=== PATIENT | male | born 1935 | race Caucasian/White ===

== ENCOUNTER 2022-10-28 09:59 | Outpatient (OUT) | payer MEDICARE, SELFPAY ==
--- NOTE | 2022-10-28 11:02 | CA_ITS ---
Patient: LOLA CRUZ Exam Date: 10/28/2022 : 1935 Gender:M Ordering : DR ILIA HODGSON M.D. Admission #: [id number] Family : Order #: [id number] CLICK HERE TO VIEW EXAM ECHOCARDIOGRAM REPORT PROCEDURE: CA ECHO DOPPLER COMPLETE INDICATIONS: ASHD, hypertension, PTCA's COMPARISON: None. DESCRIPTION: COMPLETE ECHOCARDIOGRAM Real-time transthoracic echocardiography with 2D, M-mode, spectral and color flow Doppler performed. QUALITY: Technically difficult due to patients condition. LEFT VENTRICLE: Normal chamber size. Normal left ventricular wall thickness. Systolic function is at the lower limits of normal. LV EF: Lower limits of normal left ventricular ejection fraction, (50-55%). DIASTOLIC: Grade I diastolic dysfunction. ATRIAL SEPTUM: Visually appears intact. LEFT ATRIUM: Normal chamber size. RIGHT ATRIUM: Normal chamber size. RIGHT VENTRICLE: Normal chamber size. Normal right ventricular systolic function. TRICUSPID VALVE: Normal mobility and thickness. Normal with trivial regurgitation. No evidence of pulmonary hypertension. RVSP 25 mmHg MITRAL VALVE: Normal mobility and thickness. No evidence of mitral valve stenosis. There is no mitral annular calcification. Mild mitral regurgitation. AORTIC VALVE: Normal trileaflet appearance. Thickened aortic valve. Normal leaflet mobility. No evidence of aortic valve stenosis. No aortic regurgitation. AORTIC ROOT: Mildly to moderately dilated, measuring 4.0 cm. PULMONIC VALVE: Not well visualized. No stenosis. No regurgitation. PERICARDIUM: No evidence of pericardial effusion. IVC: Collapses with inspirations. IVC is normal in size. PLEURA: CONCLUSION: 1. Left-ventricular systolic function is at the lower limits of normal. LVEF is 50 to 55%. 2. Mild diastolic dysfunction. 3. Normal right ventricular size and systolic function. 4. Mild mitral regurgitation. 5. Normal right-sided pressures. 6. Mildly to moderately dilated aortic root measuring 4.0 cm. Adult Echocardiography Procedure Report Left Ventricle LVEDD (3.7 - 5.6 cm): 4.71 cm LVESD (2.2 - 4.0 cm): 2.90 cm LVIVS thickness (0.6 - 1.2 cm): 0.87 cm LVPW thickness (0.5 - 1.0 cm): 0.95 cm e': 0.07 m/s E - e': 11.02 LVOT Max Gradient: 2.20 mm[Hg] LVOT Area (cm2): 0.74 m/s Peak Velocity (LVOT): 0.74 m/s Mean Velocity (LVOT): 0.55 m/s LVOT Diameter 2.04 cm Left Atrium LA Volume Index (2D A2C): 23.03 ml/m2 Left Atrium Systolic Dimension: 3.67 cm Mitral Valve MV E to A Ratio: 0.69 Mitral Valve A-Wave Peak Velocity: 1.06 m/s Mitral Valve E-Wave Peak Velocity: 0.74 m/s Right Ventricle Aorta AO Root Diam: 3.96 cm Aortic Valve AoV Area (Peak Juan F): 1.98 cm2, 1.98 cm2 AoV Area (VTI): 2.20 cm2, 2.20 cm2 Peak Velocity(Antegrade Flow): 1.22 m/s Peak Gradient(Antegrade Flow): 5.91 mm[Hg] Mean Velocity(Antegrade Flow): 0.84 m/s Mean Gradient(Antegrade Flow): 3.23 mm[Hg] Velocity Time Integral: 33.60 cm Tricuspid Valve Peak Velocity (Regurgitant Flow): 2.37 m/s Pulmonic Valve Peak Velocity: 0.98 m/s Peak Gradient: 3.73 mm[Hg], 4.01 mm[Hg] Right Atrium Right Atrium Systolic Pressure: 53.05 ml, 53.05 ml Dictated by: Ilia Hodgson M.D. on 10/28/2022 at 17:40 Approved by: Ilia Hodgson M.D. on 10/28/2022 at 17:44
== END 2022-10-28 10:00 | disposition home or self-care (01) ==
LOC: CARD 09:59
PROVIDERS: PCP Internal Medicine; Visit Provider Internal Medicine Interventional Cardiology
DX: I25.118 Atherosclerotic heart disease of native coronary artery with other forms of angina pectoris (principal); I51.9 Heart disease, unspecified; I34.0 Nonrheumatic mitral (valve) insufficiency; I77.810 Thoracic aortic ectasia
CPT/HCPCS: 93306

== ENCOUNTER 2022-11-04 08:11 | Outpatient (OUT) | payer MEDICARE, SELFPAY ==
--- NOTE | 2022-11-04 | PCN_ITS ---
CARDIAC STRESS TEST Requesting Physician:? Procedure Date:? 11/04/2022 This was a Lexiscan stress test with myocardial perfusion imaging, performed at the [facility] on 11/04/2022. Informed consent was obtained.? An intravenous line was secured and the patient was attached to electrocardiographic monitoring.??? Baseline vital signs and ECG were obtained.? Lexiscan 0.4 mg was administered intravenously, followed by administration of Cardiolite.? The patient then went on to obtain myocardial perfusion images.? Resting heart rate was 59 BPM and maximum heart rate was 74 BPM.? The resting blood pressure was 168/94 and maximum blood pressure was 176/104.? Resting ECG showed sinus rhythm with first degree AV block with no acute changes.? ECG post infusion of Lexiscan showed sinus rhythm with occasional PVCs and no ischemic ST changes. The patient reported mid sternal chest pain following infusion of Lexiscan, which resolved at the end of the test. SUMMARY OF THE FINDINGS:? 1.? No evidence of ischemic ECG changes following infusion of Lexiscan.? 2.? Uncontrolled systemic hypertension. 3.? Myocardial perfusion images will be reported separately. ISAID
--- NOTE | 2022-11-04 07:45 | NM_ITS ---
Patient: LOLA CRUZ Exam Date: 11/04/2022 : 1935 Gender:M Ordering : DR ILIA HERNANDEZ M.D. Admission #: [id number] Family : DR TAQUERIA GRAYSON M.D. Order #: [id number] CLICK HERE TO VIEW EXAM RADIOLOGY REPORT PROCEDURE: NM LEISA PERF SPECT REST STR COMPARISON: None. INDICATIONS: CHEST PAIN, CORONARY ARTERY DISEASE TECHNIQUE: Exam Description: Stress/Rest one day protocol gated SPECT Rest Imagin.0 mCi Tc-99m Cardiolite IV on 11/04/2022 Stress Imaging 25.4 mCi Tc-99m Cardiolite IV on 11/04/2022 Exercise Protocol: 0.4 mg Lexiscan given IV Heart Rate (bpm): Rest: 59 Max: 74 PMHR: 56 Blood Pressure: Rest: 168/94 Max: 176/104 Symptoms: Rest and peak stress ECG findings were pending and the exercise portion of the study was pending per attending physician Dr. ZACARIAS . For more details please see separate cardiac stress test report. FINDINGS: QUALITY OF STUDY: Good. PERFUSION DEFECT: LOCATION: Basal inferolateral. Mid-inferolateral. SIZE: Small (1-2 segments). SEVERITY: Moderate. TYPE: Persistent. WALL MOTION: Normal. LV SIZE: Normal. 67 mL. TID / TCD: None; 0.8 LVEF: Normal. Calculated EF 64%. SUMMARY: Myocardial perfusion imaging study has ABNORMAL findings. CONCLUSION: 1. Small area of moderate severity fixed defect inferior lateral wall 2. No reversible ischemia 3. Pending exercise test results Dictated by: Lew Osuna MD on 11/05/2022 at 12:51 Approved by: Lew Osuna MD on 11/05/2022 at 12:53
[2022-11-04] MEDS: REGADENOSON 0.4 MG/5 ML SYRINGE IV (09:59)
== END 2022-11-04 08:12 | disposition home or self-care (01) ==
LOC: NM 08:11
PROVIDERS: PCP Internal Medicine; Visit Provider Internal Medicine Interventional Cardiology
DX: I25.118 Atherosclerotic heart disease of native coronary artery with other forms of angina pectoris (principal)
CPT/HCPCS: 78452; 93017; A9500; J2785

== ENCOUNTER 2022-12-08 11:16 | Outpatient (OUT) | payer MEDICARE, SELFPAY ==
--- NOTE | 2022-12-08 | US_ITS ---
[address] [address] Patient Name: LOLA CRUZ MRN: [id number] date: 1935 Sex: M Assigned Patient Location: RAD Current Patient Location: RAD Accession/Order Number: [id number] Exam Date: 12/08/2022 11:40 Report Date: 12/08/2022 12:27 At the request of: JOSE ANGEL DUNCAN Procedure: US renal BI EXAM: US renal BI; [id number] HISTORY: Hematuria. TECHNIQUE: Real-time sonography through the kidneys and bladder was performed. Color and spectral Doppler images of the kidneys were obtained. COMPARISON: Same day abdominal x-ray. CT abdomen/pelvis 05/22/2016 FINDINGS: RIGHT KIDNEY: Size: 10.2 x 4.9 x 4.6 cm. Volume 121 cc. Normal in size and echogenicity. No collecting system dilatation. No echogenic calculi. No solid mass on provided views. Small simple cyst measuring 8 mm. LEFT KIDNEY: Size: 10.7 x 5.7 x 5.3 cm. Volume 169 cc. Normal in size and echogenicity. No collecting system dilatation. No echogenic calculi. No solid mass on provided views. Simple cyst measuring up to 2.4 cm. BLADDER: Mild diffuse bladder wall thickening with 2 small bladder diverticula along the posterior aspect of the bladder. Prevoid bladder volume of 544 mL. US/US renal BI IMPRESSION: 1. No kidney stones or hydronephrosis. 2. Diffuse bladder wall thickening with 2 small bladder diverticula. Appearance favors chronic outlet obstruction, however, urothelial neoplasm cannot be ruled out. Electronically authenticated by: GODFREY PADILLA Date: 12/08/2022 12:27
--- NOTE | 2022-12-08 11:29 | XR_ITS ---
The [address] [address] Patient Name: LOLA CRUZ MRN: [id number] date: 1935 Sex: M Assigned Patient Location: RAD Current Patient Location: RAD Accession/Order Number: [id number] Exam Date: 12/08/2022 11:30 Report Date: 12/08/2022 12:36 At the request of: JOSE ANGEL DUNCAN Procedure: XR abdomen 1V EXAMINATION: XR abdomen 1V, [id number] HISTORY: Hematuria COMPARISON: CT abdomen/pelvis 05/22/2016. FINDINGS: Nonobstructive bowel gas pattern. No discrete pneumoperitoneum, pneumatosis, or portal venous gas within the limitations of this single view radiograph. There are several vascular phleboliths projection of the pelvis. No calcification projecting over either kidney or along the expected course of the ureters. Stool burden is mildly above-average. XR/XR abdomen 1V IMPRESSION: No calcification projecting over either kidney or along the expected course of the ureters. Electronically authenticated by: GODFREY PADILLA Date: 12/08/2022 12:36
== END 2022-12-08 11:17 | disposition home or self-care (01) ==
PROVIDERS: PCP Internal Medicine; Visit Provider Urology
DX: R31.9 Hematuria, unspecified (principal)
CPT/HCPCS: 74018; 76775

== ENCOUNTER 2023-02-23 13:57 | Outpatient (OUT) | payer MEDICARE, SELFPAY ==
--- NOTE | 2023-02-23 14:11 | XR_ITS ---
The [address] [address] Patient Name: LOLA CRUZ MRN: [id number] date: 1935 Sex: M Assigned Patient Location: [facility] Current Patient Location: Accession/Order Number: [id number] Exam Date: 02/23/2023 14:30 Report Date: 02/24/2023 10:46 At the request of: CHERYL MENDEZ Procedure: XR cervical spine w flex/ext EXAM: XR cervical spine w flex/ext HISTORY: Cervical Pain M54.2 COMPARISON: None. TECHNIQUE: Routine views of the XR cervical spine w flex/ext FINDINGS: Anatomy: There are 7 [id number] cervical segments. Bones: No acute fracture or dislocation. No suspicious lytic or sclerotic lesion. Mild multilevel facet hypertrophy. Severe C5-C6 disc and endplate degeneration grade 1 anterolisthesis of C4 on C5 on flexion. Normal atlantoaxial alignment. Other: Unremarkable. XR/XR cervical spine w flex/ext IMPRESSION: Multilevel cervical spondylosis with evidence of instability at the C4-C5 level. Electronically authenticated by: OSCAR CARCAMO Date: 02/24/2023 10:46
== END 2023-02-23 13:58 | disposition home or self-care (01) ==
LOC: RAD 14:00
PROVIDERS: PCP Internal Medicine; Visit Provider Psychiatry & Neurology Neurology
DX: M54.2 Cervicalgia (principal); M47.812 Spondylosis without myelopathy or radiculopathy, cervical region
CPT/HCPCS: 72052

== ENCOUNTER 2023-11-16 18:50 | Inpatient (IN) | payer MEDICARE, SELFPAY ==
[2023-11-16] VITALS (13 sets, daily range): BP systolic 107–140; BP diastolic 54–72; PULSE 82–91; TEMP 37.1–39.6; O2SAT 91–94; BMI 27.9
--- NOTE | 2023-11-16 19:02 | XR_ITS ---
[address] [address] Patient Name: LOLA CRUZ MRN: [id number] date: 1935 Sex: M Assigned Patient Location: ER Current Patient Location: ER Accession/Order Number: [id number] Exam Date: 11/16/2023 19:25 Report Date: 11/16/2023 21:41 At the request of: MIRI APPLE Procedure: XR chest 1V EXAM: XR chest 1V , 11/16/2023 HISTORY: CP, AMS COMPARISON: Previous x-ray from 2018. TECHNIQUE: Portable AP upright x-ray of the chest. FINDINGS: Low lung volumes and mild basal atelectasis. Cardiac silhouette within normal limits. Mild prominence of the perihilar markings. Mild atherosclerotic calcification of the aortic arch. No acute osseous findings. XR/XR chest 1V IMPRESSION: Low lung volumes with mild bibasal atelectasis. Electronically authenticated by: MILA BEST Date: 11/16/2023 21:41
--- NOTE | 2023-11-16 19:02 | ECG_ITS ---
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
--- OUTSIDE RECORDS SUMMARY | 2023-11-16 19:03 | XMS_ITS | CCD ---
Author Organization [facility] [place] [facility] Team Providers Care Service Employee Name Role Phone UNKNOWN, PROVIDER Unavailable Unavailable EMRE DAVIS Unavailable Unavailable EMRE DAVIS Unavailable Unavailable CHERYL TANG Unavailable Unavailable UNKNOWN, PROVIDER Unavailable Unavailable UNKNOWN, PROVIDER Unavailable Unavailable EMRE DAVIS Unavailable Unavailable EMRE DAVIS Unavailable Unavailable PAVEL CRUZ Consulting Unavailable KENAN, DR MENG Primary Care Unavailable REQUEST, DR CHILDS LISTED Admitting Unavaila ble REQUEST, DR CHILDS LISTED Attending Unavaila ble REQUEST, DR CHILDS LISTED Consulting Unavaila ble KENAN, DR MENG Admitting Unavailable DAVIS, DR MENG Attending Unavailable KENAN, DR MENG Consulting Unavailable KENAN, DR MENG Primary Care Unavailable ZIEBOFELIA, DR WEST Zhu Consulting Unavailable HERMANNFLORY Attending Unavailable HERMANN, FLORY Admitting Unavailable HERMANN, FLORY Consulting Unavailable DAVIS, DR MENG Primary Care Unavailable HERMANN, FLORY Admitting Unavailable HERMANN, FLORY Attending Unavailable ZIEBER, DR WEST Zhu Consulting Unavailable DAVIS, DR MENG Primary Care Unavailable HERMANN, FLORY Consulting Unavailable REQUEST, DR CHILDS LISTED Consulting Unavaila ble KENAN, DR MENG Primary Care Unavailable REQUEST, DR CHILDS LISTED Admitting Unavaila ble REQUEST, DR CHILDS LISTED Attending Unavaila EMRE Esparza Primary Care Physician CRISTIANE Davis Primary Care Provider [phone] MD Cheryl Arias Attending Provider [phone] Cheryl Arias Attending Unavailable Cheryl Arias Admitting Unavailable Emre Davis Primary Care Unavailable Zee Grant Unavailable Flory Davenport Unavailable Unavailable ILIA HODGSON Attending Unavailable MOUKARBILIA HEARN Attending Unavailable HERMANNFLORY Pulido Attending Unavailable DEBBI ROBLERO Attending Unavailable JIMBO PIKE Referring Unavailable JERRICA REGAN Attending Unavailable JERRICA REGAN Referring Unavailable BROWN, JIMBO A Referring Unavailable BROWN, JIMBO A Attending Unavailable BROWN, JIMBO A Referring Unavailable BROWN, JIMBO A Attending Unavailable VIRGINIA PRINGLE Attending Unavailable BROWN, JIMBO A Referring Unavailable BROWN, JIMBO A Referring Unavailable BROWN, JIMBO A Attending Unavailable BLACKSVIRGINIA LLOYD Attending Unavailable BROWN, JIMBO A Referring Unavailable KELFLORY KNOWLES Attending Unavailable BROWN, JIMBO A Referring Unavailable BRINK, FLORENCIO Attending Unavailable BROWN, JIMBO A Referring Unavailable KELBLEY, FLORY Attending Unavailable BROWN, JIMBO A Referring Unavailable BRINK, FLORENCIO Attending Unavailable BROWN, JIMBO A Referring Unavailable BRINK, FLORENCIO Attending Unavailable BROWN, JIMBO A Referring Unavailable BRINK, FLORENCIO Attending Unavailable BROWN, JIMBO A Referring Unavailable BRINK, FLORENCIO Attending Unavailable BROWN, JIMBO A Referring Unavailable BRINK, FLORENCIO Attending Unavailable BROWN, JIMBO A Referring Unavailable BRINK, FLORENCIO Attending Unavailable BROWN, JIMBO A Referring Unavailable BROWN, JIMBO A Referring Unavailable BROWN, JIMBO A Attending Unavailable VIRGINIA PRINGLE Attending Unavailable BROWN, JIMBO A Referring Unavailable ANDREA, CHERYL Feliz Attending Unavailable KELBLEFLORY Santos Attending Unavailable BROWN, JIMBO A Referring Unavailable ALLISON ARELLANO Attending Unavailable BROWN, JIMBO A Referring Unavailable BRINK, FLORENCIO Attending Unavailable BROWN, JIMBO A Referring Unavailable BRINK, FLORENCIO Attending Unavailable BROWN, JIMBO A Referring Unavailable BLACKSVIRGINIA LLOYD Attending Unavailable APLINGJERRICA Attending Unavailable BEVioleta, CHREYL Feliz Attending Unavailable BRINK, FLORENCIO Attending Unavailable BROWN, JIMBO A Referring Unavailable BROWN, JIMBO A Referring Unavailable ALLISON ARELLANO Attending Unavailable BROWN, JIMBO A Referring Unavailable BROWN, JIMBO A Attending Unavailable Brown, DO Jimbo A Admitting Unavailable Brown, DO Jimbo A Attending Unavailable Brown, DO Jimbo A Referring Unavailable [facility] [place] XXXX Consulting Unavailable LUDMILA, DO Ronobir R Consulting Unavailabl e LUDMILA, Ronobir R Consulting Unavailable LUDMILA, Ronobir R Consulting Unavailable Brown, DO Jimbo A Admitting Unavailable Brown, DO Jimbo A Attending Unavailable Brown, DO Jimbo A Referring Unavailable SAHARA SUAREZ Attending Unavailable Idris DUNCAN Attending Unavailable SAHARA SUAREZ Attending Unavailable EMRE DAVIS Attending Unavailable SAHARA SUAREZ Attending Unavailable SAHARA SUAREZ Admitting Unavailable Idris DUNCAN Admitting Unavailable Idris DUNCAN Attending Unavailable Allergies Allergy Classification Reported Allergen(s) Allergy Type Date of Onset Reaction(s) Facility (1 source) Bee/Wasp/Ant venom; Translations: [Bee/Wasp Stings] Propensity to adverse reactions (disorder) 2 [facility] (2 sources) ciprofloxacin; Translations: [Cipro] Drug Allergy 2 [facility] (3 sources) Penicillins; Translations: [PENICILLINS] Drug allergy (disorder) 2 [facility] (1 source) bee venom Drug allergy (disorder) 3 [facility] (2 sources) Ciprofloxacin; Translations: [CIPROFLOXACIN] Drug Allergy 2 [facility] (9 sources) Bee/Wasp/Ant venom; Translations: [Bee Stings] Allergy to substance Unknown (qualifier value) [facility] (8 sources) Ciprofloxacin; Translations: [ciprofloxacin] Drug Allergy Unknown (qualifier value) [facility] (8 sources) Penicillin; Translations: [penicillin] Drug Allergy Unknown (qualifier value) [facility] (1 source) Penicillian V Potassium Drug allergy Unknown [facility] Other (1 source) Bee pollen; Translations: [BEE POLLEN] Propensity to adverse reactions to drug (disorder) 4 [facility] Rep[facility] Medications Current Medications Medication Drug Class(es) Dates Sig (Normalized) Sig (Original) acetaminophen 325 mg / oxyCODONE hydrochloride 5 mg oral tablet (1 source) Opioid Agonist Start: 07-22-2023 Percocet 5 mg-325 mg oral tablet See Instructions, 40 tab(s), Refill(s) 0, 1-2 tab(s) Oral q4hr, [facility] #[id number], 175, cm, 07/09/23 12:46:00 EDT, Height/Length Dosing, 93, kg, 07/09/23 12:46:00 EDT, Weight Dosing Start Date: 07/22/23 Status: Ordered [id number] 200 actuat albuterol 0.09 mg/actuat metered dose inhaler (1 source) beta2-Adrenergic Agonist Start: 09-06-2022 take 2 puff(s) by inhalation every four hours as needed for wheezing Albuterol Sulfate HFA 108 (90 Base) MCG/ACT 2 puffs Inhalation every 4 hrs prn SOB, wheezing for 15 days Aug, Active amLODIPine 5 mg oral tablet (1 source) Dihydropyridine Calcium Channel Tres take 1 tablet by mouth every twenty-four hours amLODIPine Besylate 5 MG 1 tablet Orally Once a day Active aspirin 81 mg delayed release oral tablet (8 sources) Platelet Aggregation Inhibitor, Nonsteroidal Anti-inflammatory Drug Start: 07-22-2023 End: 08-21-2023 take 2 tablets by mouth once daily aspirin 81 mg Oral EC Tab 162 mg = 2 tab(s), Oral, Daily, X 30 day(s), # 60 tab(s), Refills(s) 0, Pharmacy: [facility] #[id number], 175, cm, 07/09/23 12:46:00 EDT, Height/Length Dosing, 93, kg, 07/09/23 12:46:00 EDT, Weight Dosing Start Date: 07/22/23 Stop Date: 08/21/23 Status: Ordered Start: 02-13-2020 take 1 tablet by artie th once daily aspirin 81 mg Oral EC Tab 81 mg = 1 tab(s), Oral, Daily, Refills(s) 0, Blood Thinner Start Date: 02/13/20 Status: Ordered take 1 tablet by artie th once daily Aspir-Low 81 MG 1 tablet Orally Once a day Active atorvastatin 10 mg oral tablet (9 sources) HMG-CoA Reductase Inhibitor Start: 07-08-2019 take 1 tablet by mouth once daily atorvastatin 10 mg Tab 10 mg = 1 tab(s), Oral, Daily, High cholesterol Start Date: 07/08/19 Status: Ordered take 1 tablet by artie th every twenty-four hours Lipitor 40 MG 1 tablet Orally Once a day Not-Taking azithromycin 250 mg oral tablet (1 source) Macrolide Antimicrobial Start: 09-06-2022 Azithromycin 250 MG 2 tablet on first day, 1 tablet daily for 4 days Orally daily for 5 days Aug, Active carvedilol 6.25 mg oral tablet (8 sources) alpha-Adrenergic Tres, beta-Adrenergic Tres Start: 07-08-2019 take 6.25 mg by mouth twice daily carvedilol 6.25 mg, Oral, BID Start Date: 07/08/19 Status: Ordered Start: 07-08-2019 carvedilol 3.1 25 mg, Oral Start Date: 07/08/19 Status: Ordered cefdinir 300 mg oral capsule (1 source) Cephalosporin Antibacterial Start: 12-31-2022 End: 01-10-2023 take 1 capsule by mouth every twelve hours cefdinir 300 mg Cap 300 mg = 1 cap(s), Oral, q12hr, Take with daily probitoics., X 10 day(s), # 20 cap(s), Refills(s) 0, [facility]acy: [facility] #[id number], 175, cm, 12/31/22 14:20:00 EDT, Height/Length Dosing, 93, kg, 12/31/22 14:20:00 EDT, Weight Dosing Start Date: 12/31/22 Stop Date: 01/10/23 Status: Ordered celecoxib 100 mg oral capsule (1 source) Nonsteroidal Anti-inflammatory Drug Start: 07-22-2023 take 1 capsule by mouth twice daily as needed for pain CeleBREX 100 mg Cap 100 mg = 1 cap(s), Oral, BID, PRN for pain, # 60 cap(s), Refills(s) 0, [facility][id number], 175, cm, 07/09/23 12:46:00 EDT, Height/Length Dosing, 93, kg, 07/09/23 12:46:00 EDT, Weight Dosing Start Date: 07/22/23 Status: Ordered cephalexin 500 mg oral capsule (1 source) Cephalosporin Antibacterial Start: 07-22-2023 End: 07-29-2023 take 1 capsule by mouth every eight hours Keflex 500 mg Cap 500 mg = 1 cap(s), Oral, q8hr, X 7 day(s), # 21 cap(s), Refills(s) 0, [facility][id number], 175, cm, 07/09/23 12:46:00 EDT, Height/Length Dosing, 93, kg, 07/09/23 12:46:00 EDT, Weight Dosing Start Date: 07/22/23 Stop Date: 07/29/23 Status: Ordered docusate sodium 100 mg oral capsule (1 source) Start: 07-22-2023 take 1 capsule by mouth twice daily as needed for constipation Colace 100 mg Cap 100 mg = 1 cap(s), Oral, BID, PRN for constipation, # 20 cap(s), Refills(s) 0, Pharmacy: [facility] #[id number], 175, cm, 07/09/23 12:46:00 EDT, Height/Length Dosing, 93, kg, 07/09/23 12:46:00 EDT, Weight Dosing Start Date: 07/22/23 Status: Ordered gabapentin 300 mg oral capsule (8 sources) Anti-epileptic Agent Start: 07-08-2019 take 300 mg by mouth twice daily gabapentin 300 mg, Oral, BID, Nerves Start Date: 07/08/19 Status: Ordered Start: 07-08-2019 gabapentin 300 mg, Oral Start Date: 07/08/19 Status: Ordered 24 hr isosorbide mononitrate 30 mg extended release oral tablet (2 sources) Nitrate Vasodilator Start: 07-24-2023 take 1 tablet by mouth once daily isosorbide mononitrate 30 mg ER Tab 30 mg = 1 tab(s), Oral, Daily, # 30 tab(s), Refills(s) 0, Pharmacy: [facility] #[id number], 175, cm, 07/09/23 12:46:00 EDT, Height/Length Dosing, 98.3, kg, 07/23/23 4:38:00 EDT, Weight Dosing Start Date: 07/24/23 Status: Ordered take 1 tablet by artie th every twenty-four hours Isosorbide Mononitrate ER 30 MG 1 tablet in the morning Orally Once a day Not-Taking losartan potassium 50 mg oral tablet (8 sources) Angiotensin 2 Receptor Tres Start: 07-08-2019 take 1 tablet by mouth once daily losartan 50 mg Tab 50 mg = 1 tab(s), Oral, Daily, High blood pressure Start Date: 07/08/19 Status: Ordered Nitro 0.4 mg Tab (6 sources) Start: 02-13-2020 Nitro 0.4 mg Tab = 1 tab(s), SubLingual, q5min, PRN Chest pain, # 25 tab(s), Refills(s) 3 Start Date: 02/13/20 Status: Ordered nitroglycerin 0.4 mg/actuat mucosal spray (2 sources) Nitrate Vasodilator Start: 02-13-2020 Nitro 0.4 mg Tab = 1 tab(s), SubLingual, q5min, PRN Chest pain, # 25 tab(s), Refills(s) 3 Start Date: 02/13/20 Status: Ordered Nitroglycerin 0. 4 MG as directed Sublingual Active pantoprazole 40 mg extended release oral tablet (8 sources) Proton Pump Inhibitor Start: 07-08-2019 take 40 mg by mouth once daily pantoprazole 40 mg, Oral, Daily, Control of stomach acid Start Date: 07/08/19 Status: Ordered Start: 07-08-2019 pantoprazole 4 0 mg, Daily Start Date: 07/08/19 Status: Ordered take 1 tablet by artie th every twenty-four hours Pantoprazole Sodium 40 MG 1 tablet Orally Once a day Active 12 hr ranolazine 500 mg extended release oral tablet (8 sources) Anti-anginal Start: 07-08-2019 take 1 tablet by mouth twice daily ranolazine 500 mg oral ER Tab 500 mg = 1 tab(s), Oral, BID, Chest pain Start Date: 07/08/19 Status: Ordered Vitamin B12 1000 mcg Tab (3 sources) Start: 07-07-2023 take 1 tablet by mouth once daily Vitamin B12 1000 mcg Tab 1,000 mcg = 1 tab(s), Oral, Daily, Prophylaxis Start Date: 07/07/23 Status: Ordered Completed/Discontinued Medications Medication Drug Class(es) Dates Sig (Normalized) Sig (Original) latanoprost 0.05 mg/ml ophthalmic solution (6 sources) Prostaglandin Analog Start: 06-25-2022 latanoprost Opth 0.005% Virginie 1 drop(s), OPTH, Once a day (at bedtime) Start Date: 06/25/22 Status: Ordered Start: 06-25-2022 latanoprost Op th 0.005% Virginie 1 drop(s), OPTH, Once a day (at bedtime), 2.5 mL Start Date: 06/25/22 Status: Ordered omeprazole 20 mg delayed release oral capsule (1 source) Proton Pump Inhibitor take 1 capsule by mouth once daily PriLOSEC 20 MG 1 capsule Orally Once a day Not-Taking tamsulosin hydrochloride 0.4 mg oral capsule (9 sources) alpha-Adrenergic Tres Start: 3 End: 4 tamsulosin 0.4 mg Cap 0.4 mg = 1 cap(s), Cap, Oral, Start date 07/24/23 9:00:00 AM EDT, 07/22/23 7:30:00 EDT Start Date: 07/24/23 Stop Date: 07/24/23 Status: Completed Start: 04-29-2021 End: 04-24-2022 take 1 capsule by mouth twice daily tamsulosin 0.4 mg Cap 0.4 mg = 1 cap(s), Oral, BID, X 90 day(s), # 180 cap(s), Refills(s) 3, Pharmacy: [facility], 175, cm, 04/29/21 11:59:00 EST, Height/Length Dosing, 93, kg, 04/29/21 11:59:00 EST, Weight Dosing Start Date: 04/29/21 Stop Date: 04/24/22 Status: Ordered Tylenol 8 Hour 650 MG (1 source) take 1 tablet by mouth every eight hours as needed Tylenol 8 Hour 650 MG 1 tablet as needed Orally every 8 hrs Not-Taking valACYclovir 1000 mg oral tablet (1 source) Herpesvirus Nucleoside Analog DNA Polymerase Inhibitor, Herpes Simplex Virus Nucleoside Analog DNA Polymerase Inhibitor, Herpes Zoster Virus Nucleoside Analog DNA Polymerase Inhibitor take 1 tablet by mouth every twenty-four hours Valtrex 1 GM 1 tablet Orally every 24 hrs Not-Taking vitamin e 100 unt oral tablet (3 sources) Start: 4 take 1 tablet by mouth every other day vitamin E 100 intl units oral tablet 100 International_Unit = 1 tab(s), Oral, Every other day, Prophylaxis Start Date: 07/07/23 Status: Ordered Problems Active Problems Problem Classification Problem Date Documented Da te Episodic/Chronic Biliary tract disease (1 source) Common bile duct calculus; Translations: [CHOLEDOCHOLITHIASI S NOS] Episodic Coronary atherosclerosis and other heart disease (20 sources) Other forms of angina pectoris; Translations: [Atherosclerotic heart disease of [place] coronary artery with unspecified angina pectoris] Onset: 07-15-2017 Chronic Disorders of lipid metabolism (11 sources) Hyperlipidemia, unspecified; Translations: [Hypercholesterolem ia] Onset: 07-15-2017 07-01-2019 Chronic Esophageal disorders (11 sources) Gastro-esophageal reflux disease without esophagitis; Translations: [Gastroesophageal reflux disease] Onset: 07-15-2017 07-01-2019 Chronic Essential hypertension (11 sources) Essential (primary) hypertension; Translations: [Hypertensive disorder] Onset: 07-15-2017 07-01-2019 Chronic Genitourinary symptoms and ill-defined conditions (7 sources) Urge incontinence of urine 02-13-2020 Chronic Genitourinary symptoms and ill-defined conditions (20 sources) Retention of urine; Translations: [Retention of urine, unspecified] Onset: 10-25-2021 Episodic Hyperplasia of prostate (20 sources) Benign prostatic hyperplasia without lower urinary tract symptoms; Translations: [Benign prostatic hypertrophy with outflow obstruction] Onset: 08-20-2017 Chronic Inflammatory conditions of male genital organs (8 sources) Chronic prostatitis; Translations: [Chronic prostatitis] Onset: 10-25-2021 Chronic Nonspecific chest pain (5 sources) Chest pain, unspecified; Translations: [Chest pain] Onset: 07-15-2017 Episodic Osteoarthritis (3 sources) Unspecified osteoarthritis, unspecified site; Translations: [Arthritis] Onset: 08-20-2017 Chronic Other diseases of bladder and urethra (7 sources) Neurogenic bladder 07-01-2019 Chronic Other diseases of bladder and urethra (7 sources) Male urethral stricture 09-20-2019 Episodic Other diseases of kidney and ureters (2 sources) Urinary tract obstruction; Translations: [Other obstructive and reflux uropathy] Onset: 10-25-2021 Episodic Other diseases of kidney and ureters (2 sources) Acquired renal cyst without neoplastic change; Translations: [Cyst of kidney, acquired] Onset: 12-31-2022 Episodic Other diseases of kidney and ureters (4 sources) Simple renal cyst 12-31-2022 Episodic Other gastrointestinal disorders (7 sources) H/O: abdominal hernia 07-01-2019 Episodic Other lower respiratory disease (1 source) Unspecified acute lower respiratory infection Episodic Other male genital disorders (7 sources) 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 Other male genital disorders (9 sources) Male erectile dysfunction, unspecified; Translations: [Erectile dysfunction] Onset: 06-25-2022 Chronic Other non-epithelial cancer of skin (7 sources) History of malignant basal cell neoplasm of skin 07-01-2019 Episodic Other nutritional; endocrine; and metabolic disorders (7 sources) Body mass index 30+ - obesity 02-13-2020 Chronic Spondylosis; intervertebral disc disorders; other back problems (1 source) Lumbar spondylosis; Translations: [Lumbar spondylosis] Chronic Spondylosis; intervertebral disc disorders; other back problems (5 sources) Radiculopathy, lumbar region; Translations: [Lumbar radiculopathy] Onset: 11-17-2019 Episodic Unclassified (2 sources) Unknown / UNK(Unknown) Onset: 07-15-2017 Unclassified (7 sources) Drug therapy finding 09-20-2019 Urinary tract infections (15 sources) Acute urinary tract infection; Translations: [Urinary tract infectious disease] Onset: 12-31-2022 12-05-2022 Episodic Past or Other Problems Problem Classification Problem Date Documented Da te Episodic/Chronic Cancer of prostate (1 source) Personal history of malignant neoplasm of prostate; Translations: [PERSONAL HISTORY OF MALIGNANT NEOPLASM OF PROSTATE] Onset: 07-15-2017 Episodic Coronary atherosclerosis and other heart disease (3 sources) Presence of coronary angioplasty implant and graft; Translations: [PRESENCE OF CORONARY ANGIOPLASTY IMPLANT AND GRAFT] Onset: 07-15-2017 Episodic Other aftercare (1 source) 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; Translations: [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] Onset: 07-15-2017 Episodic Other lower respiratory disease (2 sources) Shortness of breath; Translations: [Shortness of breath] Onset: 10-22-2022 Episodic Residual codes; unclassified (2 sources) Localized edema; Translations: [Localized edema] Onset: 10-22-2022 Episodic Screening or history of mental health and substance abuse (1 source) Personal history of nicotine dependence; Translations: [PERSONAL HISTORY OF NICOTINE DEPENDENCE] Onset: 07-15-2017 Episodic Results Test Name Value Interpretation Reference Range Facility Office Visiton 09-21-2023 Follow-up visit [id number] Gualberto Cruz 1935 M Date Provider Department Center 09/21/2023 ILIA SINGH KAITLIN [facility] Family History Problem Relation Age of Onset Prostate cancer Other Family Status - Relation Status Age at Other Level of Service:99107 [place] OFFICE/OUTPATIENT ESTABLISHED MOD MDM 30 MIN Normal [facility] HIST - EKG'son 08-14-2023 HIST - EKG's [id number] Normal [facility] Operative Reporton Operative Report Patient: ILEANA CRUZ Age: 88 years Sex: Male : 1935 Associated Diagnoses: None Author: MD Love Ahmad F Postoperative Information Date/ Time: 07/22/2023 08:15:00 Preoperative Diagnosis: Acute postoperative pain., Per surgeon request for post-op pain management. Postoperative Diagnosis: Acute postoperative pain, Per surgeon request for post-op pain management. Procedure: adductor canal nerve block. Anesthesia Method: Local, Monitored anesthesia care. Performed by: MD Love Ahmad F. Medications: Midazolam 2mg, Fentanyl . Complications: None. Notes: The patient was interviewed and examined prior to the planned operation. Anesthesia options were discussed including the adductor canal nerve block for postoperative analgesia. This discussion included a description of the procedure, risks and benefits, as well as alternatives to the block. The patient's questions were addressed and the patient elected to proceed with the adductor canal nerve block. After a timeout, the patient was placed in the supine position and monitored with continuous pulse oximetry, non-invasive blood pressure, and electrocardiography. The thigh was prepped with CHG and sterilely draped. Anatomical landmarks were identified with ultrasonographic guidance. A 2 x 22 gauge Stimuplex needle was inserted without pain or paresthesias. With the needle held in place, and with intermittent attempts for aspiration of blood, 20 cc of 0.5% Ropivacaine was injected at 5cc intervals. Negative aspiration for blood was confirmed at every 5cc interval. No signs or symptoms of intravascular or intraneural injection were evidenced. The patient tolerated the procedure well without complications. . Normal [facility] Comment on above: Result Comment: Elec tronically Signed By: MD Love Ahmad F\.br\Date and Time Signed: 07/27/23 09:54 EDT Progress Note-Physicianon Progress Note-Physician Patient: GUALBERTO CRUZ Age: 88 years Sex: Male : 1935 Associated Diagnoses: None Author: MD Love Ahmad F Postoperative Information Postoperative disposition: Postoperative disposition: To PACU. Optimetrix number: Optimetrix number [id number]. Anesthetic utilized: General. Health Status Allergies: Allergic Reactions (Selected) Severity Not Documented Bee Stings- Anaphylaxis. Cipro- Hives. Penicillin- Hives. Physical Examination VS/Measurements Pain Assessment: Controlled. General: Awake, Alert, Appropriate. Respiratory: Adequate air exchange. Cardiovascular: Stable, Normal peripheral perfusion. Neurological: Normal sensory function, Normal motor function. Assessment Anesthetic outcome No anesthetic complications noted. Adequate pain relief. able to void without difficulty, able to ambulate with assist, tolerating PO intake, no N/V. Review / Management Condition: Stable. Plan Transfer/Discharge: Transfer/Discharge Discharge when meets criteria ( To home ). Normal [facility] Comment on above: Result Comment: Elec tronically Signed By: MD Love Ahmad F\.br\Date and Time Signed: 07/27/23 09:55 EDT Progress Note-Physician Patient: GUALBERTO CRUZ Age: 88 years Sex: Male : 1935 Associated Diagnoses: None Author: MD Love Ahmad F Preoperative Information Time patient last ate or drank:=== (npo 8 hours) Anesthesia history: Patient history: No prior anesthesia problems. Re-evaluation prior to induction: Completed, Initial evaluation reviewed. Review of Systems Respiratory: No shortness of breath. Cardiovascular: No chest pain. Hematology/Lymphatics: No bruising tendency, No bleeding tendency. Health Status Allergies: Allergic Reactions (All) Severity Not Documented Bee Stings- Anaphylaxis. Cipro- Hives. Penicillin- Hives. Current medications: (Selected) Prescriptions Prescribed CeleBREX 100 mg Cap: 100 mg = 1 cap(s), Oral, BID, PRN for pain, # 60 cap(s), Refills(s) 0, Pharmacy: [facility] #[id number], 175, cm, 07/09/23 12:46:00 EDT, Height/Length Dosing, 93, kg, 07/09/23 12:46:00 EDT, Weight Dosing Colace 100 mg Cap: 100 mg = 1 cap(s), Oral, BID, PRN for constipation, # 20 cap(s), Refills(s) 0, Pharmacy: [facility] #[id number], 175, cm, 07/09/23 12:46:00 EDT, Height/Length Dosing, 93, kg, 07/09/23 12:46:00 EDT, Weight Dosing Keflex 500 mg Cap: 500 mg = 1 cap(s), Oral, q8hr, X 7 day(s), # 21 cap(s), Refills(s) 0, Pharmacy: [facility] #[id number], 175, cm, 07/09/23 12:46:00 EDT, Height/Length Dosing, 93, kg, 07/09/23 12:46:00 EDT, Weight Dosing Percocet 5 mg-325 mg oral tablet: See Instructions, 40 tab(s), Refill(s) 0, 1-2 tab(s) Oral q4hr, [facility] #[id number], 175, cm, 07/09/23 12:46:00 EDT, Height/Length Dosing, 93, kg, 07/09/23 12:46:00 EDT, Weight Dosing aspirin 81 mg Oral EC Tab: 162 mg = 2 tab(s), Oral, Daily, X 30 day(s), # 60 tab(s), Refills(s) 0, Pharmacy: [facility] #[id number], 175, cm, 07/09/23 12:46:00 EDT, Height/Length Dosing, 93, kg, 07/09/23 12:46:00 EDT, Weight Dosing isosorbide mononitrate 30 mg ER Tab: 30 mg = 1 tab(s), Oral, Daily, # 30 tab(s), Refills(s) 0, Pharmacy: [facility] #[id number], 175, cm, 07/09/23 12:46:00 EDT, Height/Length Dosing, 98.3, kg, 07/23/23 4:38:00 EDT, Weight Dosing Documented Medications Documented Nitro 0.4 mg Tab: = 1 tab(s), SubLingual, q5min, PRN Chest pain, # 25 tab(s), Refills(s) 3 Vitamin B12 1000 mcg Tab: 1,000 mcg = 1 tab(s), Oral, Daily, Prophylaxis atorvastatin 10 mg Tab: 10 mg = 1 tab(s), Oral, Daily, High cholesterol carvedilol: 6.25 mg, Oral, BID gabapentin: 300 mg, Oral, BID, Nerves latanoprost Opth 0.005% Virginie: 1 drop(s), OPTH, Once a day (at bedtime) losartan 50 mg Tab: 50 mg = 1 tab(s), Oral, Daily, High blood pressure pantoprazole: 40 mg, Oral, Daily, Control of stomach acid ranolazine 500 mg oral ER Tab: 500 mg = 1 tab(s), Oral, BID, Chest pain tamsulosin 0.4 mg Cap: 0.4 mg = 1 cap(s), Oral, Daily, Bladder problems vitamin E 100 intl units oral tablet: 100 International_Unit = 1 tab(s), Oral, Every other day, Prophylaxis Problem list: All Problems 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 / SNOMED CT 6979063618 / Confirmed Coronary artery disease / SNOMED CT 74938703 / Confirmed Chronic GERD / SNOMED CT 153560173 / Confirmed Hypertension / SNOMED CT 3936294924 / Confirmed Hx of hiatal hernia / SNOMED CT 672371833 / Confirmed Neurogenic bladder / SNOMED CT 4725962981 / Confirmed Incomplete emptying of bladder / SNOMED CT 918217018 / Confirmed Hypercholesterolemia / SNOMED CT 82699689 / Confirmed 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 / Confirmed Hx of skin cancer, basal cell / SNOMED CT 7691322478 / Confirmed Urinary urgency / SNOMED CT 049280044 / Confirmed Microscopic hematuria / SNOMED CT 339448699 / Confirmed Retention of urine / SNOMED CT 153068841 / Confirmed Weak urine stream / SNOMED CT 200605433 / Confirmed Anticoagulated / SNOMED CT 464273732 / Confirmed BMI 30.0-30.9,adult / SNOMED CT 345340762 / Confirmed 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 / SNOMED CT 5629760719 / Confirmed BPH with urinary obstruction / SNOMED CT 5325693784 / Confirmed Urge incontinence / SNOMED CT 104560612 / Confirmed Urinary retention with incomplete bladder emptying / SNOMED CT 176516540 / Confirmed Bladder pain / SNOMED CT 04440414 / Confirmed Chronic prostatitis / SNOMED CT 49557676 / Confirmed Erectile dysfunction / SNOMED CT 3022907614 / Confirmed Acute UTI / SNOMED CT 9509818887 / Confirmed Gross hematuria / SNOMED CT 453246051 / Confirmed Cystitis / SNOMED CT 44684631 / Confirmed UTI due to Klebsiella species / SNOMED CT 0600003417 / Confirmed Simple renal cyst / SNOMED CT 890483127 / Confirmed Histories Past Medical History: No active or resolved past medical history items have been selected or recorded. Family History: Primary malignant neoplasm of prostate Father Procedure history: Total knee arthroplasty ([id number]) on 07/22/2023 at 88 Years. Cystourethroscopy with dilation of urethral stricture (888500453) on 11/15/2019 at 84 Years. Cystourethroscopy with di (more content not included)... Normal [facility] Comment on above: Result Comment: Elec tronically Signed By: MD Ivan, Cullen Maddox\.br\Date and Time Signed: 07/27/23 09:53 EDT Discharge Instructionson Discharge Instructions [id number] Normal [facility] BMPon 07-24-2023 Anion gap [Moles/Vol] 9 mmol/L Normal 6-16 [facility] Comment on above: Performed By: #### 1 3804933, 8135985, 8775097, 8156400, 41761078, 4243487, 3454439, 8147610, 7752949 #### [facility] [address] [place] [address] Calcium [Mass/Vol] 8.6 mg/dL Low 8.9-11.1 [facility] Comment on above: Performed By: #### 1 9911241, 9387971, 7485871, 3829732, 99642700, 5353173, 4867925, 1272229, 6215117 #### [facility] [address] [place] [address] Chloride [Moles/Vol] 101 mmol/L Normal 101-111 [facility] Comment on above: Performed By: #### 1 2992265, 6699619, 7445491, 1723246, 39043537, 2218425, 6658363, 5157017, 8323302 #### [facility] [address] [place] [address] CO2 [Moles/Vol] 28 mmol/L Normal 21-31 [facility] Comment on above: Performed By: #### 1 3329292, 6673226, 1223572, 8504426, 53610161, 0049652, 2946510, 0622112, 2650177 #### [facility] [address] [place] [address] Creatinine [Mass/Vol] 1.3 mg/dL Normal 0.5-1.3 [facility] Comment on above: Performed By: #### 1 1976033, 5373574, 9319512, 8185661, 92629875, 3490962, 8108986, 9480177, 7078897 #### [facility] [address] [place] [address] Glucose [Mass/Vol] 104 mg/dL Normal 55-199 [facility] Comment on above: Performed By: #### 1 9010623, 4284541, 3841965, 2892855, 02001873, 4475347, 3845292, 1178126, 7693184 #### [facility] [address] [place] [address] Potassium [Moles/Vol] 5.2 mmol/L Normal 3.5-5.3 [facility] Comment on above: Performed By: #### 1 9215770, 8280642, 5232781, 1965159, 03664156, 7137645, 9514045, 5180544, 7101723 #### [facility] [address] [place] [address] Sodium [Moles/Vol] 133 mmol/L Low 135-145 [facility] Comment on above: Performed By: #### 1 7123541, 2602122, 1923600, 4113267, 63451062, 3118880, 0516993, 1767533, 7606669 #### [facility] [address] [place], [place] [address] Urea nitrogen [Mass/Vol] 26 mg/dL High 5-21 [facility] Comment on above: Performed By: #### 1 4602953, 2139495, 3216082, 4539982, 12567763, 1211683, 1812794, 3092704, 8112764 #### [facility] [address] [place], [place] [address] Urea nitrogen/Creatinin e [Mass ratio] 20 No Units Normal 10-20 [facility] Comment on above: Performed By: #### 1 6702332, 9933545, 1214913, 1207583, 98382412, 2055110, 1398609, 0249160, 0333470 #### [facility] [address] [place], [place] [address] CBC w/ Auto Diffon 4 Basophils/100 WBC (Bld) 0.2 % Normal 0.0-2.0 [facility] Comment on above: Performed By: #### 1 1413062, 4025318, 6933996, 7947521, 98687888, 1657000, 2079115, 0311372, 2610719 #### [facility] [address] [place], [place] [address] Basophils/Leukocyt es Auto (Bld) [Pure # fraction] 0.0 E9/L Normal 0.0-0.2 [facility] Comment on above: Performed By: #### 1 1593295, 6946193, 1325150, 4058582, 86412227, 8607608, 0940953, 9157897, 5864602 #### [facility] [address] [place] [address] Eosinophils (Bld) [#/Vol] 0.0 E9/L Normal 0.0-0.5 [facility] Comment on above: Performed By: #### 1 9760388, 5344168, 4895873, 7162864, 75610324, 9636220, 6646846, 5817938, 7589373 #### [facility] [address] [place] [address] Eosinophils/100 WBC (Bld) 0.1 % Normal 0.0-8.0 [facility] Comment on above: Performed By: #### 1 4991774, 2110525, 6291971, 3124881, 16528399, 9711879, 9405518, 5136284, 5416399 #### [facility] [address] [place] [address] Erythrocyte distribution width (RBC) [Ratio] 13.2 % Normal 10.9-14.2 [facility] Comment on above: Performed By: #### 1 2194952, 3237904, 3832609, 7429953, 16526519, 7743009, 8519822, 9459607, 0663167 #### [facility] [address] [place] [address] Hematocrit (Bld) [Volume fraction] 30.9 % Low 37.7-49.0 [facility] Comment on above: Performed By: #### 1 0297408, 8603364, 5323620, 8751535, 47086855, 0520676, 1180325, 4697004, 0794628 #### [facility] [address] [place] [address] Hemoglobin (Bld) [Mass/Vol] 10.3 g/dL Low 13.5-17.5 [facility] Comment on above: Performed By: #### 1 3500951, 9823239, 3972880, 2182744, 16992441, 6241290, 8540548, 0616206, 8237807 #### [facility] [address] [place] [address] Lymphocytes (Bld) [#/Vol] 1.0 E9/L Normal 1.0-4.0 [facility] Comment on above: Performed By: #### 1 9984617, 1785760, 7721312, 9735885, 36768566, 4756619, 9659038, 7859190, 0055545 #### [facility] [address] [place] [address] Lymphocytes/100 WBC (Bld) 12.6 % Low 14.0-50.0 [facility] Comment on above: Performed By: #### 1 8325274, 9919892, 6542290, 8951692, 10107392, 1849091, 9401167, 5277447, 1333399 #### [facility] [address] [place] [address] MCH (RBC) [Entitic mass] 32.6 pg Normal 27.0-34.0 [facility] Comment on above: Performed By: #### 1 8506109, 6857189, 4614049, 1515818, 57685190, 2877459, 0967739, 8053267, 6299067 #### [facility] [address] [place], [place] [address] MCHC (RBC) [Mass/Vol] 33.5 g/dL Normal 31.4-36.0 [facility] Comment on above: Performed By: #### 1 2522155, 5305626, 1351507, 6843184, 87069341, 8289628, 8861823, 7633963, 8438616 #### [facility] [address] [place] [address] MCV (RBC) [Entitic vol] 97.2 fL Normal 80.0-100.0 [facility] Comment on above: Performed By: #### 1 3804229, 1011752, 4922119, 9418335, 86923923, 5361492, 4864380, 0733256, 6238010 #### [facility] [address] [place] [address] Monocytes (Bld) [#/Vol] 0.9 E9/L Normal 0.2-1.0 [facility] Comment on above: Performed By: #### 1 2488044, 8017956, 1973071, 3681110, 52056366, 6161500, 2570275, 8043482, 9474139 #### [facility] [address] [place] [address] Neutrophils (Bld) [#/Vol] 6.1 E9/L Normal 2.0-7.5 [facility] Comment on above: Performed By: #### 1 4659513, 2705564, 3897494, 2508405, 34216552, 6562694, 9380976, 5913672, 0925846 #### [facility] [address] [place] [address] Neutrophils/100 WBC (Bld) 76.3 % High 36.0-75.0 [facility] Comment on above: Performed By: #### 1 3480264, 6973690, 0997951, 3038722, 15316642, 4279123, 7693687, 2506500, 9151850 #### [facility] [address] [place] [address] Platelet 88.0 E9/L Low 150.0-500. 0 [facility] Comment on above: Result Comment: Slid e review performed Performed By: #### 1 4042815, 4317974, 8219130, 3529872, 49157579, 0100126, 7396291, 2116898, 0770167 #### [facility] [address] [place] [address] Platelet mean volume (Bld) [Entitic vol] 9.5 fL Normal 6.4-10.8 [facility] Comment on above: Performed By: #### 1 4474288, 6562817, 6025814, 2631149, 05716617, 0406574, 0541622, 9716206, 4166526 #### [facility] [address] [place] [address] RBC (Bld) [#/Vol] 3.2 E12/L Low 4.3-5.9 [facility] Comment on above: Performed By: #### 1 8875179, 4962780, 3279919, 0642530, 73678897, 1240550, 5512997, 3468324, 0723112 #### [facility] [address] [place] [address] WBC corrected for nucl RBC Auto (Bld) [#/Vol] 8.0 E9/L Normal 4.0-11.0 [facility] Comment on above: Performed By: #### 1 6165269, 9106407, 5270033, 4018081, 90494214, 5190464, 7266431, 6268371, 3918625 #### [facility] [address] [place] [address] CHEMISTRYOrdered By: SYSTEM SYSTEM on 07-24-2023 Anion gap [Moles/Vol] 9 mmol/L Normal 6 - 16 mEq/L [facility] Calcium [Mass/Vol] 8.6 mg/dL Low 8.9 - 11. 1 mg/dL [facility] Chloride [Moles/Vol] 101 mmol/L Normal 101 - 111 mmol/L [facility] CO2 [Moles/Vol] 28 mmol/L Normal 21 - 31 mmol/L [facility] Creatinine [Mass/Vol] 1.3 mg/dL Normal 0.5 - 1.3 mg/dL [facility] eGFR 52 mL/min/1.73 m2 Low >=59mL/min /1.73 m2 [facility] Glucose [Mass/Vol] 104 mg/dL Normal 55 - 199 mg/dL [facility] Potassium [Moles/Vol] 5.2 mmol/L Normal 3.5 - 5.3 mmol/L [facility] Sodium [Moles/Vol] 133 mmol/L Low 135 - 145 mmol/L [facility] Troponin 399.00 pg/mL Invalid Interpretation Code 15.90 - 38.40 pg/mL [facility] Comment on above: Result Comment: Crit ical Result Verified by Previous Result Critical Result I_TnIHS:399.0 Called to and read back by: CHARLOTTE HERNANDEZ at: 07/24/2023 08:42:33 by:[email or web address] Interpretive Data: T he 95% CI (Confidence Interval) PPV (Positive Predictive Value) for myocardial infarction in females is 38 pg/mL, in males 51 pg/mL. The results should be used in conjunction with clinical conditions of myocardial infarction. (Access High Sensitivity Troponin I Instructions For Use, Dayne Susan, October 2017) Urea nitrogen [Mass/Vol] 26 mg/dL High 5 - 21 mg/dL [facility] Urea nitrogen/Creatinin e [Mass ratio] 20 mg/mg Normal 10 - 20 [facility] Discharge Note-Nursingon Discharge Note-Nursing GUALBERTO CRUZ :1935 Visit Date:07/22/2023 Inpatient Discharge Instructions Your Care Team Admitting Physician - Jimbo Pike DO Consulting Physician [place] [facility] [place] Remy KEYS DO Referring Physician - Jimbo Pike DO Reason for Your Visit Elective right TKA with orthopedics, subsequent chest pain post-operatively Your Diagnosis Chest pain CAD (coronary artery disease) BPH with urinary obstruction Chronic GERD Hypercholesterolemia Hypertension Degenerative arthritis of right knee Other obstructive and reflux uropathy Tests Performed CTA Chest XR Knee 1 or 2 Views Right -- Results Pending -- Please visit your patient portal for your results or contact your primary care physician. This Is Your Medications List acetaminophen-oxycodone (Percocet 5 mg-325 mg oral tablet) aspirin (aspirin 81 mg Oral EC Tab) atorvastatin (atorvastatin 10 mg Tab) carvedilol celecoxib (CeleBREX 100 mg Cap) cephalexin (Keflex 500 mg Cap) cyanocobalamin (Vitamin B12 1000 mcg Tab) docusate (Colace 100 mg Cap) gabapentin isosorbide mononitrate (isosorbide mononitrate 30 mg ER Tab) latanoprost ophthalmic (latanoprost Opth 0.005% Virginie) losartan (losartan 50 mg Tab) nitroglycerin (Nitro 0.4 mg Tab) pantoprazole ranolazine (ranolazine 500 mg oral ER Tab) tamsulosin (tamsulosin 0.4 mg Cap) vitamin E (vitamin E 100 intl units oral tablet) Procedure History Total knee arthroplasty (07/22/2023), Cystourethroscopy with dilation of urethral stricture (11/15/2019), Cystourethroscopy with dilation of urethral stricture (07/12/2019), Cystoscopy (02/28/2015), Urodynamics (02/01/2015), Urodynamics (09/30/2014), Urodynamics (01/15/2006), Cystoscopy (03/31/2005), Urodynamics (09/03/2004), Cystoscopy (08/15/2004), Transrectal biopsy of prostate using ultrasound (US) guidance (08/15/2004), Cardiac catheterisation, Cholecystectomy, Hernia repair, History of lumbar spine surgery, Stent placement, Tonsillectomy, TURP - Transurethral resection of prostate. Discharge Vitals Temperature (Axillary) 36.3 ?C Heart Rate (Monitored) 62 Respiratory Rate 17 Blood Pressure 109/59 Weight 98.3 kg What to do next Instructions From Your Doctor Event Name Event Result Pending Diagnostic Test Results None Pharmacy Information Other: [facility] Previously Scheduled Follow-Up Appointments 2023 1:00 PM EDT With: SAHARA SUAREZ PA-C Where: [facility] Discharge Note-Nursing Critical Lab called @ 0845 trops 399. Mona PRESLEY and Debby RN both notfied @ the same time. Normal [facility] HEMATOLOGYOrdered By: SYSTEM SYSTEM on 07-24-2023 Basophils/100 WBC (Bld) 0.2 % Normal 0.0 - 2.0 % [facility] Basophils/Leukocyt es Auto (Bld) [Pure # fraction] 0.0 E9/L Normal 0.0 - 0.2 E9/L [facility] Eosinophils (Bld) [#/Vol] 0.0 E9/L Normal 0.0 - 0.5 E9/L [facility] Eosinophils/100 WBC (Bld) 0.1 % Normal 0.0 - 8.0 % [facility] Erythrocyte distribution width (RBC) [Ratio] 13.2 % Normal 10.9 - 14.2 % [facility] Hematocrit (Bld) [Volume fraction] 30.9 % Low 37.7 - 49.0 % [facility] Hemoglobin (Bld) [Mass/Vol] 10.3 g/dL Low 13.5 - 17.5 gm/dL [facility] Lymphocytes (Bld) [#/Vol] 1.0 E9/L Normal 1.0 - 4.0 E9/L [facility] Lymphocytes/100 WBC (Bld) 12.6 % Low 14.0 - 50.0 % [facility] MCH (RBC) [Entitic mass] 32.6 pg Normal 27.0 - 34.0 pg [facility] MCHC (RBC) [Mass/Vol] 33.5 g/dL Normal 31.4 - 36.0 gm/dL [facility] MCV (RBC) [Entitic vol] 97.2 fL Normal 80.0 - 100.0 fL [facility] Monocytes (Bld) [#/Vol] 0.9 E9/L Normal 0.2 - 1.0 E9/L [facility] Monocytes/100 WBC (Bld) 10.8 % Normal 4.0 - 14.0 % [facility] Neutrophils (Bld) [#/Vol] 6.1 E9/L Normal 2.0 - 7.5 E9/L [facility] Neutrophils/100 WBC (Bld) 76.3 % High 36.0 - 75.0 % [facility] Platelet 88.0 E9/L Low 150.0 - 500.0 E9/L [facility] Comment on above: Result Comment: Slid e review performed Platelet mean volume (Bld) [Entitic vol] 9.5 fL Normal 6.4 - 10.8 fL [facility] RBC (Bld) [#/Vol] 3.2 E12/L Low 4.3 - 5.9 E12/L [facility] WBC corrected for nucl RBC Auto (Bld) [#/Vol] 8.0 E9/L Normal 4.0 - 11.0 E9/L [facility] Inpatient Clinical Summaryon 07-24-2023 Inpatient Clinical Summary [place] [address] Clinical Summary Person Information: Name: GUALBERTO CRUZ Age: 88 Years : 1935 Sex: Male PCP: EMRE DAVIS MD Marital Status: Race: White Ethnicity: Non- or Language: Peruvian Visit Id: Visit Reason: OA RIGHT KNEE Speciality: Acuity: Enc Type: Ambulatory/Same Day Surgery Med Service: Medical Arrival: 07/22/2023 06:33:41 Discharge: Dispo Type: Address: [address] [id number] Provider Notes: Patient: GUALBERTO CRUZ Age: 88 years Sex: Male : 1935 Associated Diagnoses: None Author: Jimbo Pike DO Discharge Information Discharge Summary Information: Admit Date/Time: 07/22/23 06:33 Discharge Date/Time: 07/24/23 13:13 Admitting Physician: Jimbo Pike DO Referring Physician for Admission: Jimbo Pike DO Consulting Physicians: Remy KEYS DO cardiology Admitting Diagnoses: DJD R knee Discharge Diagnoses: Unilateral primary osteoarthritis, right knee Chest pain, unspecified Other obstructive and reflux uropathy Benign prostatic hyperplasia with lower urinary tract symptoms Gastro-esophageal reflux disease without esophagitis Pure hypercholesterolemia, unspecified Essential (primary) hypertension Atherosclerotic heart disease of [place] coronary artery without angina pectoris procedure: R TKA discharge disposition: home Prescription and Home Meds: acetaminophen-oxycodone (Percocet 5 mg-325 mg oral tablet) See Instructions, 1-2 tab(s) Oral q4hr, 40 tab(s), 0 Refill(s) aspirin (aspirin 81 mg Oral EC Tab) 162 mg, 2 tab(s), Oral, Daily, for 30 day(s), 60 tab(s), 0 Refill(s) atorvastatin (atorvastatin 10 mg Tab) 10 mg, 1 tab(s), Oral, Daily carvedilol 6.25 mg, Oral, BID celecoxib (CeleBREX 100 mg Cap) 100 mg, 1 cap(s), Oral, BID, PRN: for pain, 60 cap(s), 0 Refill(s) cephalexin (Keflex 500 mg Cap) 500 mg, 1 cap(s), Oral, q8hr, for 7 day(s), 21 cap(s), 0 Refill(s) cyanocobalamin (Vitamin B12 1000 mcg Tab) 1,000 mcg, 1 tab(s), Oral, Daily docusate (Colace 100 mg Cap) 100 mg, 1 cap(s), Oral, BID, PRN: for constipation, 20 cap(s), 0 Refill(s) gabapentin 300 mg, Oral, BID isosorbide mononitrate (isosorbide mononitrate 30 mg ER Tab) 30 mg 1 tab(s) Oral Daily, 30 tab(s), Start: 07/24/2023, 0 Refill(s) latanoprost ophthalmic (latanoprost Opth 0.005% Virginie) 1 drop(s), OPTH, Once a day (at bedtime) losartan (losartan 50 mg Tab) 50 mg, 1 tab(s), Oral, Daily nitroglycerin (Nitro 0.4 mg Tab) 1 tab(s), SubLingual, q5min, PRN: Chest pain, 25 tab(s), 3 Refill(s) pantoprazole 40 mg, Oral, Daily ranolazine (ranolazine 500 mg oral ER Tab) 500 mg, 1 tab(s), Oral, BID tamsulosin (tamsulosin 0.4 mg Cap) 0.4 mg, 1 cap(s), Oral, Daily vitamin E (vitamin E 100 intl units oral tablet) 100 International_Unit, 1 tab(s), Oral, Every other day Diagnosis: 1:Chest pain; 2:CAD (coronary artery disease); 3:BPH with urinary obstruction; 4:Chronic GERD; 5:Hypercholesterolemia; 6:Hypertension; Degenerative arthritis of right knee; Other obstructive and reflux uropathy Problems Active Simple renal cyst UTI due to Klebsiella species Cystitis Gross hematuria Acute UTI Erectile dysfunction Chronic prostatitis Bladder pain Urinary retention with incomplete bladder emptying BMI 30.0-30.9,adult Urge incontinence Incomplete emptying of bladder BPH with urinary obstruction 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 Urinary urgency Weak urine stream Anticoagulated Retention of urine Microscopic hematuria Hx of skin cancer, basal cell Organic impotence Hypercholesterolemia Neurogenic bladder Hx of hiatal hernia Hypertension Chronic GERD Coronary artery disease Smoking Status: Functional Status: Sensory Deficits: History of Falls: Mobility Assistance Prior to Admission: ADLs: Moderate assistance Current Level of Assistance for Self-Care/Mobility: Cognitive Status: Allergies penicillin (Hives) Cipro (Hives) Bee Stings (Anaphylaxis) Measurements: Height: Weight: 98.3 kg Blood Pressure: 109 mmHg / 59 mmHg BMI: Procedures Total knee arthroplasty (07/22/2023) Immunizations No Immunizations Documented This Visit Final Med List: acetaminophen-oxycodone (Percocet 5 mg-325 mg oral tablet) 1-2 tab(s) Oral q4hr. Refills: 0. aspirin (aspirin 81 mg Oral EC Tab) 2 Tablets By Mouth every day for 30 Days. Refills: 0. atorvastatin (atorvastatin 10 mg Tab) 1 Tablets By Mouth every day. carvedilol 6.25 Milligram By Mouth 2 times a day. celecoxib (CeleBREX 100 mg Cap) 1 Capsules By Mouth 2 times a day as needed for pain. Refills: 0. cephalexin (Keflex 500 mg Cap) 1 Capsule (more content not included)... Normal [facility] Inpatient Patient Summaryon 07-24-2023 Inpatient Patient Summary [address] [address] Patient Discharge Instructions PERSON INFORMATION Name: GUALBERTO CRUZ Date of : 1935 Current Date: 07/24/2023 13:14:10 PHYSICIANS Admitting Physician: Jimbo Pike DO Primary Care Physician: EMRE DAVIS MD PCP Comment: Discharge Diagnosis: 1:Chest pain; 2:CAD (coronary artery disease); 3:BPH with urinary obstruction; 4:Chronic GERD; 5:Hypercholesterolemia; 6:Hypertension; Degenerative arthritis of right knee; Other obstructive and reflux uropathy Condition at Discharge: Improved GUALBERTO CRUZ has been given the following list of follow-up instructions, prescriptions, and patient education materials: PATIENT FOLLOW-UP INFORMATION Diet: Discharge Activity: Discharge Restrictions: Wound Care Instructions: Remove Your Dressing In Days Call Your Doctor For: IF UNABLE TO CONTACT YOUR PHYSICIAN AND YOU FEEL IT IS AN EMERGENCY, GO TO THE NEAREST EMERGENCY ROOM OR CALL 911 Home Treatment: Devices/Equipment: Special Services: Additional Instructions: Primary Care Physician to provide the following pending test results: None Follow up: With: Address: When: EMRE DAVIS [address] [place] [address] Business (1) Comments: Call for followup appointment With: Address: When: Jimbo Pike [address] [place] [address] Business (1) 08/06/2023 10:30 AM In the event that this physician does not participate in your insurance network, please consult with your insurance company to find a nearby participating provider. Type Location Start Finish State [place] [facility]ONAH Schaefer 01/14/2024 1:00 PM 01/14/2024 1:15 PM Confirmed Comment: NANCY Yan EUGENE R, have received the attached patient education materials/instructions and have verbalized understanding: Patient Signature Date Clinican/Nurse Signature Date HERE ARE THE MEDICATION CHANGES THAT OCCURRED DURING YOUR HOSPITAL STAY New Medications [id number], [address], [place] [id number], [phone] acetaminophen-oxycodone (Percocet 5 mg-325 mg oral tablet) 1-2 tab(s) Oral q4hr. Refills: 0. Last Dose: Next Dose: celecoxib (CeleBREX 100 mg Cap) 1 Capsules By Mouth 2 times a day as needed for pain. Refills: 0. Last Dose: Next Dose: cephalexin (Keflex 500 mg Cap) 1 Capsules By Mouth every 8 hours for 7 Days. Refills: 0. Last Dose: Next Dose: docusate (Colace 100 mg Cap) 1 Capsules By Mouth 2 times a day as needed for constipation. Refills: 0. Last Dose: Next Dose: isosorbide mononitrate (isosorbide mononitrate 30 mg ER Tab) 1 Tablets By Mouth every day. Refills: 0. Last Dose: Next Dose: Medications to Continue Taking That Have Changed [id number], [address] [facility] [place] [id number], [phone] START: aspirin (aspirin 81 mg Oral EC Tab) 2 Tablets By Mouth every day for 30 Days. Refills: 0. Last Dose: Next Dose: STOP: aspirin (aspirin 81 mg Oral EC Tab) 1 Tablets By Mouth every day. Medications to Continue with No Changes Other Medications atorvastatin (atorvastatin 10 mg Tab) 1 Tablets By Mouth every day. Last Dose: Next Dose: carvedilol 6.25 Milligram By Mouth 2 times a day. Last Dose: Next Dose: cyanocobalamin (Vitamin B12 1000 mcg Tab) 1 Tablets By Mouth every day. Last Dose: Next Dose: gabapentin 300 Milligram By Mouth 2 times a day. Last Dose: Next Dose: latanoprost ophthalmic (latanoprost Opth 0.005% Vigrinie) 1 Drops Ophthalmic once a day (at bedtime). Last Dose: Next Dose: losartan (losartan 50 mg Tab) 1 Tablets By Mouth every day. Last Dose: Next Dose: nitroglycerin (Nitro 0.4 mg Tab) 1 Tablets Sublingual every 5 minutes as needed Chest pain. Last Dose: Next Dose: pantoprazole 40 Milligram By Mouth every day. Last Dose: Next Dose: ranolazine (ranolazine 500 mg oral ER Tab) 1 Tablets By Mouth 2 times a day. Last Dose: Next Dose: tamsulosin (tamsulosin 0.4 mg Cap) 1 Capsules By Mouth every day. Last Dose: Next Dose: vitamin E (vitamin E 100 intl units oral tablet) 1 Tablets By Mouth every other day. Last Dose: Next Dose: (more content not included)... Normal [facility] Interdisciplinary Note - Ismael e Manageron 07-24-2023 Interdisciplinary Note - Manager Leadership Development CRM to room to discuss DC planning. Patient is awake, alert and oriented. Patient is from home with his Spouse. His daughter will be his ride home at DC. Patient verified PCP, home DME and insurance. Patient is here as observation for Right knee. He developed some CP post adry of SX . HE had a CTA. He was seen by ends down checker here. medications were added. Patient should DC today. Patient is set up with progressive program. Patient has FWW. Patient has no other anticipated DC needs. Patient was provided CRM contact, white board updated. CRM following Should DC 07/23 [facility] Comment on above: Result Comment: Elec tronically Signed By: Constance Yuan\.br\Date and Time Signed: 07/24/23 09:34 EDT IntraOperative Documentson 0 07-24-2023 IntraOperative Documents [id number]#1.00TIFF [facility] Monitor Recordon 07-24-2023 Monitor Record [id number]#1.00TIFF [facility] Monitor Record [id number]#1.00TIFF [facility] Monitor Record [id number]#1.00TIFF [facility] Monitor Record [id number]#1.00TIFF [facility] Outside Progress Noteon 05 Outside Progress Note [id number]#1.00TIFF [facility] Outside Recordson 07-24-2023 Outside Records [id number]#1.00TIFF [facility] Patient Education - Texton 0 07-24-2023 Patient Education - Text [place], [place] [facility] DISCHARGE INSTRUCTIONS: TOTAL KNEE ARTHROPLASTY INCISION CARE: The bandage may be changed by your home Physical Therapist at 7 days postoperatively and worn an additional 7 days. A new Mepilex bandage should then be placed. The bandage is waterproof, so you may shower at home. Steri-strips (paper tape strips) may be applied to the incision if any slight wound separation is noted. These should remain in place for five days and then they may come off in the shower. Please notify the office if any increase in redness, tenderness, drainage, fever, or wound separation is noted beyond this point. MEDICATIONS: You may resume your home medications at the time of discharge. Arixtra and Lovenox are mild blood thinners that prevent the development of blood clots in the legs. One of these has been used during your hospitalization. After discharge home you should continue the use of two stomach coated baby Aspirin tablets daily with your largest meal for 30 days after home discharge. Please notify your doctor if you have a stomach sensitivity to Aspirin or history of previous stomach ulcers. Pain medication has been prescribed as well. You may continue to use the pain medication every four hours as needed. Any narcotic pain medication can cause side effects including stomach upset, constipation, or light-headedness. You should not drive or operate machinery, or drink alcohol while using the narcotic pain medication. You should not use other pain medications with this prescription pain medication unless further directed by your physician. PHYSICAL THERAPY Continue the range of motion and strengthening exercises initiated by Physical Therapy in the hospital. Continue weight bearing, as ordered, to the operated knee as directed in Physical Therapy. This will be with the use of a walker or crutches initially. Physical therapy as begun in the hospital will continue at home, possibly with the certified surgical first assistant of Home Health Physical Therapy or in the hospital as an outpatient. When you have become independent with the physical therapy program, this will then be discontinued as a supervised program and you will be instructed to continue the physical therapy exercises at home. Your exercises are barron to successful rehabilitation. You should gain full extension first, hopefully before hospital discharge, and gain 90 degrees flexion by one month post-op. Do the exercises daily, twice if preferred. DRIVING: Please do not drive for 4-6 weeks pending therapy progress. 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 It is therefore advised not to drive until after your first office visit following surgery. FOLLOW-UP OFFICE VISIT: Jimbo Pike, DO [facility] [address] [place] [address] Reviewed: 08-12 Normal [facility] Progress Note-Physicianon Progress Note-Physician Patient: GUALBERTO CRUZ Age: 88 years Sex: Male : 1935 Associated Diagnoses: None Author: Jimbo Pike DO POD 2 s/p R TKA denies CP today. no SOB. states he feels ready to go home sitting in chair watching television R LE: mild swelling, comp supple, dressing dry, NV status unchanged WBC 8 Hgb 10.3 Hct 30.9 Plt 88 Plan: - D/C home, this was confirmed with hospitalist and cardiology service Objective Vital Signs 07/24/2023 11:55 EDT Heart Rate Monitored 62 bpm SpO2 97 % 07/24/2023 11:54 EDT Temperature Axillary 36.3 DegC 07/24/2023 11:54 EDT Systolic Blood Pressure 109 mmHg Diastolic Blood Pressure 59 mmHg Normal [facility] Comment on above: Result Comment: Elec tronically Signed By: Jimbo Pike DO\.br\Date and Time Signed: 07/24/23 13:11 EDT Progress Note-Physician Seen and examined earlier this a.m. after staff nurse mentions that he had developed a 10 out of 10 chest pain. He was treated accordingly with analgesics and prescribed home medications. I elected to send him for a CTA of the chest to rule out occult causes of chest pain aside from cardiac in nature. I did reach out to Dr. Yancey at 1500 to determine plan, he will evaluate patient and provide recommendations. General: alert, no acute distress Skin: warm, dry Head: no trauma, normocephalic Neck: Trachea midline, no adenopathy, no tenderness Eye: normal conjunctiva, sclera clear ENMT: oral mucosa moist, no pharyngeal erythema or exudate Cardiovascular: regular rate and rhythm, normal peripheral perfusion Respiratory: Lungs CTA, respirations non labored Gastrointestinal: soft, non distended, no tenderness, no guarding. Back: No tenderness, Normal ROM, Normal alignment. Extremities: no deformity, no trauma. Right knee dressing CDI Neurological: oriented x 4, LOC appropriate for age Psychiatric: cooperative, affect appropriate for age Normal [facility] Comment on above: Result Comment: Elec tronically Signed By: Mona Parsons\.br\Date and Time Signed: 07/24/23 00:16 EDT\.br\Electronically Co-Signed By: Rodrigo PARKER, Cullen\.br\Date and Time Co-Signed: 07/24/23 11:09 EDT Troponinon 07-24-2023 Troponin 399.00 pg/mL Abnormal 15.90-38.4 0 [facility] Comment on above: Result Comment: Crit ical Result Verified by Previous Result Critical Result I_TnIHS:399.0 Called to and read back by: CHARLOTTE HERNANDEZ at: 07/24/2023 08:42:33 by:[id number] The 95% CI (Confidence Interval) PPV (Positive Predictive Value) for myocardial infarction in females is 38 pg/mL, in males 51 pg/mL. The results should be used in conjunction with clinical conditions of myocardial infarction. (Access High Sensitivity Troponin I Instructions For Use, [employer], October 2017) Performed By: #### 1 [id number], 7110926, 0297816, 4401507, 34421574, 6279166, 0862365, 5466134, 5662877 #### [facility] [address] [place] [address] XR Knee 1 or 2 Views Righton 07-24-2023 XR Knee 1 or 2 Views Right Exam Date/Time: 07/22/2023 11:15 EDT Reason for Exam: Post-op evaluation;Other (please specify) Report IMPRESSION: UNREMARKABLE RECENT RIGHT TOTAL KNEE ARTHROPLASTY PLACEMENT. CLINICAL HISTORY: Post-op evaluation. COMPARISON: Outside radiographs 06/04/2023, and prosthesis radiation CT 07/07/2023. TECHNIQUE: Portable AP and cross table lateral radiographs of the right knee were obtained. FINDINGS: A right total knee arthroplasty has been placed in expected position. There is no evidence of hardware loosening, periprosthetic fracture, or other findings of concern identified. Soft tissue emphysema and overlying skin juliette are noted from recent placement. Ordering Provider: Jimbo Pike FINAL REPORT Dictated: 07/24/2023 3:47 pm Kevin Monroe MD Signed (Electronic Signature): 07/24/2023 3:47 pm Signed by: Fer PARKER, Kevin Mcdaniel Transcribed by: MONICA Technologist: MAYNOR Technical Comments Radiation Dose: Ka,r in mGy = na DAP = na Normal [facility] eGFRon 07-24-2023 eGFR 52 mL/min/1.73 m2 Low >=59 [facility] Comment on above: Order Comment: Order added by Discern Expert. Performed By: #### 1 7071442, 8608189, 8524264, 8685302, 33938551, 4465219, 8423402, 4327365, 3097690 #### [facility] [address] [place] [address] BUNon 07-23-2023 Urea nitrogen [Mass/Vol] 23 mg/dL High 5-21 [facility] Comment on above: Performed By: #### 1 4163434, 9789178, 0195700, 8581322, 80747635, 2854645, 4793050, 9937124, 2906365 #### [facility] [address] [place] [address] CBC w/ Auto Diffon 4 Basophils/100 WBC (Bld) 0.1 % Normal 0.0-2.0 [facility] Comment on above: Performed By: #### 1 7807125, 2253334, 4166180, 4608814, 60033532, 6237835, 1800243, 9386815, 9971646 #### [facility] [address] [place] [address] Basophils/Leukocyt es Auto (Bld) [Pure # fraction] 0.0 E9/L Normal 0.0-0.2 [facility] Comment on above: Performed By: #### 1 1518426, 4026943, 0995226, 6596317, 83202367, 5677411, 2004518, 7581344, 1762381 #### [facility] [address] [place] [address] Eosinophils (Bld) [#/Vol] 0.0 E9/L Normal 0.0-0.5 [facility] Comment on above: Performed By: #### 1 3102010, 6462209, 7800039, 0355736, 06466409, 8500925, 1465004, 0591046, 3889894 #### [facility] [address] [place] [address] Eosinophils/100 WBC (Bld) 0.0 % Normal 0.0-8.0 [facility] Comment on above: Performed By: #### 1 6105582, 2771448, 7433096, 2597269, 25054239, 7353861, 7671949, 2237263, 7128813 #### [facility] [address] [place] [address] Erythrocyte distribution width (RBC) [Ratio] 13.2 % Normal 10.9-14.2 [facility] Comment on above: Performed By: #### 1 0259651, 3714168, 6650465, 7123529, 00905217, 1237931, 7721423, 6615585, 7918634 #### [facility] [address] [place] [address] Hematocrit (Bld) [Volume fraction] 36.1 % Low 37.7-49.0 [facility] Comment on above: Performed By: #### 1 3710689, 8703363, 3830902, 8202388, 14594552, 6746759, 2894495, 7614398, 7480979 #### [facility] [address] [place] [address] Hemoglobin (Bld) [Mass/Vol] 11.9 g/dL Low 13.5-17.5 [facility] Comment on above: Performed By: #### 1 1064956, 4640155, 1617299, 7580435, 63431644, 9826023, 2200639, 5479366, 6072896 #### [facility] [address] [place] [address] Lymphocytes (Bld) [#/Vol] 0.6 E9/L Low 1.0-4.0 [facility] Comment on above: Performed By: #### 1 4393884, 2762010, 1864129, 0285720, 61241365, 2706423, 9527817, 9798655, 9118788 #### [facility] [address] [place] [address] Lymphocytes/100 WBC (Bld) 4.8 % Low 14.0-50.0 [facility] Comment on above: Performed By: #### 1 9607439, 1092139, 4109288, 0027892, 23340044, 3953037, 9264254, 4136512, 5751478 #### [facility] [address] [place] [address] MCH (RBC) [Entitic mass] 32.1 pg Normal 27.0-34.0 [facility] Comment on above: Performed By: #### 1 1693193, 3257345, 8448288, 0161057, 79260931, 6674657, 1686361, 1099979, 1526632 #### [facility] [address] [place], [place] [address] MCHC (RBC) [Mass/Vol] 33.1 g/dL Normal 31.4-36.0 [facility] Comment on above: Performed By: #### 1 0214303, 4752223, 6519680, 7155892, 08557504, 7416517, 9004631, 1847385, 9623105 #### [facility] [address] [place] [address] MCV (RBC) [Entitic vol] 97.2 fL Normal 80.0-100.0 [facility] Comment on above: Performed By: #### 1 5844791, 3520421, 8155425, 6788272, 16137407, 4021497, 8285052, 3307602, 0374219 #### [facility] [address] [place] [address] Monocytes (Bld) [#/Vol] 0.4 E9/L Normal 0.2-1.0 [facility] Comment on above: Performed By: #### 1 3773825, 6466421, 8398103, 3303048, 95116144, 3518905, 7280994, 7522819, 7814439 #### [facility] [address] [place] [address]378 Neutrophils (Bld) [#/Vol] 10.6 E9/L High 2.0-7.5 [facility] Comment on above: Performed By: #### 1 5811300, 0765962, 5142363, 0274887, 93493652, 8814483, 5228306, 8002893, 5454699 #### [facility] [address] [place] [address] Neutrophils/100 WBC (Bld) 91.2 % High 36.0-75.0 [facility] Comment on above: Performed By: #### 1 5226753, 7874137, 4275017, 3708573, 70374960, 6156588, 9360343, 2676324, 3223451 #### [facility] [address] [place] [address] Platelet 104.0 E9/L Low 150.0-500. 0 [facility] Comment on above: Performed By: #### 1 6852805, 9922547, 7399422, 2670027, 95321082, 9857997, 4387817, 6668899, 0443774 #### [facility] [address] [place] [address] Platelet mean volume (Bld) [Entitic vol] 9.0 fL Normal 6.4-10.8 [facility] Comment on above: Performed By: #### 1 8034796, 4316193, 9676453, 4501213, 32896083, 9744196, 4344878, 5795387, 4617939 #### [facility] [address] [place] [address]14 RBC (Bld) [#/Vol] 3.7 E12/L Low 4.3-5.9 [facility] Comment on above: Performed By: #### 1 6343825, 8522924, 5115818, 9323295, 76226254, 0140445, 7115163, 5771866, 0579753 #### [facility] [address] [place] [address] WBC corrected for nucl RBC Auto (Bld) [#/Vol] 11.6 E9/L High 4.0-11.0 [facility] Comment on above: Performed By: #### 1 1022629, 9188902, 0428865, 8262155, 60532991, 7685479, 0533542, 5898756, 5918804 #### [facility] [address] [place] [address] CHEMISTRYOrdered By: SYSTEM SYSTEM on 07-23-2023 Albumin [Mass/Vol] 3.5 g/dL Normal 3.3 - 5.0 gm/dL [facility] Albumin/Globulin [Mass ratio] 1.5 {ratio} Normal 1.1 - 2.2 [facility] ALP [Catalytic activity/Vol] 73 [iU]/d Normal 21 - 98 Int._Unit/ L [facility] ALT No additional P-5'-P [Catalytic activity/Vol] 12 [iU]/d Normal 6 - 46 Int._Unit/ L [facility] Anion gap [Moles/Vol] 14 mmol/L Normal 6 - 16 mEq/L [facility] AST [Catalytic activity/Vol] 17 [iU]/d Normal 5 - 43 Int._Unit/ L [facility] Bilirubin [Mass/Vol] 0.8 mg/dL Normal 0.0 - 1.1 mg/dL [facility] Calcium [Mass/Vol] 8.8 mg/dL Low 8.9 - 11. 1 mg/dL [facility] Chloride [Moles/Vol] 100 mmol/L Low 101 - 111 mmol/L [facility] Cholesterol [Mass/Vol] 114 mg/dL Low 120 - 200 mg/dL [facility] Cholesterol in HDL [Mass/Vol] 43 mg/dL Invalid Interpretation Code [facility] Comment on above: Result Comment: '>= 60 LOW RISK' '<= 40 HIGH RISK' Cholesterol in LDL [Mass/Vol] 67 mg/dL Normal <=129mg/dL [facility] Cholesterol in VLDL [Mass/Vol] 13 mg/dL Normal 7 - 40 mg/dL [facility] CK.MB [Mass/Vol] 7.7 ng/mL High 0.3 - 4.9 ng/mL [facility] Globulin (S) [Mass/Vol] 2.3 g/dL Normal 1.4 - 4.0 gm/dL [facility] Glucose [Mass/Vol] 146 mg/dL Normal 55 - 199 mg/dL [facility] Potassium [Moles/Vol] 5.1 mmol/L Normal 3.5 - 5.3 mmol/L [facility] Protein [Mass/Vol] 5.8 g/dL Low 6.0 - 7.8 gm/dL [facility] Sodium [Moles/Vol] 131 mmol/L Low 135 - 145 mmol/L [facility] Total CK 84 [iU]/d Normal 14 - 261 Int._Unit/ L [facility] Triglyceride [Mass/Vol] 67 mg/dL Normal <=149mg/dL [facility] Troponin 198.10 pg/mL Invalid Interpretation Code 15.90 - 38.40 pg/mL [facility] Comment on above: Result Comment: Crit ical Result Verified by Previous Result Critical Result I_TnIHS:198.1 Called to and read back by: LINDA RUEDA at: 07/23/2023 06:32:42 by:[email or web address] Interpretive Data: T cuauhtemoc 95% CI (Confidence Interval) PPV (Positive Predictive Value) for myocardial infarction in females is 38 pg/mL, in males 51 pg/mL. The results should be used in conjunction with clinical conditions of myocardial infarction. (Access High Sensitivity Troponin I Instructions For Use, [employer], October 2017) Urea nitrogen/Creatinin e [Mass ratio] 18 mg/mg Normal 10 - 20 [facility] Troponin 131.70 pg/mL Invalid Interpretation Code 15.90 - 38.40 pg/mL [facility] Comment on above: Result Comment: Crit ical Result I_TnIHS:131.7 Called to and read back by: KRIS OSPINA RN at: 07/23/2023 04:38:23 by:[id number] Interpretive Data: T he 95% CI (Confidence Interval) PPV (Positive Predictive Value) for myocardial infarction in females is 38 pg/mL, in males 51 pg/mL. The results should be used in conjunction with clinical conditions of myocardial infarction. (Access High Sensitivity Troponin I Instructions For Use, [employer], October 2017) CHEMISTRYOrdered By: Rosalva Barnes on 07-23-2023 Anion gap [Moles/Vol] 13 mmol/L Normal 6 - 16 mEq/L [facility] Chloride [Moles/Vol] 99 mmol/L Low 101 - 111 mmol/L [facility] eGFR 52 mL/min/1.73 m2 Low >=59mL/min /1.73 m2 [facility] Potassium [Moles/Vol] 4.9 mmol/L Normal 3.5 - 5.3 mmol/L [facility] Sodium [Moles/Vol] 129 mmol/L Low 135 - 145 mmol/L [facility] CKon 07-23-2023 Total CK 84 Int._Unit/L Normal 14-261 [facility] Comment on above: Performed By: #### 1 3177292, 3023961, 3482033, 7131966, 55993213, 9010492, 8500046, 8441252, 2755134 #### [facility] [address] [place] [address] CKMBon 07-23-2023 CK.MB [Mass/Vol] 7.7 ng/mL High 0.3-4.9 [facility] Comment on above: Performed By: #### 1 8463338, 9986864, 8744077, 6737926, 30021748, 8779832, 2346535, 2893308, 3735873 ####[facility] [address] [place] [address] CMPon 07-23-2023 Albumin [Mass/Vol] 3.5 g/dL Normal 3.3-5.0 [facility] Comment on above: Performed By: #### 1 4794733, 4438851, 2905735, 5891447, 44720354, 9520503, 3058754, 8983910, 4022921 #### [facility] [address] [place] [address] Albumin/Globulin (S) [Mass conc ratio] 1.5 Normal 1.1-2.2 [facility] Comment on above: Performed By: #### 1 7958888, 3190671, 8498483, 6167715, 91698341, 2796799, 5585410, 4232936, 5233662 #### [facility] [address] [place] [address] ALP [Catalytic activity/Vol] 73 Int._Unit/L Normal 21-98 [facility] Comment on above: Performed By: #### 1 2915766, 4434042, 2215571, 4162305, 15587651, 2271484, 6422345, 6855308, 3615735 #### [facility] [address] [place] [address] ALT No additional P-5'-P [Catalytic activity/Vol] 12 Int._Unit/L Normal 6-46 [facility] Comment on above: Performed By: #### 1 8704910, 3311124, 8211465, 4907366, 10613044, 4788126, 0150363, 5125042, 9878977 #### [facility] [address] [place] [address] 19259 Anion gap [Moles/Vol] 14 mmol/L Normal 6-16 [facility] Comment on above: Performed By: #### 1 5133930, 5480059, 2443504, 6852265, 31411217, 9154632, 7411496, 6095445, 7359178 #### [facility] [address] [place] [address] 75045 AST [Catalytic activity/Vol] 17 Int._Unit/L Normal 5-43 [facility] Comment on above: Performed By: #### 1 6128786, 5480417, 3958074, 9432057, 53287566, 6581401, 4399622, 2422270, 6021674 #### [facility] [address] [place] [address] Bilirubin [Mass/Vol] 0.8 mg/dL Normal 0.0-1.1 [facility] Comment on above: Performed By: #### 1 8722199, 1336028, 9458627, 3941740, 49147070, 2266293, 7248819, 5532683, 3841383 #### [facility] [address] [place] [address] Calcium [Mass/Vol] 8.8 mg/dL Low 8.9-11.1 [facility] Comment on above: Performed By: #### 1 5224983, 7267293, 4533465, 8612211, 75842831, 9452506, 9018808, 4223830, 7196474 #### [facility] [address] [place] [address] Chloride [Moles/Vol] 100 mmol/L Low 101-111 [facility] Comment on above: Performed By: #### 1 6181924, 4658776, 7462365, 0259573, 40907622, 7534217, 2997335, 4942388, 8045998 #### [facility] [address] [place] [address] CO2 [Moles/Vol] 22 mmol/L Normal 21-31 [facility] Comment on above: Performed By: #### 1 2922167, 6804752, 2691496, 6179119, 41727612, 1047923, 9814798, 3735287, 7087100 #### [facility] [address] [place] [address] Creatinine [Mass/Vol] 1.3 mg/dL Normal 0.5-1.3 [facility] Comment on above: Performed By: #### 1 3469495, 1990245, 4788375, 0224207, 71991153, 1243249, 9937429, 8666319, 0996491 #### [facility] [address] [place] [address] Globulin (S) [Mass/Vol] 2.3 g/dL Normal 1.4-4.0 [facility] Comment on above: Performed By: #### 1 7643832, 0703765, 8952337, 5144058, 55488306, 0117411, 4429652, 1583462, 4152275 #### [facility] [address] [place] [address] Glucose [Mass/Vol] 146 mg/dL Normal 55-199 [facility] Comment on above: Performed By: #### 1 3732139, 9626332, 3395671, 3587928, 55133436, 3812151, 3308678, 4067203, 8388428 #### [facility] [address] [place] [address] Potassium [Moles/Vol] 5.1 mmol/L Normal 3.5-5.3 [facility] Comment on above: Performed By: #### 1 [id number], 7965217, 3412276, 0403192, 48177694, 6979174, 2041392, 2386879, 9497102 #### [facility] [address] [place] [address] Protein [Mass/Vol] 5.8 g/dL Low 6.0-7.8 [facility] Comment on above: Performed By: #### 1 [id number], 1641383, 4302799, 1816448, 16784783, 1861227, 5682701, 1280185, 0839262 #### [facility] [address] [place] [address] Sodium [Moles/Vol] 131 mmol/L Low 135-145 [facility] Comment on above: Performed By: #### 1 [id number], 5494765, 2929832, 2809831, 64991221, 1711607, 5166340, 7471337, 3294609 #### [facility] [address] [place] [address] Urea nitrogen [Mass/Vol] 23 mg/dL High 5-21 [facility] Comment on above: Performed By: #### 1 [id number], 1644871, 8480885, 0045685, 40497076, 5015421, 7982276, 0233615, 7584409 #### [facility] [address] [place] [address] Urea nitrogen/Creatinin e [Mass ratio] 18 No Units Normal 10-20 [facility] Comment on above: Performed By: #### 1 [id number], 9725157, 5423114, 6897038, 45717791, 4973656, 3993120, 2506339, 7619800 #### [facility] [address] [place] [address] CTA Cheston 07-23-2023 CTA Chest Exam Date/Time: 07/23/2023 09:11 EDT Reason for Exam: Pulmonary embolism (PE) suspected, high prob;Other (please specify) Report IMPRESSION: NO EVIDENCE OF PULMONARY EMBOLI OR ACTIVE CARDIOPULMONARY DISEASE. EXAM: CTA Chest DATE: 07/23/2023 8:54 AM CLINICAL HISTORY: Intermittent chest pain and chest pressure. Former smoker. COMPARISON: Two-view chest radiographs 07/07/2023. TECHNIQUE: Spiral enhanced images were obtained of the chest after the infusion of approximately 82 mL of Isovue 370 contrast with pulmonary artery CTA protocol. Routine and volume rendered images were performed on a three-dimensional workstation. All CT scans at this facility use dose modulation, iterative reconstruction, and/or weight based dosing when appropriate to reduce radiation dose to as low as reasonably achievable. Unless otherwise stated, incidental findings identified in this report do not require routine follow-up imaging. FINDINGS: Pulmonary arteries: Normal in caliber without filling defects identified to suggest pulmonary emboli. Thoracic aorta: Normal in caliber with minimal to mild atherosclerotic plaquing. There is no dissection. Heart: Not enlarged. Coronary artery calcifications and/or stents are present. No significant pericardial effusion. Mediastinum and lymph nodes: No pathologically enlarged mediastinal, hilar, or axillary lymph nodes. Lungs and pleura: Very small layering pleural effusions and mild predominantly dependent probable atelectasis and/or scarring. No focal consolidation, suspicious nodules, or pneumothorax. Thyroid: Unremarkable. Esophagus: Unremarkable. Musculoskeletal: No acute osseous findings. Mild degenerative changes. Upper abdomen: Noncontributory. Report Ordering Provider: oMna Pitts FINAL REPORT Dictated: 07/23/2023 9:27 am Kevin Monroe MD Signed (Electronic Signature): 07/23/2023 9:27 am Signed by: Kevin Monroe MD Transcribed by: MONICA Technologist: SILVINA Technical Comments GFR (mL/min/1/73m2) 52 Contrast: Isovue 370 Contrast amount in ml's: 82 Normal [facility] Consent for Anesthesiaon Consent for Anesthesia [id number]#[id number] Normal [facility] Consultation Noteon 07-23-19 24 Consultation Note History of Present I llness Patient is a 88-year-old male with past medical history as noted below comes in for elective right total knee arthroplasty. At approximately 12 midnight patient began to have some chest pain and requested Tums. Patient had 1 or 2 doses of Tums and chest pain did not go away. He states that he normally takes 3 or 4 Tums at home. Patient was given a GI cocktail at that time and chest pain resolved completely. Overnight lab work was ordered and patient did have positive troponin. I did see patient this morning and reviewed the events from last night. Patient states that he has been having chest pain on and off for a long time prior to the surgery. Patient did see his outpatient ends down checker from [facility] for preoperative evaluation. Patient states that at home he has these bouts frequently and takes 3-4 times at a time and the pain goes away normally. Patient states that he does occasionally take a nitroglycerin sublingual to alleviate the pain. Patient denies any associated shortness of breath but has been having some nausea. Patient did have an episode of emesis while eating dinner last night. When I see patient this morning he has no chest pain. Denies any shortness of breath currently. Patient states that he does feel mildly nauseated this morning. Patient denies any fevers, chills, headache, vision changes. Review of Systems 14 Systems reviewed and negative except as noted in HPI. Physical Exam Vitals & Measurements T: 36.8 ?C(Axillary) TMIN: 36.2 ?C(Axillary) TMAX: 36.8 ?C(Axillary) HR: 83(Monitored) RR: 16 BP: 167/89 SpO2: 96% WT: 98.3 kg General: alert, no acute distress Skin: warm, dry Head: no trauma, normocephalic Neck: Trachea midline, no adenopathy, no tenderness Eye: normal conjunctiva, sclera clear ENMT: oral mucosa moist, no pharyngeal erythema or exudate. hearing grossly intact Cardiovascular: regular rate and rhythm, no murmur/gallop/rub Respiratory: Lungs CTA, respirations non labored , no w/r/r Gastrointestinal: Positive bowel sound, soft, non distended, no tenderness, no guarding. Extremities: Right knee with wound dressing?clean, dry, intact Osteopathic: Deferred due to being noncontributory to current case. Neurological: oriented x 4, LOC appropriate for age, CN II-XII intact, motor strength equal & normal bilaterally, sensation equal & normal bilaterally, speech normal Psychiatric: cooperative, affect appropriate for age, normal judgement, normal psychiatric thoughts. Assessment/Plan 1. Chest pain (R07.9: Chest pain, unspecified) No active anginal symptoms. Will ask cardiology to see patient because of elevated troponin. Will continue patient on Coreg, ARB, Ranexa, statin. Will add aspirin 81 mg p.o. daily to patient's regimen. 2. CAD (coronary artery disease) (I25.10: Atherosclerotic heart disease of [place] coronary artery without angina pectoris) See #1 3. BPH with urinary obstruction (N40.1: Benign prostatic hyperplasia with lower urinary tract symptoms) Continue alpha-tres. Continue catheter. Of note patient self caths 2-3 times per day. 4. Chronic GERD (K21.9: Gastro-esophageal reflux disease without esophagitis) Continue PPI 5. Hypercholesterolemia (E78.00: Pure hypercholesterolemia, unspecified) Continue statin 6. Hypertension (I10: Essential (primary) hypertension) Resume home medications once reconciled. Hydralazine iv prn. see orders. Orders: Al hydroxide/Mg hydroxide/simethicone, 30 mL, Susp-Oral, Oral, Once, Stop date 07/23/23 1:00:00 EDT, Routine, Start date 07/23/23 1:00:00 EDT aspirin, 81 mg = 1 tab(s), Tab-Chew, Oral, Daily, Routine, Start date 07/23/23 9:00:00 EDT, 07/23/23 6:53:00 EDT atropine/hyoscyamine/PB/scopo mildred, 10 mL, Elixir, Oral, Once, Stop date 07/23/23 1:00:00 EDT, Routine, Start date 07/23/23 1:00:00 EDT lidocaine topical, 200 mg, 10 mL, Soln-Oral, Oral, Once, Stop date 07/23/23 1:00:00 EDT, Routine, Start date 07/23/23 1:00:00 EDT Consult to Cardiology Troponin 0 Hr. Troponin 1 Hr. 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 Normal [facility] Comment on above: Result Comment: Elec tronically Signed By: Remy KEYS DO\.br\Date and Time Signed: 07/23/23 06:54 EDT Creatinineon 07-23-2023 Creatinine [Mass/Vol] 1.3 mg/dL Normal 0.5-1.3 [facility] Comment on above: Performed By: #### 1 [id number], 7068004, 2013010, 0079208, 94705255, 3683378, 1034554, 5146364, 3572839 #### [facility] [address] [place] [address] HEMATOLOGYOrdered By: Osbaldo Davis on 07-23-2023 Basophils/100 WBC (Bld) 0.1 % Normal 0.0 - 2.0 % Remisol Heme Basophils/Leukocyt es Auto (Bld) [Pure # fraction] 0.0 E9/L Normal 0.0 - 0.2 E9/L Remisol Heme Eosinophils (Bld) [#/Vol] 0.0 E9/L Normal 0.0 - 0.5 E9/L Remisol Heme Eosinophils/100 WBC (Bld) 0.0 % Normal 0.0 - 8.0 % Remisol Heme Erythrocyte distribution width (RBC) [Ratio] 13.2 % Normal 10.9 - 14.2 % Remisol Heme Hematocrit (Bld) [Volume fraction] 36.1 % Low 37.7 - 49.0 % Remisol Heme Hemoglobin (Bld) [Mass/Vol] 11.9 g/dL Low 13.5 - 17.5 gm/dL Remisol Heme Lymphocytes (Bld) [#/Vol] 0.6 E9/L Low 1.0 - 4.0 E9/L Remisol Heme Lymphocytes/100 WBC (Bld) 4.8 % Low 14.0 - 50.0 % Remisol Heme MCH (RBC) [Entitic mass] 32.1 pg Normal 27.0 - 34.0 pg Remisol Heme MCHC (RBC) [Mass/Vol] 33.1 g/dL Normal 31.4 - 36.0 gm/dL Remisol Heme MCV (RBC) [Entitic vol] 97.2 fL Normal 80.0 - 100.0 fL Remisol Heme Monocytes (Bld) [#/Vol] 0.4 E9/L Normal 0.2 - 1.0 E9/L Remisol Heme Monocytes/100 WBC (Bld) 3.9 % Low 4.0 - 14.0 % Remisol Heme Neutrophils (Bld) [#/Vol] 10.6 E9/L High 2.0 - 7.5 E9/L Remisol Heme Neutrophils/100 WBC (Bld) 91.2 % High 36.0 - 75.0 % Remisol Heme Platelet 104.0 E9/L Low 150.0 - 500.0 E9/L Remisol Heme Platelet mean volume (Bld) [Entitic vol] 9.0 fL Normal 6.4 - 10.8 fL Remisol Heme RBC (Bld) [#/Vol] 3.7 E12/L Low 4.3 - 5.9 E12/L Rem[facility] Heme WBC corrected for nucl RBC Auto (Bld) [#/Vol] 11.6 E9/L High 4.0 - 11.0 E9/L Remisol Heme Interdisciplinary Note - Ismael e Manageron 07-23-2023 Interdisciplinary Note - Manager Leadership Development CRM to room to discuss DC planning. Patient is awake, alert and oriented. Patient is from home with his Spouse. His daughter will be his ride home at DC. Patient verified PCP, home DME and insurance. Patient is here as observation for Right knee. He developed some CP last adry and will get a CTA today. Patient is set up with progressive program. Patient has FWW. Patient has no other anticipated DC needs. Patient was provided CRM contact, white board updated. CRM following Normal [facility] Comment on above: Result Comment: Elec tronically Signed By: Constance Yuan\.br\Date and Time Signed: 07/23/23 11:46 EDT IntraOperative Documentson 0 07-23-2023 IntraOperative Documents [id number]#1.00TIFF Normal [facility] IntraOperative Documents [id number]#1.00TIFF Normal [facility] - Chemistry and C hemistry - challengeOrdered By: Rosalva Barnes on 07-23-2023 CO2 [Moles/Vol] 22 mmol/L Normal 21 - 31 mmol/L Remisol Chem Creatinine [Mass/Vol] 1.3 mg/dL Normal 0.5 - 1.3 mg/dL Remisol Chem Urea nitrogen [Mass/Vol] 23 mg/dL High 5 - 21 mg/dL Remisol Chem Lipid Panelon 07-23-2023 Cholesterol [Mass/Vol] 114 mg/dL Low 120-200 [facility] Comment on above: Performed By: #### 1 3943027, 2386830, 7999306, 5784916, 06201016, 1128493, 7774397, 1626820, 2839283 #### [facility] [address] [place] [address] Cholesterol in HDL [Mass/Vol] 43 mg/dL Invalid Interpretation Code [facility] Comment on above: Result Comment: '>= 60 LOW RISK' '<= 40 HIGH RISK' Performed By: #### 1 [id number], 4328703, 6346711, 6338611, 87078031, 8293324, 8258670, 6758294, 0712642 #### [facility] [address] [place] [address] Cholesterol in LDL [Mass/Vol] 67 mg/dL Normal <=129 [facility] Comment on above: Performed By: #### 1 4358129, 4800829, 8727261, 7616861, 89783059, 2294015, 2535891, 1708972, 6291631 #### [facility] [address] [place] [address] Cholesterol in VLDL [Mass/Vol] 13 mg/dL Normal 7-40 [facility] Comment on above: Performed By: #### 1 4606224, 3966873, 3391848, 5497634, 13925678, 2481640, 9468527, 9624973, 7881436 #### [facility] [address] [place] [address] Triglyceride [Mass/Vol] 67 mg/dL Normal <=149 [facility] Comment on above: Performed By: #### 1 8654785, 5806429, 8380151, 4398024, 15724100, 7941964, 3181750, 1263475, 5257771 #### [facility] [address] [place] [address] Lyteson 07-23-2023 Anion gap [Moles/Vol] 13 mmol/L Normal 6-16 [facility] Comment on above: Performed By: #### 1 3665517, 1214982, 7262494, 8682111, 43268853, 6195408, 2568666, 3668489, 1944907 #### [facility] [address] [place] [address] Chloride [Moles/Vol] 99 mmol/L Low 101-111 [facility] Comment on above: Performed By: #### 1 1803362, 3021127, 3889585, 8607726, 63824228, 9111067, 7435937, 0262557, 2754494 #### [facility] [address] [place] [address] CO2 [Moles/Vol] 22 mmol/L Normal 21-31 [facility] Comment on above: Performed By: #### 1 4431667, 3127175, 7975652, 3120019, 52369894, 1472576, 3314537, 3796251, 2969465 #### [facility] [address] [place] [address] Potassium [Moles/Vol] 4.9 mmol/L Normal 3.5-5.3 [facility] Comment on above: Performed By: #### 1 8604699, 3867705, 7016566, 5070338, 27427556, 9639314, 3333724, 9256824, 1310726 #### [facility] [address] [place] [address] Sodium [Moles/Vol] 129 mmol/L Low 135-145 [facility] Comment on above: Performed By: #### 1 9527369, 4456469, 7929697, 1277662, 06877861, 5553226, 9619308, 0349807, 0372180 #### [facility] [address] [place] [address] Main OR Intraoperative Recor don 07-23-2023 Main OR Intraoperative Record IntraOp Document Type FT Summary Primary Physician: Jimbo Pike DO Finalized Date/Time: 07/23/23 16:23:26 Pt. Name: GUALBERTO CRUZ/Sex: 1935 Male Med Rec #: [id number] Physician: Jimbo Pike DO Financial #: [id number] Pt. Type: A Room/Bed: [place] [address] Admit/Disch: 07/22/23 06:33:41 - Institution: Case Times FT Entry 1 Patient Times In Room 07/22/23 09:06:00 Out Room 07/22/23 10:55:00 Procedure Times Start 07/22/23 09:43:00 Stop 07/22/23 10:44:00 Anesthesia Times Start 07/22/23 09:06:00 Stop 07/22/23 10:55:00 Block Timeout w/ 07/22/23 08:28:00 Anesthesia Last Modified By: Ade ALEXANDRE, Jerrica Silver 07/22/23 10:55:21 General Comments: BLOCK DONE BY DR. LOVE AT [phone]; ASSISTED BY Saritha HICKEY, BETTIE; HR= 65BPM, O2= 97% ON ROOM AIR, TRANSPORTED BACK TO [facility] AFTER THE BLOCK WITH SIDE RAILS UP AND PLACED ON TELECOMMUNICATIONS EQUIPMENT INSTALLER -Constantine HERNANDEZ RN 07/23/2023 Chart opened for charge review per Medhat Daly RN. [place] Case Attendance FT Entry 1 Entry 2 Entry 3 Case Attendee Hugh SANTOS, Lucio Browne RN, Jerrica Silver Role Performed MECHANISM ASSEMBLER Scrub - Primary Frozen Food Department Manager - Primary Time In 07/22/23 09:06:00 07/22/23 09:06:00 07/22/23 09:06:00 Time Out 07/22/23 10:55:00 07/22/23 10:42:00 07/22/23 10:55:00 Procedure KNEE TOTAL ROBOT KNEE TOTAL ROBOT KNEE TOTAL ROBOT ARTHROPLASTY(Right) ARTHROPLASTY(Right) ARTHROPLASTY(Right) Comments Last Modified By: Ade ALEXANDRE, Jerrica Hernandez RN, Jerrica Hernandez RN, Jerrica Raines P 07/22/23 Yanna P 07/22/23 Yanna P 07/22/23 10:55:22 10:55:22 10:55:22 Entry 4 Entry 5 Entry 6 Case Attendee Kandace Pisano BANANA GRADER, Jimbo Oscar DO Role Performed Staff - Other BANANA GRADER/SA Surgeon - Primary Time In 07/22/23 09:06:00 07/22/23 09:06:00 07/22/23 09:25:00 Time Out 07/22/23 10:55:00 07/22/23 10:55:00 07/22/23 10:44:00 Procedure KNEE TOTAL ROBOT KNEE TOTAL ROBOT KNEE TOTAL ROBOT ARTHROPLASTY(Right) ARTHROPLASTY(Right) ARTHROPLASTY(Right) Comments 2ND SCRUB Last Modified By: Ade ALEXANDRE, Jerrica Hernandez RN, Jerrica Hernandez RN, Jerrica Raines P 07/22/23 Yanna P 07/22/23 Yanna P 07/22/23 10:55:22 10:55:22 10:55:22 Perioperative Protocols FT Pre-Care Text: Implements protective measures prior to operative or invasive procedure, confirms identity before the operative or invasive procedure, verifies operative procedure, surgical site, and laterality Entry 1 Procedure(s) KNEE TOTAL ROBOT Patient Identity Birthday, Blood Band, ARTHROPLASTY(Right) Verified (select at ID Band Check, Patient least 2): Participation Consents / H and P Anesthesia Consent, Operative Site Present Verified HandP, Surgery/Procedure Marking Verified Consent, Transfusion Consent Surgical Site Yes Laterality Verified Yes Verified Procedure Verified Yes Correct Patient Yes Position Verified Availability Equipment, Implant, Prep Dry n/a Verified (If Medication Applicable) PreOp Antibiotic Yes Time Out Jimbo Pike DO, Given Jean-Claude Mccullough CRNA, Smitha GALLEGO, Rory W, Ade ALEXANDRE, Cee Holley Kendall R, Dellinger, Sydney A Time Out Complete 07/22/23 09:42:00 Outcomes Met? Yes Last Modified By: Jerrica Hernandez RN 07/22/23 09:43:29 Post-Care Text: The patient is free from signs and symptoms of injury caused by extraneous objects Allergy Information FT Pre-Care Text: Verifies allergies Entry 1 Allergies Reviewed? Yes Allergies Reviewed Self/Patient With Outcomes Met? Yes Last Modified By: Jerrica Hernandez RN 07/22/23 09:39:35 Post-Care Text: The patient received appropriate medication(s) safely administered during the perioperative period Surgical Procedures FT Entry 1 Procedure Description Procedure KNEE TOTAL ROBOT Modifiers Right ARTHROPLASTY Surgeon Description RIGHT TOTAL KNEE ARTHROPLASTY WITH ROBOTIC ASSIST Primary Procedure Yes Primary Surgeon Jimbo Pike DO Start 07/22/23 09:43:00 Stop 07/22/23 10:44:00 Anesthesia Type General Surgical Service Orthopedics Wound Class 1 - Clean Last Modified By: Malika ALEXANDRE, BSN, Barb 07/23/23 12:40:12 General Case Data FT Pre-Care Text: Classifies surgical wound, implements aseptic technique, initiates traffic control Entry 1 Case Information OR OR 7 FT Case Level Level 6 Wound Class 1 - Clean Specialty Orthopedics ASA Class 3 Preop Diagnosis RIGHT KNEE Postop Same As Preop Yes OSTEOARTHRITIS Postop Diagnosis RIGHT KNEE Outcomes Met? Yes OSTEOARTHRITIS Last Modified By: Jerrica Hernandez RN 07/22/23 09:43:18 Post-Care Text: The patient is free from signs and symptoms of infection Skin Assessment (Pre Procedure) FT Pre-Care Text: Implements protective measures to prevent skin/ tissue injury due to thermal or mechanical sources Evaluates for signs and symptoms of physical injury to skin and tissue Entry 1 Skin Integrity Intact, P (more content not included)... Normal [facility] Message from Medicareon Message from Medicare [id number]#1.00TIFF Normal [facility] Monitor Recordon 07-23-2023 Monitor Record [id number]#1.00TIFF Normal [facility] Preoperative Documentson Preoperative Documents [id number]#1.00TIFF [facility] Progress Note-Nurseon 2023 Progress Note-Nurse At 22:20, this RN was notified that the pt. had been having chest pains. Upon assessment, the pt. stated that he was having 8/10 chest pain that felt a lot like it was caused by current heartburn . He also stated that he normally gets chest pain frequently and would take tums or Sub-lingual nitro and it would go away. This RN obtained a 12-lead ECG, VS, and called the on-call orthopedic doctor, Dr. Doty at 2240. Dr. Doty gave phone verbal RBV order for PRN q6 hr Calcium Carbonate and to consult the [facility] [place]ist if the chest pain did not go away within an hour after giving the PRN med. After an hour at 0000, this RN put in an order for consultation to [facility] hospitalist due to the fact that the pt. still had chest pain/heart burn that was coming and going . Night-shift hospitalist, Dr. Keys contacted and made aware of the situation and pt. status. Dr Keys ordered the GI Cocktail One hour after medications where given to the pt., the pt. stated that his chest pain had went away. Normal [facility] Progress Note-Physicianon Progress Note-Physician Patient: GUALBERTO CRUZ Age: 88 years Sex: Male : 1935 Associated Diagnoses: None Author: Jimbo Pike DO POD 1 s/p R TKA knee pain controlled. c/o CP, no SOB. CP started yesterday evening, associated episode of vomiting. hospitalist consulted and eval appreciated R LE: dressings dry, comp supple, ankle PF/DF intact, brisk cap refill WBC 11.6 Hgb 11.9 Hct 36.1 Plt 104 post op xrays reviewed yesterday. prosthesis in satisfactory position Plan: - cardiology consult pending - D/C on hold for now - cont PT - DVT prophylaxis: early ambulation, SCDs, Lovenox Objective Vital Signs 07/23/2023 0:08 EDT Heart Rate Monitored 83 bpm SpO2 96 % 07/23/2023 0:07 EDT Respiratory Rate 16 br/min 07/23/2023 0:07 EDT Systolic Blood Pressure 167 mmHg HI Diastolic Blood Pressure 89 mmHg 07/23/2023 0:07 EDT Temperature Axillary 36.8 DegC HI Normal [facility] Comment on above: Result Comment: Elec tronically Signed By: Jimbo Pike DO\.br\Date and Time Signed: 07/23/23 12:24 EDT Troponin 0 Hr.on 07-23-2023 Troponin 131.70 pg/mL Abnormal 15.90-38.4 0 [facility] Comment on above: Result Comment: Crit ical Result I_TnIHS:131.7 Called to and read back by: KRIS OSPINA RN at: 07/23/2023 04:38:23 by:[email or web address] The 95% CI (Confidence Interval) PPV (Positive Predictive Value) for myocardial infarction in females is 38 pg/mL, in males 51 pg/mL. The results should be used in conjunction with clinical conditions of myocardial infarction. (Access High Sensitivity Troponin I Instructions For Use, Dayne Susan, October 2017) Performed By: #### 1 [id number] ####[facility] [address] [place] [address] Troponin 1 Hr.on 07-23-2023 Troponin 198.10 pg/mL Abnormal 15.90-38.4 0 [facility] Comment on above: Order Comment: to be drawn at 0419. [email or web address] 07/23/2023 03:45:00 EDT Result Comment: Crit ical Result Verified by Previous Result Critical Result I_TnIHS:198.1 Called to and read back by: LINDA RUEDA at: 07/23/2023 06:32:42 by:[email or web address] The 95% CI (Confidence Interval) PPV (Positive Predictive Value) for myocardial infarction in females is 38 pg/mL, in males 51 pg/mL. The results should be used in conjunction with clinical conditions of myocardial infarction. (Access High Sensitivity Troponin I Instructions For Use, Dayne Virgil, October 2017) Performed By: #### 1 [id number], 3525688, 2703554, 8605794, 98452909, 4926298, 9979407, 0181347, 3388979 #### [facility] [address] [place] [address] eGFRon 07-23-2023 eGFR 52 mL/min/1.73 m2 Low >=59 [facility] Comment on above: Order Comment: Order added by Discern Expert. Performed By: #### 1 [id number], 1211252, 2276615, 7500770, 77627861, 7424262, 2544483, 3317695, 6526217 #### [facility] [address] [place] [address] ABO/Rhon 07-22-2023 ABO/Rh Positive Invalid Interpretation Code [facility] Comment on above: Performed By: #### 1 [id number], 4195223, 58598337, [id number] ####[facility] [address] [place] [address] ABO/Rh History Checkon 07-21 ABO/Rh History Check Verified Hx Blood Type Normal [facility] Comment on above: Performed By: #### 1 [id number], [id number], [id number], [id number] ####[facility] [id number] [place] [address] ABSCon 07-22-2023 ABSC Gel Interp Negative Normal [facility] Comment on above: Performed By: #### 1 [id number], [id number], [id number], [id number] ####[facility] [id number] [place] [address] BLOOD BANKOrdered By: Osbaldo See on 07-22-2023 ABO/Rh Interp Positive Invalid Interpretation Code [facility] Subsection ABSC Gel Interp Negative (07/22/23 7:24 AM) Normal [facility] [place] Subsection Blood Bank ID#on 07-22-2023 BBID# [id number] Invalid Interpretation Code [facility] Comment on above: Performed By: #### 1 [id number], [id number] ####[facility] [id number] [place] [address] Consent for Treatmenton Consent for Treatment [id number] Normal [facility] H&P Updateon 07-22-2023 H&P Update [id number] Normal [facility] HEMATOLOGYOrdered By: SYSTEM SYSTEM on 07-22-2023 Platelets (Bld) [#/Vol] 100.0 E9/L Low 150.0 - 500.0 E9/L [facility] Comment on above: Result Comment: Slid e review performed Main OR PACU I Recordon Main OR PACU I Record PACU Phase I Document Type FT Summary Primary Physician: Jimbo Pike DO Finalized Date/Time: 07/22/23 13:16:04 Pt. Name: GUALBERTO CRUZ/Sex: 1935 Male Med Rec #: [id number] Physician: Jimbo Pike DO Financial #: [id number] Pt. Type: A Room/Bed: [place] [address] Admit/Disch: 07/22/23 06:33:41 - Institution: Case Times PACU I FT Pre-Care Text: Identifies barriers to communication and implements measures to provide psychological support Develops individualized plan of care, and ensures continuity of care Maintains patient's dignity and privacy, and maintains patient confidentiality Identifies and reports philosophical, cultural, and spiritual beliefs and values Identifies individual values and wishes concerning care Implements aseptic technique, and administers prescribed antibiotic therapy and immunizing agents as ordered Evaluates postoperative tissue perfusion Implements thermoregulation measures, and monitors body temperature Evaluates postoperative respiratory status Evaluates postoperative cardiac status Evaluates postoperative neurological status Assesses pain control, collaborated in initiating patient-controlled analgesia and implements alternative methods of pain control Verifies allergies, administers prescribed medications and solutions, evaluates response to medications Entry 1 In PACU I 07/22/23 10:56:00 Discharge from PACU 07/22/23 11:40:00 I Outcomes Met? Yes Last Modified By: Soha Adkins I 07/22/23 13:15:29 Post-Care Text: The patient demonstrates knowledge of the expected response to the operative or invasive procedure The patient's care is consistent with the individualized perioperative plan of care The patient's right to privacy is maintained The patient's value system, lifestyle, ethnicity, and culture are considered, respected, and incorporated into the perioperative plan of care The patient participates in decisions affecting his or her perioperative plan of care The patient is free from signs and symptoms of infection The patient has wound/tissue perfusion consistent with or improved from baseline levels established preoperatively The patient is at or returning to normothermia at the conclusion of the immediate postoperative period The patient's respiratory function is consistent with or improved from baseline levels established preoperatively The patient's cardiovascular status is consistent with or improved from baseline levels established preoperatively The patient's cardiovascular status is consistent with or improved from baseline levels established preoperatively The patient demonstrates and/or reports adequate pain control throughout the perioperative period The patient received appropriate medication(s), safely administered during the perioperative period Acuity Level PACU I FT Entry 1 Start Time 07/22/23 10:56:00 Stop Time 07/22/23 11:40:00 Acuity Level Acuity Level I Last Modified By: Soha Adkins I 07/22/23 13:15:55 Finalized By: Soha Adkins I Document Signatures Signed By: Soha Adkins I 07/22/23 13:16 Normal [facility] Monitor Recordon 07-22-2023 Monitor Record [id number] Normal [facility] Monitor Record [id number]#[id number] [facility] Operative Reporton Operative Report Patient: ILEANA CRUZ Age: 88 years Sex: Male : 1935 Associated Diagnoses: None Author: Jimbo Pike DO DATE OF SURGERY: 07/22/2023 SURGEON: Jimbo Pike D.O. CLINICAL SYSTEMS EDUCATOR: You Bone CFA PREOPERATIVE DIAGNOSIS: Advanced degenerative osteoarthrosis, right knee POSTOPERATIVE DIAGNOSIS: Advanced degenerative osteoarthrosis, right knee OPERATION: Right total knee arthroplasty utilizing Steek SAO robotic arm assistance ANESTHESIA: General + regional block HUMAN RESOURCES ADVISOR: Jean-Claude Reese CRNA IMPLANTS USED: Markus Triathlon Total Knee System 1. size 5 cruciate retaining cementless femur 2. Size 9 mm X3 CS polyethylene 3. Size 6 Tritanium cementless tibial baseplate 4. Size 35 mm asymmetric Tritanium cementless patella OPERATIVE INDICATIONS: Gualberto is an 88-year-old male who has had persistent right knee pain despite numerous conservative measures. His pain interferes with his activities of daily living, ability to sleep at night, and quality of life. His pain has gotten progressively worse over time. He agreed to proceed with the above procedure after a discussion of the risks, benefits, complications, alternatives, and expectations. Please see office notes for further details. The patient's surgery was preplanned utilizing CT scan and Helium software. This included the planned implant sizes and positions, bone resection, and ligament balancing. Modifications to the plan were made intraoperatively as appropriate. PROCEDURE: The correct operative site was identified and marked in the preoperative holding area. The patient was administered intravenous antibiotics in accordance with SCIP Protocol. He was also given a gram of tranexamic acid intravenously about 15 minutes prior to incision. He was transported to the Regional Anesthetic Block Room and administered a regional anesthetic nerve block by the anesthesiologist. I requested the nerve block to assist with intraoperative and postoperative pain control. He was transported to the Operating Room and placed supine on the operating room table. He was administered general anesthetic. A well padded tourniquet was applied to the operative upper thigh. The right upper extremity was secured across the patient's torso. The operative lower extremity was then prepped and draped in the usual sterile fashion. The foot was placed into a padded vega and secured in the Markus knee positioner. Surgical time-out was performed with all required personnel present. The limb was exsanguinated with an Esmarch. Tourniquet was inflated to 300 mm Hg. A longitudinal incision curving medially around the patella was made. Medial and lateral skin flaps were developed. Dissection was carried down through the subcutaneous layers. Medial parapatellar arthrotomy was performed and normal appearing joint fluid was encountered and suctioned. Irrisept solution was poured into the joint. The intermeniscal ligament was then cut and soft tissue at the medial tibial plateau was peeled off of the bone with Bovie electrocautery. The fat pad was sharply excised. Tourniquet was deflated at 6 minutes and adequate perfusion was noted to return to the extremity. Areas of active bleeding were cauterized with the Bovie and Aquamantys. The tibial pins for the tibial array were placed at the most distal aspect of the incision. The tibial array was placed onto the pins and secured. The distal femoral pins for the femoral array were placed in the medial femoral condyle. The femoral array was affixed to the pins. The registration device was then placed into the distal femur just distal to the array pins along the medial femoral condyle. The tibial registration device was placed along the medial tibia proximal to the tibial array and distal to the planned tibial resection. The hip center, medial and lateral malleoli were registered. Registration points along the distal femur and proximal tibia were captured. Osteophytes were removed with a rongeur. Range of motion of the knee was then assessed with the computer. The patient had 5 degree flexion contracture and 5 degrees of valgus. Preliminary ligament balancing was performed with the tensioning spoons in both flexion and extension and these values were captured by the computer. Adjustments to the planned resection were made to balance the ligaments. The self-retaining medial and lateral retractors were then placed and secured to the leg vega. Bone resection was then performed with computer guidance using the saw attached to the Helium robotic arm. Femoral cuts were made including anterior, posterior, and chamfer cuts. The tibial cut was then made in the same fashion. The resected bone fragments were removed with osteotomes and freed from tissue with the bovie. Lamina channeler was placed into the joint. Remaining meniscus and soft tissue were removed from the medial and lateral compartments. Posteri (more content not included)... Normal [facility] Comment on above: Result Comment: Elec tronically Signed By: Jimbo Pike DO\.br\Date and Time Signed: 07/22/23 12:24 EDT Platelet Counton 07-22-2023 Platelets (Bld) [#/Vol] 100.0 E9/L Low 150.0-500. 0 [facility] Comment on above: Result Comment: Arnulfo romero review performed Performed By: #### 2 [id number] ####[facility] [id number] [place] [address] URINALYSISOrdered By: Maribel Mora on 07-22-2023 Bilirubin Ql (U) Negative Normal Negativemg /dL [facility] UA Auto SS Clarity (U) Clear (07/22/23 7:05 PM) Normal Clear [facility] UA Auto SS Color (U) Yellow 1 (07/22/23 7:05 PM) Normal Yellow [facility] UA Auto SS Comment on above: Interpretive Data: M icroscopic readings are only performed on those samples that meet specific criteria set forth by [facility]. Glucose Ql (U) Negative Normal Negativemg /dL [facility] UA Auto SS Hemoglobin Auto test strip (U) [Mass/Vol] Negative (07/22/23 7:05 PM) Normal Negative [facility] UA Auto SS Ketones Auto test strip Ql (U) Negative Normal Negativemg /dL [facility] UA Auto SS Leukocyte esterase Auto test strip Ql (U) Negative (07/22/23 7:05 PM) Normal Negative [facility] UA Auto SS Nitrite Auto test strip Ql (U) Negative Normal Negativemg /dL [facility] UA Auto SS pH (U) 6.0 *NA* (07/22/23 7:05 PM) Invalid Interpretation Code 5.0 - 9.0 [facility] UA Auto SS Protein Ql (U) Negative Normal Negativemg /dL [facility] UA Auto SS Specific gravity (U) [Rel density] 1.021 *NA* (07/22/23 7:05 PM) Invalid Interpretation Code 1.005 - 1.030 [facility] UA Auto SS UA Spec Desc Catheter (07/22/23 7:05 PM) Normal [facility] UA Auto SS Urobilinogen (U) [Mass/Vol] Negative Normal Negativemg /dL [facility] UA Auto SS Consent for Procedure/Surger yon 07-21-2023 Consent for Procedure/Surgery [id number]#[id number] Normal [facility] C Urineon 07-10-2023 Bacteria identified Cx Nom (U) Microbiology PROCEDURE: Urine Culture [R1] SOURCE: U Cath BODY SITE: COLLECTED DATE/TIME: 07/08/2023 13:50 EDT RECEIVED DATE/TIME: 07/08/2023 15:23 EDT START DATE/TIME: 07/08/2023 15:24 EDT FREE TEXT SOURCE: Jimbo Cohen DO, DO, Jimbo Wall FINAL REPORTS Final Report [] Verified Date/Time: 07/10/2023 10:06 EDT >100,000 cfu/ml Klebsiella pneumoniae SUSCEPTIBILITY RESULTS LEGEND: S=Susceptible, N/R=Not Reported, Blank=Data not available, or drug not advisable or tested, I=Intermediate, ESBL=Extended spectrum beta-lactamase, R=Resistant, TFG=Thymidine-dependent strain, HAYDEN=Beta-lactamase positive, DEVAN=mcg/m;(mg/L), S*=Predicted susceptible interp, R*=Predicted resistant interp Klepne Antibiotic DEVAN Dilutn DEVAN Interp Amikacin <=16 S Ampicillin 16 R* Ampicillin/ <=8/4 S Sulbactam Aztreonam <=4 S Cefazolin <=2 S Cefepime <=2 S Cefoxitin <=8 S Ceftazidime <=1 S Ceftazidime/ <=8 S Avibactam Ceftriaxone <=1 S Ciprofloxacin <=1 S Ertapenem <=0.5 S Gentamicin <=4 S Levofloxacin <=2 S Meropenem <=1 S Nitrofurantoin 64 I Piperacillin/ <=16 S Tazobactam Tetracycline <=4 S Tigecycline <=2 S Tobramycin <=4 S Trimethoprim/ <=2/38 S Sulfa Performing Locations R1: This test was performed at: [facility], [address] [place] [address], [address] , , [facility] Comment on above: Performed By: #### 1 [id number], [id number], [id number] #### [facility] [address] [place] [address] Screenson 07-10-2023 Screens [id number] [facility] Screens [id number]#1.00TIFF [facility] Ambulatory Visit Summaryon 0 07-09-2023 Ambulatory Visit Summary GUALBERTO CRUZ :1935 Visit Date:07/09/2023 Ambulatory Visit Instructions Your Diagnosis Incomplete emptying of bladder UTI BPH with urinary obstruction Gross hematuria Erectile dysfunction Simple renal cyst Your Care Team Attending Physician - SAHARA SUAREZ PA-C Primary Care Physician - EMRE DAVIS MD This Is Your Medications List Contact prescribing physician if questions or concerns aspirin (aspirin 81 mg Oral EC Tab) atorvastatin (atorvastatin 10 mg Tab) carvedilol cyanocobalamin (Vitamin B12 1000 mcg Tab) gabapentin latanoprost ophthalmic (latanoprost Opth 0.005% Virginie) losartan (losartan 50 mg Tab) nitroglycerin (Nitro 0.4 mg Tab) pantoprazole ranolazine (ranolazine 500 mg oral ER Tab) tamsulosin (tamsulosin 0.4 mg Cap) vitamin E (vitamin E 100 intl units oral tablet) Procedures Performed Cystourethroscopy with dilation of urethral stricture (11/15/2019), Cystourethroscopy with dilation of urethral stricture (07/12/2019), Cystoscopy (02/28/2015), Urodynamics (02/01/2015), Urodynamics (09/30/2014), Urodynamics (01/15/2006), Cystoscopy (03/31/2005), Urodynamics (09/03/2004), Cystoscopy (08/15/2004), Transrectal biopsy of prostate using ultrasound (US) guidance (08/15/2004), Cardiac catheterisation, Cholecystectomy, Hernia repair, History of lumbar spine surgery, Stent placement, Tonsillectomy, TURP - Transurethral resection of prostate. Discharge Vitals Temperature (Temporal Artery) 37 ?C Heart Rate (Peripheral) 71 Respiratory Rate 16 Blood Pressure 131/82 Height 175 cm Height 69 in Weight 93 kg Weight 204.6 lb BMI 30.37 What to do next Scheduled Follow-Up Appointments Thursday 1:10 PM EDT With: Where: [facility] 2023 1:00 PM EDT With: SAHARA SUAREZ PA-C Where: [facility] CT Lower Extremity w/o Contr ast [place] 07-09-2023 CT Lower Extremity w/o Contrast Right Exam Date/Time: 07/07/2023 10:54 EDT Reason for Exam: OA RIGHT KNEE Report IMPRESSION: RIGHT KNEE OSTEOARTHRITIS. EXAMINATION: CT Lower Extremity w/o Contrast Right HISTORY: Right hip osteoarthritis TECHNIQUE: Multiple contiguous axial images were obtained of the right lower extremity utilizing Rakesh protocol. Multiplanar reformats were obtained. COMPARISON: None available FINDINGS: Degenerative changes including joint space narrowing and marginal osteophyte formation of the right knee. No acute fracture. Visualized myotendinous structures appear intact. Moderate Coronel cyst. Subcutaneous soft tissue edema of the ankle. All CT scans at this facility use dose modulation, iterative reconstruction, and/or weight based dosing when appropriate to reduce radiation dose to as low as reasonably achievable. Ordering Provider: Jimbo Pike FINAL REPORT Dictated: 07/09/2023 3:13 pm Arvin Medina DO Signed (Electronic Signature): 07/09/2023 3:13 pm Signed by: Arvin Medina DO Transcribed by: MONICA Technologist: FRANCISCO Johnson [facility] Outside Recordson 07-09-2023 Outside Records [id number] Normal [facility] Patient Educationon 07-09-19 Patient Education Obstetrics and Gynec ology Urinary Tract Infection, Adult A urinary tract infection (UTI) is an infection of any part of the urinary tract. The urinary tract includes: ? The kidneys. ? The ureters. ? The bladder. ? The urethra. These organs make, store, and get rid of pee (urine) in the body. What are the causes? This infection is caused by germs (bacteria) in your genital area. These germs grow and cause swelling (inflammation) of your urinary tract. What increases the risk? The following factors may make you more likely to develop this condition: ? Using a small, thin tube (catheter) to drain pee. ? Not being able to control when you pee or poop (incontinence). ? Being female. If you are female, these things can increase the risk: ? Using these methods to prevent : ? A medicine that kills sperm (spermicide). ? A device that blocks sperm (diaphragm). ? Having low levels of a female hormone (estrogen). ? Being . You are more likely to develop this condition if: ? You have genes that add to your risk. ? You are sexually active. ? You take antibiotic medicines. ? You have trouble peeing because of: ? A prostate that is bigger than normal, if you are male. ? A blockage in the part of your body that drains pee from the bladder. ? A kidney stone. ? A nerve condition that affects your bladder. ? Not getting enough to drink. ? Not peeing often enough. ? You have other conditions, such as: ? Diabetes. ? A weak disease-fighting system (immune system). ? Sickle cell disease. ? Gout. ? Injury of the spine. What are the signs or symptoms? Symptoms of this condition include: ? Needing to pee right away. ? Peeing small amounts often. ? Pain or burning when peeing. ? Blood in the pee. ? Pee that smells bad or not like normal. ? Trouble peeing. ? Pee that is cloudy. ? Fluid coming from the vagina, if you are female. ? Pain in the belly or lower back. Other symptoms include: ? Vomiting. ? Not feeling hungry. ? Feeling mixed up (confused). This may be the first symptom in older adults. ? Being tired and grouchy (irritable). ? A fever. ? Watery poop (diarrhea). How is this treated? ? Taking antibiotic medicine. ? Taking other medicines. ? Drinking enough water. In some cases, you may need to see a specialist. Follow these instructions at home: Medicines ? Take boyj-byf-mllxmxi and prescription medicines only as told by your doctor. ? If you were prescribed an antibiotic medicine, take it as told by your doctor. Do not stop taking it even if you start to feel better. General instructions ? Make sure you: ? Pee until your bladder is empty. ? Do not hold pee for a long time. ? Empty your bladder after sex. ? Wipe from front to back after peeing or pooping if you are a female. Use each tissue one time when you wipe. ? Drink enough fluid to keep your pee pale yellow. ? Keep all follow-up visits. Contact a doctor if: ? You do not get better after 1?2 days. ? Your symptoms go away and then come back. Get help right away if: ? You have very bad back pain. ? You have very bad pain in your lower belly. ? You have a fever. ? You have chills. ? You feeling like you will vomit or you vomit. Summary ? A urinary tract infection (UTI) is an infection of any part of the urinary tract. ? This condition is caused by germs in your genital area. ? There are many risk factors for a UTI. ? Treatment includes antibiotic medicines. ? Drink enough fluid to keep your pee pale yellow. This information is not intended to replace advice given to you by your health care provider. Make sure you discuss any questions you have with your health care provider. Document Revised: 10/19/2020 Document Reviewed: 10/19/2020 [employer] Patient Education ? 2022 [employer] Elizabeth Cabrera [facility] Urology Office/Clinic Noteon 07-09-2023 Urology Office/Clinic Note Chief Complaint Pt is here for 6 month w/ PVR HPI Staff 6 mo f/u w/ PVR Dx: UTI d/t Klebsiella species. gross hematuria, incomplete emptying of bladder, BPH w/ urinary obstruction, ED, simple renal cyst Tamsulosin 0.4mg QD Dysuria: mild pain Incomplete bladder emptying: sometimes Hematuria: last seen a month ago Frequency: CIC 2-3x a day Urgency: mild Nocturia: CIC before bed Stream: sometimes dribbling stream Leaking: mild Post void dripping: mild Wearing pads/ Depends: denies Urge incontinence: denies Stress incontinence: denies Incontinence without Sensory Awareness: denies Abdominal pain: denies Flank pain: denies Sexual complaints: _ History of Present Illness staff HPI reviewed and agree. Review of Systems PHQ Score Initial Depression Screen Score: 0 SCORE no fever, chills, malaise, myalgia. no rash/lesions. no chest pain, palpitations, or SOB. no abdominal pain, nausea, vomiting. no unilateral calf swelling, redness, pain Physical Exam Vitals & Measurements T: 37 ?C(Temporal Artery) HR: 71(Peripheral) RR: 16 BP: 131/82 HT: 69 in HT: 175 cm WT: 93 kg WT: 204.6 lb BMI: 30.37 General: nontoxic, NAD Mouth: moist mucosa Lungs: normal respiratory effort Cardio: regular rate, good distal perfusion Abdomen: nondistended, no suprapubic distention or tenderness, no CVA tenderness Neurologic: Grossly normal Skin: No rashes or suspicious lesions Assessment/Plan Dr. Duncan pt 1. Incomplete emptying of bladder (R33.9: Retention of urine, unspecified) PVR (cc): 06/25/22 - 69 12/31/22 - 342 07/09/23 - 167 (last CIC'd 3hrs ago) Recommended to increase CIC to 3x/day at prior OV. States he has been doing this. Unsure of output volumes. encouraged him to measure and keep volumes around 500cc (increase cath frequency if >500cc). Admits he has minimal water intake. Drinks small amount tea daily. Counseled pt on bladder irritants and importance of water intake. Also reports he does have difficulty passing catheter past prostate. Discussed appropriate maneuvers to help with this. -CIC 3x/day -Cont daily Flomax to help relax prostate while passing cath -F/u in 6 mos w/ PVR 2. UTI (N39.0: Urinary tract infection, site not specified) KUB 12/08/22 - Neg for urinary tract calculi. TAHIRA 12/08/22 - Diffuse bladder wall thickening with two small diverticula along the posterior aspect of the bladder. Appearance favors chronic outlet obstruction, however, urothelial neoplasm cannot be ruled out. UCx 12/05/22 - >100k K. pneumoniae, resistant to amp and intermediate to nitro. Had gross hematuria. Treated with Doxycycline 100 mg bid, only took 5 days as he had SE of GI upset. 12/31/22 - >100k K. pneumoniae. Treated with Cefdinir. 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 Recent culture ordered by Dr. Jimbo Pike as pt has upcoming knee surgery 07/22/23. Advised pt to f/u with Dr. Pike to get treatment for UTI. 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 3. BPH with urinary obstruction (N40.1: Benign prostatic hyperplasia with lower urinary tract symptoms) IPSS 23 (22). Taking Flomax 0.4 mg qd. Has dizziness but does not feel this is due to Flomax. Seldom voids on his own but has severe hesitation and weak stream when he does. Discussed increasing Flomax to help relax prostate for CIC. However pt agrees risk outweighs benefits. -Cont Flomax 0.4mg qd 4. Gross hematuria (R31.0: Gross hematuria) Last saw blood 1 month ago. Discussed this may be due to urethral trauma from CIC or an UTI which is likely secondary to CIC +/- infection/colonization. Discussed that in rare cases it could represent cancer which we would r/o w upper tract imaging + cystoscopy. Pt does not feel this is necessary at this time, declines eval. Says he has had slight gross hematuria on and off since starting CIC and there is no change in it's frequency or severity to cause any concern to him. 5. Erectile dysfunction (N52.9: Male erectile dysfunction, unspecified) No longer sexually active. 6. Simple renal cyst (N28.1: Cyst of kidney, acquired) TAHIRA 12/08/22 - Simple R cyst 8 mm. Simple L renal cyst 2.4 cm. Simple cysts do not require surveillance. [1] Follow-up With When Contact Information SAHARA SUAREZ PA-C, URL [address] [place] [address] [phone] Additional Instructions: 6 mos w/ PVR Patient Education Urinary Tract Infection, Adult, Cyjm-td-Ocoq Documentation recorded by the scribe Kassie Davis accurately reflects the services(s) I performed and decisions made by me. Authenticated by Sahara Suarez PA-C on 07/09/2023 13:54:15. I, Kassie Davis, personally scribed for Sahara Suarez PA-C on 07/09/2023 13:22:23. . Problem List/Past Medical History Ongoing Acute UTI Anticoagulated Benign localized hyperplasia of prostate with urinary obstruction and lower urinary tract symptom (more content not included)... Normal [facility] Comment on above: Result Comment: Elec tronically Signed By: SAHARA SUAREZ PA-C\.br\Date and Time Signed: 07/09/23 13:54 EDT\.br\Electronically Co-Signed By: Kassie Davis\.br\Date and Time Co-Signed: 07/09/23 13:22 EDT ERTAPENEM:SUSC:PT:ISOLATE:OR DQN:MICOrdered By: Kiki Evangelista on 07-08-2023 Ertapenem DEVAN [Susc] >100,000 cfu/ml Klebsiella pneumoniae [facility] Ertapenem DEVAN [Susc]Ordered By: Kiki Evangelista on 07-08-2023 Klebsiella pneumoniae Klebsiella pneumoniae [facility] UA with Cult Rflxon 07-08-19 24 Bacteria Auto Ql (U) 2+ [id number] Abnormal Trace [facility] Comment on above: Order Comment: self cath Performed By: #### 1 6226668, 4669223, 0121145, 3208665, 76661193, 7408407, 9659320, 4936392, 3013835 #### [facility] [address] [place] [address] Bilirubin Ql (U) Negative Normal Negative [facility] Comment on above: Order Comment: self cath Performed By: #### 1 6472731, 5410072, 3157524, 3692308, 60251481, 9830531, 6454617, 6217409, 0165352 #### [facility] [address] [place] [address] Clarity (U) Turbid Abnormal Clear [facility] Comment on above: Order Comment: self cath Performed By: #### 1 9450170, 6517680, 5822231, 1221596, 87466743, 1036684, 0005458, 6865597, 4496473 #### [facility] [address] [place] [address] Color (U) Yellow Normal Yellow [facility] Comment on above: Order Comment: self cath Result Comment: Micr oscopic readings are only performed on those samples that meet specific criteria set forth by [facility]. Performed By: #### 1 0657692, 5390898, 5599159, 6196463, 40514848, 6110003, 0401272, 4998048, 6344400 #### [facility] [address] [place] [address] Epithelial cells.squamous Auto (Urine sed) [#/Area] 0-2 Normal 0-2 [facility] Comment on above: Order Comment: self cath Performed By: #### 1 1661075, 4500958, 8412169, 2754308, 94652750, 9907292, 7824407, 8599374, 2837852 #### [facility] [address] [place] [address] Glucose Ql (U) Negative Normal Negative [facility] Comment on above: Order Comment: self cath Performed By: #### 1 4104921, 0529693, 3906373, 0876928, 37262610, 2711849, 6020588, 1797515, 2678844 #### [facility] [address] [place] [address] Hemoglobin Auto test strip (U) [Mass/Vol] 1+ mg/dL Abnormal Negative [facility] Comment on above: Order Comment: self cath Performed By: #### 1 0288654, 7466760, 0811546, 7358310, 07596868, 5746646, 5801541, 0209120, 9132792 #### [facility] [address] [place] [address] Ketones Auto test strip Ql (U) Negative Normal Negative [facility] Comment on above: Order Comment: self cath Performed By: #### 1 3914680, 9106248, 4938247, 1270544, 60292314, 7599855, 0995020, 5218409, 0401534 #### [facility] [address] [place] [address] Leukocyte clumps Auto (Urine sed) [#/Area] 0-3 Abnormal [facility] Comment on above: Order Comment: self cath Performed By: #### 1 5302459, 7747484, 8870870, 4837827, 01916914, 0842145, 9195876, 2877103, 2478205 #### [facility] [address] [place] [address] Leukocyte esterase Auto test strip Ql (U) 250 Seamus/uL Abnormal Negative [facility] Comment on above: Order Comment: self cath Performed By: #### 1 1697396, 5062865, 2340802, 6762236, 53063450, 4823456, 0914561, 8050215, 5924272 #### [facility] [address] [place] [address] Mucus Auto Ql (U) Negative Normal Negative [facility] Comment on above: Order Comment: self cath Performed By: #### 1 4492262, 9376845, 8711327, 5328810, 13883451, 4399329, 8007596, 3971566, 3893559 #### [facility] [address] [place] [address] Nitrite Auto test strip Ql (U) Negative Normal Negative [facility] Comment on above: Order Comment: self cath Performed By: #### 1 4165356, 1517397, 2014025, 7074936, 61629072, 1157925, 3832960, 0083763, 4907849 #### [facility] [address] [place] [address] pH (U) 5.5 [pH] Invalid Interpretation Code 5.0-9.0 [facility] Comment on above: Order Comment: self cath Performed By: #### 1 5251978, 7284231, 4219897, 0626660, 33305133, 7617381, 4810155, 2100122, 6294446 #### [facility] [address] [place] [address] Protein Ql (U) Negative Normal Negative [facility] Comment on above: Order Comment: self cath Performed By: #### 1 4373958, 6085049, 0115464, 5878591, 45484386, 6729344, 5984101, 0300222, 1436547 #### [facility] [address] [place] [address] RBC Ql (U) 4-20 Abnormal 0-3 [facility] Comment on above: Order Comment: self cath Performed By: #### 1 0891940, 9955183, 1294607, 3058125, 92737489, 8798632, 7523525, 2969587, 0681973 #### [facility] [address] [place] [address] Specific gravity (U) [Rel density] 1.012 Invalid Interpretation Code 1.005-1.03 0 [facility] Comment on above: Order Comment: self cath Performed By: #### 1 9488536, 0091020, 5463266, 9404019, 13740645, 2740406, 1883647, 9746200, 7985320 #### [facility] [address] [place] [address] Urobilinogen (U) [Mass/Vol] Negative Normal Negative [facility] Comment on above: Order Comment: self cath Performed By: #### 1 1106168, 5371978, 5312168, 7248910, 06116795, 3030583, 6749976, 8926982, 1879679 #### [facility] [address] [place] [address] WBC Auto (Urine sed) [#/Area] 31-75 Abnormal 0-5 [facility] Comment on above: Order Comment: self cath Performed By: #### 1 5649104, 9716168, 4343079, 9694545, 62936213, 6881860, 3138091, 0758070, 5297360 #### [facility] [address] [place] [address] Type of Urine collection method Catheter Normal [facility] Comment on above: Order Comment: self cath Performed By: #### 1 2782785, 9562778, 0109375, 5241387, 69646315, 9581334, 8983956, 6179720, 1344240 #### [facility] [address] [place] [address] URINALYSISOrdered By: SYSTEM SYSTEM on 07-08-2023 Bacteria Auto Ql (U) 2+ graded/HPF Invalid Interpretation Code Tracegrade d/HPF [facility] UA Auto SS Bilirubin Ql (U) Negative Normal Negativemg /dL [facility] [place] Auto SS Clarity (U) Turbid *ABN* (07/08/23 1:50 PM) Invalid Interpretation Code Clear [facility] UA Auto SS Color (U) Yellow 2 (07/08/23 1:50 PM) Normal Yellow [facility] UA Auto SS Comment on above: Interpretive Data: M icroscopic readings are only performed on those samples that meet specific criteria set forth by [facility]. Epithelial cells.squamous Auto (Urine sed) [#/Area] 0-2 graded/HPF Normal 0-2graded/ HPF [facility] UA Auto SS Glucose Ql (U) Negative Normal Negativemg /dL [facility] UA Auto SS Hemoglobin Auto test strip (U) [Mass/Vol] 1+ mg/dL Invalid Interpretation Code Negativemg /dL [facility] UA Auto SS Ketones Auto test strip Ql (U) Negative Normal Negativemg /dL [facility] UA Auto SS Leukocyte clumps Auto (Urine sed) [#/Area] 0-3 graded/HPF Invalid Interpretation Code [facility] UA Auto SS Leukocyte esterase Auto test strip Ql (U) 250 Seamus/uL Seamus/uL Invalid Interpretation Code NegativeLe u/uL [facility] UA Auto SS Mucus Auto Ql (U) Negative Normal Negativegr aded/LPF [facility] UA Auto SS Nitrite Auto test strip Ql (U) Negative Normal Negativemg /dL [facility] UA Auto SS pH (U) 5.5 *NA* (07/08/23 1:50 PM) Invalid Interpretation Code 5.0 - 9.0 [facility] UA Auto SS Protein Ql (U) Negative Normal Negativemg /dL [facility] UA Auto SS RBC Ql (U) 4-20 graded/HPF Invalid Interpretation Code 0-3graded/ HPF [facility] UA Auto SS Specific gravity (U) [Rel density] 1.012 *NA* (07/08/23 1:50 PM) Invalid Interpretation Code 1.005 - 1.030 [facility] UA Auto SS Urobilinogen (U) [Mass/Vol] Negative Normal Negativemg /dL [facility] UA Auto SS WBC Auto (Urine sed) [#/Area] 31-75 graded/HPF Invalid Interpretation Code 0-5graded/ HPF [facility] UA Auto SS URINALYSISOrdered By: Constance Tabor on 07-08-2023 UA Spec Desc Catheter (07/08/23 1:50 PM) Normal [facility] UA Auto SS ABO/Rh Retypeon 07-07-2023 ABO/Rh Retype Interp Positive Invalid Interpretation Code [facility] Comment on above: Performed By: #### 1 8375771, 8403315, 8472306, 2394518, 35091770, 9954854, 4607737, 8133770, 8339690 #### [facility] [address] [place] [id number] BLOOD BANKOrdered By: Osbaldo See on 07-07-2023 ABO/Rh Retype Interp Positive Invalid Interpretation Code [facility] BB Subsection BMPon 07-07-2023 Anion gap [Moles/Vol] 10 mmol/L Normal 09-05 [facility] Comment on above: Performed By: #### 1 3096135, 7661421, 3324980 ####[facility] [address] [place] [address] Calcium [Mass/Vol] 9.4 mg/dL Normal 8.9-11.1 [facility] Comment on above: Performed By: #### 1 7342277, 4963490, 6133572 ####[facility] [address] [address] Chloride [Moles/Vol] 105 mmol/L Normal 101-111 [facility] Comment on above: Performed By: #### 1 0631877, 3456106, 7944948 ####[facility] [address] [facility] [place] [address] CO2 [Moles/Vol] 27 mmol/L Normal 21-31 [facility] Comment on above: Performed By: #### 1 7002113, 9848528, 2021266 ####[facility] [address] [address] Creatinine [Mass/Vol] 1.0 mg/dL Normal 0.5-1.3 [facility] Comment on above: Performed By: #### 1 7659323, 2028520, 7026752 ####[facility] [address] [facility] [place] [address] Glucose [Mass/Vol] 95 mg/dL Normal 55-199 [facility] Comment on above: Performed By: #### 1 7504020, 7850335, 5484920 ####[facility] [address] [facility] [place] [address] Potassium [Moles/Vol] 4.4 mmol/L Normal 3.5-5.3 [facility] Comment on above: Performed By: #### 1 2021259, 5482368, 0647791 ####[facility] [address] [place] [address] Sodium [Moles/Vol] 138 mmol/L Normal 135-145 [facility] Comment on above: Performed By: #### 1 8024715, 7345292, 6864305 ####[facility] [address] [place] [address] Urea nitrogen [Mass/Vol] 18 mg/dL Normal 5-21 [facility] Comment on above: Performed By: #### 1 1922289, 2812383, 2696510 ####[address] [address] Urea nitrogen/Creatinin e [Mass ratio] 18 No Units Normal 10-20 [facility] Comment on above: Performed By: #### 1 3658701, 8224865, 0437429 ####[address] [address] CBC w/ Auto Diffon 4 Basophils/100 WBC (Bld) 0.4 % Normal 0.0-2.0 [facility] Comment on above: Performed By: #### 1 0953227, 4229835, 5753456 ####[place] [address] Basophils/Leukocyt es Auto (Bld) [Pure # fraction] 0.0 E9/L Normal 0.0-0.2 [facility] Comment on above: Performed By: #### 1 5708226, 3662354, 3682435 ####[address] [address] Eosinophils (Bld) [#/Vol] 0.1 E9/L Normal 0.0-0.5 [facility] Comment on above: Performed By: #### 1 6237956, 2543937, 8240200 ####[address] [address] Eosinophils/100 WBC (Bld) 1.8 % Normal 0.0-8.0 [facility] Comment on above: Performed By: #### 1 3737896, 6016512, 4028410 ####[address] [address] Erythrocyte distribution width (RBC) [Ratio] 13.5 % Normal 10.9-14.2 [facility] Comment on above: Performed By: #### 1 2092854, 5581523, 2108794 ####[address] [address] Hematocrit (Bld) [Volume fraction] 39.9 % Normal 37.7-49.0 [facility] Comment on above: Performed By: #### 1 7326924, 5204853, 9138599 ####[address] [address] Hemoglobin (Bld) [Mass/Vol] 13.3 g/dL Low 13.5-17.5 [facility] Comment on above: Performed By: #### 1 7666233, 9688781, 0371807 ####[address] [address] Lymphocytes (Bld) [#/Vol] 0.9 E9/L Low 1.0-4.0 [facility] Comment on above: Performed By: #### 1 5329062, 8933651, 9227139 ####[address] [address] Lymphocytes/100 WBC (Bld) 16.4 % Normal 14.0-50.0 [facility] Comment on above: Performed By: #### 1 4145374, 4230447, 6651599 ####[address] [address] MCH (RBC) [Entitic mass] 32.3 pg Normal 27.0-34.0 [facility] Comment on above: Performed By: #### 1 2711243, 8153996, 8680084 ####[address] [address] MCHC (RBC) [Mass/Vol] 33.3 g/dL Normal 31.4-36.0 [facility] Comment on above: Performed By: #### 1 8963391, 7169608, 4254492 ####[address] [address] MCV (RBC) [Entitic vol] 97.1 fL Normal 80.0-100.0 [facility] Comment on above: Performed By: #### 1 0736550, 1699205, 3154524 ####[address] [place] [address] Monocytes (Bld) [#/Vol] 0.5 E9/L Normal 0.2-1.0 [facility] Comment on above: Performed By: #### 1 2534481, 3331877, 1105216 ####[address] [address] Neutrophils (Bld) [#/Vol] 4.0 E9/L Normal 2.0-7.5 [facility] Comment on above: Performed By: #### 1 3652133, 7590405, 1146538 ####[place] [address] Neutrophils/100 WBC (Bld) 71.7 % Normal 36.0-75.0 [facility] Comment on above: Performed By: #### 1 6563930, 1720757, 3005096 ####[place] [address] Platelet 101.0 E9/L Low 150.0-500. 0 [facility] Comment on above: Performed By: #### 1 5422549, 0276337, 7970868 ####[place] [address] Platelet mean volume (Bld) [Entitic vol] 9.8 fL Normal 6.4-10.8 [facility] Comment on above: Performed By: #### 1 1556669, 7897391, 7454247 ####[place] [address] RBC (Bld) [#/Vol] 4.1 E12/L Low 4.3-5.9 [facility] Comment on above: Performed By: #### 1 3231137, 0543686, 4084250 ####[address] [address] WBC corrected for nucl RBC Auto (Bld) [#/Vol] 5.6 E9/L Normal 4.0-11.0 [facility] Comment on above: Performed By: #### 1 3330455, 4163086, 3849499 ####[facility] [address] [place] [address] CHEMISTRYOrdered By: SYSTEM SYSTEM on 07-07-2023 Anion gap [Moles/Vol] 10 mmol/L Normal 6 - 16 mEq/L [facility] Calcium [Mass/Vol] 9.4 mg/dL Normal 8.9 - 11. 1 mg/dL [facility] Chloride [Moles/Vol] 105 mmol/L Normal 101 - 111 mmol/L [facility] CO2 [Moles/Vol] 27 mmol/L Normal 21 - 31 mmol/L [facility] Creatinine [Mass/Vol] 1.0 mg/dL Normal 0.5 - 1.3 mg/dL [facility] eGFR 72 mL/min/1.73 m2 Normal >=59mL/min /1.73 m2 [facility] Glucose [Mass/Vol] 95 mg/dL Normal 55 - 199 mg/dL [facility] Potassium [Moles/Vol] 4.4 mmol/L Normal 3.5 - 5.3 mmol/L [facility] Sodium [Moles/Vol] 138 mmol/L Normal 135 - 145 mmol/L [facility] Urea nitrogen [Mass/Vol] 18 mg/dL Normal 5 - 21 mg/dL [facility] Urea nitrogen/Creatinin e [Mass ratio] 18 mg/mg Normal 10 - 20 [facility] Consent for Treatmenton 06-21 Consent for Treatment [id number] Normal [facility] HEMATOLOGYOrdered By: SYSTEM SYSTEM on 07-07-2023 Basophils/100 WBC (Bld) 0.4 % Normal 0.0 - 2.0 % [facility] Basophils/Leukocyt es Auto (Bld) [Pure # fraction] 0.0 E9/L Normal 0.0 - 0.2 E9/L [facility] Eosinophils (Bld) [#/Vol] 0.1 E9/L Normal 0.0 - 0.5 E9/L [facility] Eosinophils/100 WBC (Bld) 1.8 % Normal 0.0 - 8.0 % [facility] Erythrocyte distribution width (RBC) [Ratio] 13.5 % Normal 10.9 - 14.2 % [facility] Hematocrit (Bld) [Volume fraction] 39.9 % Normal 37.7 - 49.0 % [facility] Hemoglobin (Bld) [Mass/Vol] 13.3 g/dL Low 13.5 - 17.5 gm/dL [facility] Lymphocytes (Bld) [#/Vol] 0.9 E9/L Low 1.0 - 4.0 E9/L [facility] Lymphocytes/100 WBC (Bld) 16.4 % Normal 14.0 - 50.0 % [facility] MCH (RBC) [Entitic mass] 32.3 pg Normal 27.0 - 34.0 pg [facility] MCHC (RBC) [Mass/Vol] 33.3 g/dL Normal 31.4 - 36.0 gm/dL [facility] MCV (RBC) [Entitic vol] 97.1 fL Normal 80.0 - 100.0 fL [facility] Monocytes (Bld) [#/Vol] 0.5 E9/L Normal 0.2 - 1.0 E9/L [facility] Monocytes/100 WBC (Bld) 9.7 % Normal 4.0 - 14.0 % [facility] Neutrophils (Bld) [#/Vol] 4.0 E9/L Normal 2.0 - 7.5 E9/L [facility] Neutrophils/100 WBC (Bld) 71.7 % Normal 36.0 - 75.0 % [facility] Platelet 101.0 E9/L Low 150.0 - 500.0 E9/L [facility] Platelet mean volume (Bld) [Entitic vol] 9.8 fL Normal 6.4 - 10.8 fL [facility] RBC (Bld) [#/Vol] 4.1 E12/L Low 4.3 - 5.9 E12/L [facility] WBC corrected for nucl RBC Auto (Bld) [#/Vol] 5.6 E9/L Normal 4.0 - 11.0 E9/L [facility] UA with Cult Rflxon 07-07-19 24 Bilirubin Ql (U) cancel Invalid Interpretation Code [facility] Comment on above: Performed By: #### 1 5871028, 4486369, 9392096, 9897499, 31459059, 4092145, 6550671, 5765981, 4967062 #### [facility] [address] [place] [address] Clarity (U) cancel Invalid Interpretation Code [facility] Comment on above: Performed By: #### 1 1396668, 7898958, 5557909, 4613104, 83308920, 8196248, 0855531, 5141729, 9569495 #### [facility] [address] [place] [address] Color (U) cancel Invalid Interpretation Code [facility] Comment on above: Result Comment: NSR cancelled and credited per PRESURG 07/07/2023 10:33 CSS Microscopic readings are only performed on those samples that meet specific criteria set forth by [facility]. Performed By: #### 1 8931753, 8115584, 4988877, 2422983, 62910094, 6779904, 4239885, 7694993, 2301997 #### [facility] [address] [place] [address] Glucose Ql (U) cancel Invalid Interpretation Code [facility] Comment on above: Performed By: #### 1 2807276, 9812152, 5567219, 3489382, 64868404, 0386632, 7508794, 0430540, 3632461 #### [facility] [address] [place] [address] Hemoglobin Auto test strip (U) [Mass/Vol] cancel Invalid Interpretation Code [facility] Comment on above: Performed By: #### 1 3405793, 2237079, 3924411, 2267654, 35626889, 0910008, 6819510, 6812875, 8940512 #### [facility] [address] [place] [address] Ketones Auto test strip Ql (U) cancel Invalid Interpretation Code [facility] Comment on above: Performed By: #### 1 4546265, 6205224, 4162265, 4393769, 79537208, 5268159, 1197011, 8689559, 2596477 #### [facility] [address] [place] [address] Leukocyte esterase Auto test strip Ql (U) cancel Invalid Interpretation Code [facility] Comment on above: Performed By: #### 1 2720757, 3319403, 5735979, 9161893, 10567992, 6038527, 0320627, 4477038, 1189834 #### [facility] [address] [place] [address] Nitrite Auto test strip Ql (U) cancel Invalid Interpretation Code [facility] Comment on above: Performed By: #### 1 8573269, 9309243, 2095473, 8681665, 22945220, 7867569, 6482285, 4423956, 1805713 #### [facility] [address] [place] [address] pH (U) cancel Invalid Interpretation Code 5.0-9.0 [facility] Comment on above: Performed By: #### 1 7329292, 3916029, 5901408, 0283344, 18238994, 5422388, 2318441, 4014153, 8912271 #### [facility] [address] [place] [address] Protein Ql (U) cancel Invalid Interpretation Code [facility] Comment on above: Performed By: #### 1 7521213, 5988829, 9848100, 6740643, 32974905, 6617258, 7618877, 4100703, 6132888 #### [facility] [address] [place] [address] Specific gravity (U) [Rel density] cancel Invalid Interpretation Code 1.005-1.03 0 [facility] Comment on above: Performed By: #### 1 5289079, 2694603, 4062385, 0220740, 36462454, 9612888, 6622904, 8588729, 7199078 #### [facility] [address] [place] [address] Urobilinogen (U) [Mass/Vol] cancel Invalid Interpretation Code [facility] Comment on above: Performed By: #### 1 7063321, 4002049, 9184174, 2902321, 68471253, 8415156, 9191433, 5221488, 7638772 #### [facility] [address] [place] [address] Type of Urine collection method Clean Catch Normal [facility] Comment on above: Performed By: #### 1 5525497, 4970652, 2707425, 7744280, 41960461, 2008834, 7963057, 2138765, 9942459 #### [facility] [address] [place] [address] URINALYSISOrdered By: Kiki Evangelista on 07-07-2023 Bilirubin Ql (U) cancel Invalid Interpretation Code [facility] [place]A Auto SS Clarity (U) cancel Invalid Interpretation Code [facility] UA Auto SS Color (U) cancel Invalid Interpretation Code [facility] UA Auto SS Comment on above: Result Comment: NSR cancelled and credited per PRESURG 07/07/2023 10:33 CSS Interpretive Data: M icroscopic readings are only performed on those samples that meet specific criteria set forth by [facility]. Glucose Ql (U) cancel Invalid Interpretation Code [facility] UA Auto SS Hemoglobin Auto test strip (U) [Mass/Vol] cancel Invalid Interpretation Code [facility] UA Auto SS Ketones Auto test strip Ql (U) cancel Invalid Interpretation Code [facility] UA Auto SS Leukocyte esterase Auto test strip Ql (U) cancel Invalid Interpretation Code [facility] UA Auto SS Nitrite Auto test strip Ql (U) cancel Invalid Interpretation Code [facility] UA Auto SS pH (U) cancel Invalid Interpretation Code 5.0 - 9.0 [facility] UA Auto SS Protein Ql (U) cancel Invalid Interpretation Code [facility] UA Auto SS Specific gravity (U) [Rel density] cancel Invalid Interpretation Code 1.005 - 1.030 [facility] UA Auto SS Urobilinogen (U) [Mass/Vol] cancel Invalid Interpretation Code [facility] UA Auto SS URINALYSISOrdered By: Vanessa Shelley on 07-07-2023 UA Spec Desc Clean Catch (07/07/23 10:06 AM) Normal [facility] UA Auto SS XR Chest 2 Viewson XR Chest 2 Views Exam Date/Time: 07/07/2023 10:36 EDT Reason for Exam: P.A.T. Report IMPRESSION: NO RADIOGRAPHIC EVIDENCE OF ACTIVE DISEASE IN THE CHEST. CLINICAL INFORMATION: P.A.T. COMPARISON: None available. FINDINGS: 2 views. Kyphotic.. Cardiopericardial silhouette normal. Pulmonary vasculature normal. Lungs clear. Ordering Provider: Rory Mendoza FINAL REPORT Dictated: 07/07/2023 5:34 pm Lencho Arreola MD Signed (Electronic Signature): 07/07/2023 5:34 pm Signed by: Lencho Arreola MD Transcribed by: MONICA Technologist: SILVINA Technical Comments Radiation Dose: Ka,r in mGy = na DAP = na Normal [facility] eGFRon 07-07-2023 eGFR 72 mL/min/1.73 m2 Normal >=59 [facility] Comment on above: Order Comment: Order added by Discern Expert. Performed By: #### 1 [id number], [id number], [id number] ####[facility] [address] [place] [address] Physician Orderon 06-10-2023 Physician Order [id number] Normal [facility] Physician Orderon 06-05-2023 Physician Order [id number] Normal [facility] Office Visiton 03-30-2023 Follow-up visit [id number] Gualberto Cruz 1935 M Date Provider Department Center 03/30/2023 FLORY CAMPBELL [facility] Family History Problem Relation Age of Onset Prostate cancer Other Family Status - Relation Status Age at Other Level of Service:36818 [place] OFFICE/OUTPATIENT ESTABLISHED LOW MDM 20 MIN Normal [facility] Retail - Clinical Noteon Retail - Clinical Note [id number] Normal [facility] Urology Office/Clinic Noteon 03-04-2023 Urology Office/Clinic Note Chief Complaint 6 month follow up w/ KUB and Renal US HPI Staff 6 month follow up w/KUB & TAHIRA both done 12/08/22-[facility]. 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 S/P Cysto/UD done 11/15/19, Cysto/UD done 07/12/19, Cysto done 02/28/15, Urodynamics done 02/01/15. PVR today 342ml. Dysuria: some pain every once in a while Incomplete bladder emptying: yes Hematuria: last seen blood 3 weeks ago, UA today shows small blood Frequency: 10x a day Urgency: sometimes Nocturia: denies, Pt states he CIC once at night before going to bed Stream: hesitant stream, sometimes dribble stream Leaking: mild Post void dripping: mild Wearing pads/ Depends: denies Urge incontinence: denies Stress incontinence: yes Incontinence without Sensory Awareness: denies Abdominal pain: yes Flank pain: Rt sided pain History of Present Illness Tests reviewed: reviewed UA, TAHIRA, KUB, ucx, PVR I have reviewed the previous health record information and history for this patient from Dr. Duncan. I have reviewed and verified the staff HPI to be accurate for this encounter. There have been no associated fever, chills, flank pain, or blood in the urine. Denies any urinary infections since last encounter. Review of Systems PHQ Score Initial Depression Screen Score: 0 ROS - Provider Constitutional: denies weight loss, denies hot flashes. Eyes: denies eye problems. Gastrointestinal: denies nausea, denies vomiting. Cardiovascular: denies chest pain or angina. Integumentary: no dryness Musculoskeletal: denies musculoskeletal symptoms. ENMT: denies otolaryngeal symptoms. Respiratory: no shortness of breath. Heme/Lymph: denies easy bleeding tendency, denies easy bruising tendency. Psychiatric: no confusion, no anxiety. Genitourinary: See HPI. Physical Exam Vitals & Measurements HR: 63(Peripheral) BP: 153/73 HT: 69 in HT: 175 cm WT: 93.0 kg WT: 204.6 lb BMI: 30.37 General Appearance: alert, no distress, well nourished, well developed male. Genitourinary: normal scrotum, normal testes, normal urethra, normal epididymis, normal vas deferens/spermatic cord. Flank Pain: none. Bladder: nonpalpable. Assessment/Plan Pt here with family member today. 1. UTI due to Klebsiella species (N39.0: Urinary tract infection, site not specified) Pt called on 12/04/22 and reported gross hematuria ongoing for 3 days with small clots. TAHIRA and KUB were ordered and urine sample was sent for cx. UCx 12/05/22 - >100k K. pneumoniae, resistant to amp and intermediate to nitro. Treated with Doxycycline 100 mg bid x 7 days. KUB 12/08/22 - Neg for urinary tract calculi. TAHIRA 12/08/22 - Diffuse bladder wall thickening with two small diverticula along the posterior aspect of the bladder. Appearance favors chronic outlet obstruction, however, urothelial neoplasm cannot be ruled out. UA shows small blood, + nitrites, and moderate leuks. Only took 5 days of doxy, gave him SE of GI upset. Follow up 6 mos or sooner if needed. Pt understands and agrees with plan. -Will send urine for cx. -Start empiric Cefdinir 300 mg q12hr. SEs discussed. Rx sent to [facility]. -Stressed the importance of increasing fluid intake. 2. Gross hematuria (R31.0: Gross hematuria) Last saw blood 3 wks ago. See #5. 3. Incomplete emptying of bladder (R33.9: Retention of urine, unspecified) PVR (cc): 06/25/22 - 69 12/31/22 - 342 Pt was to increase CIC to 3x/day at prior OV. He has not been, has caths every night but does not cath every morning. Re-educated pt that his bladder sensation is off and he should not cath based on sensation. Also reminded pt that he is already at higher risk for UTIs by CIC but incomplete emptying will increase his risk for UTI even more. -Increase CIC frequency to 3x/day. Pt shares he will only CIC 2x/day instead of recommended 3x. 4. BPH with urinary obstruction (N40.1: Benign prostatic hyperplasia with lower urinary tract symptoms) IPSS 22 (24). Taking Flomax 0.4 mg qd. 5. Erectile dysfunction (N52.9: Male erectile dysfunction, unspecified) Unable to achieve an erection. [1] 6. Simple renal cyst (N28.1: Cyst of kidney, acquired) TAHIRA 12/08/22 - Simple R cyst 8 mm. Simple L renal cyst 2.4 cm. Simple cysts do not require surveillance. Follow-up With When Contact Information PERLA PARKER, Idris Zhu, URL [facility] [address], [place] [address]- Additional Instructions: 6 mos PVR Patient Education Urinary Tract Infection, Adult I, Bernarda Gaston, personally scribed for Dr. Duncan on 12/31/2022 15:09:52. . Problem List/Past Medical History Ongoing Acute UTI Anticoagulat (more content not included)... Normal [facility] Comment on above: Result Comment: Elec tronically Signed By: Idris DUNCAN MD\.br\Date and Time Signed: 03/04/23 13:49 EST\.br\Electronically Co-Signed By: Bernarda Gaston\.br\Date and Time Co-Signed: 12/31/22 15:10 EDT C Urineon 01-02-2023 Bacteria identified Cx Nom (U) Microbiology PROCEDURE: Urine Culture [R1] SOURCE: U Random BODY SITE: COLLECTED DATE/TIME: 12/31/2022 15:10 EDT RECEIVED DATE/TIME: 12/31/2022 19:39 EDT START DATE/TIME: 12/31/2022 19:39 EDT FREE TEXT SOURCE: Idris DUNCAN MD, MD, Patrick R FINAL REPORTS Final Report [] Verified Date/Time: 01/02/2023 11:06 EDT >100,000 cfu/ml Klebsiella pneumoniae SUSCEPTIBILITY RESULTS LEGEND: S=Susceptible, N/R=Not Reported, Blank=Data not available, or drug not advisable or tested, I=Intermediate, ESBL=Extended spectrum beta-lactamase, R=Resistant, TFG=Thymidine-dependent strain, HAYDEN=Beta-lactamase positive, DEVAN=mcg/m;(mg/L), S*=Predicted susceptible interp, R*=Predicted resistant interp Klepne Antibiotic DEVAN Dilutn DEVAN Interp Amikacin <=16 S Ampicillin >16 R Ampicillin/ <=8/4 S Sulbactam Aztreonam <=4 S Cefazolin <=2 S Cefepime <=2 S Cefoxitin >16 R Ceftazidime <=1 S Ceftazidime/ <=8 S Avibactam Ceftriaxone <=1 S Ciprofloxacin <=1 S Ertapenem <=0.5 S Gentamicin <=4 S Levofloxacin <=2 S Meropenem <=1 S Nitrofurantoin 64 I Piperacillin/ <=16 S Tazobactam Tetracycline >8 R Tigecycline 4 I Tobramycin <=4 S Trimethoprim/ <=2/38 S Sulfa Performing Locations R1: This test was performed at: [facility], [address] [place] [address], [facility]- , , [facility] Comment on above: Performed By: #### 1 [id number], [id number], 6608430, 7863520, 17999303, 6201656, 2642310, 7766687, 3508922 #### [facility] [address] [place] [address] [place]enson 01-01-2023 Screens [id number] Ambulatory Visit Summary GUALBERTO CRUZ :1935 Visit Date:12/31/2022 Ambulatory Visit Instructions Your Diagnosis UTI due to Klebsiella species Gross hematuria Incomplete emptying of bladder BPH with urinary obstruction Erectile dysfunction Simple renal cyst Tests Performed Urnls Dip Stick Auto w/o Microscopy POC [id number] Your Care Team Attending Physician - Idris DUNCAN MD Primary Care Physician - EMRE DAVIS MD This Is Your Medications List Contact prescribing physician if questions or concerns aspirin (aspirin 81 mg Oral EC Tab) atorvastatin (atorvastatin 10 mg Tab) carvedilol gabapentin latanoprost ophthalmic (latanoprost Opth 0.005% Virginie) losartan (losartan 50 mg Tab) nitroglycerin (Nitro 0.4 mg Tab) pantoprazole ranolazine (ranolazine 500 mg oral ER Tab) tamsulosin (tamsulosin 0.4 mg Cap) Procedures Performed Cystourethroscopy with dilation of urethral stricture (11/15/2019), Cystourethroscopy with dilation of urethral stricture (07/12/2019), Cystoscopy (02/28/2015), Urodynamics (02/01/2015), Urodynamics (09/30/2014), Urodynamics (01/15/2006), Cystoscopy (03/31/2005), Urodynamics (09/03/2004), Cystoscopy (08/15/2004), Transrectal biopsy of prostate using ultrasound (US) guidance (08/15/2004), Cardiac catheterisation, Cholecystectomy, Hernia repair, History of lumbar spine surgery, Stent placement, Tonsillectomy, TURP - Transurethral resection of prostate. Discharge Vitals Heart Rate (Peripheral) 63 Blood Pressure 153/73 Height 175 cm Height 69 in Weight 93.0 kg Weight 204.6 lb BMI 30.37 What to do next Scheduled Follow-Up Appointments Thursday 2:30 PM EDT With: Idris DUNCAN MD Where: [facility] Patient Educationon 01-01-20 23 Patient Education Obstetrics and Gynec ology Urinary Tract Infection, Adult A urinary tract infection (UTI) is an infection of any part of the urinary tract. The urinary tract includes the kidneys, ureters, bladder, and urethra. These organs make, store, and get rid of urine in the body. An upper UTI affects the ureters and kidneys. A lower UTI affects the bladder and urethra. What are the causes? Most urinary tract infections are caused by bacteria in your genital area around your urethra, where urine leaves your body. These bacteria grow and cause inflammation of your urinary tract. What increases the risk? You are more likely to develop this condition if: ? You have a urinary catheter that stays in place. ? You are not able to control when you urinate or have a bowel movement (incontinence). ? You are female and you: ? Use a spermicide or diaphragm for control. ? Have low estrogen levels. ? Are . ? You have certain genes that increase your risk. ? You are sexually active. ? You take antibiotic medicines. ? You have a condition that causes your flow of urine to slow down, such as: ? An enlarged prostate, if you are male. ? Blockage in your urethra. ? A kidney stone. ? A nerve condition that affects your bladder control (neurogenic bladder). ? Not getting enough to drink, or not urinating often. ? You have certain medical conditions, such as: ? Diabetes. ? A weak disease-fighting system (immunesystem). ? Sickle cell disease. ? Gout. ? Spinal cord injury. What are the signs or symptoms? Symptoms of this condition include: ? Needing to urinate right away (urgency). ? Frequent urination. This may include small amounts of urine each time you urinate. ? Pain or burning with urination. ? Blood in the urine. ? Urine that smells bad or unusual. ? Trouble urinating. ? Cloudy urine. ? Vaginal discharge, if you are female. ? Pain in the abdomen or the lower back. You may also have: ? Vomiting or a decreased appetite. ? Confusion. ? Irritability or tiredness. ? A fever or chills. ? Diarrhea. The first symptom in older adults may be confusion. In some cases, they may not have any symptoms until the infection has worsened. How is this diagnosed? This condition is diagnosed based on your medical history and a physical exam. You may also have other tests, including: ? Urine tests. ? Blood tests. ? Tests for STIs (sexually transmitted infections). If you have had more than one UTI, a cystoscopy or imaging studies may be done to determine the cause of the infections. How is this treated? Treatment for this condition includes: ? Antibiotic medicine. ? Dpdj-wvi-fslxkur medicines to treat discomfort. ? Drinking enough water to stay hydrated. If you have frequent infections or have other conditions such as a kidney stone, you may need to see a health care provider who specializes in the urinary tract (urologist). In rare cases, urinary tract infections can cause sepsis. Sepsis is a life-threatening condition that occurs when the body responds to an infection. Sepsis is treated in the hospital with IV antibiotics, fluids, and other medicines. Follow these instructions at home: Medicines ? Take xxfj-qea-pvcmszu and prescription medicines only as told by your health care provider. ? If you were prescribed an antibiotic medicine, take it as told by your health care provider. Do not stop using the antibiotic even if you start to feel better. General instructions ? Make sure you: ? Empty your bladder often and completely. Do not hold urine for long periods of time. ? Empty your bladder after sex. ? Wipe from front to back after urinating or having a bowel movement if you are female. Use each tissue only one time when you wipe. ? Drink enough fluid to keep your urine pale yellow. ? Keep all follow-up visits. This is important. Contact a health care provider if: ? Your symptoms do not get better after 1?2 days. ? Your symptoms go away and then return. Get help right away if: ? You have severe pain in your back or your lower abdomen. ? You have a fever or chills. ? You have nausea or vomiting. Summary ? A urinary tract infection (UTI) is an infection of any part of the urinary tract, which includes the kidneys, ureters, bladder, and urethra. ? Most urinary tract infections are caused by bacteria in your genital area. ? Treatment for this condition often includes antibiotic medicines. ? If you were prescribed an antibiotic medicine, take it as told by your health care provider. Do not stop using the antibiotic even if you start to feel better. ? Keep all follow-up visits. This is important. This information is not intended to replace advice given to you by your health care provider. Make sure you discuss any questions you have with your health care provider. Document Revised: 10/19/2020 Document Revie (more content not included)... [facility] RAD - MISCon 12-09-2022 RAD - MISC [id number]:127 [facility] RAD - Ultrasound Reporton RAD - Ultrasound Report [id number]:127 [facility] C Urineon 12-07-2022 Bacteria identified Cx Nom (U) Microbiology PROCEDURE: Urine Culture [R1] SOURCE: U CleanCatch BODY SITE: COLLECTED DATE/TIME: 12/05/2022 10:29 EDT RECEIVED DATE/TIME: 12/05/2022 18:48 EDT START DATE/TIME: 12/05/2022 18:48 EDT FREE TEXT SOURCE: SAHARA SUAREZ PA-C, PA-C, SAHARA Romero FINAL REPORTS Final Report [] Verified Date/Time: 12/07/2022 10:16 EDT >100,000 cfu/ml Klebsiella pneumoniae SUSCEPTIBILITY RESULTS LEGEND: S=Susceptible, N/R=Not Reported, Blank=Data not available, or drug not advisable or tested, I=Intermediate, ESBL=Extended spectrum beta-lactamase, R=Resistant, TFG=Thymidine-dependent strain, HAYDEN=Beta-lactamase positive, DEVAN=mcg/m;(mg/L), S*=Predicted susceptible interp, R*=Predicted resistant interp Klepne Antibiotic DEVAN Dilutn DEVAN Interp Amikacin <=16 S Ampicillin 16 R* Ampicillin/ <=8/4 S Sulbactam Aztreonam <=4 S Cefazolin <=2 S Cefepime <=2 S Cefoxitin <=8 S Ceftazidime <=1 S Ceftazidime/ <=8 S Avibactam Ceftriaxone <=1 S Ciprofloxacin <=1 S Ertapenem <=0.5 S Gentamicin <=4 S Levofloxacin <=2 S Meropenem <=1 S Nitrofurantoin 64 I Piperacillin/ <=16 S Tazobactam Tetracycline <=4 S Tigecycline <=2 S Tobramycin <=4 S Trimethoprim/ <=2/38 S Sulfa Performing Locations R1: This test was performed at: [facility], [address] [place] [address], [address] [place] [address], [facility] Comment on above: Performed By: #### 1 [id number], 6993037, 4582301, 0311912, 48238057, 0759115, 2564079, 5493279, 3820730 #### [facility] [address] [place] [address] Ambulatory Visit Summaryon 0 12-05-2022 Ambulatory Visit Summary GUALBERTO CRUZ Audra :1935 Visit Date:12/05/2022 Ambulatory Visit Instructions Your Diagnosis Gross hematuria Your Care Team Attending Physician - EMRE DAVIS MD Primary Care Physician - EMRE DAVIS MD This Is Your Medications List aspirin (aspirin 81 mg Oral EC Tab) atorvastatin (atorvastatin 10 mg Tab) carvedilol gabapentin latanoprost ophthalmic (latanoprost Opth 0.005% Virginie) losartan (losartan 50 mg Tab) nitroglycerin (Nitro 0.4 mg Tab) pantoprazole ranolazine (ranolazine 500 mg oral ER Tab) tamsulosin (tamsulosin 0.4 mg Cap) Procedures Performed Cystourethroscopy with dilation of urethral stricture (11/15/2019), Cystourethroscopy with dilation of urethral stricture (07/12/2019), Cystoscopy (02/28/2015), Urodynamics (02/01/2015), Urodynamics (09/30/2014), Urodynamics (01/15/2006), Cystoscopy (03/31/2005), Urodynamics (09/03/2004), Cystoscopy (08/15/2004), Transrectal biopsy of prostate using ultrasound (US) guidance (08/15/2004), Cardiac catheterisation, Cholecystectomy, Hernia repair, History of lumbar spine surgery, Stent placement, Tonsillectomy, TURP - Transurethral resection of prostate. What to do next Scheduled Follow-Up Appointments Thursday 2:15 PM EDT With: PERLA PARKER, Idris Zhu Where: [facility] [place] Normal [facility] Urinalysison 12-05-2022 Bacteria LM Ql (Urine sed) 3+ /HPF Abnormal Trace [facility] Comment on above: Performed By: #### 1 [id number], 3591349, 9276647, 9456012, 04002570, 3417794, 0568994, 2141097, 2628679 #### [facility] [address] [place] [address] Bilirubin Ql (U) Negative Normal Negative [facility] Comment on above: Performed By: #### 1 2911154, 7812447, 3782870, 1057625, 99240014, 8440245, 8513966, 4836009, 7114311 #### [facility] [address] [place] [address] Clarity (U) SL CLOUDY Invalid Interpretation Code [facility] Comment on above: Performed By: #### 1 [id number], 5777741, 1002528, 3425935, 14010202, 7121109, 3008540, 5522334, 4739695 #### [facility] [address] [place] [address] Color (U) YELLOW Normal Yellow [facility] Comment on above: Performed By: #### 1 4900207, 6714847, 3549365, 8003719, 32201430, 2099911, 1558676, 2899629, 1785175 #### [facility] [address] [place] [address] Epithelial cells.squamous LM.HPF (Urine sed) [#/Area] 0-2 Normal 0-2 [facility] Comment on above: Performed By: #### 1 9724806, 4303827, 7415849, 3964263, 99170634, 5508878, 8263736, 9093262, 2663089 #### [facility] [address] [place] [address] Glucose Test strip (U) [Mass/Vol] Negative Normal Negative [facility] Comment on above: Performed By: #### 1 9807792, 4459847, 3762820, 9308526, 12537555, 9932319, 9705340, 4231891, 2000129 #### [facility] [address] [place] [address] Hemoglobin Ql (U) 2+ Abnormal Negative [facility] Comment on above: Performed By: #### 1 2648858, 0200980, 0182422, 1009747, 33635900, 6049416, 0526024, 5818233, 1193749 #### [facility] [address] [place] [address] Ketones (U) [Mass/Vol] Negative Normal Negative [facility] Comment on above: Performed By: #### 1 2997245, 4690587, 6303512, 6613688, 04522337, 2280909, 8287362, 5294293, 8144807 #### [facility] [address] [place] [address] [place].plasma/Lit hium.RBC (Bld) [Mass ratio] 4-20 Normal 0-3 [facility] Comment on above: Performed By: #### 1 9145172, 9913166, 2515411, 1942582, 42299596, 8923652, 2074689, 6069941, 8458695 #### [facility] [address] [place] [address] Nitrite Ql (U) Negative Normal Negative [facility] Comment on above: Performed By: #### 1 4349749, 5124450, 4746766, 7623923, 91705308, 4439749, 8502101, 8125806, 8765632 #### [facility] [address] [place] [address] pH (U) 6.0 [pH] Invalid Interpretation Code 5.0-9.0 [facility] Comment on above: Performed By: #### 1 3559977, 0526677, 2382180, 0896749, 61293873, 4968426, 3030194, 1033215, 0720702 #### [facility] [address] [place] [address] Protein (U) [Mass/Vol] Negative Normal Negative [facility] Comment on above: Performed By: #### 1 9276169, 6851726, 0818991, 5098292, 75143347, 3221159, 5723899, 2621584, 4123819 #### [facility] [address] [place] [address] Specific gravity (U) [Rel density] 1.015 Invalid Interpretation Code 1.005-1.03 0 [facility] Comment on above: Performed By: #### 1 3335760, 4764394, 9175710, 9692010, 75345881, 3939749, 4891611, 7761848, 2742222 #### [facility] [address] [place] [address] Type of Urine collection method Clean Catch Normal [facility] Comment on above: Performed By: #### 1 7301468, 8749527, 3574052, 8701418, 55220212, 0780054, 2572925, 2031274, 0403017 #### [facility] [address] [place] [address] Urobilinogen Qn (U) 0.2 {Denice'U}/dL Normal 0.0-1.0 [facility] Comment on above: Performed By: #### 1 2965417, 8350762, 6234822, 9503374, 28069673, 1883108, 4004941, 1451843, 4973072 #### [facility] [address] [place] [address] WBC Auto Ql (U) 3+ Abnormal Negative [facility] Comment on above: Performed By: #### 1 6428680, 9748092, 9207761, 6971650, 70431612, 6421482, 4362602, 6116228, 4758145 #### [facility] [address] [place] [address] WBC LM.HPF (Urine sed) [#/Area] /[HPF] Abnormal 0-5 [facility] Comment on above: Performed By: #### 1 5253368, 4563014, 3768244, 5819900, 03953556, 8248385, 0455591, 1298872, 2792810 #### [facility] [address] [place] [address] Office Visiton 10-22-2022 Follow-up visit [id number] Gualberto Cruz 1935 M Date Provider Department Center 10/22/2022 ILIA SINGH [facility] Family History Problem Relation Age of Onset Prostate cancer Other Family Status - Relation Status Age at Other Level of Service:77108 [place] OFFICE/OUTPATIENT ESTABLISHED MOD MDM 30-39 MIN Normal [facility] COVID Quick Testingon 2022 Result Negative [facility] Card Other XR lumbar spine 6V w bending on 2022 XR lumbar spine 6V w bending [facility] [address] [address] XRay Report Signed Patient: Gualberto Cruz MR#: [id number] 2 : 1935 Acct:[id number] Age/Sex: 87 / M ADM Date: 03/12/22 Loc: ICXD Room: Type: [facility] [place] Attending Dr: Cheryl Arias MD Copies to: Cheryl Arias MD Ordering Provider: Cheryl Arias MD Date of Service: 03/12/22 XR/XR lumbar spine 6V w bending: M54.5 XR lumbar spine 6V w bending 2022 12:01 PM SIGNS AND SYMPTOMS: Low back pain, bilateral lower extremity radiculopathy PROTOCOLS: Frontal, lateral, and oblique radiographs of the lumbar spine including flexion and extension views COMPARISON: None FINDINGS: There is 5 mm of retrolisthesis of L1 upon L2 with 3 mm of retrolisthesis of L2 upon L3. A 7 mm of anterolisthesis of L4 upon L5. There is no pathologic movement on flexion or extension. There is moderate to severe disc height loss throughout. There is facet hypertrophy throughout. The vertebral body heights are preserved. There is a levoconvex curvature of the lumbar spine. No evidence of fracture. Mild symmetric sacroiliac joint degenerative changes are noted. Atherosclerotic changes are noted in the abdominal aorta and its branches. There is evidence of prior cholecystectomy. XR/XR lumbar spine 6V w bending IMPRESSION: There is a levoconvex curvature of the lumbar spine. There is 5 mm of retrolisthesis of L1 upon L2 with 3 mm of retrolisthesis of L2 upon L3. A 7 mm of anterolisthesis of L4 upon L5. There is no pathologic movement on flexion or extension. Moderate to severe multilevel degenerative changes are noted, as above. No fracture. Impression dictated by: Cheryl Cosby M.D.03/12/2022 3:08 PM Dictation Location: [place] [address] Transcribed By: [facility] 03/12/22 1508 Dictated By: Cheryl Cosby II, MD 03/12/22 1506 Signed By: 03/12/22 1508 [facility] US Venous, Unilat, Lower Ext Righton 07-23-2021 US Venous, Unilat, Lower Ext Right FINDINGS: The deep venous system of the right lower extremity exhibits full compressibility and normal flow augmentation. These specifically include the common femoral, superficial femoral, popliteal and visualization anterior tibialis, posterior tibialis and peroneal veins. No evidence of deep venous thrombosis is present. Greater saphenous vein is patent. A minimally complex 4.5 x 1.5 x 4.5 cm popliteal cyst. IMPRESSION: 1. No deep venous thrombosis. 2. Small to moderate size popliteal cyst. Report reported and signed by Javi Briscoe on 07/23/2021 1237 Normal [facility] NM STRESS/REST MULTIon 10-01 NM STRESS/REST MULTI Patient: GUALBERTO CRUZ Exam Date: 10/01/2020 : 1935 Gender:M Ordering : FLORY MCCRARY Admission #: [id number] Family : Order #: [id number] CLICK HERE TO VIEW EXAM RADIOLOGY REPORT PROCEDURE: RADIONUCLIDE IMAGING STRESS/REST MULTI COMPARISON: None. INDICATIONS: Angina co-occurrent and due to coronary arteriosclerosis TECHNIQUE: Exam Description: Stress/Rest one day protocol gated SPECT Rest Imagin.8 mCi Tc-99m Cardiolite IV on 10-01-2020 Stress Imaging 30.6 mCi Tc-99m Cardiolite IV on 10-01-2020 Exercise Protocol: 0.4 mg Lexiscan given IV Heart Rate (bpm): Rest: 62 Max: 72 PMHR: 54 Blood Pressure: Rest: 162/84 Max: 162/84 Symptoms: Rest and peak stress ECG findings were normal and the exercise portion of the study was normal per attending physician Dr. Matson . For more details please see separate cardiac stress test report. FINDINGS: QUALITY OF STUDY: Excellent. PERFUSION DEFECT: LOCATION: Basal inferior. Mid-inferior. SIZE: Small (1-2 segments). SEVERITY: Severe. TYPE: Persistent. WALL MOTION: Normal. LV SIZE: Normal. 70 mL. TID / TCD: None; 0.8 LVEF: Normal. Calculated EF 67%. SUMMARY: Myocardial perfusion imaging study has ABNORMAL findings. CONCLUSION: 1. No acute or reversible ischemia. 2. Diaphragm attenuation artifact versus remote infarction of the inferior wall; attenuation artifact is favored. 3. Normal wall motion and ejection fraction. Dictated by: West Bajwa M.D. on 10/01/2020 at 14:52 Approved by: West Bajwa M.D. on 10/01/2020 at 15:11 Normal [facility] ECHOCARDIO M/2D COMPLETEon 0 09-19-2020 ECHOCARDIO M/2D COMPLETE Patient: GUALBERTO CRUZ Exam Date: 09/19/2020 : 1935 Gender:M Ordering : FLORY MCCRARY Admission #: [id number] Family : DR EMRE DAVIS M.D. Order #: [id number] CLICK HERE TO VIEW EXAM ECHOCARDIOGRAM REPORT PROCEDURE: CARDIO PULMONARY ECHOCARDIO M/2D COMP INDICATIONS: Coronary atherosclerosis, Chest pain, HTN COMPARISON: None. DESCRIPTION: COMPLETE ECHOCARDIOGRAM Real-time transthoracic echocardiography with 2D, M-mode, spectral and color flow Doppler performed. QUALITY: Technical quality was adequate. 70 198# 148/92 HR 63 LEFT VENTRICLE: Normal chamber size. Mild concentric left ventricular hypertrophy. No regional wall motion abnormalities. Calculated EF 66%. LV EF: Normal left ventricular ejection fraction, (>55%). DIASTOLIC: Grade I diastolic dysfunction. ATRIAL SEPTUM: LEFT ATRIUM: Mild dilatation. RIGHT ATRIUM: Mild dilatation. RIGHT VENTRICLE: Normal chamber size. Normal right ventricular systolic function. TRICUSPID VALVE: Normal mobility and thickness. No stenosis with trace regurgitation. No evidence of pulmonary hypertension. RVSP 32 mmHg MITRAL VALVE: Normal mobility and thickness. No evidence of mitral valve stenosis. Mild mitral regurgitation. AORTIC VALVE: Normal trileaflet appearance. Normal leaflet mobility. No evidence of aortic valve stenosis. Aortic sinuses are moderately enlarged. The ascending aorta is mildly enlarged. Aortic arch is poorly visualized.No aortic regurgitation. AORTIC ROOT: PULMONIC VALVE: Not well visualized. No stenosis. Trace regurgitation. PERICARDIUM: No evidence of pericardial effusion. IVC: Collapes with inspirations. IVC normal in size. PLEURA: CONCLUSION: 1. Normal ventricular systolic function. 2. Mild diastolic dysfunction. 3. Mild mitral regurgitation. 4. Normal right sided pressures. Adult Echocardiography Procedure Report Left Ventricle Left Atrium Mitral Valve Right Ventricle Aorta Aortic Valve Peak Velocity (Antegrade Flow): 1.25 m/s AoV Area (Peak Juan F): 2.73 cm2, 2.73 cm2 Peak Velocity(Antegrade Flow): 1.25 m/s Peak Gradient(Antegrade Flow): 6.22 mm[Hg] Tricuspid Valve Peak Velocity (Regurgitant Flow): 2.68 m/s Peak Velocity: 0.56 m/s Pulmonic Valve PV Max Juan F (0.6 - 0.9 m per sec): 1.08 m/s PV Max Gradient: 4.70 mm[Hg] Right Atrium Dictated by: Ilia Hodgson M.D. on 09/21/2020 at 18:21 Approved by: Ilia Hodgson M.D. on 09/21/2020 at 18:23 Normal [facility] XR LSPINE W_OBLS AND FLEX_EX Ton 11-17-2019 XR LSPINE W_OBLS AND FLEX_EXT EXAMINATION: XR LSPINE W_OBLS AND FLEX_EXT HISTORY: Lumbar radiculopathy COMPARISON: No relevant comparison available. FINDINGS: BONES: Moderate left convex curvature of the lumbar spine. 4 mm retrolisthesis of L1 on 2. 7 mm anterior listhesis of L4 on 5. No fracture. Marked degenerative facet arthropathy L3-L4 through L5-S1. DISC SPACES: Moderate-marked narrowing at all lumbar levels. PARASPINOUS: Marked atherosclerotic disease visible aneurysm. OTHER: Negative. IMPRESSION: 1. Moderate levoscoliosis of the lumbar spine. 2. Multilevel grade 1 listhesis without appreciable change with flexion and extension. 3. 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 Electronically authenticated by: WEST BAJWA Date: 2019-11-17 12:38 Normal [facility] Cardiovascular Lab Reporton 08-21-2017 Cardiovascular Lab Report [facility] Patient Name: Gualberto Cruz [facility] MR #: [id number] Physician: Ilia Kern M.D.Medicine Service Date: 08/20/2017Division of Birthdate: 4Cardiology Room #: 3CD [id number] CardiovascularServicesUnivers [facility] CenterZsytnshRzvajt[address] [place], [place] [address]Elqlr Fax Cardiovascular Laboratory ReportINDICATION: Gualberto Cruz is an 82-year-old man known to have coronaryartery disease, [facility] He continues to have angina despite being on four antianginalmedications. He underwent a cardiac catheterization in June of 2017 thatshowed chronic total occlusion of the right coronary artery with occlusionof the proximal mid and distal right coronary artery stents. Because ofcontinued angina despite maximal medical therapy, he was referred forpercutaneous intervention to the right coronary artery ASSOCIATE EDITOR.SALES ORDER ADMINISTRATOR: Ilia Hodgson M.D.CASHIER OFFICE: Jose Angel Alaniz M.D.PROCEDURES:1. Bilateral selective coronary angiography.2. Limited right femoral angiography.3. Failure to recanalize chronic total occlusion of the right coronary artery using the Antegrade wire escalation technique, balloon angioplasty, and CrossBoss catheter.4. Deployment of a vascular access closure device.METHODS: Procedure was explained to the patient with risks and benefits,he signed informed consent. 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 Usingmicropuncture technique, the right common femoral artery was accessed. Theinner cannula was advanced, limited femoral angiography was performedfollowed by upsizing to an 8-Monegasque x 65 cm sheath. Through this sheath,an 8-Monegasque AL 0.75 guiding catheter was advanced and used to engage theright coronary ostium. Access was obtained in the right radial arteryusing micropuncture technique. Nasim's test was favorable. A 6-Monegasque x11 cm Hydrophilic sheath was advanced. Verapamil was given through thesheath and heparin was administered intravenously. A 6-Monegasque JL3.5diagnostic catheter was advanced and used to engage the left main coronaryostium.Heparin was administered intravenously and therapeutic ACT confirmed duringthe procedure. Bilateral selective simultaneous coronary angiography wasperformed in multiple views.We proceeded with attempt at recanalization of the right coronary arteryCTO using the antegrade approach as there was no clear good option forretrograde recanalization. We started with a [employer] 200 wire mounted on aTurnpike catheter. The wire was not able to cross the mid right coronaryartery stents where there was collapse of the stent. We used sequentiallymultiple combinations of wires and catheter including a Confianza Pro wire,a Hornet wire, and a Wiggle wire, and we exchanged the support catheterfrom the Turnpike spiral catheter to the Finecross catheter. We also useda CrossBoss catheter to try to advance in the occluded segment. At onepoint in time, we also advanced a 6-Monegasque guide liner to provide bettersupport. In addition, we advanced a noncompliant over the wire 2.5 x 20 mmballoon and inflated in the proximal right coronary artery up to 22atmospheres to provide support for the wires in order to cross the area ofthe occlusion. Despite multiple attempts, we were not able to crossbecause of the tough fibrotic occlusion. In addition, one point in time,the wires were going to the side of the stents in the adventitial plane.After multiple attempts, we decided to conclude the procedure. Finalangiography of the right coronary artery was performed. There was noperforation. The guiding catheter was removed. Final left coronary arteryangiography was performed. The diagnostic catheter was removed over thewire. The right femoral arteriotomy was managed with an 8-KyqvxtXyltr-Ounk device with good hemostasis. The right radial sheath wasremoved and a compression dressing applied for hemostasis. He toleratedthe procedure well. He was transferred to the Cardiovascular RecoveryArea. He will be admitted for overnight observation.TOTAL FLUORO TIME: 62.12 minutes.TOTAL AIR KERMA: 2902 mGy.TOTAL CONTRAST VOLUME: 50 mL.HEMODYNAMICS: AO 105/51, mean 72.Note that initially the patient at the beginning of the procedure washaving a low blood pressure between 80 and 90 systolic. We started him onlow-dose 2.5 mcg/kg per minute of dopamine, which we stopped shortly afterhis blood pressure came up.CORONARY ANGIOGRAPHY: This is a right dominant circulation.Left main: This arises from left coronary cusp. It bifurcates into leftanterior descending and circumflex vessels. Left main is free ofsignificant disease.Left anterior descending: This has a 50% stenosis around the takeoff of adiagonal branch. The first diagonal branch has mild disease. The seconddiagonal branch has a 60% proximal stenosis. Diagonal branch is of smallcaliber.Circumflex vessel: This is nondominant. It has a 50% proximal stenosis.It gives epicardial collateral that feeds the distal right coronary arteryretrogradely.Right coronary artery: This arises from the right coronary cusp. It is alarge and dominant vessel. It has a 50% proximal stenosis followed bypreviously placed stents in the mid to distal segment. Those stents arecompletely occluded and there is reconstitution of the distal rightcoronary artery via the circumflex epicardial collaterals. There wasfailure to recanalized the occlusion by multiple antegrade techniques.Final angiogram was comparable to baseline.Limited right femoral angiography. This showed access to be in the rightcommon femoral artery with no obstructive lesions noted in the femoralartery or proximal branches.RECOMMENDATIONS: Continue current medical therapy and follow up inCardiology Clinic.Electronically Signed by:Ilia Hodgson M.D. 08/21/2017 09:13 P Ilia Hodgson M.D.Date Dict: 08/20/2017/04:06 P/Ilia Hodgson M.D.Date Trans: 08/21/2017 06:14 A/jean-pierreoDN_[id number]: Emre Davis M.D. [address] [place], [place] [id number] [facility] Cardiovascular Lab Reporton 07-16-2017 Cardiovascular Lab Report [facility] Patient Name: Gualberto Crzu [facility] MR #: [id number] Physician: Ilia Kern M.D.Medicine Service Date: 07/15/2017Division of Birthdate: 4Cardiology Room #: 4CD [id number] CardiovascularServicesUnivers [facility] InstituteGbjlpozPdelkh[address] [place], [place] [address]Wmmuj Fax Cardiovascular Laboratory ReportINDICATION: Gualberto Cruz is an 82-year-old man, known to have priorcoronary artery disease status post stenting procedures in the rightcoronary artery in the past. He was recently evaluated in CardiologyClinic because of recurrent symptoms of angina despite multiple antianginalmedicines. He is presenting for cardiac catheterization.PROCEDURE:1. Bilateral selective coronary angiography.2. Limited left femoral angiography.3. Access into the left radial artery under ultrasound guidance.METHOD: Procedure was explained to the patient with risks and benefits.He signed informed consent. 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 Access in the left radial arterywas obtained using ultrasound guidance. There was inability to advance awire due to the small caliber of the left radial artery. This accesstherefore was abandoned.The left groin area was prepped and draped in usual fashion. Usingmicropuncture technique, access was obtained in the left common femoralartery. The inner cannula was advanced. Limited left femoral angiographywas performed followed by upsizing to a 6-Monegasque x 30 cm flexor sheath toovercome iliac tortuosities. Note that there was inability to advance thesheath initially over the regular wire, we had to use a 5-Monegasque straighttapered catheter over an angled glidewire and then exchanged to a stifferwire (Amplatz superstiff), advanced a 6-Monegasque Toone sheath, and thenexchanged to the 6-Monegasque x 30 cm flexor sheath. Bilateral selectivecoronary angiography was then performed using 6-Monegasque JL4 and ED6ueusfxkxde catheters. Catheters were removed. Procedure was concluded.The flexor sheath was exchanged over the wire to a 6-Monegasque x 11 cm sheath.He tolerated the procedure well. He was transferred to the cardiovascularrecovery area, the access sheaths were removed and manual compressionapplied for hemostasis. He will be admitted for overnight observation.TOTAL FLUORO TIME: 5.52 minutes.TOTAL AIR KERMA: 525 mGy.TOTAL CONTRAST VOLUME: 80 mL.HEMODYNAMICS: AO 138/52, mean 91.CORONARY ANGIOGRAPHY: This is a right dominant circulation.Left main. This arises from left coronary cusp. It bifurcates into leftanterior descending and circumflex vessels. The left main is free ofsignificant disease.Left anterior descending. This has a 50% stenosis around the takeoff of adiagonal branch in its proximal and mid segments, that LAD stenosis appearsto be similar to prior angiography from 2013. The first diagonal branchhas mild disease. A second diagonal branch has a 60% proximal stenosis,however, it is of small caliber.Circumflex vessel: This is a nondominant vessel. It has a 50% proximalstenosis. It gives rise to an epicardial collateral that feeds the distalright coronary artery retrogradely.Right coronary artery. This arises from the right coronary cusp. This maurilio large and dominant vessel. It has a 50% proximal stenosis followed by apreviously placed stent in the mid to distal segments. Those stents arecompletely occluded. There is reconstitution of the distal right coronaryartery via the circumflex epicardial collateral.Limited left femoral angiography. This showed access to be in the leftcommon femoral artery with no obstructive lesions noted in the femoralartery or its proximal branches. There was evidence of severe tortuositiesin the left iliac system.SUMMARY OF THE FINDINGS:1. Severe single-vessel coronary artery disease with chronic total occlusion of the mid to distal right coronary artery and filling of the distal vessel via a circumflex epicardial collateral.2. A 50% proximal to mid LAD stenosis, 60% 2nd diagonal branch stenosis.3. A 50% proximal circumflex stenosis.RECOMMENDATIONS:1. Maximize medical therapy (Imdur 30 mg daily will be added to this patient's regimen).2. Follow up in Cardiology Clinic to discuss further management possibilities to include continued medical therapy versus consideration of revascularization of the right coronary artery chronic total occlusion.Electronically Signed by:Ilia Hodgson M.D. 07/17/2017 04:18 P Ilia Hodgson M.D.Date Dict: 07/15/2017/04:09 P/Ilia Hodgson M.D.Date Trans: 07/16/2017 10:05 A/All_JN:[id number]: Emre Davis M.D. [address] [place] [address] Normal [facility] BASIC METABOLIC PANELon 06-22 Calcium mass conc 8.8 mg/dL Normal 8.6-10.3 [facility] Comment on above: Order Comment: No: D o not add to previous draw Performed By: #### 0 0071 ####[facility] [facility] [place] [address], [facility] Chloride molar conc 103 mmol/L Normal 98-107 [facility] Comment on above: Order Comment: No: D o not add to previous draw Performed By: #### 0 0071 ####[facility] [facility] [place] [address], [facility] CO2 molar conc 27 mmol/L Normal 21-31 [facility] Comment on above: Order Comment: No: D o not add to previous draw Performed By: #### 0 0071 ####[facility] [place] [address], [facility] Creatinine mass conc 0.98 mg/dL Normal 0.70-1.30 [facility] Comment on above: Order Comment: No: D o not add to previous draw Performed By: #### 0 0071 ####[facility] [place] [address], [facility] GFR/1.73 sq M predicted among blacks MDRD vol rate/area (S/P/Bld) mL/min/{1.73_m2} Normal >60 [facility] Comment on above: Order Comment: No: D o not add to previous draw Result Comment: Calc ulation may not be valid for patients over 70 years Performed By: #### 0 0071 ####[facility] [place] [address], [facility] GFR/1.73 sq M predicted among non-blacks MDRD vol rate/area (S/P/Bld) mL/min/{1.73_m2} Normal >60 [facility] Comment on above: Order Comment: No: D o not add to previous draw Result Comment: Calc ulation may not be valid for patients over 70 years Performed By: #### 0 0071 ####[facility] [place] [address], [facility] Glucose mass conc 103 mg/dL High 70-100 [facility] Comment on above: Order Comment: No: D o not add to previous draw Performed By: #### 0 0071 ####[facility] [place] [address], [facility] Potassium molar conc 3.6 mmol/L Normal 3.5-5.1 [facility] Comment on above: Order Comment: No: D o not add to previous draw Performed By: #### 0 0071 ####[facility] [facility].[address] Sodium molar conc 136 mmol/L Normal 136-145 [facility] Comment on above: Order Comment: No: D o not add to previous draw Performed By: #### 0 0071 ####[facility] [facility].[address] Urea nitrogen mass conc 14 mg/dL Normal 7-25 [facility] Comment on above: Order Comment: No: D o not add to previous draw Performed By: #### 0 0071 ####[address] CBC COMPLETE BLOOD COUNTon 0 07-15-2017 Erythrocyte distribution width Auto Ratio (RBC) 12.7 % Normal 11.5-15.0 [facility] Comment on above: Order Comment: No: D o not add to previous draw Performed By: #### 5 0608 ####[place] [address] [facility].[address] Hematocrit Auto Volume Fraction (Bld) 36.0 % Low 39.0-50.0 [facility] Comment on above: Order Comment: No: D o not add to previous draw Performed By: #### 5 0608 ####[place] [address] [facility].[address] Hemoglobin mass conc (Bld) 12.3 g/dL Low 13.0-17.0 [facility] Comment on above: Order Comment: No: D o not add to previous draw Performed By: #### 5 0608 ####[address] [place] [address], [facility] IMM PLATELET FRAC 7.4 % High 0.8-6.3 [facility] Comment on above: Order Comment: No: D o not add to previous draw Performed By: #### 5 0608 ####[facility] [facility].[address] MCH Auto Entitic mass (RBC) 32.7 pg Normal 27.0-33.0 [facility] Comment on above: Order Comment: No: D o not add to previous draw Performed By: #### 5 0608 ####[facility] MCHC Auto mass conc (RBC) 34.2 g/dL Normal 32.0-35.0 [facility] Comment on above: Order Comment: No: D o not add to previous draw Performed By: #### 5 0608 ####[facility] [facility].[address] MCV Auto Entitic volume (RBC) 95.7 fL Normal 82.0-98.0 [facility] Comment on above: Order Comment: No: D o not add to previous draw Performed By: #### 5 0608 ####[facility] [facility].[address] Nucleated RBC/100 WBC Ratio (Bld) 0 % Normal 0-0 [facility] Comment on above: Order Comment: No: D o not add to previous draw Performed By: #### 5 0608 ####[facility] [facility].[address] PLAT CNT 79 10*3/uL Low 150-400 [facility] Comment on above: Order Comment: No: D o not add to previous draw Result Comment: RESU LTS CHECKED Performed By: #### 5 0608 ####[facility] [facility].[address] RBC Auto #/vol (Bld) 3.76 10*6/uL Low 4.20-5.70 [facility] Comment on above: Order Comment: No: D o not add to previous draw Performed By: #### 5 0608 ####[facility] [place] [address].[place] [address], [place] WBC Auto #/vol (Bld) 5.5 10*3/uL Normal 4.0-10.6 [facility] Comment on above: Order Comment: No: D o not add to previous draw Performed By: #### 5 0608 ####[facility] [place], [place] [id number] [place] [address] Vital Signs Date Time Vital Sign Value Performing Clinician Facility 07-24-2023 13:39-0400 Hourly Rounding Jimbo Pike [facility] 07-24-2023 13:39-0400 Promise to Return Jimbo Pike [facility] 07-24-2023 12:00-0400 Hourly Rounding Jimbo Pike [facility] 07-24-2023 12:00-0400 Promise to Return Jimbo WiN [facility] 07-24-2023 11:55-0400 Heart rate 62 /min Jimbo WiN [facility] 07-24-2023 11:55-0400 SaO2% (BldA) [Mass fraction] 97 % Jimbo Pike [facility] 07-24-2023 11:54-0400 Body temperature 97.34 [degF] Jimbo Pike [facility] 07-24-2023 11:54-0400 Diastolic blood pressure 59 mm[Hg] Jimbo WiN MS [facility] 07-24-2023 11:54-0400 Mean blood pressure 76 mm[Hg] Jimbo Pike [facility] 07-24-2023 11:54-0400 Systolic blood pressure 109 mm[Hg] Jimbo Pike [facility] 07-24-2023 11:00-0400 Hourly Rounding Jimbo Pike [facility] 07-24-2023 11:00-0400 Promise to Return Jimbo Pike [facility] 07-24-2023 09:49-0400 Diastolic blood pressure 61 mm[Hg] Jimbo Pike [facility] 07-24-2023 09:49-0400 Systolic blood pressure 116 mm[Hg] Jimbo Pike [facility] 07-24-2023 08:36-0400 Heart rate 60 /min Jimbo Pike [facility] 07-24-2023 08:36-0400 SaO2% (BldA) [Mass fraction] 96 % Jimbo Pike [facility] 07-24-2023 08:35-0400 Body temperature 97.7 [degF] Jimbo Pike [facility] 07-24-2023 08:34-0400 Diastolic blood pressure 59 mm[Hg] Jimbo Pike [facility] 07-24-2023 08:34-0400 Mean blood pressure 74 mm[Hg] Jimbo Pike [facility] 07-24-2023 08:34-0400 Systolic blood pressure 106 mm[Hg] Jimbo Pike [facility] 07-24-2023 00:19-0400 Blood Pressure Location Jimbo Pike [facility] 07-24-2023 00:19-0400 Body temperature 98.24 [degF] Jimbo Pike [facility] 07-24-2023 00:19-0400 Heart rate 64 /min Jimbo Pike [facility] 07-24-2023 00:19-0400 Mean blood pressure 78 mm[Hg] Jimbo Pike [facility] 07-24-2023 00:19-0400 Respiratory rate 17 /min Jimbo Pike [facility] 07-24-2023 00:19-0400 SaO2% (BldA) [Mass fraction] 97 % Jimbo Pike [facility] 07-23-2023 19:00-0400 Body temperature 98.06 [degF] Jimbo Pike [facility] 07-23-2023 19:00-0400 Respiratory rate 16 /min Jimbo Pike [facility] 07-23-2023 16:00-0400 Body temperature 97.52 [degF] Jimbo Pike [facility] 07-23-2023 11:00-0400 Heart rate 62 /min Jimbo Pike [facility] 07-23-2023 11:00-0400 Mean blood pressure 84 mm[Hg] Jimbo Pike [facility] 07-23-2023 08:00-0400 Body temperature 97.7 [degF] Jimbo Pike [facility] 07-23-2023 00:07-0400 Mean blood pressure 115 mm[Hg] Jimbo Pike [facility] 07-22-2023 11:35-0400 Body temperature 97.7 [degF] Jimbo Pike [facility] 07-22-2023 11:35-0400 Respiratory rate 15 /min Jimbo Pike [facility] 07-22-2023 11:25-0400 Respiratory rate 17 /min Jimbo Pike [facility] 07-22-2023 11:10-0400 Respiratory rate 16 /min Jimbovira Pike [facility] 07-22-2023 10:56-0400 Body temperature 97.88 [degF] Jimbo Brown [facility] 07-22-2023 07:15-0400 Heart rate 64 /min Jimbo Brown [facility] 07-09-2023 12:40-0400 Body temperature 98.6 [degF] SAHARA DANI [facility] 07-09-2023 12:40-0400 Diastolic blood pressure 82 mm[Hg] SAHARA DANI [facility] 07-09-2023 12:40-0400 Heart rate 71 /min SAHARA DANI [facility] 07-09-2023 12:40-0400 Respiratory rate 16 /min SAHARA DANI [facility] 07-09-2023 12:40-0400 Systolic blood pressure 131 mm[Hg] SAHARA DANI [facility] 07-07-2023 10:02-0400 Diastolic blood pressure 77 mm[Hg] Jimbo Brown [facility] 07-07-2023 10:02-0400 Heart rate 58 /min Jimbo Brown [facility] 07-07-2023 10:02-0400 Mean blood pressure 100 mm[Hg] Jimbo Brown [facility] 07-07-2023 10:02-0400 Systolic blood pressure 147 mm[Hg] Jimbo Brown [facility] 07-07-2023 10:01-0400 Heart rate 61 /min Jimbo Brown [facility] 07-07-2023 10:01-0400 SaO2% (BldA) [Mass fraction] 96 % Jimbo Pike [facility] 07-07-2023 10:01-0400 Body temperature 98.06 [degF] Jimbo Pike [facility] 07-07-2023 10:00-0400 Blood Pressure Location Jimbo Pike [facility] 07-07-2023 10:00-0400 Diastolic blood pressure 79 mm[Hg] Jimbo Pike [facility] 07-07-2023 10:00-0400 Mean blood pressure 98 mm[Hg] Jimbo Pike [facility] 07-07-2023 10:00-0400 Respiratory rate 16 /min Jimbo Pike [facility] 07-07-2023 10:00-0400 Systolic blood pressure 135 mm[Hg] Jimbo Pike [facility] 12-31-2022 14:13-0400 Blood Pressure Location Idris DUNCAN [facility] 12-31-2022 14:13-0400 Diastolic blood pressure 73 mm[Hg] Idris DUNCAN [facility] 12-31-2022 14:13-0400 Heart rate 63 /min Idris DUNCAN [facility] 12-31-2022 14:13-0400 Systolic blood pressure 153 mm[Hg] Idris DUNCAN [facility] 09-06-2022 14:20-0400 Body height 172.72 cm Zee Grant Other [facility] Other 09-06-2022 14:20-0400 Body mass index (BMI) [Ratio] 29.34 kg/m2 Zee Grant Other [facility] Other 09-06-2022 14:20-0400 Body temperature 98.2 [degF] Zee Grant Other [facility] Other 09-06-2022 14:20-0400 Body weight 87.54 kg Zee Grant Other [facility] Other 09-06-2022 14:20-0400 Diastolic blood pressure 64 mm[Hg] Zee Grant Other [facility] Other 09-06-2022 14:20-0400 Respiratory rate 18 /min Zee Grant Other [facility] Other 09-06-2022 14:20-0400 SaO2% (BldA) [Mass fraction] 97 % Zee Grant Other [facility] Other 09-06-2022 14:20-0400 Systolic blood pressure 122 mm[Hg] Zee Grant Other [facility] Other 06-25-2022 14:23-0400 Blood Pressure Location Idris DUNCAN [facility] 06-25-2022 14:23-0400 Diastolic blood pressure 83 mm[Hg] Idris DUNCAN [facility] 06-25-2022 14:23-0400 Heart rate 70 /min Idris DUNCAN [facility] 06-25-2022 14:23-0400 Systolic blood pressure 156 mm[Hg] Idris DUNCAN [facility] Encounters Encounter Date Encounter Type Care Provider Facility Start: 01-11-2024 ambulatory SAHARA Oliver ty:JONAH [facility] Start: 10-15-2023 End: 10-15-2023 ambulatory JIMBO PIKE Not Available Start: 10-13-2023 End: 10-13-2023 ambulatory JIMBO A SHAHZAD Not Available Start: 10-05-2023 End: 10-05-2023 ambulatory FLORENCIO BRINK Not Available Start: 09-29-2023 End: 09-29-2023 ambulatory VIRGINIA PRINGLE Not Available Start: 09-21-2023 End: 09-21-2023 ambulatory [facility] Start: 09-16-2023 End: 09-16-2023 ambulatory FLORENCIO BRINK Not Available Start: 09-14-2023 End: 09-14-2023 ambulatory FLORENCIO BRINK Not Available Start: 09-10-2023 End: 09-10-2023 ambulatory ALLISON ARELLANO Not Available Start: 09-09-2023 End: 09-09-2023 ambulatory FLORY JORGE Not Available Start: 09-08-2023 End: 09-08-2023 ambulatory CHERYL ARIAS Not Available Start: 09-07-2023 End: 09-07-2023 ambulatory VIRGINIA PRINGLE Not Available Start: 09-03-2023 End: 09-03-2023 ambulatory JIMBO A BROWN Not Available Start: 09-02-2023 End: 09-02-2023 ambulatory FLORENCIO BRINK Not Available Start: 08-31-2023 End: 08-31-2023 ambulatory FLORENCIO BRINK Not Available Start: 08-28-2023 End: 08-28-2023 ambulatory FLORENCIO BRINK Not Available Start: 08-26-2023 End: 08-26-2023 ambulatory FLORENCIO BRINK Not Available Start: 08-24-2023 End: 08-24-2023 ambulatory FLORENCIO BRINK Not Available Start: 08-21-2023 End: 08-21-2023 ambulatory FLORENCIO BRINK Not Available Start: 08-19-2023 End: 08-19-2023 ambulatory FLORY JORGE Not Available Start: 08-14-2023 End: 08-14-2023 ambulatory FLORENCIO SHI Not Available Start: 08-12-2023 End: 08-12-2023 ambulatory FLORY JORGE Not Available Start: 08-10-2023 End: 08-10-2023 ambulatory VIRGINIA PRINGLE Not Available Start: 08-06-2023 End: 08-06-2023 ambulatory JIMBO PIKE Not Available Start: 07-22-2023 End: 07-24-2023 Admission to same day surgery center Jimbo Pike [facility] Start: 07-22-2023 End: 07-24-2023 ambulatory DO Jimbo Pike [place] [place]: 07-15-2023 End: 07-15-2023 ambulatory VIRGINIA PRINGLE Not Available Start: 07-09-2023 End: 07-09-2023 ambulatory SAHARA SUAREZ Facility:[facility] Start: 07-09-2023 End: 07-09-2023 Patient encounter procedure SAHARA SUAREZ [facility] Start: 07-07-2023 End: 07-07-2023 Patient encounter procedure Jimbo Pike [facility] Start: 07-07-2023 End: 07-07-2023 ambulatory JIMBO PIKE Not Available Start: 06-04-2023 End: 06-04-2023 ambulatory JIMBO PIKE Not Available Start: 06-04-2023 End: 06-04-2023 ambulatory JIMBO PIKE Not Available Start: 03-30-2023 End: 03-30-2023 ambulatory FLORY MCCRARY [facility] Start: 03-10-2023 End: 03-10-2023 ambulatory CHERYL Feliz BEJ Not Available Start: 03-02-2023 End: 03-02-2023 ambulatory JERRICA Baker APLING Not Available Start: 02-20-2023 End: 02-20-2023 ambulatory DEBBI ROBLERO Not Available Start: 02-16-2023 End: 02-16-2023 ambulatory JERRICA Baker APLING Not Available Start: 02-04-2023 End: 02-04-2023 ambulatory DEBBI Price HEMCORINNA Not Available Start: 12-31-2022 End: 12-31-2022 ambulatory Idris DUNCAN [place] Start: 12-31-2022 End: 12-31-2022 ambulatory Idris DUNCAN Facility:[facility] Start: 12-31-2022 End: 12-31-2022 Patient encounter procedure Idris R DUNCAN [facility] Start: 12-05-2022 End: 12-05-2022 ambulatory SAHARA Nick SUAREZ [place] Start: 12-05-2022 End: 12-05-2022 Patient encounter procedure EMRE DAVIS [facility] Start: 10-22-2022 End: 10-22-2022 ambulatory [facility] Start: 09-06-2022 End: 09-06-2022 ambulatory Zee Grant Other [facility] Other Start: 09-06-2022 Office outpatient ne w 30 minutes Zee Grant [facility] Start: 06-25-2022 End: 06-25-2022 Patient encounter procedure Idris R PERLA [facility] [place] Start: 2022 End: 2022 ambulatory Cheryl Arias Facility:[facility] Start: 2022 End: 2022 ambulatory II Emre Davis Work Phone: [facility] Work Phone: Start: 2022 End: 2022 Patient encounter procedure II Emre Davis Work Phone: [facility] [address] Start: 10-28-2021 End: 10-28-2021 Patient encounter procedure Idris DUNCAN [facility] Start: 10-01-2020 End: 10-02-2020 ambulatory FLORY MCCRARY Facility:[facility] Start: 09-19-2020 End: 09-20-2020 ambulatory FLORY MCCRARY Facility:[facility] Start: 05-22-2020 End: 05-23-[address] AMADEO METZ Facility:[facility] Start: 04-24-2020 End: 04-25-2020 ambulatory PAVEL CRUZ Facility:[facility] Start: 11-17-2019 End: 11-18-[address] EMRE DAVIS Facility:[facility] Start: 08-20-2017 End: 08-21-2017 Patient encounter PROVIDER UNKNOWN Facility:[facility] Start: 07-15-2017 End: 07-16-2017 Patient encounter PROVIDER UNKNOWN Facility:[facility] Procedures Date Procedure Procedure Detail Performing Clinician Start: 07-22-2023 Total knee replacement Jimbo Pike Start: 2022 X-ray of lumbar spin e, six views including bending views II Emre Davis Work Phone: Start: 11-15-2019 Cystourethroscopy wi th dilation of urethral stricture Idris DUNCAN Start: 07-12-2019 Cystourethroscopy wi th dilation of urethral stricture Idris DUNCAN Start: 02-28-2015 Cystoscopy Idris YOUNG Start: 02-01-2015 Urodynamic studies Magali DUNCAN Start: 09-30-2014 Urodynamic studies Patr tasha DUNCAN Start: 01-15-2006 Urodynamic studies Joannr tasha DUNCAN Start: 03-31-2005 Cystoscopy Idris YOUNG Start: 09-03-2004 Urodynamic studies Magali DUNCAN Start: 08-15-2004 Cystoscopy Idris YOUNG Start: 08-15-2004 Transrectal biopsy o f prostate using ultrasound guidance Idris DUNCAN Cardiac catheterization Joannr tasha DUNCAN Cholecystectomy Idris MTZ History of operative procedure on lumbar spinal structure Idris DUNCAN Placement of stent Idris Magdalene BOLAÑOS Tonsillectomy Idris DUNCAN Transurethral prostatectomy Idris DUNCAN Immunizations Immunization Date Immunization Notes Care Provider Campos lal 01-06-2023 influenza virus vaccine, unspecified formulation SAHARA SUAREZ [facility] 02-18-2022 influenza virus vaccine, unspecified formulation SAHARA SUAREZ [facility] 03-27-2021 SARS-CoV-2 (COVID-19 ) mRNA-1273 vaccine SAHARA SUAREZ [facility] 02-05-2021 influenza virus vaccine, unspecified formulation SAHARA SUAREZ [facility] 06-27-2020 SARS-CoV-2 (COVID-19 ) Ad26 vaccine, recombinant Idris DUNCAN [facility] 05-22-2020 SARS-CoV-2 (COVID-19 ) mRNA-1273 vaccine SAHARA DANI [facility] 05-02-2020 SARS-CoV-2 (COVID-19 ) Ad26 vaccine, recombinant Idris DUNCAN [facility] [place] 04-24-2020 SARS-CoV-2 (COVID-19 ) mRNA-1273 vaccine SAHARA SUAREZ [facility] 02-28-2020 influenza virus vaccine, unspecified formulation SAHARA DANI [facility] 12-25-2018 influenza virus vaccine, unspecified formulation SAHARA DANI [facility] 01-20-2018 influenza virus vaccine, unspecified formulation SAHARA DANI [facility] 01-04-2018 influenza virus vaccine, unspecified formulation SAHARA DANI [facility] 01-08-2017 influenza virus vaccine, unspecified formulation SAHARA ADNI [facility] 01-07-2016 influenza virus vaccine, unspecified formulation SAHARA DANI [facility] Payers Date Payer Category Payer Medicare [id number] 1960 Self-pay 1960 Unknown [id number] 1934 Unknown [id number] 2.16.840.1.034055.3.579.2.593 1934 Unknown [id number] 2.16.840.1.161874.3.579.2.593 1934 Unknown [id number] 2.16.840.1.373983.3.579.2.593 1934 Unknown [id number] 2.16.840.1.017133.3.579.2.1259 1934 Unknown [id number] 2.16.840.1.877164.3.579.2.1259 1934 Unknown [id number] 2.16.840.1.349101.3.579.2.1259 1934 Unknown [id number] 2.16.840.1.133464.3.579.2.1259 1934 Unknown [id number] 2.16.840.1.266731.3.579.2.1259 1934 Unknown [id number] 2.16.840.1.903400.3.579.2.125 1934 Unknown [id number] 2.16840.1.723133.3.579.2.125 1934 Unknown [id number] 2.16.840.1.332051.3.579.2.125 1934 Unknown [id number] 2.16.840.1.567457.3.579.2.125 1934 Unknown [id number] 2.16.840.1.044585.3.579.2.125 1934 Unknown [id number] 2.16.840.1.077019.3.579.2.125 1934 Unknown [id number] 2.16.840.1.565123.3.579.2.125 1934 Unknown [id number] 2.16.840.1.986472.3.579.2.125 1934 Unknown [id number] 2.16.840.1.089445.3.579.2.1259 1934 Unknown [id number] 2.16.840.1.430435.3.579.2.1259 1934 Unknown [id number] 2.16.840.1.898992.3.579.2.1259 1934 Unknown [id number] 2.16.840.1.151869.3.579.2.125 1934 Unknown [id number] 2.16.840.1.523534.3.579.2.125 1934 Unknown [id number] 2.16.840.1.704777.3.579.2.125 1934 Unknown [id number] 2.16.840.1.109557.3.579.2.125 1934 Unknown [id number] 2.16.840.1.380541.3.579.2.1258 1934 Unknown [id number] 2.16.840.1.115513.3.579.2.1258 1934 Unknown [id number] 2.16.840.1.788684.3.579.2.1258 1934 Unknown [id number] 2.16.840.1.105170.3.579.2.125 1934 Unknown [id number] 2.16.840.1.306899.3.579.2.125 1934 Unknown [id number] 2.16.840.1.016901.3.579.2.125 1934 Unknown [id number] 2.16.840.1.662707.3.579.2.125 1934 Unknown [id number] 2.16.840.1.562385.3.579.2.125 1934 Unknown [id number] 2.16.840.1.766027.3.579.2.125 1934 Unknown [id number] 2.16.840.1.368891.3.579.2.125 1934 Unknown [id number] 2.16.840.1.578952.3.579.2.1259 1934 Unknown [id number] 2.16.840.1.529725.3.579.2.1259 1934 Unknown [id number] 2.16.840.1.014111.3.579.2.1259 1934 Unknown [id number] 2.16.840.1.008987.3.579.2.1259 1934 Unknown [id number] 2.16.840.1.804299.3.579.2.1259 1934 Unknown [id number] 2.16.840.1.995805.3.579.2.1259 1934 Unknown [id number] 2.16.840.1.081565.3.579.2.72 1934 Unknown [id number] 2.16.840.1.810045.3.579.2.72 1934 Unknown [id number] 2.16.840.1.254946.3.579.2.72 1934 Unknown [id number] 2.16.840.1.810421.3.579.2.72 1934 Unknown [id number] 2.16.840.1.058582.3.579.2.72 1934 Unknown [id number] 2.16.840.1.180098.3.579.2.72 1934 Unknown [id number] 2.16.840.1.329180.3.579.2.72 1934 Unknown [id number] 2.16.840.1.296293.3.579.2.727 Medicare [id number] Private Health Insurance [facility] [id number] Unknown [id number] 2.16.840.1.558990.3.579.2.593 Unknown [id number] 2.16.840.1.179279.3.579.2.593 Unknown [id number] 2.16.840.1.787138.3.579.2.531 Social History Date Type Detail Facility Start: 04-29-2021 End: 07-09-2023 Tobacco smoking status Ex-smoker (finding) [facility] Sex Assigned At Male [facility] Start: 1935 Sex Assigned At Male [facility] Tobacco smoking status Never [facility] Medical Equipment Procedure Code Equipment Code Equipment Origin al Text Equipment Identifier Dates KNEE TOTAL ROBOT ARTHROPLASTY Jimbo Pike DO 07/22/23 Unknown Knee R FDA Start: 07-22-2023 KNEE TOTAL ROBOT ARTHROPLASTY Jimbo Pike DO 07/22/23 Unknown Knee R FDA Start: 07-22-2023 KNEE TOTAL ROBOT ARTHROPLASTY Jimbo Pike DO A 07/22/23 Unknown Knee R FDA Start: 07-22-2023 KNEE TOTAL ROBOT ARTHROPLASTY Jimbo Pike DO 07/22/23 Unknown Knee R FDA Start: 07-22-2023 Functional Status Date Assessment Result Facility 07-09-2023 Functional Status N/A [facility] 07-07-2023 Functional Status No [facility] 12-31-2022 Functional Status N/A [facility] 06-25-2022 Functional Status N/A [facility] Clinical Notes 10-01-2020 to 09-21-2023 Note Date & Type Note Facility 09-21-2023 Note [place] Cardiology - [facility] Subjective Gualberto Cruz is a 88 y.o. year old male patient being seen for 6 mo follow up CAD, hypertension, and hyperlipidemia. Had knee replacement 2 months ago. Also had routine labs w/ lipid. Patient Active Problem List Diagnosis Backache Chest pain Benign prostatic hyperplasia Benign prostatic hyperplasia with urinary obstruction Bladder pain Chronic prostatitis Coronary atherosclerosis Deformity of metatarsal Essential hypertension History of abdominal hernia Gastroesophageal reflux disease History of basal cell carcinoma (BCC) Hyperlipidemia Incomplete emptying of bladder Malaise and fatigue Microscopic hematuria Neurogenic bladder Peripheral venous insufficiency Poor urinary stream Retention of urine Urge incontinence of urine Urinary urgency Anticoagulated B12 deficiency BMI 30.0-30.9,adult Carpal tunnel syndrome, bilateral Cervical paraspinal muscle spasm 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 Erectile dysfunction Lumbar paraspinal muscle spasm Lumbar spondylosis Neurogenic pain Polyneuropathy 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 Acute UTI Allergic rhinitis Arthritis of carpometacarpal (CMC) joint of right thumb Ataxia Back pain of lumbar region with sciatica Basal cell carcinoma of back Bile reflux gastritis Degeneration of lumbar or lumbosacral intervertebral disc Cervical spinal stenosis Constipation Diverticulosis of colon 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 Encounter for screening, unspecified Hand weakness Hypertensive heart disease without heart failure Lumbar radiculopathy Osteoarthritis [facility] (current[facility] drug therapy Primary osteoarthritis of both hips Primary osteoarthritis of right knee Sensorineural hearing loss of combined sites Simple renal cyst Stable angina (CMS/HCC) UTI due to Klebsiella species Pure hypercholesterolemia Family History Problem Relation Name Age of Onset Prostate cancer Other Social History Tobacco Use Smoking status: Former Types: Cigarettes Smokeless tobacco: Never Substance Use Topics Alcohol use: Not Currently HPI Gualberto Cruz is seen in follow up on CAD, prior stenting of the RCA in 2012, moderate ISR and moderate stenosis in the LAD, hyperlipidemia and hypertension. 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 He underwent attempt at PCI to the RCA ASSOCIATE EDITOR on 08/20/2017. There was inability to cross [Failure to recanalize chronic total occlusion of the right coronary artery using the Antegrade wire escalation technique, balloon angioplasty, and CrossBoss catheter]. He has lower extremity edema on the right more than the left. This was checked by ultrasound previously and no thrombus was found. He used to wear support stockings. In October 2022 he underwent an echocardiogram and a stress test to investigate shortness of breath. Those were nonrevealing. Around July 2023 he underwent right knee surgery. He did well with that. Today he is seen in follow-up. He denies chest pain. He continues to have shortness of breath on exertion, NYHA class II symptoms. He has bilateral lower extremity edema more so on the right. No palpitations. Review of Systems Cardiovascular: Positive for dyspnea on exertion and leg swelling. Negative for chest pain and palpitations. Objective Visit Vitals BP 152/68 (BP Location: Right arm, Patient Position: Sitting) Pulse 62 Ht 1.778 m (5' 10 ) Wt 91.2 kg (201 lb) SpO2 97% BMI 28.84 kg/m??? Smoking Status Former BSA 2.12 m??? Physical Exam Constitutional: Appearance: He is well-developed. He is not ill-appearing. HENT: Head: Normocephalic and atraumatic. Nose: Nose normal. Eyes: General: No scleral icterus. Pupils: Pupils are equal, round, and reactive to light. Neck: Thyroid: No thyromegaly. Vascular: No JVD. Cardiovascular: Rate and Rhythm: Normal rate and regular rhythm. Pulses: Radial pulses are 2+ on the right side and 2+ on the left side. Heart sounds: Normal heart sounds. No murmur heard. No friction rub. No gallop. Pulmonary: Effort: Pulmonary effort is normal. No respiratory distress. Breath sounds: Normal breath sounds. No wheezing or rales. Chest: Chest wall: No tenderness. Abdominal: General: Bowel sounds are normal. There is no distension. Palpations: Abdomen is soft. Tenderness: There is no abdominal tenderness. Musculoskeletal: General: No swelling. Cervical back: Neck supple. Right lower le+ Edema present. Left lower le+ Edema present. Comments: Site of the right knee surgery well healed Skin: General: Skin is warm and dry. Neurological: General: No focal deficit present. Mental Status: He is alert and oriented to person, place, and time. Psychiatric: Mood and Affect: Mood normal. Behavior: Behavior is cooperative. Judgment: Judgment n (more content not included)... [facility] 07-24-2023 Evaluation + Plan note Extrac russ from: Title:Discharge Summary Author:Jimbo Pike DO Date:07/24/23 Discharge Information Discharge Summary Information: Admit Date/Time: 07/22/23 06:33Discharge Date/Time: 07/24/23 13:13 Admitting Physician: Jimbo Pike DO Referring Physician for Admission: Jimbo Pike DO Consulting Physicians: Remy KEYS DO cardiology Admitting Diagnoses: DJD R knee Discharge Diagnoses: Unilateral primary osteoarthritis, right knee Chest pain, unspecified Other obstructive and reflux uropathy Benign prostatic hyperplasia with lower urinary tract symptoms Gastro-esophageal reflux disease without esophagitis Pure hypercholesterolemia, unspecified Essential (primary) hypertension Atherosclerotic heart disease of [place] coronary artery without angina pectoris procedure: R TKA discharge disposition: home Prescription and Home Meds: acetaminophen-oxycodone (Percocet 5 mg-325 mg oral tablet) See Instructions, 1-2 tab(s) Oral q4hr, 40 tab(s), 0 Refill(s) aspirin (aspirin 81 mg Oral EC Tab) 162 mg, 2 tab(s), Oral, Daily, for 30 day(s), 60 tab(s), 0 Refill(s) atorvastatin (atorvastatin 10 mg Tab) 10 mg, 1 tab(s), Oral, Daily carvedilol 6.25 mg, Oral, BID celecoxib (CeleBREX 100 mg Cap) 100 mg, 1 cap(s), Oral, BID, PRN: for pain, 60 cap(s), 0 Refill(s) cephalexin (Keflex 500 mg Cap) 500 mg, 1 cap(s), Oral, q8hr, for 7 day(s), 21 cap(s), 0 Refill(s) cyanocobalamin (Vitamin B12 1000 mcg Tab) 1,000 mcg, 1 tab(s), Oral, Daily docusate (Colace 100 mg Cap) 100 mg, 1 cap(s), Oral, BID, PRN: for constipation, 20 cap(s), 0 Refill(s) gabapentin 300 mg, Oral, BID isosorbide mononitrate (isosorbide mononitrate 30 mg ER Tab) 30 mg 1 tab(s) Oral Daily, 30 tab(s), Start: 07/24/2023, 0 Refill(s) latanoprost ophthalmic (latanoprost Opth 0.005% Virginie) 1 drop(s), OPTH, Once a day (at bedtime) losartan (losartan 50 mg Tab) 50 mg, 1 tab(s), Oral, Daily nitroglycerin (Nitro 0.4 mg Tab) 1 tab(s), SubLingual, q5min, PRN: Chest pain, 25 tab(s), 3 Refill(s) pantoprazole 40 mg, Oral, Daily ranolazine (ranolazine 500 mg oral ER Tab) 500 mg, 1 tab(s), Oral, BID tamsulosin (tamsulosin 0.4 mg Cap) 0.4 mg, 1 cap(s), Oral, Daily vitamin E (vitamin E 100 intl units oral tablet) 100 International_Unit, 1 tab(s), Oral, Every other day Extracted from: Title:Consult Note Author:Naye PARKER, Damari Feliz. Date:07/23/23 88-year-old with postop epis ode of angina. Unclear if related to fluid shifts and stress of surgery or if this is closer to patient's chronic stable angina. I do not have any records or documentation to know patient's current coronary artery status, left regular function, or other cardiovascular history. Will attempt obtain records. In the meantime we will start Imdur Ranexa and have the patient stay overnight tonight. He was chest pain-free then I will handoff to Dr. Satish Walter in [place] tomorrow. Thank for the consultation 1. Chest pain (R07.9: Chest pain, unspecified) 2. CAD (coronary artery disease) (I25.10: Atherosclerotic heart disease of ely shoshone coronary artery without angina pectoris) 3. BPH with urinary obstruction (N40.1: Benign prostatic hyperplasia with lower urinary tract symptoms) 4. Chronic GERD (K21.9: Gastro-esophageal reflux disease without esophagitis) 5. Hypercholesterolemia (E78.00: Pure hypercholesterolemia, unspecified) 6. Hypertension (I10: Essential (primary) hypertension) Degenerative arthritis of right knee (M17.11: Unilateral primary osteoarthritis, right knee) Other obstructive and reflux uropathy (N13.8: Other obstructive and reflux uropathy) Extracted from: Title:Consult Note Author:Remy KEYS DO Date:07/23/23 1. Chest pain (R07.9: Chest pain, unspecified) No active anginal symptoms. Will ask cardiology to see patient because of elevated troponin. Will continue patient on Coreg, ARB, Ranexa, statin. Will add aspirin 81 mg p.o. daily to patient's regimen. 2. CAD (coronary artery disease) (I25.10: Atherosclerotic heart disease of ely shoshone coronary artery without angina pectoris) See #1 3. BPH with urinary obstruction (N40.1: Benign prostatic hyperplasia with lower urinary tract symptoms) Continue alpha-tres. Continue catheter. Of note patient self caths 2-3 times per day. 4. Chronic GERD (K21.9: Gastro-esophageal reflux disease without esophagitis) Continue PPI 5. Hypercholesterolemia (E78.00: Pure hypercholesterolemia, unspecified) Continue statin 6. Hypertension (I10: Essential (primary) hypertension) Resume home medications once reconciled. Hydralazine iv prn. see orders. Orders: Al hydroxide/Mg hydroxide/simethicone, 30 mL, Susp-Oral, Oral, Once, Stop date 07/23/23 1:00:00 EDT, Routine, Start date 07/23/23 1:00:00 EDT aspirin, 81 mg = 1 tab(s), Tab-Chew, Oral, Daily, Routine, Start date 07/23/23 9:00:00 EDT, 07/23/23 6:53:00 EDT atropine/hyoscyamine/PB/scopolamine, 10 mL, Elixir, Oral, Once, Stop date 07/23/23 1:00:00 EDT, Routine, Start date 07/23/23 1:00:00 EDT lidocaine topical, 200 mg, 10 mL, Soln-Oral, Oral, Once, Stop date 07/23/23 1:00:00 EDT, Routine, Start date 07/23/23 1:00:00 EDT Consult to Cardiology Troponin 0 Hr. Troponin 1 Hr. Future Appointments Appointment Date:01/14/2024 01:00:00 PM Scheduled Provider:SAHARA SUAREZ PA-C Location:[facility] Appointment Type:URO Office Visit [facility]05-03-2024 NotePatient: GUALBERTO CRUZ Age: 88 years Sex: Male : 1935 Associated Diagnoses: None Author: Jimbo Pike DO Discharge Information Discharge Summary Information: Admit Date/Time: 07/22/23 06:33 Discharge Date/Time: 07/24/23 13:13 Admitting Physician: Jimbo Pike DO Referring Physician for Admission: Jimbo Pike DO Consulting Physicians: Remy KEYS DO cardiology Admitting Diagnoses: DJD R knee Discharge Diagnoses: Unilateral primary osteoarthritis, right knee Chest pain, unspecified Other obstructive and reflux uropathy Benign prostatic hyperplasia with lower urinary tract symptoms Gastro-esophageal reflux disease without esophagitis Pure hypercholesterolemia, unspecified Essential (primary) hypertension Atherosclerotic heart disease of ely shoshone coronary artery without angina pectoris procedure: R TKA discharge disposition: home Prescription and Home Meds: acetaminophen-oxycodone (Percocet 5 mg-325 mg oral tablet) See Instructions, 1-2 tab(s) Oral q4hr, 40 tab(s), 0 Refill(s) aspirin (aspirin 81 mg Oral EC Tab) 162 mg, 2 tab(s), Oral, Daily, for 30 day(s), 60 tab(s), 0 Refill(s) atorvastatin (atorvastatin 10 mg Tab) 10 mg, 1 tab(s), Oral, Daily carvedilol 6.25 mg, Oral, BID celecoxib (CeleBREX 100 mg Cap) 100 mg, 1 cap(s), Oral, BID, PRN: for pain, 60 cap(s), 0 Refill(s) cephalexin (Keflex 500 mg Cap) 500 mg, 1 cap(s), Oral, q8hr, for 7 day(s), 21 cap(s), 0 Refill(s) cyanocobalamin (Vitamin B12 1000 mcg Tab) 1,000 mcg, 1 tab(s), Oral, Daily docusate (Colace 100 mg Cap) 100 mg, 1 cap(s), Oral, BID, PRN: for constipation, 20 cap(s), 0 Refill(s) gabapentin 300 mg, Oral, BID isosorbide mononitrate (isosorbide mononitrate 30 mg ER Tab) 30 mg 1 tab(s) Oral Daily, 30 tab(s), Start: 07/24/2023, 0 Refill(s) latanoprost ophthalmic (latanoprost Opth 0.005% Virginie) 1 drop(s), OPTH, Once a day (at bedtime) losartan (losartan 50 mg Tab) 50 mg, 1 tab(s), Oral, Daily nitroglycerin (Nitro 0.4 mg Tab) 1 tab(s), SubLingual, q5min, PRN: Chest pain, 25 tab(s), 3 Refill(s) pantoprazole 40 mg, Oral, Daily ranolazine (ranolazine 500 mg oral ER Tab) 500 mg, 1 tab(s), Oral, BID tamsulosin (tamsulosin 0.4 mg Cap) 0.4 mg, 1 cap(s), Oral, Daily vitamin E (vitamin E 100 intl units oral tablet) 100 International_Unit, 1 tab(s), Oral, Every other dayMount Carmel Health SystemComment on above:Result Comment: Electronically Signed By: Jimbo Pike DO\Date and Time Signed: 07/24/23 13:13 [id number] NoteReason for Consultation Chest pain History of Present Illness 88-year-old with history of CAD and prior PCI. Unknown left ventricular systolic function. Patient is followed by physician in [place]. Patient has been cleared by ends down checker in [place] for knee surgery and underwent surgery yesterday. Overnight last night developed chest discomfort which felt like a burning sensation. 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 He also has given me a story which sounds like he mighthave a chronic total occlusion which was unable to be crossed. His chest pain lasted for at least 15 minutes overnight he had an EKG which did not show any significant changes but cardiac enzymes were mildly elevated and pattern of increasing number between troponin 1 and troponin 2. He denies any chest pain currently. He denies any orthopnea or nocturnal dyspnea. He denies any palpitations, syncope, claudication CTA chest was negative for PE Review of Systems ROS difficult due to elderly age Physical Exam Vitals & Measurements T: 36.4 ?C(Oral) TMIN: 36.3 ?C(Oral) TMAX: 36.8 ?C(Axillary) HR: 65(Monitored) RR: 17 BP: 131/69 SpO2: 98% WT: 98.3 kg General: alert, no acute distress Skin: warm, dry intact Head: atraumatic, normocephalic Neck: Trachea midline, no JVD, no bruit Eye: normal conjunctiva, sclera clear ENMT: oral mucosa moist Cardiovascular: regular rate and rhythm, nomurmur normal peripheral perfusion Respiratory: Lungs CTA, respirations non labored Chest wall: no deformity. Gastrointestinal: soft, non distended, no tenderness, no guarding. Back: No tenderness, Normal ROM, Normal alignment. Extremities: no edema, no deformity, no trauma Neurological: oriented x 4, LOC appropriate for agesensation equal & normal bilaterally, speechnormal Psychiatric: cooperative, affect appropriate for age, normal judgement, normal psychiatric thoughts. EKG: Normal sinus rhythm with nonspecific ST-T wave changes Images EKG normal sinus rhythm with nonspecific ST-T wave changes Assessment/Plan 88-year-old with postop episode of angina. Unclear if related to fluid shifts and stress of surgeryor if this is closer to patient's chronic stable angina. I do not have any records or documentationto know patient's current coronary artery status, left regular function, or other cardiovascular history. Will attempt obtain records. In the meantime we will start Imdur Ranexa and have the patient stay overnight tonight. He was chest pain-free then I will handoff to Dr. Satish Walter in [place] tomorrow. Thank for the consultation 1. Chest pain (R07.9: Chest pain, unspecified) 2. CAD (coronary artery disease) (I25.10: Atherosclerotic heart disease of ely shoshone coronary artery without angina pectoris) 3. BPH with urinary obstruction (N40.1: Benign prostatic hyperplasia with lower urinary tract symptoms) 4. Chronic GERD (K21.9: Gastro-esophageal reflux disease without esophagitis) 5. Hypercholesterolemia (E78.00: Pure hypercholesterolemia, unspecified) 6. Hypertension (I10: Essential (primary) hypertension) Degenerative arthritis of right knee (M17.11: Unilateral primary osteoarthritis, right knee) Other obstructive and reflux uropathy (N13.8: Other obstructive and reflux uropathy) Problem List/Past Medical History Ongoing Acute UTI Anticoagulated 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 Bladder pain BMI 30.0-30.9,adult BPH with urinary obstruction Chronic GERD Chronic prostatitis Coronary artery disease Cystitis Erectile dysfunction Gross hematuria Hx of hiatal hernia Hx of skin cancer, basal cell Hypercholesterolemia Hypertension Incomplete emptying of bladder Microscopic hematuria Neurogenic bladder Organic impotence Retention of urine Simple renal cyst 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 Urge incontinence Urinary retention with incomplete bladder emptying Urinary urgency UTI due to Klebsiella species Weak urine stream Historical No qualifying data Procedure/Surgical History Total knee arthroplasty (07/22/2023), Cystourethroscopy with dilation of urethral stricture (11/15/2019), Cystourethroscopy with dilation of urethral stricture (07/12/2019), Cystoscopy (02/28/2015), Urodynamics (02/01/2015), Urodynamics (09/30/2014), Urodynamics (01/15/2006), Cystoscopy (03/31/2005), Urodynamics (09/03/2004), Cystoscopy (08/15/2004), Transrectal biopsy of prostate using ultrasound (US) guidance (08/15/2004), Cardiac catheterisation, Cholecystectomy, Hernia repair, History of lumbar spine surgery, Stent placement, Tonsillectomy, TURP - Transurethral resection of prostate. Medications Inpatient acetaminophen additive + Generic Diluent 100 mL aspirin 81 mg Chew Tab, 81 mg= 1 tab(s), Oral, Daily atorvastatin 20 mg Tab, 10 mg= 0.5 tab(s), Oral, Daily carvedilol 6.25 mg Tab, 6.25 mg= 1 tab(s), Oral, BID Col (more content not included)...[facility] SystemComment on above: Result Comment: Electronically Signed By: Naye PARKER, David Wynne\.br\Date and Time Signed: 07/23/23 17:46 [id number] Hospital Discharge instructions Patient Education 07/22/2023 12:27:00 Saulo Pike - Total Knee Arthroplasty (Custom) [place], [place] [facility] DISCHARGE INSTRUCTIONS: TOTAL KNEE ARTHROPLASTY INCISION CARE: The bandage may be changed by your home Physical Therapist at 7 days postoperatively and worn an additional 7 days. A new Mepilex bandage should then be placed. The bandage is waterproof, so you may shower at home. Steri-strips (paper tape strips) may be applied to the incision if any slight wound separation is noted. These should remain in place for five days and then they may come off in the shower. Please notify the office if any increase in redness, tenderness, drainage, fever, or wound separation is noted beyond this point. MEDICATIONS: You may resume your home medications at the time of discharge. Arixtra and Lovenox are mild blood thinners that prevent the development of blood clots in the legs. One of these has been used during your hospitalization. After discharge home you should continue the use of two stomach coated baby Aspirin tablets daily with your largest meal for 30 days after home discharge. Please notify your doctor if you have a stomach sensitivity to Aspirin or history of previous stomach ulcers. Pain medication has been prescribed as well. You may continue to use the pain medication every fourhours as needed. Any narcotic pain medication can cause side effects including stomach upset, constipation, or light-headedness. You should not drive or operate machinery, or drink alcohol while using the narcotic pain medication. You should not use other pain medications with this prescription pain medication unless further directed by your physician. PHYSICAL THERAPY Continue the range of motion and strengthening exercises initiated by Physical Therapy in the hospital. Continue weight bearing, as ordered, to the operated knee as directed in Physical Therapy. This will be with the use of a walker or crutches initially. Physical therapy as begun in the hospital will continue at home, possibly with the certified surgical first assistant of Home Health Physical Therapy or in the hospital as an outpatient. When you have become independent withthe physical therapy program, this will then be discontinued as a supervised program and you will be instructed to continue the physical therapy exercises at home. Your exercises are barron to successful rehabilitation. You should gain full extension first, hopefully before hospital discharge, and gain 90 degrees flexion by one month post-op. Do the exercises daily, twice if preferred. DRIVING: Please do not drive for 4-6 weeks pending therapy progress. 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 It is therefore advised not to drive until after yourfirst office visit following surgery. FOLLOW-UP OFFICE VISIT: Jimbo Pike, DO [facility] [address] [place] [id number] Reviewed: 08-12 Follow Up Care 06/04/2023 14:01:58 With:EMRE DAVIS Address: [address] [place] [id number] Business (1) When: Unknown Comments:Call for followup appointment With:Jimbo Pike Address: [address] [place] [id number] Business (1) When:08/06/2023 10:30:00 [facility]05-01-2024 NotePT Evaluation completed with an [facility] score of . Pt was able to perform bed mobility with Min A and transfers with CGA/Min A. Pt also able to take 4 steps with FWW. Will follow and progress tomorrow. Will provide recommendations on POD # 1Fyaniv [facility]05-01-2024 NoteOT evaluation complete. [facility] 6 clicks =HH services. Pt requires max A for LE ADL tasks and min A for commode transfers at this time. OT to follow daily to progress as Pt tolerates.Rick [facility] 07-21-2023 [id number] [facility]04-18-2024 Hospital Discharge instructions Patient Education 07/09/2023 13:21:20 Urinary Tract Infection, Adult, [id number] Urinary Tract Infection, Adult A urinary tract infection (UTI) is an infection of any part of the urinary tract. The urinary tractincludes: The kidneys. The ureters. The bladder. The urethra. These organs make, store, and get rid of pee (urine) in the body. What are the causes? This infection is caused by germs (bacteria) in your genital area. These germs grow and cause swelling (inflammation) of your urinary tract. What increases the risk? The following factors may make you more likely to develop this condition: Using a small, thin tube (catheter) to drain pee. Not being able to control when you pee or poop (incontinence). Being female. If you are female, these things can increase the risk: ?Using these methods to prevent : ?A medicine that kills sperm (spermicide). ?A device that blocks sperm (diaphragm). ?Having low levels of a female hormone (estrogen). ?Being . You are more likely to develop this condition if: You have genes that add to your risk. You are sexually active. You take antibiotic medicines. You have trouble peeing because of: ?A prostate that is bigger than normal, if you are male. ?A blockage in the part of your body that drains pee from the bladder. ?A kidney stone. ?A nerve condition that affects your bladder. ?Not getting enough to drink. ?Not peeing often enough. You have other conditions, such as: ?Diabetes. ?A weak disease-fighting system (immune system). ?Sickle cell disease. ?Gout. ?Injury of the spine. What are the signs or symptoms? Symptoms of this condition include: Needing to pee right away. Peeing small amounts often. Pain or burning when peeing. Blood in the pee. Pee that smells bad or not like normal. Trouble peeing. Pee that is cloudy. Fluid coming from the vagina, if you are female. Pain in the belly or lower back. Other symptoms include: Vomiting. Not feeling hungry. Feeling mixed up (confused). This may be the first symptom in older adults. Being tired and grouchy (irritable). A fever. Watery poop (diarrhea). How is this treated? Taking antibiotic medicine. Taking other medicines. Drinking enough water. In some cases, you may need to see a specialist. Follow these instructions at home: Medicines Take [id number] and prescription medicines only as told by your doctor. If you were prescribed an antibiotic medicine, take it as told by your doctor. Do not stop taking it even if you start to feel better. General instructions Make sure you: ?Pee until your bladder is empty. ?Do not hold pee for a long time. ?Empty your bladder after sex. ?Wipe from front to back after peeing or pooping if you are a female. Use each tissue one time whenyou wipe. Drink enough fluid to keep your pee pale yellow. Keep all follow-up visits. Contact a doctor if: You do not get better after 1 2 days. Your symptoms go away and then come back. Get help right away if: You have very bad back pain. You have very bad pain in your lower belly. You have a fever. You have chills. You feeling like you will vomit or you vomit. Summary A urinary tract infection (UTI) is an infection of any part of the urinary tract. This condition is caused by germs in your genital area. There are many risk factors for a UTI. Treatment includes antibiotic medicines. Drink enough fluid to keep your pee pale yellow. This information is not intended to replace advice given to you by your health care provider. Make sure you discuss any questions you have with your health care provider. Document Revised: 10/19/2020 Document Reviewed: 10/19/2020 [employer] Patient Education 2022 [employer]. Follow Up Care 12/31/2022 15:11:38 With:DANI LINO, SAHARA Romero, URL Address: [address] [place] [address] [phone] When: Unknown [facility] [place] [id number] NoteCoronary artery disease is stable- no worsening symptoms Continue GDMT- ASA, lipitor, coreg and ranexa continue risk factor modifications- heart healthy diet, regular exercise as tolerated and continue all medications.[facility] 03-30-2023 NoteHypertension is stable, 136/74 Continue all [facility]sUniversity [facility]01-08-2024 NoteLipid abnormalities are Stable Continue lipitor 10 mgUnUniversity [facility]01-08-2024 NoteUTP CARDIOLOGY PROGRESS NOTE HPI: Gualberto Cruz is a 88 y.o. male here for routine f/U HPI 88 yo CAD, hypertension, and hyperlipidemia. Still has LE edema, R>L. Patient here for 6 mo follow up CAD, hypertension, and hyperlipidemia. Had stress test and echo in Oct 2022. States there's no change to his chest pain and PAULSON. Overall from a cardiac standpoint he is feeling well without any concerning symptoms. Admits typical LE swelling- no worse than usual and Rt > Lt. Just recently turned 88 yo and c/o acid reflux and needing Tums (5-6) tablets in the evenings and recurrent kidney stones. Review of Systems Constitutional: Positive for malaise/fatigue. Cardiovascular: Positive for chest pain, dyspnea on exertion and leg swelling (R>L). Musculoskeletal: Positive for arthritis, back pain and joint pain. Gastrointestinal: Positive for heartburn. All other systems reviewed and are negative. HPI per Rae Moukarbel 10/2022 Gualberto Cruz is seen in follow up on CAD, prior stenting of the RCA in 2012, moderate ISR and moderate stenosis in the LAD, hyperlipidemia and hypertension. 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 He underwent attempt at PCI to the RCA ASSOCIATE EDITOR on 08/20/2017. There was inability to cross [Failure to recanalize chronic total occlusion of the right coronary artery using the Antegrade wire escalation technique, balloon angioplasty, and CrossBoss catheter]. He has lower extremity edema on the right more than the left. This was checked by ultrasound recently and no thrombus was found. He used to wear support stockings. Today he reports that about 2 weeks ago he was asleep and woke up with left-sided chest pain. He took a sublingual nitroglycerin and the chest pain subsided. He went back to sleep. There was no recurrence since then. He however reports that he has significant symptoms of shortness of breath and fatigue on very mild exertion. This is relieved by rest. Visit Vitals BP 136/74 (BP Location: Left arm, Patient Position: Sitting) Pulse 68 Ht 1.778 m (5' 10 ) Wt 91.6 kg (202 lb) SpO2 97% BMI 28.98 kg/m??? Smoking Status Former BSA 2.13 m??? Allergies Allergen Reactions Bee Pollen Other Ciprofloxacin Hives, Other and Unknown Penicillins Hives, Other and Unknown Medications: Current Outpatient Medications on File Prior to Visit Medication Sig Dispense Refill aspirin 81 mg EC tablet in the morning. atorvastatin (Lipitor) 10 mg tablet TAKE 1 TABLET BY MOUTH IN THE MORNING 90 tablet 3 carvedilol (Coreg) 6.25 mg tablet TAKE 1 TABLET BY MOUTH TWICE DAILY 180 tablet 3 losartan (Cozaar) 50 mg tablet TAKE 1 TABLET BY MOUTH DAILY DIRECTED 90 tablet 3 nitroglycerin (Nitrostat) 0.[address] 1 tablet (0.4 mg) under the tongue every 5 (five) minutes if needed for chest pain. 90 tablet 3 pantoprazole (ProtoNix) 40 mg EC tablet Take 40 mg by mouth before breakfast. ranolazine (Ranexa) 500 mg 12 hr tablet Take 1 tablet (500 mg) by mouth every 12 (twelve) hours. 180 tablet 3 tamsulosin (Flomax) 0.4 mg 24 hr capsule tamsulosin 0.4 mg capsule No current facility-administered medications on file prior to visit. Physical Exam: Constitutional: Appearance: Normal appearance. Without apparent distress, chronically ill HENT: Head: Normocephalic and atraumatic. Nose: Nose normal. Mouth/Throat: Mouth: Mucous membranes are moist. Eyes: Extraocular Movements: Extraocular movements intact. Conjunctiva/sclera: Conjunctivae normal. Neck: Vascular: No JVD. Cardiovascular: Rate and Rhythm: Normal rate and regular rhythm. Pulses: Dorsalis pedis pulses are 3 on the right side and 3on the left side. Posterior tibial pulses are 3 on the right side and 3 on the left side. Heart sounds: Normal heart sounds, S1 normal and S2 normal. Pulmonary: Effort: Pulmonary effort is normal. Breath sounds: Normal breath sounds. Abdominal: General: Bowel sounds are normal. Palpations: Abdomen is soft. Musculoskeletal: General: Normal range of motion. Cervical back: Normal range of motion. Right lower le+ pitting edema. Left lower le+ mild pitting edema. Skin: General: Skin is warm and dry. Capillary Refill: Capillary refill takes less than 2 seconds. Neurological: General: No focal deficit present. Mental Status: he is alert and oriented to person, place, and time. Psychiatric: Mood and Affect: Mood normal. Behavior: Behavior normal. Thought Content: Thought content normal. Judgment: Judgment normal. Labs: 05/07/22 BNP 41 Renal function normal Liver function normal Chol 123, Trig 158, HDL 40., LDL 60- well controlled Blood testing 11/06/2019: BUN 13, creatinine 1.22, potassium 4.4, hemoglobin 14.2, platelets 84 [he has chronic thrombocytopenia]. blood testing 06/18/2017 was within normal. blood testing in July 2016 showed good Cr, K, and Hb. LDL 57. blood testing on 05/22/2016 showed good Cr, K, and Hb. blood testing from 08/2015 (more content not included)...[facility]01-08-2024 NotePatient here for 6 mo follow up CAD, hypertension, and hyperlipidemia. Had stress test and echo in Oct 2022. States there's no change to his chest pain and PAULSON. Review of Systems Constitutional: Positive for malaise/fatigue. Cardiovascular: Positive for chest pain, dyspnea on exertion and leg swelling (R>L). Musculoskeletal: Positive for arthritis, back pain and joint pain. Gastrointestinal: Positive for heartburn. All other systems reviewed and are negative.[facility] 12-31-2022 Hospital Discharge instructions Patient Education 12/31/2022 15:09:34 Urinary Tract Infection, Adult Urinary Tract Infection, Adult A urinary tract infection (UTI) is an infection of any part of the urinary tract. The urinary tractincludes the kidneys, ureters, bladder, and urethra. These organs make, store, and get rid of urinein the body. An upper UTI affects the ureters and kidneys. A lower UTI affects the bladder and urethra. What are the causes? Most urinary tract infections are caused by bacteria in your genital area around your urethra, where urine leaves your body. These bacteria grow and cause inflammation of your urinary tract. What increases the risk? You are more likely to develop this condition if: You have a urinary catheter that stays in place. You are not able to control when you urinate or have a bowel movement (incontinence). You are female and you: ?Use a spermicide or diaphragm for control. ?Have low estrogen levels. ?Are . You have certain genes that increase your risk. You are sexually active. You take antibiotic medicines. You have a condition that causes your flow of urine to slow down, such as: ?An enlarged prostate, if you are male. ?Blockage in your urethra. ?A kidney stone. ?A nerve condition that affects your bladder control (neurogenic bladder). ?Not getting enough to drink, or not urinating often. You have certain medical conditions, such as: ?Diabetes. ?A weak disease-fighting system (immunesystem). ?Sickle cell disease. ?Gout. ?Spinal cord injury. What are the signs or symptoms? Symptoms of this condition include: Needing to urinate right away (urgency). Frequent urination. This may include small amounts of urine each time you urinate. Pain or burning with urination. Blood in the urine. Urine that smells bad or unusual. Trouble urinating. Cloudy urine. Vaginal discharge, if you are female. Pain in the abdomen or the lower back. You may also have: Vomiting or a decreased appetite. Confusion. Irritability or tiredness. A fever or chills. Diarrhea. The first symptom in older adults may be confusion. In some cases, they may not have any symptoms until the infection has worsened. How is this diagnosed? This condition is diagnosed based on your medical history and a physical exam. You may also have other tests, including: Urine tests. Blood tests. Tests for STIs (sexually transmitted infections). If you have had more than one UTI, a cystoscopy or imaging studies may be done to determine the cause of the infections. How is this treated? Treatment for this condition includes: Antibiotic medicine. Bnwr-ncf-xmvahna medicines to treat discomfort. Drinking enough water to stay hydrated. If you have frequent infections or have other conditions such as a kidney stone, you may need to see a health care provider who specializes in the urinary tract (urologist). In rare cases, urinary tract infections can cause sepsis. Sepsis is a life- threatening condition that occurs when the body responds to an infection. Sepsis is treated in the hospital with IV antibiotics, fluids, and other medicines. Follow these instructions at home: Medicines Take nlnd-bkc-jfopzxb and prescription medicines only as told by your health care provider. If you were prescribed an antibiotic medicine, take it as told by your health care provider. Do notstop using the antibiotic even if you start to feel better. General instructions Make sure you: ?Empty your bladder often and completely. Do not hold urine for long periods of time. ?Empty your bladder after sex. ?Wipe from front to back after urinating or having a bowel movement if you are female. Use each tissue only one time when you wipe. Drink enough fluid to keep your urine pale yellow. Keep all follow-up visits. This is important. Contact a health care provider if: Your symptoms do not get better after 1 2 days. Your symptoms go away and then return. Get help right away if: You have severe pain in your back or your lower abdomen. You have a fever or chills. You have nausea or vomiting. Summary A urinary tract infection (UTI) is an infection of any part of the urinary tract, which includes the kidneys, ureters, bladder, and urethra. Most urinary tract infections are caused by bacteria in your genital area. Treatment for this condition often includes antibiotic medicines. If you were prescribed an antibiotic medicine, take it as told by your health care provider. Do notstop using the antibiotic even if you start to feel better. Keep all follow-up visits. This is important. This information is not intended to replace advice given to you by your health care provider. Make sure you discuss any questions you have with your health care provider. Document Revised: 10/19/2020 Document Reviewed: 10/19/2020 [employer] Patient Education 2022 [employer]. Follow Up Care 06/25/2022 15:56:59 With:PERLA PARKERIdris, URL Address: [facility] [address] [place] [address]- When: Unknown [facility] 08-02-2023 [facility] Subjective Gualberto Cruz is a 87 y.o. year old male patient being seen for CAD, hypertension, and hyperlipidemia. Still has LE edema, R>L. Took nitroglycerin a few weeks ago around 3am when he was woken from sleep with chest pain. Said he fell asleep after that and slept like a baby . Denies SOB. Patient Active Problem List Diagnosis Backache Chest pain Benign prostatic hyperplasia Benign prostatic hyperplasia with urinary obstruction Bladder pain Chronic prostatitis Coronary atherosclerosis Deformity of metatarsal Essential hypertension Hypertension History of abdominal hernia Gastroesophageal reflux disease History of basal cell carcinoma (BCC) Hyperlipidemia Incomplete emptying of bladder Malaise and fatigue Microscopic hematuria Neurogenic bladder Peripheral venous insufficiency Poor urinary stream Retention of urine Urge incontinence of urine Urinary urgency Anticoagulated B12 deficiency BMI 30.0-30.9,adult Carpal tunnel syndrome, bilateral Cervical paraspinal muscle spasm 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 He underwent attempt at PCI to the RCA ASSOCIATE EDITOR on 08/20/2017. There was inability to cross [Failure to recanalize chronic total occlusion of the right coronary artery using the Antegrade wire escalation technique, balloon angioplasty, and CrossBoss catheter]. He has lower extremity edema on the right more than the left. This was checked by ultrasound recently and no thrombus was found. He used to wear support stockings. Today he reports that about 2 weeks ago he was asleep and woke up with left-sided chest pain. He took a sublingual nitroglycerin and the chest pain subsided. He went back to sleep. There was no recurrence since then. He however reports that he has significant symptoms of shortness of breath and fatigue on very mild exertion. This is relieved by rest. Review of Systems Constitutional: Positive for malaise/fatigue. Cardiovascular: Positive for chest pain, dyspnea on exertion and leg swelling (R>L). Musculoskeletal: Positive for arthritis, back pain and joint pain. Gastrointestinal: Positive for heartburn. Objective Visit Vitals BP 115/66 (BP Location: Left arm, Patient Position: Sitting) Pulse 65 Ht 1.778 m (5' 10 ) Wt 88.5 kg (195 lb) SpO2 95% BMI 27.98 kg/m??? Smoking Status Former BSA 2.09 m??? Physical Exam Constitutional: Appearance: He is well-developed. He is not ill-appearing. HENT: Head: Normocephalic and atraumatic. Nose: Nose normal. Eyes: General: No scleral icterus. Pupils: Pupils are equal, round, and reactive to light. Neck: Thyroid: No thyromegaly. Vascular: No JVD. Cardiovascular: Rate and Rhythm: Normal rate and regular rhythm. Pulses: Radial pulses are 2+ on the right side and 2+ on the left side. Heart sounds: Normal heart sounds. No murmur heard. No friction rub. No gallop. Pulmonary: Effort: Pulmonary effort is normal. No respiratory distress. Breath sounds: Normal breath sounds. No wheezing or rales. Chest: Chest wall: No tenderness. Abdominal: General: Bowel sounds are normal. There is no distension. Palpations: Abdomen is soft. Tenderness: There is no abdominal tenderness. Musculoskeletal: General: No swelling. Cervical back: Neck supple. Right lower le+ Edema present. Left lower le+ Edema present. Skin: General: Skin is warm and dry. Neurological: General: No focal deficit present. Mental Status: He is alert and oriented to person, place, and time. Psychiatric: Mood and Affect: Mood normal. Behavior: Behavior is cooperative. Judgment: Judgment normal. Allergies Allergies Allergen Reactions Bee Pollen Other Ciprofloxacin Hives, Other and Unknown Penicillins Hives, Other and Unknown Medications Current Outpatient Medications: aspirin 81 mg EC tablet, in the morning., Disp: , Rfl: atorvastatin (Lipitor) 10 mg tablet, Take 1 tablet (10 mg) by mouth in the morning., Disp: 90 tablet, Rfl: 3 carvedilol (Coreg) 6.25 mg tablet, TAKE 1 TABLET BY MOUTH TWICE DAILY, Disp: 180 tablet, Rfl: 3 losartan (Cozaar) 50 mg tablet, TAKE 1 TABLET BY MOUTH DAILY DIRECTED, Disp: 90 tablet, Rfl: 3 nitroglycerin (Nitrostat) 0.4 mg SL tablet, nitroglycerin 0.4 mg sublingual tablet, Disp: , Rfl: pantoprazole (ProtoNix) 4 (more content not included)...[facility]06-17-2023 Evaluation note* Encounter Date Diagnosis Assessment Notes Treatment Notes Treatment Clinical Notes Aug, Acute lower respiratory infection (ICD-10 - J22) Patient does have mild wheezing. Discussed use of possible Medrol Dosepak. Patient states he had eye issues when he took prednisone. Discussed will Rx as needed albuterol inhaler to be used for shortness of breath or wheezing. Also concern for possible mild secondary pneumonia given mild rales to right base. Covering with azithromycin. Pulse ox is stable. May use Mucinex DM sadh-pro-yhjtzgm. Advised to follow-up with PCP in the next 4 to 6 days for recheck, sooner ER if significantly worsening symptoms such as shortness of breath, wheezing, high fevers. Patient and daughter verbalized understanding of treatment plan. [facility] Other 04-05-2023 Hospital Discharge instructions Patient Education 06/25/2022 15:30:16 Benign Prostatic Hyperplasia Benign Prostatic Hyperplasia Benign prostatic hyperplasia (BPH) is an enlarged prostate gland that is caused by the normal agingprocess and not by cancer. The prostate is a walnut-sized gland that is involved in the production of semen. It is located in front of the rectum and below the bladder. The bladder stores urine and the urethra is the tube that carries the urine out of the body. The prostate may get bigger as a man gets older. An enlarged prostate can press on the urethra. This can make it harder to pass urine. The build-up of urine in the bladder can cause infection. Back pressure and infection may progress to bladder damage and kidney (renal) failure. What are the causes? This condition is part of a normal aging process. However, not all men develop problems from this condition. If the prostate enlarges away from the urethra, urine flow will not be blocked. If it enlarges toward the urethra and compresses it, there will be problems passing urine. What increases the risk? This condition is more likely to develop in men over the age of 50 years. What are the signs or symptoms? Symptoms of this condition include: Getting up often during the night to urinate. Needing to urinate frequently during the day. Difficulty starting urine flow. Decrease in size and strength of your urine stream. Leaking (dribbling) after urinating. Inability to pass urine. This needs immediate treatment. Inability to completely empty your bladder. Pain when you pass urine. This is more common if there is also an infection. Urinary tract infection (UTI). How is this diagnosed? This condition is diagnosed based on your medical history, a physical exam, and your symptoms. Tests will also be done, such as: A post-void bladder scan. This measures any amount of urine that may remain in your bladder after you finish urinating. A digital rectal exam. In a rectal exam, your health care provider checks your prostate by putting a lubricated, gloved finger into your rectum to feel the back of your prostate gland. This exam detects the size of your gland and any abnormal lumps or growths. An exam of your urine (urinalysis). A prostate specific antigen (PSA) screening. This is a blood test used to screen for prostate cancer. An ultrasound. This test uses sound waves to electronically produce a picture of your prostate gland. Your health care provider may refer you to a specialist in kidney and prostate diseases (urologist). How is this treated? Once symptoms begin, your health care provider will monitor your condition (active surveillance or watchful waiting). Treatment for this condition will depend on the severity of your condition. Treatment may include: Observation and yearly exams. This may be the only treatment needed if your condition and symptoms are mild. Medicines to relieve your symptoms, including: ?Medicines to shrink the prostate. ?Medicines to relax the muscle of the prostate. Surgery in severe cases. Surgery may include: ?Prostatectomy. In this procedure, the prostate tissue is removed completely through an open incision or with a laparoscope or robotics. ?Transurethral resection of the prostate (TURP). In this procedure, a tool is inserted through the opening at the tip of the penis (urethra). It is used to cut away tissue of the inner core of the prostate. The pieces are removed through the same opening of the penis. This removes the blockage. ?Transurethral incision (TUIP). In this procedure, small cuts are made in the prostate. This lessens the prostate's pressure on the urethra. ?Transurethral microwave thermotherapy (TUMT). This procedure uses microwaves to create heat. The heat destroys and removes a small amount of prostate tissue. ?Transurethral needle ablation (TUNA). This procedure uses radio frequencies to destroy and remove a small amount of prostate tissue. ?Interstitial laser coagulation (ILC). This procedure uses a laser to destroy and remove a small amount of prostate tissue. ?Transurethral electrovaporization (TUVP). This procedure uses electrodes to destroy and remove a small amount of prostate tissue. ?Prostatic urethral lift. This procedure inserts an implant to push the lobes of the prostate away from the urethra. Follow these instructions at home: Take ylhe-ouk-eylypic and prescription medicines only as told by your health care provider. Monitor your symptoms for any changes. Contact your health care provider with any changes. Avoid drinking large amounts of liquid before going to bed or out in public. Avoid or reduce how much caffeine or alcohol you drink. Give yourself time when you urinate. Keep all follow-up visits as told by your health care provider. This is important. Contact a health care provider if: You have unexplained back pain. Your symptoms do not get better with treatment. You develop side effects from the medicine you are taking. Your urine becomes very dark or has a bad smell. Your lower abdomen becomes distended and you have trouble passing your urine. Get help right away if: You have a fever or chills. You suddenly cannot urinate. You feel lightheaded, or very dizzy, or you faint. There are large amounts of blood or clots in the urine. Your urinary problems become hard to manage. You develop moderate to severe low back or flank pain. The flank is the side of your body between the ribs and the hip. These symptoms may represent a serious problem that is an emergency. Do not wait to see if the symptoms will go away. Get medical help right away. Call your local emergency services (911 in the [place] Do not drive yourself to the hospital. Summary Benign prostatic hyperplasia (BPH) is an enlarged prostate that is caused by the normal aging process and not by cancer. An enlarged prostate can press on the urethra. This can make it hard to pass urine. This condition is part of a normal aging process and is more likely to develop in men over the age of 50 years. Get help right away if you suddenly cannot urinate. This information is not intended to replace advice given to you by your health care provider. Make sure you discuss any questions you have with your health care provider. Document Released: 03/09/2006 Document Revised: 02/01/2019 Document Reviewed: 04/13/2017 [employer] Patient Education [employer]. Follow Up Care 06/12/2022 09:41:31 With:Idris DUNCAN MD, URL Address: [facility] [address] [place] [address]- When: Unknown [facility] 02-07-2022 Hospital Discharge instructions Follow Up Care 04/29/2021 12:19:22 With:Idris DUNCAN MD, URL Address: [facility] [address] [place] [address]- [phone] When: Unknown [facility] 07-12-2021 NoteCARDIAC STRESS TEST Procedure Date: 10-01-20 INDICATION FOR TEST: Coronary artery disease. METHODS: After risks, benefits, and alternatives were explained, written informed consent was obtained. The patient was brought to the stress lab in a resting, fasting state. He was connected to the appropriate hemodynamic and electrocardiographic monitoring. He underwent a Lexiscan pharmacological stress test; 0.4 mg of Lexiscan were injected over 15 seconds. Technetium Cardiolite was injected and pre and post stress imaging was performed. The patient was monitored for the standard duration and discharged in a stable state. FINDINGS: HEMODYNAMICS: Resting heart rate was 62 bpm, increasing to a maximum of 71 bpm. Resting blood pressure was 162/84 dropping to 134/68. ELECTROCARDIOGRAPHY: Rest EKG shows sinus rhythm 62 bpm, no significant ST-T wave changes. Normal resting EKG. During infusion and recovery, no significant ST-T wave changes noted. No significant arrhythmias seen. IMPRESSION: 1. Normal Lexiscan pharmacological stress test with no ischemic EKG changes seen. 2. Nuclear images are to be read, interpreted and reported in a separate dictation. [facility] Signed and Approved by: DR JAZZ MATSON 10/31/2020 [facility]:31[facility]00[facility] No data available for this section [facility] evaluation + Plan note Future Appointments Appointment Date:12/31/2022 02:15:00 PM Scheduled Provider:Idris DUNCAN MD Location:[facility] Appointment Type:URO Office Visit [facility] Evaluation + Plan note Future Appointments Appointment Date:07/08/2023 02:30:00 PM Scheduled Provider:Idris DUNCAN MD Location:[facility] Appointment Type:URO Office Visit [facility] Evaluation + Plan note Future Appointments Appointment Date:07/09/2023 12:40:00 PM Scheduled Provider:SAHARA SUAREZ PA-C Location:[facility] Appointment Type:URO Office Visit Appointment Date:07/22/2023 01:10:00 PM Scheduled Provider: Location:[facility] Future Appointments Appointment Date:07/22/2023 01:10:00 PM Scheduled Provider: Location:[facility] Appointment Type:Surgery FT Appointment Date:01/14/2024 01:00:00 PM Scheduled Provider:SAHARA SUAREZ PA-C Location:[facility] Appointment Type:URO Office Visit [facility] Evaluation noteNo assessment information available [facility] Work Phone: [facility] Narrative - Reported* Type Description Date Medical History arthritis Medical History heart disease Medical History HTN Medical History prostate disease Medical History stent Surgical History prostate surgery 1970 Surgical History back surgery by Dr Arellano 200 1 Surgical History hernia 2006 Surgical History heart stent x2 May and Feb 09 Surgical History gallbladder Surgical History L4 L5 epidural injection (Dr Amy duncan) 12/2013 Surgical History heart cath 07/2017 Hospitalization History see above [facility] Other Hospital Discharge instructions No data available for this section [facility] progress note No data available for this section [facility] Summary Purpose Family History No Family History Records FoundNo Family History Records FoundNo Family History Records FoundNo Family History Records Found No data available for this section No data available for this section No data available for this section No data available for this section No Family History Records FoundNo Family History Records FoundNo Family History Records Found Advance Directives No Advanced Directives Records Found Advance Directive Response Recorded Date/ Time Advance Directives No September 29 6:41pm Chief Complaint and Reason for Visit Chief Complaint M54.5 Additional Source Comments (unrecognized sect ion and content) No Status Records FoundNo Status Records FoundNo Status Records FoundNo Status Records FoundNo Status Records FoundNo Status Records FoundNo Status Records Found INFORMATION SOURCE (unrecogn ized section and content) DATE CREATED AUTHOR 12/29/2017 [facility] DATE CREATED AUTHOR AUTHOR'S ORGANIZ ATION [facility] DATE CREATED AUTHOR AUTHOR'S ORGANIZ ATION 07/25/2021 [facility] DATE CREATED AUTHOR AUTHOR'S ORGANIZ ATION 03/15/2022 [facility] DATE CREATED AUTHOR AUTHOR'S ORGANIZ ATION 09/22/[address] [facility] DATE CREATED AUTHOR AUTHOR'S ORGANIZ ATION 10/15/2023 [facility] EPIC DATE CREATED AUTHOR AUTHOR'S ORGANIZ ATION 10/24/2023 [facility] Care Team (unrecognized sect ion and content) Team Status: Inactive Member Role Status Dates Emre Davis II MD Primary Care Provider Active Cheryl Arias MD Attending Provider Active Team Status: Active Member Role Status Dates Emre Davis II MD Primary Care Provider Active Goals (unrecognized section and content) Goals may be documented in a n alternate section REASON FOR VISIT (unrecogniz ed section and content) sore throat,ears, coughing u p phlem FOR RECORDS PERTAINING TO PATIENTS WHO ARE OR HAVE BEEN ENROLLED IN A CHEMICAL DEPENDENCY/SUBSTANCEABUSE PROGRAM, SOME INFORMATION MAY BE OMITTED. This clinical summary was aggregated from multiple sources. Caution should be exercised in using it in the provision of clinical care. This summary normalizes information from multiple sources, and as a consequence, information in this document may materially change the coding, format and clinical context of patient data. In addition, data may be omitted in some cases. CLINICAL DECISIONS SHOULD BE BASED ON THE PRIMARY CLINICAL RECORDS. [facility], [facility]. provides no warranty or guarantee of the accuracy or completeness of information in this document.
--- NOTE | 2023-11-16 19:04 | ED.GENADUL1 ---
HPI HPI - General Adult General Chief complaint: Chest Pain Stated complaint: CP Time Seen by Provider: 11/16/23 19:01 Source: patient Mode of arrival: ambulance Limitations: no limitations History of Present Illness HPI narrative: 88 year old male presents to the ED for Related Data Home Medications ?Medication ?Instructions ?Recorded ?Confirmed aspirin 81 mg tablet,delayed 81 mg PO DAILY 11/16/23 11/16/23 release atorvastatin 10 mg tablet 10 mg PO DAILY 11/16/23 11/16/23 carvedilol 6.25 mg tablet 6.25 mg PO BID 11/16/23 11/16/23 gabapentin 300 mg capsule 300 mg PO BID 11/16/23 11/16/23 losartan 50 mg tablet 50 mg PO DAILY 11/16/23 11/16/23 nitroglycerin 0.4 mg sublingual 0.4 mg sublingual Q5M PRN chest 11/16/23 11/16/23 tablet pain pantoprazole 40 mg tablet,delayed 40 mg PO DAILY 11/16/23 11/16/23 release ranolazine 500 mg tablet,extended 500 mg PO Q12H 11/16/23 11/16/23 release,12 hr tamsulosin 0.4 mg capsule 0.4 mg PO Q24H 11/16/23 11/16/23 Allergies Allergy/AdvReac Type Severity Reaction Status Date / Time bee pollen AdvReac Unknown Anaphylaxis Verified 11/16/23 19:46 ciprofloxacin AdvReac Unknown Unknown Verified 11/16/23 19:46 Penicillins AdvReac Unknown Unknown Verified 11/16/23 19:46 Opioid HPI Opioid Management Most Recent Opioid Data: Last ED Pain Assessment 11/16/23 22:55 Review of Systems ROS Narrative ROS limited due to patient AMS. Constitutional Reports: fever, chills and fatigue Cardiovascular Reports: chest pain Respiratory Reports: shortness of breath and cough Gastrointestinal Reports: abdominal pain, nausea and vomiting Exam Narrative Exam Narrative: Exam limited due to patient AMS. Pt confused, not answering questions appropriately. Pt not following commands. Pt presented with temperature of 103.3. Constitutional Vital Signs, click to edit/add: Last Vital Signs Temp 98.8 F 11/17/23 01:09 Pulse 65 11/17/23 01:59 Resp 18 11/17/23 01:09 BP 111/65 11/17/23 01:09 Pulse Ox 91 L 11/17/23 01:09 O2 Del Method Room Air 11/17/23 01:09 General appearance: ill appearing KOFI Nose: external nose normal Mouth: lip normal and tongue normal Eye Common normals: PERRL, conjunctivae normal and no scleral icterus Neck & C-Spine Common normals: supple Respiratory Common normals: normal respiratory effort and clear to auscultation bilaterally Cardio Common normals: regular rate and regular rhythm GI Common normals: Normal to inspection, nondistended, normoactive bowel sounds present and soft to palpation Palpation: tender (generalized) Neuro Sensorium/orientation: orientation impaired and other Other: Pt not opening eyes; when asked to open his eyes he relied no. . Pt responsive to verbal stimuli. Pt not answering questions appropriately. Pt reported he was at home. Pt not following commands. Course Vital Signs Vital signs: Vital Signs Temperature 103.3 F H 11/16/23 18:54 Pulse Rate 89 11/16/23 18:54 Respiratory Rate 24 H 11/16/23 18:54 Blood Pressure 140/72 11/16/23 18:54 Pulse Oximetry 93 L 11/16/23 18:54 Temperature 98.8 F 11/17/23 01:09 Pulse Rate 65 11/17/23 01:59 Respiratory Rate 18 11/17/23 01:09 Blood Pressure 111/65 11/17/23 01:09 Pulse Oximetry 91 L 11/17/23 01:09 Oxygen Delivery Method Room Air 11/17/23 01:09 Medical Decision Making MDM Narrative Medical decision making narrative: The patient presented febrile, altered. He was alert and oriented after improvement in his fever. He reported chest discomfort at that time. Urinalysis showed infection; culture was pending. CT scans of the head, chest, abdomen, pelvis were pending. Care was resumed to Dr. Elias. See her dictation for further evaluation and treatment. Medical Records Medical records reviewed: Yes I reviewed the patient's medical records Lab Data Lab results reviewed: Yes I reviewed the patient's lab results Labs: Lab Results 11/16/23 11/16/23 11/16/23 Range/Units 19:05 19:50 19:51 WBC 6.6 (4.0-11.0) 10^3/uL RBC 3.91 L (4.70-6.10) 10^6/uL Hgb 12.4 L (14.0-18.0) g/dL Hct 36.9 L (42.0-54.0) % MCV 94.4 H (80.0-94.0) fL MCH 31.7 (25.9-34.0) pg MCHC 33.6 (29.9-35.2) g/dL RDW 13.4 (11.0-15.0) % Plt Count 81 L (150-450) 10^3/uL MPV 11.4 (9.5-13.5) fL Neut % (Auto) 89.5 H (43.0-75.0) % Lymph % (Auto) 6.2 L (20.5-60.0) % [place] % (Auto) 3.2 (1.7-12.0) % Eos % (Auto) 0.6 L (0.9-7.0) % Baso % (Auto) 0.3 (0.2-2.0) % Neut # (Auto) 5.9 (1.4-6.5) 10^3/uL Lymph # (Auto) 0.4 L (1.2-3.8) 10^3/uL Sully # (Auto) 0.2 L (0.3-0.8) 10^3/uL Eos # (Auto) 0.0 (0.0-0.7) 10^3/uL Baso # (Auto) 0.0 (0.0-0.1) 10^3/uL Abs Immat Gran (auto) 0.01 (0.00-0.03) 10^3/uL Imm/Tot Granulo (auto) 0.2 (0.0-0.5) % PT 11.8 H (9.0-11.6) sec INR 1.13 APTT 26.2 (22.3-36.2) sec VBG pH 7.433 H (7.330-7.430) VBG pCO2 35.9 L (40.0-52.0) mmHg Sodium 138 (136-145) mmol/L Potassium 4.2 (3.5-5.1) mmol/L Chloride 100 (98-107) mmol/L Carbon Dioxide 25.4 (21.0-32.0) mmol/L Anion Gap 16.8 BUN 19.0 H (7.0-18.0) mg/dL Creatinine 1.36 H (0.70-1.30) mg/dL Est GFR ( Amer) 60 (>=60) Est GFR (Non-Af Amer) 49 L (>=60) BUN/Creatinine Ratio 14.0 Glucose 123 H (74-106) mg/dL Lactate 2.2 H* (0.4-2.0) mmol/L Calcium 8.6 (8.5-10.1) mg/dL Total Bilirubin 1.4 H (0.2-1.0) mg/dL AST 20 (15-37) U/L ALT 23 (16-63) U/L Alkaline Phosphatase 108 (46-116) U/L Troponin I High Sens 8.5 (4.0-76.1) pg/mL NT-Pro-B Natriuret Pep 590.0 (<=1800.0) pg/mL Total Protein 6.8 (6.4-8.2) g/dL Albumin 3.3 L (3.4-5.0) g/dL Globulin 3.5 g/dL Albumin/Globulin Ratio 0.9 Urine Color (YELLOW) Urine Clarity (CLEAR) Urine pH (5.0-9.0) Ur Specific [place] (1.005-1.025) Urine Protein (NEG/TRACE) mg/dL Urine Glucose (UA) (NEGATIVE) mg/dL Urine Ketones (NEGATIVE) mg/dL Urine Occult Blood (NEGATIVE) Urine Nitrite (NEGATIVE) Urine Bilirubin (NEGATIVE) Urine Urobilinogen (0.2-1.0) EU/dL Ur Leukocyte Esterase (NEGATIVE) Urine RBC (0-2) #/HPF Urine WBC (NONE SEEN) #/HPF Ur Squamous Epith Cells (NONE/RARE) #/LPF Urine Crystals (None Seen) #/HPF Urine Bacteria (NONE SEEN) #/HPF Urine Casts (NONE SEEN) #/LPF Urine Mucus (NONE SEEN) Ur Culture Indicated? Influenza Type A Ag Negative Influenza Type B Ag Negative SARS-CoV-2 Ag (CV2AG) Negative (NEGATIVE) 11/16/23 11/16/23 Range/Units 20:40 21:40 WBC (4.0-11.0) 10^3/uL RBC (4.70-6.10) 10^6/uL Hgb (14.0-18.0) g/dL Hct (42.0-54.0) % MCV (80.0-94.0) fL MCH (25.9-34.0) pg MCHC (29.9-35.2) g/dL RDW (11.0-15.0) % Plt Count (150-450) 10^3/uL MPV (9.5-13.5) fL Neut % (Auto) (43.0-75.0) % Lymph % (Auto) (20.5-60.0) % Sully % (Auto) (1.7-12.0) % Eos % (Auto) (0.9-7.0) % Baso % (Auto) (0.2-2.0) % Neut # (Auto) (1.4-6.5) 10^3/uL Lymph # (Auto) (1.2-3.8) 10^3/uL Sully # (Auto) (0.3-0.8) 10^3/uL Eos # (Auto) (0.0-0.7) 10^3/uL Baso # (Auto) (0.0-0.1) 10^3/uL Abs Immat Gran (auto) (0.00-0.03) 10^3/uL Imm/Tot Granulo (auto) (0.0-0.5) % PT (9.0-11.6) sec INR APTT (22.3-36.2) sec VBG pH (7.330-7.430) VBG pCO2 (40.0-52.0) mmHg Sodium (136-145) mmol/L Potassium (3.5-5.1) mmol/L Chloride (98-107) mmol/L Carbon Dioxide (21.0-32.0) mmol/L Anion Gap BUN (7.0-18.0) mg/dL Creatinine (0.70-1.30) mg/dL Est GFR ( Amer) (>=60) Est GFR (Non-Af Amer) (>=60) BUN/Creatinine Ratio Glucose (74-106) mg/dL Lactate 1.6 (0.4-2.0) mmol/L Calcium (8.5-10.1) mg/dL Total Bilirubin (0.2-1.0) mg/dL AST (15-37) U/L ALT (16-63) U/L Alkaline Phosphatase (46-116) U/L Troponin I High Sens (4.0-76.1) pg/mL NT-Pro-B Natriuret Pep (<=1800.0) pg/mL Total Protein (6.4-8.2) g/dL Albumin (3.4-5.0) g/dL Globulin g/dL Albumin/Globulin Ratio Urine Color Lt. yellow (YELLOW) Urine Clarity Clear (CLEAR) Urine pH 6.0 (5.0-9.0) Ur Specific [place] 1.020 (1.005-1.025) Urine Protein Trace (NEG/TRACE) mg/dL Urine Glucose (UA) Negative (NEGATIVE) mg/dL Urine Ketones Negative (NEGATIVE) mg/dL Urine Occult Blood Moderate A (NEGATIVE) Urine Nitrite Negative (NEGATIVE) Urine Bilirubin Negative (NEGATIVE) Urine Urobilinogen 0.2 (0.2-1.0) EU/dL Ur Leukocyte Esterase Small A (NEGATIVE) Urine RBC None seen (0-2) #/HPF Urine WBC 20-50 A (NONE SEEN) #/HPF Ur Squamous Epith Cells None seen (NONE/RARE) #/LPF Urine Crystals None seen (None Seen) #/HPF Urine Bacteria Large A (NONE SEEN) #/HPF Urine Casts None seen (NONE SEEN) #/LPF Urine Mucus Small A (NONE SEEN) Ur Culture Indicated? Yes Influenza Type A Ag Influenza Type B Ag SARS-CoV-2 Ag (CV2AG) (NEGATIVE) Imaging Data Chest x-ray: Attestation: I have reviewed the pertinent imaging results. Radiologist's impression: ITS Impressions Chest X-Ray 11/16/23 19:02 IMPRESSION: Low lung volumes with mild bibasal atelectasis. Electronically authenticated by: MILA BEST Date: 11/16/2023 21:41 Abdomen/Pelvis CT 11/16/23 20:26 IMPRESSION: 1. Mild airspace disease in the right upper lobe as discussed above which may represent an infectious process. 2. Perivesicular fat stranding of the bladder consistent with cystitis. A tiny focus of air is present in the wall of the anterior bladder which may be secondary to developing emphysematous cystitis. Electronically authenticated by: MU CONSTANTINO Date: 11/16/2023 23:[address] 11/16/23 20:26 IMPRESSION: 1. Mild airspace disease in the right upper lobe as discussed above which may represent an infectious process. 2. Perivesicular fat stranding of the bladder consistent with cystitis. A tiny focus of air is present in the wall of the anterior bladder which may be secondary to developing emphysematous cystitis. Electronically authenticated by: MU CONSTANTINO Date: 11/16/2023 23:[address] 11/16/23 20:26 IMPRESSION: No acute intracranial findings. Electronically authenticated by: SHAHLA HEWITT Date: 11/16/2023 22:51 ECG Data Attestation: ?I have reviewed the pertinent ECG results. Interpretation: Measurements Intervals [place] Rate: 89 P: 90 NV: 166 QRS: 91 QRSD: 80 T: 3 QT: 338 QTc: 384 Interpretive Statements 1100 Sinus rhythm 7102 Moderate right axis deviation 9110 normal ECG No previous ECG available for comparison Discharge Plan Discharge Chief Complaint: Chest Pain Clinical Impression: UTI (urinary tract infection), AMS (altered mental status) Patient Disposition: Admitted As Inpatient Time of Disposition Decision: 00:26 Condition: Fair Discharge Date/Time: 11/17/23 00:52
[2023-11-16 19:29] LABS: Basophils Percent Auto 0.3 % (0.2-2.0); Eosinophils Percent Auto 0.6 % (0.9-7.0); Hematocrit 36.9 % (42.0-54.0); Hemoglobin 12.4 g/dL (14.0-18.0); Immature Granulocytes Abs Auto 0.01 10^3/uL (0.00-0.03); Immature Granulocytes Pct Auto 0.2 % (0.0-0.5); Lymphocytes Absolute Auto 0.4 10^3/uL (1.2-3.8); Lymphocytes Percent Auto 6.2 % (20.5-60.0); Mean Corpuscular HGB Conc 33.6 g/dL (29.9-35.2); Mean Corpuscular Hemoglobin 31.7 pg (25.9-34.0); Mean Corpuscular Volume 94.4 fL (80.0-94.0); Mean Platelet Volume 11.4 fL (9.5-13.5); Monocytes Absolute Auto 0.2 10^3/uL (0.3-0.8); Monocytes Percent Auto 3.2 % (1.7-12.0); Neutrophils Absolute Auto 5.9 10^3/uL (1.4-6.5); Neutrophils Percent Auto 89.5 % (43.0-75.0); PCO2 VBG 35.9 mmHg (40.0-52.0); Platelet Count 81 10^3/uL (150-450); Red Blood Count 3.91 10^6/uL (4.70-6.10); Red Cell Distribution Width 13.4 % (11.0-15.0); White Blood Count 6.6 10^3/uL (4.0-11.0); pH VBG 7.433 (7.330-7.430)
[2023-11-16] MEDS: ONDANSETRON PF 4 MG/2 ML VIAL IV (19:38)
[2023-11-16] MEDS: ACETAMINOPHEN 650 MG RECTAL SUPPOSITORY PR (19:38)
[2023-11-16 19:49] LABS: Lactate/Lactic Acid 2.2 mmol/L (0.4-2.0)
[2023-11-16] MEDS: 0.9 % SODIUM CHLORIDE 1,000 ML 1000 ML IV (20:09)
[2023-11-16] MEDS: CEFTRIAXONE 2,000 MG in 0.9 % SODIUM CHLORIDE 100 ML 200 MG IV (20:09)
[2023-11-16 20:15] LABS: Influenza Virus A Antigen Negative; Influenza Virus B Antigen Negative; Internal Control Within Normal Limits; SARS-CoV-2 Ag NEGATIVE (NEGATIVE)
[2023-11-16 20:20] LABS: INR 1.13; Partial Thromboplastin Time 26.2 sec (22.3-36.2); Prothrombin Time 11.8 sec (9.0-11.6)
[2023-11-16 20:21] LABS: Alanine Aminotransferase 23 U/L (16-63); Albumin Globulin Ratio 0.9; Albumin Level 3.3 g/dL (3.4-5.0); Alkaline Phosphatase 108 U/L (46-116); Anion Gap 16.8; Aspartate Amino Transferase 20 U/L (15-37); Bilirubin Total 1.4 mg/dL (0.2-1.0); Calcium 8.6 mg/dL (8.5-10.1); Carbon Dioxide 25.4 mmol/L (21.0-32.0); Chloride 100 mmol/L (98-107); Estimated GFR (African America 60 (>=60); Estimated GFR (Non-African Ame 49 (>=60); Globulin 3.5 g/dL; Glucose 123 mg/dL (74-106); Potassium 4.2 mmol/L (3.5-5.1); Sodium 138 mmol/L (136-145); Total Protein 6.8 g/dL (6.4-8.2)
--- NOTE | 2023-11-16 20:26 | CT_ITS ---
The [address] [address] Patient Name: LOLA CRUZ MRN: [id number] date: 1935 Sex: M Assigned Patient Location: ER Current Patient Location: ER Accession/Order Number: [id number] Exam Date: 11/16/2023 21:15 Report Date: 11/16/2023 23:48 At the request of: MIRI APPLE Procedure: CT chest w con Examination:CT chest w con, CT abdomen pelvis w con INDICATION: AMS, fever. COMPARISON: CT abdomen and pelvis dated 05/22/2016. No prior chest CT for comparison. Chest x-ray from the same day. TECHNIQUE: Helical noncontrast CT images were obtained of the chest, abdomen and pelvis. Coronal and sagittal reconstructed images were reviewed. Dose reduction techniques were achieved by using automated exposure control and/or adjustment of mA and/or kV according to patient size and/or use of iterative reconstruction technique. FINDINGS: CHEST: LUNGS: There is breathing motion artifact which is contributing to some image degradation. Subtle pulmonary nodules may be missed for this reason. There is irregular tree-in-bud and groundglass nodules in the right upper lobe which may be due to an infectious process given the reported clinical history. Peripheral subpleural reticular densities are present elsewhere in the lungs concerning for degree of chronic interstitial lung disease. There is bronchiectasis within each lower lobe with associated atelectasis in the lower lobes. No large consolidative infiltrates are present. No pulmonary masses are appreciated. PLEURAL CAVITY: No pleural effusion. MEDIASTINUM: Trachea and central airways are patent. HEART: Moderate coronary artery calcifications are present. VASCULAR:No aneurysm or dissection of the thoracic aorta. The pulmonary arteries are not optimally opacified. No central pulmonary embolus is present in the main pulmonary trunk. LYMPH NODES:No suspicious lymphadenopathy. CHEST WALL/AXILLA: Chest wall and axilla are unremarkable. ABDOMEN AND PELVIS: LIVER: The liver is unremarkable. GALLBLADDER AND BILIARY SYSTEM: The gallbladder surgically absent. Pneumobilia is present likely due to the postsurgical status of the patient. SPLEEN: The spleen is unremarkable. PANCREAS: The pancreas is unremarkable. ADRENAL GLANDS: The adrenal glands are unremarkable. KIDNEYS AND URETERS: There is no hydronephrosis of the kidneys.There are simple bilateral renal cysts. Ureters are within normal limits without obstructing urologic calcifications. VASCULATURE: Atherosclerotic plaque is present in the abdominal aorta without aneurysm. PERITONEUM/RETROPERITONEUM: No free air or free fluid. LYMPH NODES: No suspicious lymphadenopathy. GASTROINTESTINAL TRACT: The bowel is normal in caliber.No acute inflammatory process is present in the bowel.The appendix is visualized and is not inflamed. BLADDER: There is inflammation of the urinary bladder concerning for cystitis. There is a tiny focus of air in the wall of the urinary bladder anteriorly which may represent developing emphysematous cystitis. REPRODUCTIVE SYSTEM: Reproductive system is unremarkable. BODY WALL: There is a tiny fat-containing umbilical hernia. 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 This is accentuated by levoscoliosis. CT/CT chest w con IMPRESSION: 1. Mild airspace disease in the right upper lobe as discussed above which may represent an infectious process. 2. Perivesicular fat stranding of the bladder consistent with cystitis. A tiny focus of air is present in the wall of the anterior bladder which may be secondary to developing emphysematous cystitis. Electronically authenticated by: MU CONSTANTINO Date: 11/16/2023 23:48
--- NOTE | 2023-11-16 20:26 | CT_ITS ---
The [address] [address] Patient Name: OLLA CRUZ MRN: [id number] date: 1935 Sex: M Assigned Patient Location: ER Current Patient Location: ER Accession/Order Number: [id number] Exam Date: 11/16/2023 21:25 Report Date: 11/16/2023 23:48 At the request of: MIRI APPLE Procedure: CT abdomen pelvis w con Examination:CT chest w con, CT abdomen pelvis w con INDICATION: AMS, fever. COMPARISON: CT abdomen and pelvis dated 05/22/2016. No prior chest CT for comparison. Chest x-ray from the same day. TECHNIQUE: Helical noncontrast CT images were obtained of the chest, abdomen and pelvis. Coronal and sagittal reconstructed images were reviewed. Dose reduction techniques were achieved by using automated exposure control and/or adjustment of mA and/or kV according to patient size and/or use of iterative reconstruction technique. FINDINGS: CHEST: LUNGS: There is breathing motion artifact which is contributing to some image degradation. Subtle pulmonary nodules may be missed for this reason. There is irregular tree-in-bud and groundglass nodules in the right upper lobe which may be due to an infectious process given the reported clinical history. Peripheral subpleural reticular densities are present elsewhere in the lungs concerning for degree of chronic interstitial lung disease. There is bronchiectasis within each lower lobe with associated atelectasis in the lower lobes. No large consolidative infiltrates are present. No pulmonary masses are appreciated. PLEURAL CAVITY: No pleural effusion. MEDIASTINUM: Trachea and central airways are patent. HEART: Moderate coronary artery calcifications are present. VASCULAR:No aneurysm or dissection of the thoracic aorta. The pulmonary arteries are not optimally opacified. No central pulmonary embolus is present in the main pulmonary trunk. LYMPH NODES:No suspicious lymphadenopathy. CHEST WALL/AXILLA: Chest wall and axilla are unremarkable. ABDOMEN AND PELVIS: LIVER: The liver is unremarkable. GALLBLADDER AND BILIARY SYSTEM: The gallbladder surgically absent. Pneumobilia is present likely due to the postsurgical status of the patient. SPLEEN: The spleen is unremarkable. PANCREAS: The pancreas is unremarkable. ADRENAL GLANDS: The adrenal glands are unremarkable. KIDNEYS AND URETERS: There is no hydronephrosis of the kidneys.There are simple bilateral renal cysts. Ureters are within normal limits without obstructing urologic calcifications. VASCULATURE: Atherosclerotic plaque is present in the abdominal aorta without aneurysm. PERITONEUM/RETROPERITONEUM: No free air or free fluid. LYMPH NODES: No suspicious lymphadenopathy. GASTROINTESTINAL TRACT: The bowel is normal in caliber.No acute inflammatory process is present in the bowel.The appendix is visualized and is not inflamed. BLADDER: There is inflammation of the urinary bladder concerning for cystitis. There is a tiny focus of air in the wall of the urinary bladder anteriorly which may represent developing emphysematous cystitis. REPRODUCTIVE SYSTEM: Reproductive system is unremarkable. BODY WALL: There is a tiny fat-containing umbilical hernia. 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 This is accentuated by levoscoliosis. CT/CT abdomen pelvis w con IMPRESSION: 1. Mild airspace disease in the right upper lobe as discussed above which may represent an infectious process. 2. Perivesicular fat stranding of the bladder consistent with cystitis. A tiny focus of air is present in the wall of the anterior bladder which may be secondary to developing emphysematous cystitis. Electronically authenticated by: MU CONSTANTINO Date: 11/16/2023 23:48
--- NOTE | 2023-11-16 20:26 | CT_ITS ---
[address] [address] Patient Name: LOLA CRUZ MRN: [id number] date: 1935 Sex: M Assigned Patient Location: ER Current Patient Location: ER Accession/Order Number: [id number] Exam Date: 11/16/2023 21:15 Report Date: 11/16/2023 22:51 At the request of: MIRI APPLE Procedure: CT head/brain wo con EXAMINATION: CT head/brain wo con, 11/16/2023 9:15 PM EDT HISTORY: AMS COMPARISON: 11/06/2019 TECHNIQUE: CT scan of the head was performed without IV contrast. CT dose reduction technique was used, including Automated Exposure Control. FINDINGS: BRAIN PARENCHYMA/CSF SPACES: There is prominence of the ventricles and sulci compatible with diffuse cerebral atrophy. There is asymmetric dilatation of the frontal horn of the right lateral ventricle which appears unchanged. There is no hemorrhage, mass effect or midline shift. Mild low attenuation in the white matter consistent with chronic microvascular ischemia. Tiny chronic lacunar infarct in the right basal ganglia. PARANASAL SINUSES: Retention cyst versus polyp in the right maxillary sinus. SKULL BASE AND CALVARIUM: Normal. EXTRACRANIAL SOFT TISSUES: Normal. CT/CT head/brain wo con IMPRESSION: No acute intracranial findings. Electronically authenticated by: SHAHLA HEWITT Date: 11/16/2023 22:51
[2023-11-16 20:28] LABS: Troponin I High Sensitivity 8.5 pg/mL (4.0-76.1)
[2023-11-16 20:53] LABS: Bilirubin Urine NEGATIVE (NEGATIVE); Blood Urine MODERATE (NEGATIVE); Clarity Urine CLEAR (CLEAR); Color Urine LT. YELLOW (YELLOW); Glucose Urine UA NEGATIVE (NEGATIVE); Ketones Urine NEGATIVE (NEGATIVE); Leukocyte Esterase Urine SMALL (NEGATIVE); Nitrite Urine NEGATIVE (NEGATIVE); Protein Urine TRACE mg/dL (NEG/TRACE); Urobilinogen Urine 0.2 EU/dL (0.2-1.0)
[2023-11-16 20:55] LABS: Urine Microscopic Indicated YES
[2023-11-16 21:01] LABS: Bacteria Urine LARGE #/HPF (NONE SEEN); Cast Seen? NONE SEEN #/LPF (NONE SEEN); Crystals Seen? None Seen #/HPF (None Seen); Mucus Urine SMALL (NONE SEEN); RBC Urine NONE SEEN #/HPF (0-2); Squamous Epithelial Cell Urine NONE SEEN #/LPF (NONE/RARE); Urine Culture Indicated YES; WBC Urine 20-50 #/HPF (NONE SEEN)
[2023-11-16 22:04] LABS: Lactate/Lactic Acid 1.6 mmol/L (0.4-2.0)
[2023-11-16] MEDS: MORPHINE SULFATE 2 MG/ML SYRINGE IV (22:17)
[2023-11-16] MEDS: 0.9 % SODIUM CHLORIDE 1,000 ML 125 ML IV (23:22)
[2023-11-16] MEDS: IBUPROFEN 200 MG/10 ML ORAL.SUSP 600 MG PO (23:22)
[2023-11-17] VITALS (15 sets, daily range): BP systolic 101–111; BP diastolic 54–65; PULSE 55–77; TEMP 36.4–37.1; O2SAT 87–96; BMI 35.6
--- NOTE | 2023-11-17 00:05 | ED.GENADUL1 ---
HPI HPI - General Adult General Chief complaint: Chest Pain Stated complaint: CP Time Seen by Provider: 11/16/23 19:01 Source: patient Mode of arrival: ambulance Limitations: no limitations History of Present Illness HPI narrative: This 88-year-old male was seen and evaluated in conjunction with the nurse practitioner. He was brought to the emergency department from home for evaluation of altered mental status and chest pain. According to the patient's daughter for the past several days he has been somewhat weak, less interactive and yesterday had shaking chills. The patient's insurance recently changed his cardiac medications and he thought that they made him constipated so he was taking medications for his constipation and then had diarrhea. He told her that yesterday was the first day that he started taking his cardiac medications as prescribed. The patient also has a history of an enlarged prostate and straight caths himself for urine retention. He has been doing this for years. Had been evaluated prior to the start of my shift and a septic workup was underway was the patient was found to be altered with a fever of 103.3. An IV had been established and a septic workup was ordered. I reviewed his EKG which is a sinus rhythm 89 bpm with a right axis deviation and no acute changes. The patient has a normal white count and hemoglobin. Electrolytes are normal with a mildly elevated BUN and creatinine of 19 and 1.36. Troponin is normal. He was negative for COVID-19 and influenza. His initial lactic acid was 2.2 and repeat lactic acid after IV fluids was 1.6. Liver function tests are normal. 1 view chest x-ray was negative for acute findings. Straight cath urine is positive for 20-50 white blood cells per high-power field. Blood cultures are pending at this time. Due to the altered mental status he presented with CT scan of the brain was ordered and is negative for acute findings. CT scan of the chest, abdomen and pelvis was ordered and is included in the body of this report. It shows chronic changes but no significant findings besides a thickened bladder wall concerning for cystitis and some tree-in-bud findings in the lungs. He was medicated with IV fluids, Tylenol for his fever and given a dose of morphine after he was more alert and complained of ongoing chest pain. On reevaluation he still felt warm to the touch and was given oral ibuprofen. He received 2 g of IV Rocephin for the UTI pending culture results. The results of the labs and CT scans were discussed with the patient and his daughter. The patient is still somewhat sluggish but responsive and appropriate. His daughter stated that he woke up for approximately 10 minutes and talk to her and then fell back to sleep. He is receiving ongoing IV fluids. The case was discussed with the hospitalist service and he is excepted for admission. Related Data Home Medications ?Medication ?Instructions ?Recorded ?Confirmed aspirin 81 mg tablet,delayed 81 mg PO DAILY 11/16/23 11/16/23 release atorvastatin 10 mg tablet 10 mg PO DAILY 11/16/23 11/16/23 carvedilol 6.25 mg tablet 6.25 mg PO BID 11/16/23 11/16/23 gabapentin 300 mg capsule 300 mg PO BID 11/16/23 11/16/23 losartan 50 mg tablet 50 mg PO DAILY 11/16/23 11/16/23 nitroglycerin 0.4 mg sublingual 0.4 mg sublingual Q5M PRN chest 11/16/23 11/16/23 tablet pain pantoprazole 40 mg tablet,delayed 40 mg PO DAILY 11/16/23 11/16/23 release ranolazine 500 mg tablet,extended 500 mg PO Q12H 11/16/23 11/16/23 release,12 hr tamsulosin 0.4 mg capsule 0.4 mg PO Q24H 11/16/23 11/16/23 Allergies Allergy/AdvReac Type Severity Reaction Status Date / Time bee pollen AdvReac Unknown Anaphylaxis Verified 11/16/23 19:46 ciprofloxacin AdvReac Unknown Unknown Verified 11/16/23 19:46 Penicillins AdvReac Unknown Unknown Verified 11/16/23 19:46 Opioid HPI Opioid Management Most Recent Opioid Data: Last ED Pain Assessment 11/16/23 22:55 Exam Constitutional Vital Signs, click to edit/add: Last Vital Signs Temp 98.7 F 11/16/23 21:42 Pulse 82 11/16/23 23:30 Resp 26 H 11/16/23 23:30 BP 110/54 11/16/23 23:30 Pulse Ox 93 L 11/16/23 23:30 O2 Del Method Room Air 11/16/23 21:42 Course Vital Signs Vital signs: Vital Signs Temperature 103.3 F H 11/16/23 18:54 Pulse Rate 89 11/16/23 18:54 Respiratory Rate 24 H 11/16/23 18:54 Blood Pressure 140/72 11/16/23 18:54 Pulse Oximetry 93 L 11/16/23 18:54 Temperature 98.7 F 11/16/23 21:42 Pulse Rate 82 11/16/23 23:30 Respiratory Rate 26 H 11/16/23 23:30 Blood Pressure 110/54 11/16/23 23:30 Pulse Oximetry 93 L 11/16/23 23:30 Oxygen Delivery Method Room Air 11/16/23 21:42 Medical Decision Making MDM Narrative Medical decision making narrative: [place] [address] CT Scan Report Signed Patient: LOLA CRUZ MR#: [id number] : 1935 Acct:[id number] Age/Sex: 88 / M ADM Date: 11/16/23 Loc: ER Attending Dr: Ordering Physician: Miri Apple Date of Service: 11/16/23 Procedure(s): CT chest w con Accession Number(s): [id number] cc: TAQUERIA GRAYSON ~ [facility] [place] [id number] Patient Name: LOLA CRUZ MRN: [id number] date: 1935 Sex: M Assigned Patient Location: ER Current Patient Location: ER Accession/Order Number: [id number] Exam Date: 11/16/2023 21:15 Report Date: 11/16/2023 23:48 At the request of: MIRI APPLE Procedure: CT chest w con Examination:CT chest w con, CT abdomen pelvis w con INDICATION: AMS, fever. COMPARISON: CT abdomen and pelvis dated 05/22/2016. No prior chest CT for comparison. Chest x-ray from the same day. TECHNIQUE: Helical noncontrast CT images were obtained of the chest, abdomen and pelvis. Coronal and sagittal reconstructed images were reviewed. Dose reduction techniques were achieved by using automated exposure control and/or adjustment of mA and/or kV according to patient size and/or use of iterative reconstruction technique. FINDINGS: CHEST: LUNGS: There is breathing motion artifact which is contributing to some image degradation. Subtle pulmonary nodules may be missed for this reason. There is irregular tree-in-bud and groundglass nodules in the right upper lobe which may be due to an infectious process given the reported clinical history. Peripheral subpleural reticular densities are present elsewhere in the lungs concerning for degree of chronic interstitial lung disease. There is bronchiectasis within each lower lobe with associated atelectasis in the lower lobes. No large consolidative infiltrates are present. No pulmonary masses are appreciated. PLEURAL CAVITY: No pleural effusion. MEDIASTINUM: Trachea and central airways are patent. HEART: Moderate coronary artery calcifications are present. VASCULAR:No aneurysm or dissection of the thoracic aorta. The pulmonary arteries are not optimally opacified. No central pulmonary embolus is present in the main pulmonary trunk. LYMPH NODES:No suspicious lymphadenopathy. CHEST WALL/AXILLA: Chest wall and axilla are unremarkable. ABDOMEN AND PELVIS: LIVER: The liver is unremarkable. GALLBLADDER AND BILIARY SYSTEM: The gallbladder surgically absent. Pneumobilia is present likely due to the postsurgical status of the patient. SPLEEN: The spleen is unremarkable. PANCREAS: The pancreas is unremarkable. ADRENAL GLANDS: The adrenal glands are unremarkable. KIDNEYS AND URETERS: There is no hydronephrosis of the kidneys.There are simple bilateral renal cysts. Ureters are within normal limits without obstructing urologic calcifications. VASCULATURE: Atherosclerotic plaque is present in the abdominal aorta without aneurysm. PERITONEUM/RETROPERITONEUM: No free air or free fluid. LYMPH NODES: No suspicious lymphadenopathy. GASTROINTESTINAL TRACT: The bowel is normal in caliber.No acute inflammatory process is present in the bowel.The appendix is visualized and is not inflamed. BLADDER: There is inflammation of the urinary bladder concerning for cystitis. There is a tiny focus of air in the wall of the urinary bladder anteriorly which may represent developing emphysematous cystitis. REPRODUCTIVE SYSTEM: Reproductive system is unremarkable. BODY WALL: There is a tiny fat-containing umbilical hernia. 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 This is accentuated by levoscoliosis. CT/CT chest w con IMPRESSION: 1. Mild airspace disease in the right upper lobe as discussed above which may represent an infectious process. 2. Perivesicular fat stranding of the bladder consistent with cystitis. A tiny focus of air is present in the wall of the anterior bladder which may be secondary to developing emphysematous cystitis. Electronically authenticated by: MU CONSTANTINO Date: 11/16/2023 23:[address] [address] [address] Scan Report Signed Patient: LOLA CRUZ MR#: [id number] : 1935 Acct:[id number] Age/Sex: 88 / M ADM Date: 11/16/23 Loc: ER Attending Dr: Ordering Physician: Miri Apple Date of Service: 11/16/23 Procedure(s): CT abdomen pelvis w con Accession Number(s): [id number] cc: TAQUERIA GRAYSON ~ The [address] [id number] Patient Name: LOLA CRUZ MRN: [id number] date: 1935 Sex: M Assigned Patient Location: ER Current Patient Location: ER Accession/Order Number: [id number] Exam Date: 11/16/2023 21:25 Report Date: 11/16/2023 23:48 At the request of: MIRI APPLE Procedure: CT abdomen pelvis w con Examination:CT chest w con, CT abdomen pelvis w con INDICATION: AMS, fever. COMPARISON: CT abdomen and pelvis dated 05/22/2016. No prior chest CT for comparison. Chest x-ray from the same day. TECHNIQUE: Helical noncontrast CT images were obtained of the chest, abdomen and pelvis. Coronal and sagittal reconstructed images were reviewed. Dose reduction techniques were achieved by using automated exposure control and/or adjustment of mA and/or kV according to patient size and/or use of iterative reconstruction technique. FINDINGS: CHEST: LUNGS: There is breathing motion artifact which is contributing to some image degradation. Subtle pulmonary nodules may be missed for this reason. There is irregular tree-in-bud and groundglass nodules in the right upper lobe which may be due to an infectious process given the reported clinical history. Peripheral subpleural reticular densities are present elsewhere in the lungs concerning for degree of chronic interstitial lung disease. There is bronchiectasis within each lower lobe with associated atelectasis in the lower lobes. No large consolidative infiltrates are present. No pulmonary masses are appreciated. PLEURAL CAVITY: No pleural effusion. MEDIASTINUM: Trachea and central airways are patent. HEART: Moderate coronary artery calcifications are present. VASCULAR:No aneurysm or dissection of the thoracic aorta. The pulmonary arteries are not optimally opacified. No central pulmonary embolus is present in the main pulmonary trunk. LYMPH NODES:No suspicious lymphadenopathy. CHEST WALL/AXILLA: Chest wall and axilla are unremarkable. ABDOMEN AND PELVIS: LIVER: The liver is unremarkable. GALLBLADDER AND BILIARY SYSTEM: The gallbladder surgically absent. Pneumobilia is present likely due to the postsurgical status of the patient. SPLEEN: The spleen is unremarkable. PANCREAS: The pancreas is unremarkable. ADRENAL GLANDS: The adrenal glands are unremarkable. KIDNEYS AND URETERS: There is no hydronephrosis of the kidneys.There are simple bilateral renal cysts. Ureters are within normal limits without obstructing urologic calcifications. VASCULATURE: Atherosclerotic plaque is present in the abdominal aorta without aneurysm. PERITONEUM/RETROPERITONEUM: No free air or free fluid. LYMPH NODES: No suspicious lymphadenopathy. GASTROINTESTINAL TRACT: The bowel is normal in caliber.No acute inflammatory process is present in the bowel.The appendix is visualized and is not inflamed. BLADDER: There is inflammation of the urinary bladder concerning for cystitis. There is a tiny focus of air in the wall of the urinary bladder anteriorly which may represent developing emphysematous cystitis. REPRODUCTIVE SYSTEM: Reproductive system is unremarkable. BODY WALL: There is a tiny fat-containing umbilical hernia. 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 This is accentuated by levoscoliosis. CT/CT abdomen pelvis w con IMPRESSION: 1. Mild airspace disease in the right upper lobe as discussed above which may represent an infectious process. 2. Perivesicular fat stranding of the bladder consistent with cystitis. A tiny focus of air is present in the wall of the anterior bladder which may be secondary to developing emphysematous cystitis. Electronically authenticated by: MU CONSTANTINO Date: 11/16/2023 23:48 Medical Records Medical records reviewed: Yes I reviewed the patient's medical records Lab Data Lab results reviewed: Yes I reviewed the patient's lab results Labs: Lab Results 11/16/23 11/16/23 11/16/23 Range/Units 19:05 19:50 19:51 WBC 6.6 (4.0-11.0) 10^3/uL RBC 3.91 L (4.70-6.10) 10^6/uL Hgb 12.4 L (14.0-18.0) g/dL Hct 36.9 L (42.0-54.0) % MCV 94.4 H (80.0-94.0) fL MCH 31.7 (25.9-34.0) pg MCHC 33.6 (29.9-35.2) g/dL RDW 13.4 (11.0-15.0) % Plt Count 81 L (150-450) 10^3/uL MPV 11.4 (9.5-13.5) fL Neut % (Auto) 89.5 H (43.0-75.0) % Lymph % (Auto) 6.2 L (20.5-60.0) % Wilson % (Auto) 3.2 (1.7-12.0) % Eos % (Auto) 0.6 L (0.9-7.0) % Baso % (Auto) 0.3 (0.2-2.0) % Neut # (Auto) 5.9 (1.4-6.5) 10^3/uL Lymph # (Auto) 0.4 L (1.2-3.8) 10^3/uL Wilson # (Auto) 0.2 L (0.3-0.8) 10^3/uL Eos # (Auto) 0.0 (0.0-0.7) 10^3/uL Baso # (Auto) 0.0 (0.0-0.1) 10^3/uL Abs Immat Gran (auto) 0.01 (0.00-0.03) 10^3/uL Imm/Tot Granulo (auto) 0.2 (0.0-0.5) % PT 11.8 H (9.0-11.6) sec INR 1.13 APTT 26.2 (22.3-36.2) sec VBG pH 7.433 H (7.330-7.430) VBG pCO2 35.9 L (40.0-52.0) mmHg Sodium 138 (136-145) mmol/L Potassium 4.2 (3.5-5.1) mmol/L Chloride 100 (98-107) mmol/L Carbon Dioxide 25.4 (21.0-32.0) mmol/L Anion Gap 16.8 BUN 19.0 H (7.0-18.0) mg/dL Creatinine 1.36 H (0.70-1.30) mg/dL Est GFR ( Amer) 60 (>=60) Est GFR (Non-Af Amer) 49 L (>=60) BUN/Creatinine Ratio 14.0 Glucose 123 H (74-106) mg/dL Lactate 2.2 H* (0.4-2.0) mmol/L Calcium 8.6 (8.5-10.1) mg/dL Total Bilirubin 1.4 H (0.2-1.0) mg/dL AST 20 (15-37) U/L ALT 23 (16-63) U/L Alkaline Phosphatase 108 (46-116) U/L Troponin I High Sens 8.5 (4.0-76.1) pg/mL NT-Pro-B Natriuret Pep 590.0 (<=1800.0) pg/mL Total Protein 6.8 (6.4-8.2) g/dL Albumin 3.3 L (3.4-5.0) g/dL Globulin 3.5 g/dL Albumin/Globulin Ratio 0.9 Urine Color (YELLOW) Urine Clarity (CLEAR) Urine pH (5.0-9.0) Ur Specific [place] (1.005-1.025) Urine Protein (NEG/TRACE) mg/dL Urine Glucose (UA) (NEGATIVE) mg/dL Urine Ketones (NEGATIVE) mg/dL Urine Occult Blood (NEGATIVE) Urine Nitrite (NEGATIVE) Urine Bilirubin (NEGATIVE) Urine Urobilinogen (0.2-1.0) EU/dL Ur Leukocyte Esterase (NEGATIVE) Urine RBC (0-2) #/HPF Urine WBC (NONE SEEN) #/HPF Ur Squamous Epith Cells (NONE/RARE) #/LPF Urine Crystals (None Seen) #/HPF Urine Bacteria (NONE SEEN) #/HPF Urine Casts (NONE SEEN) #/LPF Urine Mucus (NONE SEEN) Ur Culture Indicated? Influenza Type A Ag Negative Influenza Type B Ag Negative SARS-CoV-2 Ag (CV2AG) Negative (NEGATIVE) 11/16/23 11/16/23 Range/Units 20:40 21:40 WBC (4.0-11.0) 10^3/uL RBC (4.70-6.10) 10^6/uL Hgb (14.0-18.0) g/dL Hct (42.0-54.0) % MCV (80.0-94.0) fL MCH (25.9-34.0) pg MCHC (29.9-35.2) g/dL RDW (11.0-15.0) % Plt Count (150-450) 10^3/uL MPV (9.5-13.5) fL Neut % (Auto) (43.0-75.0) % Lymph % (Auto) (20.5-60.0) % Wilson % (Auto) (1.7-12.0) % Eos % (Auto) (0.9-7.0) % Baso % (Auto) (0.2-2.0) % Neut # (Auto) (1.4-6.5) 10^3/uL Lymph # (Auto) (1.2-3.8) 10^3/uL Wilson # (Auto) (0.3-0.8) 10^3/uL Eos # (Auto) (0.0-0.7) 10^3/uL Baso # (Auto) (0.0-0.1) 10^3/uL Abs Immat Gran (auto) (0.00-0.03) 10^3/uL Imm/Tot Granulo (auto) (0.0-0.5) % PT (9.0-11.6) sec INR APTT (22.3-36.2) sec VBG pH (7.330-7.430) VBG pCO2 (40.0-52.0) mmHg Sodium (136-145) mmol/L Potassium (3.5-5.1) mmol/L Chloride (98-107) mmol/L Carbon Dioxide (21.0-32.0) mmol/L Anion Gap BUN (7.0-18.0) mg/dL Creatinine (0.70-1.30) mg/dL Est GFR ( Amer) (>=60) Est GFR (Non-Af Amer) (>=60) BUN/Creatinine Ratio Glucose (74-106) mg/dL Lactate 1.6 (0.4-2.0) mmol/L Calcium (8.5-10.1) mg/dL Total Bilirubin (0.2-1.0) mg/dL AST (15-37) U/L ALT (16-63) U/L Alkaline Phosphatase (46-116) U/L Troponin I High Sens (4.0-76.1) pg/mL NT-Pro-B Natriuret Pep (<=1800.0) pg/mL Total Protein (6.4-8.2) g/dL Albumin (3.4-5.0) g/dL Globulin g/dL Albumin/Globulin Ratio Urine Color Lt. yellow (YELLOW) Urine Clarity Clear (CLEAR) Urine pH 6.0 (5.0-9.0) Ur Specific [place] 1.020 (1.005-1.025) Urine Protein Trace (NEG/TRACE) mg/dL Urine Glucose (UA) Negative (NEGATIVE) mg/dL Urine Ketones Negative (NEGATIVE) mg/dL Urine Occult Blood Moderate A (NEGATIVE) Urine Nitrite Negative (NEGATIVE) Urine Bilirubin Negative (NEGATIVE) Urine Urobilinogen 0.2 (0.2-1.0) EU/dL Ur Leukocyte Esterase Small A (NEGATIVE) Urine RBC None seen (0-2) #/HPF Urine WBC 20-50 A (NONE SEEN) #/HPF Ur Squamous Epith Cells None seen (NONE/RARE) #/LPF Urine Crystals None seen (None Seen) #/HPF Urine Bacteria Large A (NONE SEEN) #/HPF Urine Casts None seen (NONE SEEN) #/LPF Urine Mucus Small A (NONE SEEN) Ur Culture Indicated? Yes Influenza Type A Ag Influenza Type B Ag SARS-CoV-2 Ag (CV2AG) (NEGATIVE) Discharge Plan Discharge Chief Complaint: Chest Pain Clinical Impression: UTI (urinary tract infection), AMS (altered mental status) Time of Disposition Decision: 00:26 Prescriptions / Home Meds: No Action aspirin 81 mg tablet,delayed release (DR/EC) 81 mg PO DAILY atorvastatin 10 mg tablet 10 mg PO DAILY carvedilol 6.25 mg tablet 6.25 mg PO BID gabapentin 300 mg capsule 300 mg PO BID losartan 50 mg tablet 50 mg PO DAILY nitroglycerin 0.4 mg tablet, sublingual 0.4 mg sublingual Q5M PRN (Reason: chest pain) pantoprazole 40 mg tablet,delayed release (DR/EC) 40 mg PO DAILY ranolazine 500 mg tablet extended release 12 hr 500 mg PO Q12H tamsulosin 0.4 mg capsule 0.4 mg PO Q24H Print Language: Lithuanian
--- OUTSIDE RECORDS SUMMARY | 2023-11-17 01:00 | XMS_ITS | CCD ---
Author Organization [facility] Care Team Providers Care Automotive Glass Specialist Name Role Phone UNKNOWN, PROVIDER Unavailable Unavailable EMER DAVIS Unavailable Unavailable EMRE DAVIS Unavailable Unavailable [...] Care Physician CRISTIANE Davis Primary Care Provider [phone] MD Cheryl Arias Attending Provider Cheryl Arias Attending Unavailable Cheryl Arias Admitting Unavailable Emre Davis Primary Care Unavailable Zee Grant Unavailable Flory Davenport Unavailable Unavailable ILIA HODGSON Attending Unavailable MOUKARBILIA HEARN Attending Unavailable HERMANNFLORY Attending Unavailable DEBBI ROBLERO Attending Unavailable JIMBO [...] LLOYD Attending Unavailable APLINGJERRICA Attending Unavailable BEVioleta, CHERYL Feliz Attending Unavailable BRINK, FLORENCIO Attending Unavailable BROWN, JIMBO A Referring Unavailable BROWN, JIMBO A Referring Unavailable ALLISON ARELLANO Attending Unavailable BROWN, JIMBO A Referring Unavailable BROWN, JIMBO A Attending Unavailable Brown, DO Jimbo A Admitting Unavailable Brown, DO Jimbo A Attending Unavailable Brown, DO Jimbo A Referring Unavailable [facility] Cardio, XXXX Consulting Unavailable LUDMILA, DO Ronobir [...] to adverse reactions (disorder) 2 [facility] Repository (2 sources) ciprofloxacin; Translations: [Cipro] Drug Allergy 2 [facility] Repository (3 sources) Penicillins; Translations: [PENICILLINS] Drug allergy (disorder) 2 [facility] Repository (1 source) bee venom Drug allergy (disorder) 3 [facility] Repository (2 sources) Ciprofloxacin; Translations: [CIPROFLOXACIN] Drug Allergy 2 [facility] Repository (9 sources) Bee/Wasp/Ant venom; Translations: [Bee Stings] Allergy to substance Unknown (qualifier value) [facility] (8 sources) Ciprofloxacin; Translations: [ciprofloxacin] Drug Allergy Unknown (qualifier value) [facility] (8 sources) Penicillin; Translations: [penicillin] Drug Allergy Unknown (qualifier value) [facility] (1 source) Penicillian V Potassium Drug allergy Unknown [facility] Other (1 source) Bee pollen; Translations: [BEE POLLEN] Propensity to adverse reactions to drug (disorder) 4 [facility] Repository Medications Current Medications Medication Drug Class(es) Dates Sig (Normalized) Sig (Original) acetaminophen 325 mg / oxyCODONE hydrochloride 5 mg oral tablet (1 source) Opioid Agonist Start: 07-22-2023 Percocet 5 mg-325 mg oral tablet See Instructions, 40 tab(s), Refill(s) 0, 1-2 tab(s) Oral q4hr, [facility] #[id number], 175, cm, 07/09/23 12:46:00 EDT, Height/Length Dosing, 93, kg, 07/09/23 12:46:00 EDT, Weight Dosing Start Date: 07/22/23 Status: Ordered [id number] 200 actuat albuterol 0.09 mg/actuat metered dose [...] day(s), # 60 tab(s), Refills(s) 0, Pharmacy: [facility] #[id number], 175, cm, 07/09/23 12:46:00 EDT, Height/Length Dosing, [...] 20 cap(s), Refills(s) 0, [facility]: [id number], 175, cm, 12/31/22 14:20:00 EDT, Height/Length Dosing, [...] pain, # 60 cap(s), Refills(s) 0, [facility] #[id number], 175, cm, 07/09/23 12:46:00 EDT, Height/Length Dosing, 93, kg, 07/09/23 12:46:00 EDT, Weight Dosing Start Date: 07/22/23 Status: Ordered cephalexin 500 mg oral capsule (1 source) Cephalosporin Antibacterial Start: 07-22-2023 End: 07-29-2023 take 1 capsule by mouth every eight hours Keflex 500 mg Cap 500 mg = 1 cap(s), Oral, q8hr, X 7 day(s), # 21 cap(s), Refills(s) 0, [facility]acy: [facility] #[id number], 175, cm, 07/09/23 12:46:00 EDT, Height/Length Dosing, 93, kg, 07/09/23 12:46:00 EDT, Weight Dosing Start Date: 07/22/23 Stop Date: 07/29/23 Status: Ordered docusate sodium 100 mg oral capsule (1 source) Start: 07-22-2023 take 1 capsule by mouth twice daily as needed for constipation Colace 100 mg Cap 100 mg = 1 cap(s), Oral, BID, PRN for constipation, # 20 cap(s), Refills(s) 0, Pharmacy: [facility] #[id number], 175, cm, 07/09/23 12:46:00 EDT, Height/Length Dosing, [...] Daily, # 30 tab(s), Refills(s) 0, Pharmacy: [facility] #[id number], 175, cm, 07/09/23 12:46:00 EDT, Height/Length Dosing, [...] day(s), # 180 cap(s), Refills(s) 3, Pharmacy: [facility], 175, cm, 04/29/21 11:59:00 EST, [...] angina pectoris; Translations: [Atherosclerotic heart disease of [place] coronary artery with unspecified angina pectoris] Onset: [...] Onset: 07-15-2017 Episodic Other aftercare (1 source) terminologist (current) use of aspirin; Translations: [FAMILY PSYCHOLOGIST (CURRENT) USE OF ASPIRIN] Onset: 07-15-2017 Episodic [...] Range Facility Office Visiton 09-21-2023 Follow-up visit [id number] Gualberto Cruz 1935 M Date Provider Department Center 09/21/2023 ILIA SINGH KAITLIN Goodman [facility] Family History Problem Relation Age of Onset Prostate cancer Other Family Status - Relation Status Age at Other Level of Service:15175 MD OFFICE/OUTPATIENT ESTABLISHED MOD MDM 30 MIN Normal [facility] HIST - EKG'son 08-14-2023 HIST - EKG's [id number] Normal [facility] Operative Reporton Operative Report Patient: ILEANA [...] the procedure well without complications. . Normal [facility] Comment on above: Result Comment: Elec tronically Signed By: MD Love Ahmad F\.br\Date and Time Signed: 07/27/23 09:54 EDT Progress Note-Physicianon Progress Note-Physician Patient: GUALBERTO CRUZ Age: 88 years Sex: Male : 1935 Associated Diagnoses: None Author: MD Love Ahmad F Postoperative Information Postoperative disposition: Postoperative disposition: To PACU. Optimetrix number: Optimetrix number [id number]. Anesthetic utilized: General. Health Status Allergies: Allergic [...] meets criteria ( To home ). Normal [facility] Comment on above: Result Comment: Elec [...] pain, # 60 cap(s), Refills(s) 0, Pharmacy: [facility] #[id number], 175, cm, 07/09/23 12:46:00 EDT, Height/Length Dosing, 93, kg, 07/09/23 12:46:00 EDT, Weight Dosing Colace 100 mg Cap: 100 mg = 1 cap(s), Oral, BID, PRN for constipation, # 20 cap(s), Refills(s) 0, [facility]: [facility] #[id number], 175, cm, 07/09/23 12:46:00 EDT, Height/Length Dosing, 93, kg, 07/09/23 12:46:00 EDT, Weight Dosing Keflex 500 mg Cap: 500 mg = 1 cap(s), Oral, q8hr, X 7 day(s), # 21 cap(s), Refills(s) 0, Pharmacy: [facility] #[id number], 175, cm, 07/09/23 12:46:00 EDT, Height/Length Dosing, 93, kg, 07/09/23 12:46:00 EDT, Weight Dosing Percocet 5 mg-325 mg oral tablet: See Instructions, 40 tab(s), Refill(s) 0, 1-2 tab(s) Oral q4hr, [facility] #[id number], 175, cm, 07/09/23 12:46:00 EDT, Height/Length Dosing, 93, kg, 07/09/23 12:46:00 EDT, Weight Dosing aspirin 81 mg Oral EC Tab: 162 mg = 2 tab(s), Oral, Daily, X 30 day(s), # 60 tab(s), Refills(s) 0, Pharmacy: [facility] #[id number], 175, cm, 07/09/23 12:46:00 EDT, Height/Length Dosing, 93, kg, 07/09/23 12:46:00 EDT, Weight Dosing isosorbide mononitrate 30 mg ER Tab: 30 mg = 1 tab(s), Oral, Daily, # 30 tab(s), Refills(s) 0, Pharmacy: [facility] #[id number], 175, cm, 07/09/23 12:46:00 EDT, Height/Length Dosing, [...] lower urinary tract symptoms / SNOMED CT 3074169047 / Confirmed Coronary artery disease / SNOMED CT 02145908 / Confirmed Chronic GERD / SNOMED CT 160660919 / Confirmed Hypertension / SNOMED CT 7212502927 / Confirmed Hx of hiatal hernia / SNOMED CT 533459508 / Confirmed Neurogenic bladder / SNOMED CT 2085663598 / Confirmed Incomplete emptying of bladder / SNOMED CT 348277046 / Confirmed Hypercholesterolemia / SNOMED CT 17639430 / Confirmed 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, basal cell / SNOMED CT 0043458937 / Confirmed Urinary urgency / SNOMED CT 126162695 / Confirmed Microscopic hematuria / SNOMED CT 321195926 / Confirmed Retention of urine / SNOMED CT 029730242 / Confirmed Weak urine stream / SNOMED CT 138879140 / Confirmed Anticoagulated / SNOMED CT 457502344 / Confirmed BMI 30.0-30.9,adult / SNOMED CT 999187219 / Confirmed 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 / SNOMED CT 9636167067 / Confirmed BPH with urinary obstruction / SNOMED CT 6044108322 / Confirmed Urge incontinence / SNOMED CT 135728459 / Confirmed Urinary retention with incomplete bladder emptying / SNOMED CT 424002810 / Confirmed Bladder pain / SNOMED CT 57242777 / Confirmed Chronic prostatitis / SNOMED CT 38264666 / Confirmed Erectile dysfunction / SNOMED CT 0720751267 / Confirmed Acute UTI / SNOMED CT 4330443205 / Confirmed Gross hematuria / SNOMED CT 182596920 / Confirmed Cystitis / SNOMED CT 27437698 / Confirmed UTI due to Klebsiella species / SNOMED CT 6225225427 / Confirmed Simple renal cyst / SNOMED CT 776117519 / Confirmed Histories Past Medical History: No active or resolved past medical history items have been selected or recorded. Family History: Primary malignant neoplasm of prostate Father Procedure history: Total knee arthroplasty ([id number]) on 07/22/2023 at 88 Years. Cystourethroscopy with dilation of urethral stricture ([id number]) on 11/15/2019 at 84 Years. Cystourethroscopy with di (more content not included)... Normal [facility] Comment on above: Result Comment: Elec tronically Signed By: MD Ivan, Cullen Maddox\.br\Date and Time Signed: 07/27/23 09:53 EDT Discharge Instructionson Discharge Instructions [id number] Normal [facility] BMPon 07-24-2023 Anion gap [Moles/Vol] 9 mmol/L Normal 6-16 [facility] Comment on above: Performed By: #### 1 0792183, 6290545, 8859446, 8246801, 59962638, 7918916, 3753427, 6224078, 7140851 #### [facility] [address] [place] [address] Calcium [Mass/Vol] 8.6 mg/dL Low 8.9-11.1 [facility] Comment on above: Performed By: #### 1 9649590, 2396395, 2434895, 4168093, 14841604, 8256402, 8408043, 4580282, 7822621 #### [facility] [address] [place] [address] Chloride [Moles/Vol] 101 mmol/L Normal 101-111 [facility] Comment on above: Performed By: #### 1 2164296, 3410063, 1630852, 8710316, 86324705, 4273560, 5869680, 0958152, 4238763 #### [facility] [address] [place] [address] CO2 [Moles/Vol] 28 mmol/L Normal 21-31 [facility] Comment on above: Performed By: #### 1 1775283, 3260348, 8005874, 7234530, 08550495, 0619820, 3817103, 7633174, 9629937 #### [facility] [address] [place] [address] Creatinine [Mass/Vol] 1.3 mg/dL Normal 0.5-1.3 [facility] Comment on above: Performed By: #### 1 3334846, 3975100, 7945943, 4413811, 04000600, 9761104, 7162060, 5848144, 4569269 #### [facility] [address] [place] [address] Glucose [Mass/Vol] 104 mg/dL Normal 55-199 [facility] Comment on above: Performed By: #### 1 7935595, 4296455, 8232428, 1756603, 86554491, 2535057, 3839742, 8250607, 5851248 #### [facility] [address] [place] [address] Potassium [Moles/Vol] 5.2 mmol/L Normal 3.5-5.3 [facility] Comment on above: Performed By: #### 1 3062602, 0849355, 5141764, 7898322, 71358396, 8655955, 0189753, 3764938, 1895064 #### [facility] [address] [place] [address] Sodium [Moles/Vol] 133 mmol/L Low 135-145 [facility] Comment on above: Performed By: #### 1 8785050, 0691765, 2937433, 0877835, 15507345, 6512667, 3963977, 3202679, 4219433 #### [facility] [address] [place], [place] [address] Urea nitrogen [Mass/Vol] 26 mg/dL High 5-21 [facility] Comment on above: Performed By: #### 1 5876280, 5622955, 5578523, 7982150, 64959745, 8224024, 4178113, 8157058, 8269071 #### [facility] [address] [place], [place] [address] Urea nitrogen/Creatinin e [Mass ratio] 20 No Units Normal 10-20 [facility] Comment on above: Performed By: #### 1 7736688, 5508063, 2549444, 2773485, 20377855, 9705041, 1806408, 6946922, 0502231 #### [facility] [address] [place], [place] [address] CBC w/ Auto Diffon 4 Basophils/100 WBC (Bld) 0.2 % Normal 0.0-2.0 [facility] Comment on above: Performed By: #### 1 1385375, 8528134, 5525250, 4858338, 53191398, 9181941, 9131896, 5769116, 3887569 #### [facility] [address] [place], [place] [address] Basophils/Leukocyt es Auto (Bld) [Pure # fraction] 0.0 E9/L Normal 0.0-0.2 [facility] Comment on above: Performed By: #### 1 8024889, 1492755, 5478136, 0318250, 12695433, 6375950, 5730406, 7981665, 8661711 #### [facility] [address] [place] [address] Eosinophils (Bld) [#/Vol] 0.0 E9/L Normal 0.0-0.5 [facility] Comment on above: Performed By: #### 1 5784386, 8177893, 2104043, 2237002, 92103843, 4621528, 6490449, 9611681, 8260001 #### [facility] [address] [place] [address] Eosinophils/100 WBC (Bld) 0.1 % Normal 0.0-8.0 [facility] Comment on above: Performed By: #### 1 6166397, 8434261, 4078752, 1447220, 36440967, 3013717, 9760667, 6177751, 7679099 #### [facility] [address] [place] [address] Erythrocyte distribution width (RBC) [Ratio] 13.2 % Normal 10.9-14.2 [facility] Comment on above: Performed By: #### 1 7006852, 9043509, 7125431, 2165905, 00844974, 7549468, 9743668, 7509621, 1077707 #### [facility] [address] [place] [address] Hematocrit (Bld) [Volume fraction] 30.9 % Low 37.7-49.0 [facility] Comment on above: Performed By: #### 1 1105202, 1362447, 9666682, 7045914, 87661469, 2791554, 8224719, 3349514, 9811469 #### [facility] [address] [place] [address] Hemoglobin (Bld) [Mass/Vol] 10.3 g/dL Low 13.5-17.5 [facility] Comment on above: Performed By: #### 1 5617332, 9133746, 4117950, 8149444, 34394843, 6496727, 8357472, 5975437, 9058306 #### [facility] [address] [place] [address] Lymphocytes (Bld) [#/Vol] 1.0 E9/L Normal 1.0-4.0 [facility] Comment on above: Performed By: #### 1 9791078, 0089609, 5206960, 3533101, 31054129, 8975911, 5030935, 2381058, 0499446 #### [facility] [address] [place] [address] Lymphocytes/100 WBC (Bld) 12.6 % Low 14.0-50.0 [facility] Comment on above: Performed By: #### 1 9487087, 5725300, 9292328, 5126728, 79020847, 3793768, 0629419, 7614888, 4241861 #### [facility] [address] [place] [address] MCH (RBC) [Entitic mass] 32.6 pg Normal 27.0-34.0 [facility] Comment on above: Performed By: #### 1 6757169, 4334995, 5073800, 2092484, 52483987, 9732725, 1980184, 7921017, 3497546 #### [facility] [address] [place], [place] [address] MCHC (RBC) [Mass/Vol] 33.5 g/dL Normal 31.4-36.0 [facility] Comment on above: Performed By: #### 1 4856958, 7483641, 8633815, 2009302, 74624358, 5644430, 5579461, 3978039, 1715975 #### [facility] [address] [place] [address] MCV (RBC) [Entitic vol] 97.2 fL Normal 80.0-100.0 [facility] Comment on above: Performed By: #### 1 4065444, 3840621, 9327269, 4058400, 12162675, 8564744, 6474247, 7592664, 0740953 #### [facility] [address] [place] [address] Monocytes (Bld) [#/Vol] 0.9 E9/L Normal 0.2-1.0 [facility] Comment on above: Performed By: #### 1 0831480, 7269860, 2674070, 3181248, 95892414, 9387514, 7242635, 4598760, 9874150 #### [facility] [address] [place] [address] Neutrophils (Bld) [#/Vol] 6.1 E9/L Normal 2.0-7.5 [facility] Comment on above: Performed By: #### 1 0446047, 7795749, 1931541, 6296248, 55688738, 1402306, 8856865, 3703401, 5488154 #### [facility] [address] [place] [address] Neutrophils/100 WBC (Bld) 76.3 % High 36.0-75.0 [facility] Comment on above: Performed By: #### 1 3360621, 8459847, 3987272, 9419563, 44181005, 6896136, 5763407, 1317104, 2312905 #### [facility] [address] [place] [address] Platelet 88.0 E9/L Low 150.0-500. 0 [facility] Comment on above: Result Comment: Slid e review performed Performed By: #### 1 7831954, 9264594, 2796288, 0300935, 93662053, 7690945, 2417864, 0792107, 2171355 #### [facility] [address] [place] [address] Platelet mean volume (Bld) [Entitic vol] 9.5 fL Normal 6.4-10.8 [facility] Comment on above: Performed By: #### 1 2152214, 9443857, 5608609, 9328460, 94872000, 6554069, 2581895, 0231396, 1133857 #### [facility] [address] [place] [address] RBC (Bld) [#/Vol] 3.2 E12/L Low 4.3-5.9 [facility] Comment on above: Performed By: #### 1 2969356, 7421798, 2395610, 8152828, 47844613, 6132859, 1837980, 7222814, 2203370 #### [facility] [address] [place] [address] WBC corrected for nucl RBC Auto (Bld) [#/Vol] 8.0 E9/L Normal 4.0-11.0 [facility] Comment on above: Performed By: #### 1 6510006, 4179206, 9621214, 1048854, 26069224, 3095990, 7531773, 0817082, 2036678 #### [facility] [address] [place] [address] CHEMISTRYOrdered By: SYSTEM SYSTEM on 07-24-2023 Anion [...] back by: CHARLOTTE HERNANDEZ at: 07/24/2023 08:42:33 by:[id number] Interpretive Data: T he 95% CI (Confidence [...] - Jimbo Pike DO Consulting Physician - [facility] Cardio, XXXX Remy KEYS DO Referring Physician [...] SAHARA SUAREZ PA-C Where: [facility] Discharge Note-Nursing Critical Lab called @ 0845 trops 399. Mona PRESLEY and Debby RN both notfied @ the same time. Normal [facility] HEMATOLOGYOrdered By: SYSTEM SYSTEM on 07-24-2023 Basophils/100 [...] Inpatient Clinical Summaryon 07-24-2023 Inpatient Clinical Summary [place] [address] Clinical Summary Person Information: Name: GUALBERTO CRUZ Age: 88 Years : 1935 Sex: Male PCP: EMRE DAVIS MD Marital Status: Race: White Ethnicity: Non- or Language: [place] Islander Visit Id: Visit Reason: OA RIGHT KNEE Speciality: Acuity: Enc Type: Ambulatory/Same Day Surgery Med Service: Medical Arrival: 07/22/2023 06:33:41 Discharge: Dispo Type: Address: [address] [facility] [id number] Provider Notes: Patient: GUALBERTO CRUZ Age: 88 [...] Essential (primary) hypertension Atherosclerotic heart disease of [place] coronary artery without angina pectoris procedure: R [...] 1 Capsule (more content not included)... Normal [facility] Inpatient Patient Summaryon 07-24-2023 Inpatient Patient Summary [address] [address] Patient Discharge Instructions PERSON INFORMATION [...] up: With: Address: When: EMRE DAVIS [address] [place] [address] Business (1) Comments: Call for followup appointment With: Address: When: Jimbo Pike [address] [place] [address] Business (1) 08/06/2023 10:30 AM In the event that this physician does not participate in your insurance network, please consult with your insurance company to find a nearby participating provider. Type Location Start Finish State URO Office Visit [facility] JONAH Schaefer 01/14/2024 1:00 PM 01/14/2024 1:15 PM Confirmed Comment: NANCY Yan EUGENE R, have received the attached patient education materials/instructions and have verbalized understanding: Patient Signature Date Clinican/Nurse Signature Date HERE ARE THE MEDICATION CHANGES THAT OCCURRED DURING YOUR HOSPITAL STAY New Medications [id number], [address], [place] [id number], [phone] acetaminophen-oxycodone (Percocet 5 mg-325 mg oral tablet) [...] Continue Taking That Have Changed [id number], [address] [facility] [place], [place] [id number], [phone] START: aspirin (aspirin 81 mg Oral EC [...] Next Dose: latanoprost ophthalmic (latanoprost Opth 0.005% Virginie) 1 Drops Ophthalmic once a day (at [...] Next Dose: (more content not included)... Normal [facility] Interdisciplinary Note - Ismael e Manageron 07-24-2023 Interdisciplinary Note - Edi Coordinator CRM to room to discuss DC planning. Patient is awake, alert and oriented. Patient is from home with his Spouse. His daughter will be his ride home at DC. Patient verified PCP, home DME and insurance. Patient is here as observation for Right knee. He developed some CP post adry of SX . HE had a CTA. He was seen by varnish cooker here. medications were added. Patient should DC today. Patient is set up with progressive program. Patient has FWW. Patient has no other anticipated DC needs. Patient was provided CRM contact, white board updated. CRM following Should DC 07/23 [facility] Comment on above: Result Comment: Elec tronically Signed By: Constance Yuan\.br\Date and Time Signed: 07/24/23 09:34 EDT IntraOperative Documentson 0 07-24-2023 IntraOperative Documents [id number]#1.00TIFF [facility] Monitor Recordon 07-24-2023 Monitor Record [id number]#1.00TIFF [facility] Monitor Record [id number]#1.00TIFF [facility] Monitor Record [id number]#1.00TIFF [facility] Monitor Record [id number]#1.00TIFF [facility] Outside Progress Noteon 05 Outside Progress Note [id number]#1.00TIFF [facility] Outside Recordson 07-24-2023 Outside Records [id number]#1.00TIFF [facility] Patient Education - Texton 0 07-24-2023 Patient Education - Text [place], [place] [facility] DISCHARGE INSTRUCTIONS: TOTAL KNEE [...] will continue at home, possibly with the administrative personal assistant of Home Health Physical Therapy or [...] too soon, 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 It is therefore advised not to drive until after your first office visit following surgery. FOLLOW-UP OFFICE VISIT: iJmbo Pike, DO [facility] [address] [place] [address] Reviewed: 08-12 Normal [facility] Progress Note-Physicianon Progress Note-Physician Patient: GUALBERTO CRUZ [...] mmHg Diastolic Blood Pressure 59 mmHg Normal [facility] Comment on above: Result Comment: Elec [...] Psychiatric: cooperative, affect appropriate for age Normal [facility] Comment on above: Result Comment: Elec tronically Signed By: Mona Parsons\.br\Date and Time Signed: 07/24/23 00:16 EDT\.br\Electronically Co-Signed By: Rodrigo PARKER, Cullen\.br\Date and Time Co-Signed: 07/24/23 11:09 EDT Troponinon 07-24-2023 Troponin 399.00 pg/mL Abnormal 15.90-38.4 0 [facility] Comment on above: Result Comment: Crit ical Result Verified by Previous Result Critical Result I_TnIHS:399.0 Called to and read back by: CHARLOTTE HERNANDEZ at: 07/24/2023 08:42:33 by:[email or web address] The 95% CI (Confidence Interval) PPV (Positive Predictive Value) for myocardial infarction in females is 38 pg/mL, in males 51 pg/mL. The results should be used in conjunction with clinical conditions of myocardial infarction. (Access High Sensitivity Troponin I Instructions For Use, Compass-EOS, October 2017) Performed By: #### 1 [id number], 0143839, 6756773, 1474454, 51293826, 1163418, 3969383, 1842670, 7245112 #### [facility] [address] [place] [address] XR Knee 1 or 2 Views Righton [...] mGy = na DAP = na Normal [facility] eGFRon 07-24-2023 eGFR 52 mL/min/1.73 m2 Low >=59 [facility] Comment on above: Order Comment: Order added by Discern Expert. Performed By: #### 1 6809058, 1177156, 0983394, 9055130, 95703270, 3108130, 2830476, 0114044, 1099107 #### [facility] [address] [place] [address] BUNon 07-23-2023 Urea nitrogen [Mass/Vol] 23 mg/dL High 5-21 [facility] Comment on above: Performed By: #### 1 7307900, 6272431, 7605553, 1808338, 83193679, 2730746, 8064989, 9523394, 9428464 #### [facility] [address] [place] [address] 8[address]95 CBC w/ Auto Diffon 4 Basophils/100 WBC (Bld) 0.1 % Normal 0.0-2.0 [facility] Comment on above: Performed By: #### 1 5644807, 0105900, 0144432, 8641486, 03428263, 2322519, 5929690, 5967325, 3887278 #### [facility] [address] [place] [address] 63145 Basophils/Leukocyt es Auto (Bld) [Pure # fraction] 0.0 E9/L Normal 0.0-0.2 [facility] Comment on above: Performed By: #### 1 1895095, 7333434, 8300796, 8572168, 02550031, 7705379, 4534729, 5723107, 5624922 #### [facility] [address] [place] [address] Eosinophils (Bld) [#/Vol] 0.0 E9/L Normal 0.0-0.5 [facility] Comment on above: Performed By: #### 1 0735565, 5712285, 5953843, 8056287, 72484764, 4311009, 2897266, 4293150, 8854970 #### [facility] [address] [place] [address] Eosinophils/100 WBC (Bld) 0.0 % Normal 0.0-8.0 [facility] Comment on above: Performed By: #### 1 9357041, 0834615, 9682194, 9684288, 48845431, 1198690, 3985967, 6718463, 7375482 #### [facility] [address] [place] [address] 12462 Erythrocyte distribution width (RBC) [Ratio] 13.2 % Normal 10.9-14.2 [facility] Comment on above: Performed By: #### 1 6894001, 5748365, 0414586, 4685125, 71215642, 7694906, 0203477, 0186372, 7505776 #### [facility] [address] [place] [address] 15299 Hematocrit (Bld) [Volume fraction] 36.1 % Low 37.7-49.0 [facility] Comment on above: Performed By: #### 1 3542576, 3130510, 3959101, 5940333, 85013341, 1457634, 3657955, 7034581, 6562907 #### [facility] [address] [place] [address] 88478 Hemoglobin (Bld) [Mass/Vol] 11.9 g/dL Low 13.5-17.5 [facility] Comment on above: Performed By: #### 1 2177485, 7878741, 3300658, 8365786, 50973199, 6261307, 5683100, 9835761, 9703303 #### [facility] [address] [place] [address] 06344 Lymphocytes (Bld) [#/Vol] 0.6 E9/L Low 1.0-4.0 [facility] Comment on above: Performed By: #### 1 0099389, 4597638, 1916198, 8941521, 33486050, 7079912, 0616099, 1577978, 2369125 #### [facility] [address] [place] [address] 15382 Lymphocytes/100 WBC (Bld) 4.8 % Low 14.0-50.0 [facility] Comment on above: Performed By: #### 1 4651907, 4874771, 6814296, 2434009, 36875390, 7543745, 8830289, 9498599, 6021959 #### [facility] [address] [place] [address] 19292 MCH (RBC) [Entitic mass] 32.1 pg Normal 27.0-34.0 [facility] Comment on above: Performed By: #### 1 6411545, 2441990, 9868792, 4194221, 13308458, 3229228, 8165478, 9705326, 6634540 #### [facility] [address] [place], [place] [address] MCHC (RBC) [Mass/Vol] 33.1 g/dL Normal 31.4-36.0 [facility] Comment on above: Performed By: #### 1 8963830, 0366611, 8556506, 3462523, 30912168, 6140891, 2740535, 8175172, 8794617 #### [facility] [address] [place] [address] 91994 MCV (RBC) [Entitic vol] 97.2 fL Normal 80.0-100.0 [facility] Comment on above: Performed By: #### 1 9096100, 1564094, 1573685, 4885856, 06033618, 9959045, 1607864, 8584436, 5924325 #### [facility] [address] [place] [address] 60488 Monocytes (Bld) [#/Vol] 0.4 E9/L Normal 0.2-1.0 [facility] Comment on above: Performed By: #### 1 0106926, 1883401, 2971251, 1782822, 02768441, 8431649, 2911217, 9802612, 7767611 #### [facility] [address] [place] [address] 68297 Neutrophils (Bld) [#/Vol] 10.6 E9/L High 2.0-7.5 [facility] Comment on above: Performed By: #### 1 7591564, 9721541, 2155092, 6045336, 67111600, 6800205, 3274118, 8272089, 3032108 #### [facility] [address] [place] [address] 90111 Neutrophils/100 WBC (Bld) 91.2 % High 36.0-75.0 [facility] Comment on above: Performed By: #### 1 1055105, 8011981, 8366648, 2772355, 06161586, 3895770, 9541208, 3625640, 9131028 #### [facility] [address] [place] [address] 95057 Platelet 104.0 E9/L Low 150.0-500. 0 [facility] Comment on above: Performed By: #### 1 6377162, 0260364, 8310086, 5820444, 01769457, 8052139, 9950202, 9798147, 9605315 #### [facility] [address] [place] [address] 82616 Platelet mean volume (Bld) [Entitic vol] 9.0 fL Normal 6.4-10.8 [facility] Comment on above: Performed By: #### 1 3313207, 1004012, 5698577, 6794038, 56937705, 1739430, 4050634, 5386579, 3885037 #### [facility] [address] [place] [address] 80798 RBC (Bld) [#/Vol] 3.7 E12/L Low 4.3-5.9 [facility] Comment on above: Performed By: #### 1 1079640, 7344723, 5253832, 5092730, 31647762, 7848268, 8288668, 9672371, 0578079 #### [facility] [address] [place] [address] WBC corrected for nucl RBC Auto (Bld) [#/Vol] 11.6 E9/L High 4.0-11.0 [facility] Comment on above: Performed By: #### 1 2546912, 9064571, 7658151, 6373547, 24901476, 2042591, 4561659, 2294707, 9213837 #### [facility] [address] [place] [address] CHEMISTRYOrdered By: SYSTEM SYSTEM on 07-23-2023 Albumin [...] High Sensitivity Troponin I Instructions For Use, Compass-EOS, October 2017) Urea nitrogen/Creatinin e [Mass ratio] 18 mg/mg Normal 10 - 20 Rem[facility] Chem Troponin 131.70 pg/mL Invalid Interpretation Code 15.90 - 38.40 pg/mL [facility] Comment on above: Result Comment: Crit ical Result I_TnIHS:131.7 Called to and read back by: KRIS OSPINA RN at: 07/23/2023 04:38:23 by:[id number] Interpretive Data: T he 95% CI (Confidence Interval) PPV (Positive Predictive Value) for myocardial infarction in females is 38 pg/mL, in males 51 pg/mL. The results should be used in conjunction with clinical conditions of myocardial infarction. (Access High Sensitivity Troponin I Instructions For Use, ticketea Susan, October 2017) CHEMISTRYOrdered By: Rosalva Barnes [...] 07-23-2023 Total CK 84 Int._Unit/L Normal 14-261 [facility] Comment on above: Performed By: #### 1 7448480, 2526549, 6399942, 0613936, 58707118, 8043044, 7421464, 6482695, 9649978 #### [facility] [address] [place] [address] CKMBon 07-23-2023 CK.MB [Mass/Vol] 7.7 ng/mL High 0.3-4.9 [facility] Comment on above: Performed By: #### 1 9040724, 7645114, 4179140, 2251319, 91073255, 6612920, 5189582, 3516164, 4771192 ####[facility] [address] [place] [address] CMPon 07-23-2023 Albumin [Mass/Vol] 3.5 g/dL Normal 3.3-5.0 [facility] Comment on above: Performed By: #### 1 1188827, 9908120, 8561962, 7411246, 82870791, 7281754, 5558090, 7367901, 0663018 #### [facility] [address] [place] [address] Albumin/Globulin (S) [Mass conc ratio] 1.5 Normal 1.1-2.2 [facility] Comment on above: Performed By: #### 1 1638107, 5722718, 5959443, 5249057, 07272916, 7439767, 0914432, 8828997, 5662311 #### [facility] [address] [place] [address] ALP [Catalytic activity/Vol] 73 Int._Unit/L Normal 21-98 [facility] Comment on above: Performed By: #### 1 5456226, 8727803, 0250247, 9347715, 80091209, 1877223, 1152176, 6022280, 3807179 #### [facility] [address] [place] [address] ALT No additional P-5'-P [Catalytic activity/Vol] 12 Int._Unit/L Normal 6-46 [facility] Comment on above: Performed By: #### 1 7307919, 5775385, 2252217, 9431975, 68185059, 2369516, 9662800, 8411011, 7296104 #### [facility] [address] [place] [address] 14599 Anion gap [Moles/Vol] 14 mmol/L Normal 6-16 [facility] Comment on above: Performed By: #### 1 5899131, 0269691, 2429477, 2421598, 90966746, 4819115, 2401305, 5837110, 2876519 #### [facility] [address] [place] [address] 75605 AST [Catalytic activity/Vol] 17 Int._Unit/L Normal 5-43 [facility] Comment on above: Performed By: #### 1 1552807, 1670544, 6169339, 8457280, 31303418, 4367938, 6868515, 6203526, 5305068 #### [facility] [address] [place] [address] Bilirubin [Mass/Vol] 0.8 mg/dL Normal 0.0-1.1 [facility] Comment on above: Performed By: #### 1 7055137, 1426992, 3290167, 4017814, 15949220, 8854887, 8267273, 8785738, 3443913 #### [facility] [address] [place] [address] Calcium [Mass/Vol] 8.8 mg/dL Low 8.9-11.1 [facility] Comment on above: Performed By: #### 1 2398543, 4411052, 5235408, 6360094, 78388086, 5959562, 0211891, 8259983, 1027118 #### [facility] [address] [place] [address] Chloride [Moles/Vol] 100 mmol/L Low 101-111 [facility] Comment on above: Performed By: #### 1 8220563, 2694561, 5074506, 9065101, 07418306, 4315114, 7444870, 6463836, 3850658 #### [facility] [address] [place] [address] CO2 [Moles/Vol] 22 mmol/L Normal 21-31 [facility] Comment on above: Performed By: #### 1 3109378, 6768831, 7670267, 6309940, 80651739, 8632182, 8043755, 6034799, 5568416 #### [facility] [address] [place] [address] Creatinine [Mass/Vol] 1.3 mg/dL Normal 0.5-1.3 [facility] Comment on above: Performed By: #### 1 7122213, 9139186, 6899400, 2506670, 30466241, 1689520, 8803005, 4871160, 6946669 #### [facility] [address] [place] [address] Globulin (S) [Mass/Vol] 2.3 g/dL Normal 1.4-4.0 [facility] Comment on above: Performed By: #### 1 0144787, 0964881, 2783675, 6849014, 59626939, 4845490, 7950238, 0097109, 1017738 #### [facility] [address] [place] [address] Glucose [Mass/Vol] 146 mg/dL Normal 55-199 [facility] Comment on above: Performed By: #### 1 3952243, 7980599, 5216131, 4313688, 47402709, 0308591, 3732367, 7021204, 1953702 #### [facility] [address] [place] [address] Potassium [Moles/Vol] 5.1 mmol/L Normal 3.5-5.3 [facility] Comment on above: Performed By: #### 1 0573778, 6183814, 8301060, 4612207, 62281778, 7012899, 6610553, 2706070, 0981891 #### [facility] [address] [place] [address] Protein [Mass/Vol] 5.8 g/dL Low 6.0-7.8 [facility] Comment on above: Performed By: #### 1 5086560, 2325533, 5557651, 5931536, 39892485, 9375457, 7332195, 7196312, 3953344 #### [facility] [address] [place] [address] Sodium [Moles/Vol] 131 mmol/L Low 135-145 [facility] Comment on above: Performed By: #### 1 5835775, 4494989, 9095950, 6763306, 72841059, 9128583, 8923586, 1022627, 5119421 #### [facility] [address] [place] [address] Urea nitrogen [Mass/Vol] 23 mg/dL High 5-21 [facility] Comment on above: Performed By: #### 1 9972423, 8319960, 6812323, 8658416, 53210407, 7581808, 1047792, 0049108, 4410966 #### [facility] [address] [place] [address] Urea nitrogen/Creatinin e [Mass ratio] 18 No Units Normal 10-20 [facility] Comment on above: Performed By: #### 1 9600698, 1829317, 3313293, 5743830, 56033989, 5707666, 1984984, 6046368, 8091674 #### [facility] [address] [place] [address] CTA Cheston 07-23-2023 CTA Chest Exam Date/Time: [...] changes. Upper abdomen: Noncontributory. Report Ordering Provider: Mona Pitts FINAL REPORT Dictated: 07/23/2023 9:27 am Kevin Monroe MD Signed (Electronic Signature): 07/23/2023 9:27 am Signed by: Kevin Monroe MD Transcribed by: MONICA Technologist: SILVINA Technical Comments GFR (mL/min/1/73m2) 52 Contrast: Isovue 370 Contrast amount in ml's: 82 Normal [facility] Consent for Anesthesiaon Consent for Anesthesia [id number]#1.00TIFF Normal [facility] Consultation Noteon 07-23-19 24 Consultation Note History [...] the surgery. Patient did see his outpatient varnish cooker from [facility] for preoperative evaluation. Patient states that at [...] artery disease) (I25.10: Atherosclerotic heart disease of [place] coronary artery without angina pectoris) See #1 [...] Cystoscopy (02/28/2015) (more content not included)... Normal [facility] Comment on above: Result Comment: Elec tronically Signed By: Remy KEYS DO\.br\Date and Time Signed: 07/23/23 06:54 EDT Creatinineon 07-23-2023 Creatinine [Mass/Vol] 1.3 mg/dL Normal 0.5-1.3 [facility] Comment on above: Performed By: #### 1 9309011, 7319112, 8323125, 4418045, 83767384, 8135958, 7963563, 6363631, 7067438 #### [facility] [address] [place] [address] HEMATOLOGYOrdered By: Osbaldo Davis on 07-23-2023 Basophils/100 [...] Ismael e Manageron 07-23-2023 Interdisciplinary Note - Edi Coordinator CRM to room to discuss DC planning. [...] contact, white board updated. CRM following Normal [facility] Comment on above: Result Comment: Elec tronically Signed By: Constance Yuan\.br\Date and Time Signed: 07/23/23 11:46 EDT IntraOperative Documentson 0 07-23-2023 IntraOperative Documents [id number]#1.00TIFF Normal [facility] IntraOperative Documents [id number]#1.00TIFF Normal [facility] - Chemistry and C hemistry - challengeOrdered By: Rosalva Barnes on 07-23-2023 CO2 [Moles/Vol] 22 mmol/L Normal 21 - 31 mmol/L Remisol Chem Creatinine [Mass/Vol] 1.3 mg/dL Normal 0.5 - 1.3 mg/dL Remisol Chem Urea nitrogen [Mass/Vol] 23 mg/dL High 5 - 21 mg/dL Remisol Chem Lipid Panelon 07-23-2023 Cholesterol [Mass/Vol] 114 mg/dL Low 120-200 [facility] Comment on above: Performed By: #### 1 1205623, 2717311, 2467073, 6083657, 65653928, 6155685, 5349661, 5972824, 7816141 #### [facility] [address] [place] [address] Cholesterol in HDL [Mass/Vol] 43 mg/dL Invalid Interpretation Code [facility] Comment on above: Result Comment: '>= 60 LOW RISK' '<= 40 HIGH RISK' Performed By: #### 1 1907502, 3674426, 5806506, 3014615, 42639863, 8590396, 0275421, 3966377, 9849787 #### [facility] [address] [place] [address] Cholesterol in LDL [Mass/Vol] 67 mg/dL Normal <=129 [facility] Comment on above: Performed By: #### 1 8784801, 6932302, 5861429, 4621133, 10818303, 4389324, 4196074, 4826775, 7933097 #### [facility] [address] [place] [address] Cholesterol in VLDL [Mass/Vol] 13 mg/dL Normal 7-40 [facility] Comment on above: Performed By: #### 1 1683644, 7982233, 3782079, 0083818, 56648945, 7796314, 7859475, 3887848, 4449228 #### [facility] [address] [place] [address] Triglyceride [Mass/Vol] 67 mg/dL Normal <=149 [facility] Comment on above: Performed By: #### 1 9837489, 4895251, 1171835, 4647817, 29257307, 2589568, 5579715, 4252866, 9592197 #### [facility] [address] [place] [address] Lyteson 07-23-2023 Anion gap [Moles/Vol] 13 mmol/L Normal 6-16 [facility] Comment on above: Performed By: #### 1 7514204, 9570078, 8138470, 0854341, 70083471, 5891341, 2083875, 1381217, 3763582 #### [facility] [address] [place] [address] Chloride [Moles/Vol] 99 mmol/L Low 101-111 [facility] Comment on above: Performed By: #### 1 8490188, 0863161, 0736470, 0828031, 59841675, 7455088, 6487386, 7826686, 3446063 #### [facility] [address] [place] [address] CO2 [Moles/Vol] 22 mmol/L Normal 21-31 [facility] Comment on above: Performed By: #### 1 2291069, 8695703, 8912292, 6367761, 93283878, 8449427, 1853550, 0654663, 9643768 #### [facility] [address] [place] [address] Potassium [Moles/Vol] 4.9 mmol/L Normal 3.5-5.3 [facility] Comment on above: Performed By: #### 1 1003810, 8401349, 9371092, 2384676, 55283074, 2687047, 1782148, 1549041, 3814121 #### [facility] [address] [place] [address] Sodium [Moles/Vol] 129 mmol/L Low 135-145 [facility] Comment on above: Performed By: #### 1 6211272, 2245125, 9624422, 9088917, 13894395, 0810910, 3829866, 8896495, 2713284 #### [facility] [address] [place] [address] Main OR Intraoperative Recor don 07-23-2023 Main OR Intraoperative Record IntraOp Document Type FT Summary Primary Physician: Jimbo Pike DO Finalized Date/Time: 07/23/23 16:23:26 Pt. Name: GUALBERTO CRUZ/Sex: 1935 Male Med Rec #: [id number] Physician: Jimbo Pike DO Financial #: [id number] Pt. Type: A Room/Bed: [place] [address] Admit/Disch: 07/22/23 06:33:41 - Institution: Case Times FT Entry 1 Patient Times In Room 07/22/23 09:06:00 Out Room 07/22/23 10:55:00 Procedure Times Start 07/22/23 09:43:00 Stop 07/22/23 10:44:00 Anesthesia Times Start 07/22/23 09:06:00 Stop 07/22/23 10:55:00 Block Timeout w/ 07/22/23 08:28:00 Anesthesia Last Modified By: Ade ALEXANDRE, Jerrica Silver 07/22/23 10:55:21 General Comments: BLOCK DONE BY DR. LOVE AT [phone]; ASSISTED BY Saritha HICKEY, BETTIE; HR= 65BPM, O2= 97% ON ROOM AIR, TRANSPORTED BACK TO [facility] AFTER THE BLOCK WITH SIDE RAILS UP AND PLACED ON JEWISH HISTORY PROFESSOR -Constantine HERNANDEZ RN 07/23/2023 Chart opened for charge review per Medhat Daly RN. [place] Case Attendance FT Entry 1 Entry 2 Entry 3 Case Attendee Hugh SANTOS, Lucio Browne RN, Jerrica Silver Role Performed OFFC SPEC Scrub - Primary Breastfeeding Educator - Primary Time In 07/22/23 09:06:00 07/22/23 [...] 5 Entry 6 Case Attendee Kandace Pisano DIFFERENTIAL SPECIALIST, Jimbo Oscar DO Role Performed Staff - Other DIFFERENTIAL SPECIALIST/SA Surgeon - Primary Time In 07/22/23 09:06:00 [...] Intact, P (more content not included)... Normal [facility] Message from Medicareon Message from Medicare [id number]#1.00TIFF Normal [facility] Monitor Recordon 07-23-2023 Monitor Record [id number]#1.00TIFF Normal [facility] Preoperative Documentson Preoperative Documents [id number]#1.00TIFF [facility] Progress Note-Nurseon 2023 Progress Note-Nurse At [...] hr Calcium Carbonate and to consult the [facility] hospitalist if the chest pain did not go away within an hour after giving the PRN med. After an hour at 0000, this RN put in an order for consultation to [facility] hospitalist due to the fact that the pt. still had chest pain/heart burn that was coming and going . Night-shift hospitalist, Dr. Keys contacted and made aware of the situation and pt. status. Dr Keys ordered the GI Cocktail One hour after medications where given to the pt., the pt. stated that his chest pain had went away. Normal [facility] Progress Note-Physicianon Progress Note-Physician Patient: GUALBERTO CRUZ [...] EDT Temperature Axillary 36.8 DegC HI Normal [facility] Comment on above: Result Comment: Elec tronically Signed By: Jimbo Pike DO\.br\Date and Time Signed: 07/23/23 12:24 EDT Troponin 0 Hr.on 07-23-2023 Troponin 131.70 pg/mL Abnormal 15.90-38.4 0 [facility] Comment on above: Result Comment: Crit ical Result I_TnIHS:131.7 Called to and read back by: KRIS OSPINA RN at: 07/23/2023 04:38:23 by:[id number] The 95% CI (Confidence Interval) PPV (Positive Predictive Value) for myocardial infarction in females is 38 pg/mL, in males 51 pg/mL. The results should be used in conjunction with clinical conditions of myocardial infarction. (Access High Sensitivity Troponin I Instructions For Use, Dayne Susan, October 2017) Performed By: #### 1 [id number] ####[facility] [address] [place] [address] Troponin 1 Hr.on 07-23-2023 Troponin 198.10 pg/mL Abnormal 15.90-38.4 0 [facility] Comment on above: Order Comment: to be drawn at 0419. [email or web address] 07/23/2023 03:45:00 EDT Result Comment: Crit ical [...] Sensitivity Troponin I Instructions For Use, Dayne Peshastin, October 2017) Performed By: #### 1 2020787, 7835628, 9903062, 5282615, 21150794, 6310537, 0379038, 5233848, 3155714 #### [facility] [address] [place] [address] eGFRon 07-23-2023 eGFR 52 mL/min/1.73 m2 Low >=59 [facility] Comment on above: Order Comment: Order added by Discern Expert. Performed By: #### 1 1869194, 7838788, 8909355, 4407270, 90725418, 7800811, 4207237, 6654833, 2592268 #### [facility] [address] [place] [address] ABO/Rhon 07-22-2023 ABO/Rh Positive Invalid Interpretation Code [facility] Comment on above: Performed By: #### 1 2896264, 3700632, 84832349, 52726004 ####[facility] [address] [place] [address] ABO/Rh History Checkon 07-21 ABO/Rh History Check Verified Hx Blood Type Normal [facility] Comment on above: Performed By: #### 1 8312001, 5963043, 95301850, 71295770 ####[facility] [address] [place] [address] ABSCon 07-22-2023 ABSC Gel Interp Negative Normal [facility] Comment on above: Performed By: #### 1 8919328, 3740452, 28635609, 14841158 ####[facility] [address] [place] [address] BLOOD BANKOrdered By: Osbaldo See on 07-22-2023 ABO/Rh Interp Positive Invalid Interpretation Code [facility] BB Subsection ABSC Gel Interp Negative (07/22/23 7:24 AM) Normal [facility] BB Subsection Blood Bank ID#on 07-22-2023 BBID# [id number] Invalid Interpretation Code [facility] Comment on above: Performed By: #### 1 7246588, 4058746, 93384642, 92109752 ####[facility] [address] [place] [address] Consent for Treatmenton Consent for Treatment [id number]#1.00TIFF Normal [facility] H&P Updateon 07-22-2023 H&P Update [id number]#1.00TIFF Normal [facility] HEMATOLOGYOrdered By: SYSTEM SYSTEM on 07-22-2023 Platelets (Bld) [#/Vol] 100.0 E9/L Low 150.0 - 500.0 E9/L [facility] Comment on above: Result Comment: Slid e review performed Main OR PACU I Recordon Main OR PACU I Record PACU Phase I Document Type FT Summary Primary Physician: Jimbo Pike DO Finalized Date/Time: 07/22/23 13:16:04 Pt. Name: GUALBERTO CRUZ/Sex: 1935 Male Med Rec #: [id number] Physician: Jimbo Pike DO Financial #: [id number] Pt. Type: A Room/Bed: [place] [address] Admit/Disch: 07/22/23 06:33:41 - Institution: Case Times [...] By: Soha Adkins I 07/22/23 13:16 Normal [facility] Monitor Recordon 07-22-2023 Monitor Record [id number] Normal [facility] Monitor Record [id number] [facility] Operative Reporton Operative Report Patient: ILEANA CRUZ Age: 88 years Sex: Male : 1935 Associated Diagnoses: None Author: Jimbo Pike DO DATE OF SURGERY: 07/22/2023 SURGEON: Jimbo Pike D.O. NEW CAR MAKE READY WORKER: You Bone CFA PREOPERATIVE DIAGNOSIS: Advanced degenerative osteoarthrosis, right knee POSTOPERATIVE DIAGNOSIS: Advanced degenerative osteoarthrosis, right knee OPERATION: Right total knee arthroplasty utilizing PenneoO robotic arm assistance ANESTHESIA: General + regional block SIDE GUIDER: Jean-Claude Reese CRNA IMPLANTS USED: Markus Triathlon [...] surgery was preplanned utilizing CT scan and Adaptive Digital Power software. This included the planned implant sizes [...] guidance using the saw attached to the Adaptive Digital Power robotic arm. Femoral cuts were made including anterior, posterior, and chamfer cuts. The tibial cut was then made in the same fashion. The resected bone fragments were removed with osteotomes and freed from tissue with the bovie. Lamina motor coach operator was placed into the joint. Remaining meniscus and soft tissue were removed from the medial and lateral compartments. Posteri (more content not included)... Normal [facility] Comment on above: Result Comment: Elec tronically Signed By: Jimbo Pike DO\.br\Date and Time Signed: 07/22/23 12:24 EDT Platelet Counton 07-22-2023 Platelets (Bld) [#/Vol] 100.0 E9/L Low 150.0-500. 0 [facility] Comment on above: Result Comment: Arnulfo romero review performed Performed By: #### 2 [id number] ####[facility] [address] [place] [address] URINALYSISOrdered By: Maribel Mora on 07-22-2023 Bilirubin Ql (U) Negative Normal Negativemg /dL [facility] UA Auto SS Clarity (U) Clear (07/22/23 7:05 PM) Normal Clear [facility] UA Auto SS Color (U) Yellow 1 (07/22/23 7:05 PM) Normal Yellow [facility] UA Auto SS Comment on above: Interpretive Data: M icroscopic readings are only performed on those samples that meet specific criteria set forth by [facility]. Glucose Ql (U) Negative Normal Negativemg [...] for Procedure/Surger yon 07-21-2023 Consent for Procedure/Surgery [id number] Normal [facility] C Urineon 07-10-2023 Bacteria identified Cx Nom [...] Locations R1: This test was performed at: [facility], [address] [place] [address], [address] , , [facility] Comment on above: Performed By: #### 1 5762661, 7473148, 7452945, 5388912, 19151420, 6420722, 5485126, 2160960, 5134387 #### [facility] [address] [place] [address] Screenson 07-10-2023 Screens [id number]#1.00TIFF [facility] Screens [id number]#1.00TIFF [facility] Ambulatory Visit Summaryon 0 07-09-2023 Ambulatory [...] Appointments Thursday 1:10 PM EDT With: Where: [facility] 2023 1:00 PM EDT With: SAHARA SUAREZ PA-C Where: [facility] CT Lower Extremity w/o Contr ast Righton [...] low as reasonably achievable. Ordering Provider: Jimbo Piek FINAL REPORT Dictated: 07/09/2023 3:13 pm Arvin Medina DO Signed (Electronic Signature): 07/09/2023 3:13 pm Signed by: Arvin Medina DO Transcribed by: MONICA Technologist: FRANCISCO Johnson [facility] Outside Recordson 07-09-2023 Outside Records [id number]#[id number] Normal [facility] Patient Educationon 07-09-19 Patient Education Obstetrics and [...] these instructions at home: Medicines ? Take tcxo-iut-zbvjgtx and prescription medicines only as told by [...] provider. Document Revised: 10/19/2020 Document Reviewed: 10/19/2020 [employer] Patient Education ? 2022 [employer] Elizabeth Cabrera [facility] Urology Office/Clinic Noteon 07-09-2023 Urology Office/Clinic Note [...] with Cefdinir. 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 [...] When Contact Information SAHARA SUAREZ PA-C, URL [address] [place] [address] [phone] Additional Instructions: 6 mos w/ PVR Patient Education Urinary Tract Infection, Adult, Bzxq-yu-Itub Documentation recorded by the scribe Kassie Davis [...] tract symptom (more content not included)... Normal [facility] Comment on above: Result Comment: Elec tronically Signed By: SAHARA SUAREZ PA-C\.br\Date and Time Signed: 07/09/23 13:54 EDT\.br\Electronically Co-Signed By: Kassie Davis\.br\Date and Time Co-Signed: 07/09/23 13:22 EDT ERTAPENEM:SUSC:PT:ISOLATE:OR DQN:MICOrdered By: Kiki Evangelista on 07-08-2023 Ertapenem DEVAN [Susc] >100,000 cfu/ml Klebsiella pneumoniae [facility] Ertapenem DEVAN [Susc]Ordered By: Kiki Evangelista on 07-08-2023 Klebsiella pneumoniae Klebsiella pneumoniae [facility] UA with Cult Rflxon 07-08-19 24 Bacteria Auto Ql (U) 2+ CD:[id number] Abnormal Trace [facility] Comment on above: Order Comment: self cath Performed By: #### 1 8503716, 7020315, 0641278, 3085363, 25385209, 9574627, 4527654, 9822865, 9403996 #### [facility] [address] [place] [address] Bilirubin Ql (U) Negative Normal Negative [facility] Comment on above: Order Comment: self cath Performed By: #### 1 7047626, 0902676, 8601312, 4258950, 25705653, 7244733, 0966963, 7521775, 0093135 #### [facility] [address] [place] [address] Clarity (U) Turbid Abnormal Clear [facility] Comment on above: Order Comment: self cath Performed By: #### 1 2620140, 7801187, 6634275, 2576868, 56612096, 9672853, 2658892, 3065243, 0413589 #### [facility] [address] [place] [address] Color (U) Yellow Normal Yellow [facility] Comment on above: Order Comment: self cath Result Comment: Micr oscopic readings are only performed on those samples that meet specific criteria set forth by [facility]. Performed By: #### 1 3298517, 0931273, 6519499, 0235438, 34765742, 4746947, 6366623, 0490540, 3924939 #### [facility] [address] [place] [address] Epithelial cells.squamous Auto (Urine sed) [#/Area] 0-2 Normal 0-2 [facility] Comment on above: Order Comment: self cath Performed By: #### 1 6911153, 4370647, 4126034, 3495941, 02382269, 9989222, 7111230, 6980809, 2727647 #### [facility] [address] [place] [address] Glucose Ql (U) Negative Normal Negative [facility] Comment on above: Order Comment: self cath Performed By: #### 1 0539736, 5801063, 7287918, 5503411, 71003042, 4329065, 4539583, 7118773, 1207203 #### [facility] [address] [place] [address] Hemoglobin Auto test strip (U) [Mass/Vol] 1+ mg/dL Abnormal Negative [facility] Comment on above: Order Comment: self cath Performed By: #### 1 7016687, 0938029, 0406701, 5454763, 65205223, 5754972, 3026903, 7804890, 5824797 #### [facility] [address] [place] [address] Ketones Auto test strip Ql (U) Negative Normal Negative [facility] Comment on above: Order Comment: self cath Performed By: #### 1 5721340, 7401683, 2488078, 8606472, 62645101, 6928748, 4463162, 7677467, 9085528 #### [facility] [address] [place] [address] Leukocyte clumps Auto (Urine sed) [#/Area] 0-3 Abnormal [facility] Comment on above: Order Comment: self cath Performed By: #### 1 2341241, 4197327, 1276389, 2285702, 08553796, 1928173, 2635479, 2222472, 1621874 #### [facility] [address] [place] [address] Leukocyte esterase Auto test strip Ql (U) 250 Seamus/uL Abnormal Negative [facility] Comment on above: Order Comment: self cath Performed By: #### 1 1314970, 4879577, 2526548, 3398600, 61761012, 6517725, 4896984, 4728722, 7325681 #### [facility] [address] [place] [address] Mucus Auto Ql (U) Negative Normal Negative [facility] Comment on above: Order Comment: self cath Performed By: #### 1 7597705, 2302507, 5489851, 6796879, 55927416, 8612484, 6851609, 3979069, 7408653 #### [facility] [address] [place] [address] Nitrite Auto test strip Ql (U) Negative Normal Negative [facility] Comment on above: Order Comment: self cath Performed By: #### 1 9968557, 5949374, 6246061, 8896552, 06902752, 1631481, 8123615, 0382024, 1351856 #### [facility] [address] [place] [address] pH (U) 5.5 [pH] Invalid Interpretation Code 5.0-9.0 [facility] Comment on above: Order Comment: self cath Performed By: #### 1 6932304, 5059238, 6127178, 3776587, 92239025, 6973936, 2724602, 4338712, 4121382 #### [facility] [address] [place] [address] Protein Ql (U) Negative Normal Negative [facility] Comment on above: Order Comment: self cath Performed By: #### 1 2302538, 0936443, 5508039, 7712405, 18559041, 8808505, 4166541, 0328234, 2496152 #### [facility] [address] [place] [address] RBC Ql (U) 4-20 Abnormal 0-3 [facility] Comment on above: Order Comment: self cath Performed By: #### 1 0781552, 6761370, 9163092, 7732682, 98967284, 7051637, 2226572, 0516834, 7566683 #### [facility] [address] [place] [address] Specific gravity (U) [Rel density] 1.012 Invalid Interpretation Code 1.005-1.03 0 [facility] Comment on above: Order Comment: self cath Performed By: #### 1 3916810, 5133246, 7787872, 9368030, 31205136, 3829531, 1642944, 2432104, 6800277 #### [facility] [address] [place] [address] Urobilinogen (U) [Mass/Vol] Negative Normal Negative [facility] Comment on above: Order Comment: self cath Performed By: #### 1 3283897, 0562756, 8507356, 0804640, 75081685, 5615341, 2380891, 4715163, 5025539 #### [facility] [address] [place] [address] WBC Auto (Urine sed) [#/Area] 31-75 Abnormal 0-5 [facility] Comment on above: Order Comment: self cath Performed By: #### 1 2966271, 3081922, 8294311, 8823528, 70685395, 3168296, 6684623, 9847754, 3814919 #### [facility] [address] [place] [address] Type of Urine collection method Catheter Normal [facility] Comment on above: Order Comment: self cath Performed By: #### 1 4603862, 3587006, 3208013, 0614336, 32559988, 2674625, 8034124, 4746164, 2651752 #### [facility] [address] [place] [address] URINALYSISOrdered By: SYSTEM SYSTEM on 07-08-2023 Bacteria Auto Ql (U) 2+ graded/HPF Invalid Interpretation Code Tracegrade d/HPF [facility]A Auto SS Bilirubin Ql (U) Negative Normal Negativemg /dL [facility] UA Auto SS Clarity (U) Turbid *ABN* (07/08/23 1:50 PM) Invalid Interpretation Code Clear [facility] UA Auto SS Color (U) Yellow 2 (07/08/23 1:50 PM) Normal Yellow [facility] UA Auto SS Comment on above: Interpretive Data: M icroscopic readings are only performed on those samples that meet specific criteria set forth by [facility]. Epithelial cells.squamous Auto (Urine sed) [#/Area] 0-2 graded/HPF Normal 0-2graded/ HPF [facility] UA Auto SS Glucose Ql (U) Negative Normal Negativemg /dL [facility] UA Auto SS Hemoglobin Auto test strip (U) [Mass/Vol] 1+ mg/dL Invalid Interpretation Code Negativemg /dL [facility] UA Auto SS Ketones Auto test strip Ql (U) Negative Normal Negativemg /dL [facility] UA Auto SS Leukocyte clumps Auto (Urine sed) [#/Area] 0-3 graded/HPF Invalid Interpretation Code [facility] UA Auto SS Leukocyte esterase Auto test strip Ql (U) 250 Seamus/uL Seamus/uL Invalid Interpretation Code NegativeLe u/uL [facility] UA Auto SS Mucus Auto Ql (U) Negative Normal Negativegr aded/LPF [facility] UA Auto SS Nitrite Auto test strip Ql (U) Negative Normal Negativemg /dL [facility] UA Auto SS pH (U) 5.5 *NA* (07/08/23 1:50 PM) Invalid Interpretation Code 5.0 - 9.0 [facility] UA Auto SS Protein Ql (U) Negative Normal Negativemg /dL [facility] UA Auto SS RBC Ql (U) 4-20 graded/HPF Invalid Interpretation Code 0-3graded/ HPF [facility] UA Auto SS Specific gravity (U) [Rel density] 1.012 *NA* (07/08/23 1:50 PM) Invalid Interpretation Code 1.005 - 1.030 [facility] UA Auto SS Urobilinogen (U) [Mass/Vol] Negative Normal Negativemg /dL [facility] UA Auto SS WBC Auto (Urine sed) [#/Area] 31-75 graded/HPF Invalid Interpretation Code 0-5graded/ HPF [facility] UA Auto SS URINALYSISOrdered By: Constance Tabor on 07-08-2023 UA Spec Desc Catheter (07/08/23 1:50 PM) Normal [facility] UA Auto SS ABO/Rh Retypeon 07-07-2023 ABO/Rh Retype Interp Positive Invalid Interpretation Code [facility] Comment on above: Performed By: #### 1 4474968, 0000703, 7498322, 2606932, 65167717, 5074784, 2229700, 9085294, 0197398 #### [facility] [address] [place] [address] BLOOD BANKOrdered By: Osbaldo See on 07-07-2023 ABO/Rh Retype Interp Positive Invalid Interpretation Code [facility] BB Subsection BMPon 07-07-2023 Anion gap [Moles/Vol] 10 mmol/L Normal 09-05 [facility] Comment on above: Performed By: #### 1 4516499, 8054194, 7147466 ####[facility] [address] [place] [address] Calcium [Mass/Vol] 9.4 mg/dL Normal 8.9-11.1 [facility] Comment on above: Performed By: #### 1 0724597, 5695900, 0781591 ####[facility] [address] [place] [address] Chloride [Moles/Vol] 105 mmol/L Normal 101-111 [facility] Comment on above: Performed By: #### 1 0939453, 5558534, 2960843 ####[facility] [address] [place] [address] CO2 [Moles/Vol] 27 mmol/L Normal 21-31 [facility] Comment on above: Performed By: #### 1 2104834, 1359009, 4013138 ####[facility] [address] [place] [address] Creatinine [Mass/Vol] 1.0 mg/dL Normal 0.5-1.3 [facility] Comment on above: Performed By: #### 1 8685830, 3888048, 9107468 ####[facility] [address] [place] [address] Glucose [Mass/Vol] 95 mg/dL Normal 55-199 [facility] Comment on above: Performed By: #### 1 7857444, 8123260, 0777779 ####[facility] [address] [place] [address] Potassium [Moles/Vol] 4.4 mmol/L Normal 3.5-5.3 [facility] Comment on above: Performed By: #### 1 8677862, 0981398, 0360694 ####[facility] [address] [place] [address] Sodium [Moles/Vol] 138 mmol/L Normal 135-145 [facility] Comment on above: Performed By: #### 1 5398528, 3211734, 4860815 ####[facility] [address] [place] [address] Urea nitrogen [Mass/Vol] 18 mg/dL Normal 5-21 [facility] Comment on above: Performed By: #### 1 7898973, 7368438, 3903295 ####[address] [address] Urea nitrogen/Creatinin e [Mass ratio] 18 No Units Normal 10-20 [facility] Comment on above: Performed By: #### 1 6360414, 6735103, 6402987 ####[address] [address] CBC w/ Auto Diffon 4 Basophils/100 WBC (Bld) 0.4 % Normal 0.0-2.0 [facility] Comment on above: Performed By: #### 1 9960978, 0183170, 7777707 ####[place] [address] Basophils/Leukocyt es Auto (Bld) [Pure # fraction] 0.0 E9/L Normal 0.0-0.2 [facility] Comment on above: Performed By: #### 1 8102351, 6228798, 8176350 ####[address] [address] Eosinophils (Bld) [#/Vol] 0.1 E9/L Normal 0.0-0.5 [facility] Comment on above: Performed By: #### 1 0288328, 4019676, 0745832 ####[address] [address] Eosinophils/100 WBC (Bld) 1.8 % Normal 0.0-8.0 [facility] Comment on above: Performed By: #### 1 5790557, 1859366, 5774216 ####[address] [address] Erythrocyte distribution width (RBC) [Ratio] 13.5 % Normal 10.9-14.2 [facility] Comment on above: Performed By: #### 1 7933657, 9777924, 1237976 ####[address] [address] Hematocrit (Bld) [Volume fraction] 39.9 % Normal 37.7-49.0 [facility] Comment on above: Performed By: #### 1 2265423, 9416019, 4164562 ####[address] [address] Hemoglobin (Bld) [Mass/Vol] 13.3 g/dL Low 13.5-17.5 [facility] Comment on above: Performed By: #### 1 5099156, 6059153, 7760865 ####[address] [address] Lymphocytes (Bld) [#/Vol] 0.9 E9/L Low 1.0-4.0 [facility] Comment on above: Performed By: #### 1 9846590, 0773514, 5705672 ####[address] [address] Lymphocytes/100 WBC (Bld) 16.4 % Normal 14.0-50.0 [facility] Comment on above: Performed By: #### 1 2641508, 5120483, 7859455 ####[address] [address] MCH (RBC) [Entitic mass] 32.3 pg Normal 27.0-34.0 [facility] Comment on above: Performed By: #### 1 0532042, 3938739, 5166462 ####[address] [address] MCHC (RBC) [Mass/Vol] 33.3 g/dL Normal 31.4-36.0 [facility] Comment on above: Performed By: #### 1 3484818, 8711063, 3322954 ####[address] [address] MCV (RBC) [Entitic vol] 97.1 fL Normal 80.0-100.0 [facility] Comment on above: Performed By: #### 1 4231132, 7880330, 4485850 ####[address] [place] [address] Monocytes (Bld) [#/Vol] 0.5 E9/L Normal 0.2-1.0 [facility] Comment on above: Performed By: #### 1 9927749, 2056015, 6294279 ####[address] [address] Neutrophils (Bld) [#/Vol] 4.0 E9/L Normal 2.0-7.5 [facility] Comment on above: Performed By: #### 1 3967072, 0497520, 5600052 ####[place] [address] Neutrophils/100 WBC (Bld) 71.7 % Normal 36.0-75.0 [facility] Comment on above: Performed By: #### 1 1068762, 6118988, 1991582 ####[place] [address] Platelet 101.0 E9/L Low 150.0-500. 0 [facility] Comment on above: Performed By: #### 1 8635859, 8509161, 2864697 ####[place] [address] Platelet mean volume (Bld) [Entitic vol] 9.8 fL Normal 6.4-10.8 [facility] Comment on above: Performed By: #### 1 2676404, 6133928, 3904706 ####[place] [address] RBC (Bld) [#/Vol] 4.1 E12/L Low 4.3-5.9 [facility] Comment on above: Performed By: #### 1 7189594, 1146059, 9941532 ####[address] [address] WBC corrected for nucl RBC Auto (Bld) [#/Vol] 5.6 E9/L Normal 4.0-11.0 [facility] Comment on above: Performed By: #### 1 4883316, 0485602, 2802988 ####[facility] [address] [place] [address] CHEMISTRYOrdered By: SYSTEM SYSTEM on 07-07-2023 Anion [...] Consent for Treatmenton 06-21 Consent for Treatment [id number] Normal [facility] HEMATOLOGYOrdered By: SYSTEM SYSTEM on 07-07-2023 Basophils/100 [...] Bilirubin Ql (U) cancel Invalid Interpretation Code [facility] Comment on above: Performed By: #### 1 7165487, 6508531, 5911946, 8184313, 84624173, 6486362, 8931101, 3208314, 0626738 #### [facility] [address] [place] [address] Clarity (U) cancel Invalid Interpretation Code [facility] Comment on above: Performed By: #### 1 8502006, 4124685, 4647897, 8534020, 49519979, 3348559, 9026100, 6757413, 9915115 #### [facility] [address] [place] [address] Color (U) cancel Invalid Interpretation Code [facility] Comment on above: Result Comment: NSR cancelled and credited per PRESURG 07/07/2023 10:33 CSS Microscopic readings are only performed on those samples that meet specific criteria set forth by [facility]. Performed By: #### 1 1379628, 1478312, 4083297, 7278412, 53842890, 9359289, 6172805, 5200799, 7082670 #### [facility] [address] [place] [address] Glucose Ql (U) cancel Invalid Interpretation Code [facility] Comment on above: Performed By: #### 1 4466805, 8106401, 9858436, 4836873, 68382850, 1207503, 9553495, 3651691, 8722192 #### [facility] [address] [place] [address] Hemoglobin Auto test strip (U) [Mass/Vol] cancel Invalid Interpretation Code [facility] Comment on above: Performed By: #### 1 8524619, 0033628, 6100907, 9242869, 25305025, 5848421, 6886418, 8040553, 6349733 #### [facility] [address] [place] [address] Ketones Auto test strip Ql (U) cancel Invalid Interpretation Code [facility] Comment on above: Performed By: #### 1 1299183, 0240939, 5002550, 3130666, 47285881, 4917028, 8488986, 1353508, 1699666 #### [facility] [address] [place] [address] Leukocyte esterase Auto test strip Ql (U) cancel Invalid Interpretation Code [facility] Comment on above: Performed By: #### 1 2119612, 0862042, 6017850, 3114314, 21707882, 5717609, 8834822, 7333399, 4331238 #### [facility] [address] [place] [address] Nitrite Auto test strip Ql (U) cancel Invalid Interpretation Code [facility] Comment on above: Performed By: #### 1 1686055, 4398698, 7768636, 7377100, 98800267, 9340845, 1833619, 4119530, 0973451 #### [facility] [address] [place] [address] pH (U) cancel Invalid Interpretation Code 5.0-9.0 [facility] Comment on above: Performed By: #### 1 8877232, 2715897, 4586365, 4733898, 31949352, 7018815, 9871974, 4437671, 4516825 #### [facility] [address] [place] [address] Protein Ql (U) cancel Invalid Interpretation Code [facility] Comment on above: Performed By: #### 1 5996621, 2403214, 5679287, 1732292, 20710664, 7691513, 4221161, 8230532, 9827741 #### [facility] [address] [place] [address] Specific gravity (U) [Rel density] cancel Invalid Interpretation Code 1.005-1.03 0 [facility] Comment on above: Performed By: #### 1 [id number], 2698710, 9961220, 6346456, 11386346, 3933747, 0726256, 7411794, 1285726 #### [facility] [address] [place] [address] Urobilinogen (U) [Mass/Vol] cancel Invalid Interpretation Code [facility] Comment on above: Performed By: #### 1 1178917, 9841068, 7551034, 7027945, 05642189, 7475282, 6202117, 8205236, 5781163 #### [facility] [address] [place] [address] Type of Urine collection method Clean Catch Normal [facility] Comment on above: Performed By: #### 1 1776879, 4792373, 0529880, 0830721, 08337004, 3737753, 7910134, 9218436, 8693428 #### [facility] [address] [place] [address] URINALYSISOrdered By: Kiki Evangelista on 07-07-2023 Bilirubin Ql (U) cancel Invalid Interpretation Code [facility] UA Auto SS Clarity (U) cancel Invalid Interpretation Code [facility] UA Auto SS Color (U) cancel Invalid Interpretation Code [facility] UA Auto SS Comment on above: Result Comment: NSR cancelled and credited per PRESURG 07/07/2023 10:33 CSS Interpretive Data: M icroscopic readings are only performed on those samples that meet specific criteria set forth by [facility]. Glucose Ql (U) cancel Invalid Interpretation Code [facility] UA Auto SS Hemoglobin Auto test strip (U) [Mass/Vol] cancel Invalid Interpretation Code [facility] UA Auto SS Ketones Auto test strip Ql (U) cancel Invalid Interpretation Code [facility] UA Auto SS Leukocyte esterase Auto test strip Ql (U) cancel Invalid Interpretation Code [facility] UA Auto SS Nitrite Auto test strip Ql (U) cancel Invalid Interpretation Code [facility] UA Auto SS pH (U) cancel Invalid Interpretation Code 5.0 - 9.0 [facility] UA Auto SS Protein Ql (U) cancel Invalid Interpretation Code [facility] UA Auto SS Specific gravity (U) [Rel density] cancel Invalid Interpretation Code 1.005 - 1.030 [facility] UA Auto SS Urobilinogen (U) [Mass/Vol] cancel Invalid Interpretation Code [facility] UA Auto SS URINALYSISOrdered By: Vanessa Shelley on 07-07-2023 UA Spec Desc Clean Catch (07/07/23 10:06 AM) Normal [facility] UA Auto SS XR Chest 2 Viewson [...] mGy = na DAP = na Normal [facility] eGFRon 07-07-2023 eGFR 72 mL/min/1.73 m2 Normal >=59 [facility] Comment on above: Order Comment: Order added by Discern Expert. Performed By: #### 1 [id number], 3079572, 7235719 ####[facility] [address] [place] [address] Physician Orderon 06-10-2023 Physician Order [id number]#1.00TIFF Normal [facility] Physician Orderon 06-05-2023 Physician Order [id number]#1.00TIFF Normal [facility] Office Visiton 03-30-2023 Follow-up visit [id number] Gualberto Cruz 1935 M Date Provider Department Center 03/30/2023 FLORY CAMPBELL [facility] Family History Problem Relation Age of Onset Prostate cancer Other Family Status - Relation Status Age at Other Level of Service:25096 MD OFFICE/OUTPATIENT ESTABLISHED LOW MDM 20 MIN Normal [facility] Retail - Clinical Noteon Retail - Clinical Note [id number]#[id number] Normal [facility] Urology Office/Clinic Noteon 03-04-2023 Urology Office/Clinic Note Chief Complaint 6 month follow up w/ KUB and Renal US HPI Staff 6 month follow up w/KUB & TAHIRA both done 12/08/22-[facility]. Previous DX: benign localized hyperplasia of prostate [...] [address], [place] [address]- Additional Instructions: 6 mos PVR Patient Education Urinary Tract Infection, Adult I, Bernarda Gaston, personally scribed for Dr. Duncan on 12/31/2022 15:09:52. . Problem List/Past Medical History Ongoing Acute UTI Anticoagulat (more content not included)... Normal [facility] Comment on above: Result Comment: Elec [...] Locations R1: This test was performed at: [facility], [address] [place] [address], [facility]- , , [facility] Comment on above: Performed By: #### 1 [id number], 1069235, 7205728, 6093071, 92359666, 5546849, 4710492, 6720896, 2798029 #### [facility] [address] [place] [address] Screenson 01-01-2023 Screens [id number][facility] 1 Ambulatory Visit Summary GUALBERTO CRUZ :1935 Visit Date:12/31/2022 Ambulatory Visit Instructions Your Diagnosis UTI due to Klebsiella species Gross hematuria Incomplete emptying of bladder BPH with urinary obstruction Erectile dysfunction Simple renal cyst Tests Performed Urnls Dip Stick Auto w/o Microscopy POC 89843 Your Care Team Attending Physician - Idris [...] Idris DUNCAN MD Where: [facility] Patient Educationon 01-01-20 23 Patient Education Obstetrics [...] this condition includes: ? Antibiotic medicine. ? Dtkn-xuj-vugjuaq medicines to treat discomfort. ? Drinking enough [...] these instructions at home: Medicines ? Take gqpv-gvd-vgqnjyg and prescription medicines only as told by [...] 10/19/2020 Document Revie (more content not included)... [facility] RAD - MISCon 12-09-2022 RAD - MISC [id number]#[id number]:127 [facility] RAD - Ultrasound Reporton RAD - Ultrasound Report [id number]#[id number]:127 [facility] C Urineon 12-07-2022 Bacteria identified Cx [...] Locations R1: This test was performed at: [facility], [address] [place] [address], [address] [place] [address], [facility] Comment on above: Performed By: #### 1 1823768, 2117228, 7946463, 7611780, 51768749, 1246837, 0645871, 6417069, 2117357 #### [facility] [address] [place] [address] Ambulatory Visit Summaryon 0 12-05-2022 Ambulatory Visit [...] PARKER, Idris Zhu Where: [facility] [place] Normal [facility] Urinalysison 12-05-2022 Bacteria LM Ql (Urine sed) 3+ /HPF Abnormal Trace [facility] Comment on above: Performed By: #### 1 2672069, 2982569, 9546625, 9544380, 47631028, 7828552, 4285745, 2292542, 0411593 #### [facility] [address] [place] [address] Bilirubin Ql (U) Negative Normal Negative [facility] Comment on above: Performed By: #### 1 7497875, 5540630, 2542823, 0840102, 17741987, 6097245, 3873137, 3692268, 8378160 #### [facility] [address] [place] [address] Clarity (U) SL CLOUDY Invalid Interpretation Code [facility] Comment on above: Performed By: #### 1 3415312, 5455239, 9525195, 2906444, 23041722, 4641470, 2306691, 1919898, 3967181 #### [facility] [address] [place] [address] Color (U) YELLOW Normal Yellow [facility] Comment on above: Performed By: #### 1 1183521, 8850094, 6266994, 2845780, 82168926, 2818348, 6479794, 2252996, 3417065 #### [facility] [address] [place] [address] Epithelial cells.squamous LM.HPF (Urine sed) [#/Area] 0-2 Normal 0-2 [facility] Comment on above: Performed By: #### 1 7239216, 4699625, 7480903, 8547666, 83862936, 5686622, 6597180, 7697387, 2018802 #### [facility] [address] [place] [address] Glucose Test strip (U) [Mass/Vol] Negative Normal Negative [facility] Comment on above: Performed By: #### 1 0802296, 9448493, 5340671, 9878247, 98459457, 5500004, 3431135, 5436526, 6297957 #### [facility] [address] [place] [address] Hemoglobin Ql (U) 2+ Abnormal Negative [facility] Comment on above: Performed By: #### 1 1212751, 6806388, 5464067, 6942858, 71873381, 9620857, 4296722, 5877212, 9486201 #### [facility] [address] [place] [address] Ketones (U) [Mass/Vol] Negative Normal Negative [facility] Comment on above: Performed By: #### 1 0142151, 4695538, 6288641, 3176979, 22957064, 0165256, 9870376, 4634504, 5137873 #### [facility] [address] [place] [address] St. Jacob.plasma/Lit hium.RBC (Bld) [Mass ratio] 4-20 Normal 0-3 [facility] Comment on above: Performed By: #### 1 5111600, 9953178, 2758877, 5729310, 39900841, 5983057, 2371549, 0848783, 9356092 #### [facility] [address] [place] [address] Nitrite Ql (U) Negative Normal Negative [facility] Comment on above: Performed By: #### 1 1644885, 1006567, 2342243, 9947314, 60578992, 8233263, 1557179, 8228336, 5352810 #### [facility] [address] [place] [address] pH (U) 6.0 [pH] Invalid Interpretation Code 5.0-9.0 [facility] Comment on above: Performed By: #### 1 7817585, 5203061, 9614489, 4620948, 27270967, 7319044, 9175639, 9232628, 6703578 #### [facility] [address] [place] [address] Protein (U) [Mass/Vol] Negative Normal Negative [facility] Comment on above: Performed By: #### 1 7916605, 8059341, 7740939, 5772605, 69764043, 1971175, 4451702, 3278208, 4706033 #### [facility] [address] [place] [address] Specific gravity (U) [Rel density] 1.015 Invalid Interpretation Code 1.005-1.03 0 [facility] Comment on above: Performed By: #### 1 1376404, 1651121, 7109712, 8265339, 34088685, 3746330, 2855612, 9712794, 5792099 #### [facility] [address] [place] [address] Type of Urine collection method Clean Catch Normal [facility] Comment on above: Performed By: #### 1 1736213, 0018443, 3207230, 6703167, 43715112, 7206723, 8356037, 8721733, 9013866 #### [facility] [address] [place] [address] Urobilinogen Qn (U) 0.2 {Denice'U}/dL Normal 0.0-1.0 [facility] Comment on above: Performed By: #### 1 4525632, 6228531, 1843074, 1864869, 07203431, 6946495, 7985904, 1284651, 8150525 #### [facility] [address] [place] [address] WBC Auto Ql (U) 3+ Abnormal Negative [facility] Comment on above: Performed By: #### 1 1418651, 5135052, 8277594, 1213107, 62274771, 1491888, 6334937, 6324376, 4466293 #### [facility] [address] [place] [address] WBC LM.HPF (Urine sed) [#/Area] /[HPF] Abnormal 0-5 [facility] Comment on above: Performed By: #### 1 5889983, 7722187, 5369862, 8523704, 48072823, 4955400, 3462618, 3322152, 9862126 #### [facility] [address] [place] [address] Office Visiton 10-22-2022 Follow-up visit [id number] Gualberto Cruz 1935 M Date Provider Department Center 10/22/2022 ILIA SINGH [facility] Family History Problem Relation Age of Onset Prostate cancer Other Family Status - Relation Status Age at Other Level of Service:95801 MD OFFICE/OUTPATIENT ESTABLISHED MOD MDM 30-39 MIN Normal [facility] COVID Quick Testingon 2022 Result Negative [facility] Other XR lumbar spine 6V w bending on 2022 XR lumbar spine 6V w bending [facility] Main [address] [address] XRay Report Signed Patient: Gualberto Cruz MR#: [id number] 2 : 1935 Acct:[id number] Age/Sex: 87 / M ADM Date: 03/12/22 Loc: ICXD Room: Type: [facility] Attending Dr: Cheryl Arias MD Copies to: [...] Cheryl Cosby M.D.03/12/2022 3:08 PM Dictation Location: [place] [address] Transcribed By: [facility] 03/12/22 1508 Dictated By: Cheryl Cosby II, MD 03/12/22 1506 Signed By: 03/12/22 1508 [facility] US Venous, Unilat, Lower Ext Righton [...] by Javi Briscoe on 07/23/2021 1237 Normal [facility] NM STRESS/REST MULTIon 10-01 NM STRESS/REST MULTI Patient: GUALBERTO CRUZ Exam Date: 10/01/2020 : 1935 Gender:M Ordering : FLORY MCCRARY Admission #: [id number] Family : Order #: [id number] CLICK HERE TO VIEW EXAM RADIOLOGY REPORT [...] Bajwa M.D. on 10/01/2020 at 15:11 Normal [facility] ECHOCARDIO M/2D COMPLETEon 0 09-19-2020 ECHOCARDIO M/2D COMPLETE Patient: GUALBERTO CRUZ Exam Date: 09/19/2020 : 1935 Gender:M Ordering : FLORY MCCRARY Admission #: [id number] Family : DR EMRE DAVIS M.D. Order #: [id number] CLICK HERE TO VIEW EXAM ECHOCARDIOGRAM REPORT [...] Hodgson M.D. on 09/21/2020 at 18:23 Normal [facility] XR LSPINE W_OBLS AND FLEX_EX Ton [...] by: WEST BAJWA Date: 2019-11-17 12:38 Normal [facility] Cardiovascular Lab Reporton 08-21-2017 Cardiovascular Lab Report [facility] Patient Name[place] [facility] [place] #: [id number] Physician: Ilia Kern M.D.Medicine Service Date: 08/20/2017Division of Birthdate: 4Cardiology Room #: 3CD [id number] CardiovascularServicesUnivers [facility] HospitalGuwoifzEdrcht[address] [place], [place] [address]Utcgc Fax Cardiovascular Laboratory ReportINDICATION: Gualberto Cruz is an 82-year-old man known to have coronaryartery disease, [facility] He continues to have angina despite being on four antianginalmedications. He underwent a cardiac catheterization in June of 2017 thatshowed chronic total occlusion of the right coronary artery with occlusionof the proximal mid and distal right coronary artery stents. Because ofcontinued angina despite maximal medical therapy, he was referred forpercutaneous intervention to the right coronary artery MAST MAKER.STEWARD/STEWARDESS NIGHT: Ilia Hodgson M.D.BRAND ENGINEER: Jose Angel Alaniz M.D.PROCEDURES:1. Bilateral selective coronary angiography.2. Limited right femoral angiography.3. Failure to recanalize chronic total occlusion of the right coronary artery using the Antegrade wire escalation technique, balloon angioplasty, and CrossBoss catheter.4. Deployment of a vascular access closure device.METHODS: Procedure was explained to the patient with risks and benefits,he signed informed consent. He was brought to medical lab technician in a fasting state.The right groin area was prepped and draped in usual fashion. Usingmicropuncture technique, the right common femoral artery was accessed. Theinner cannula was advanced, limited femoral angiography was performedfollowed by upsizing to an 8-Faroese x 65 cm sheath. Through this sheath,an 8-Faroese AL 0.75 guiding catheter was advanced and used to engage theright coronary ostium. Access was obtained in the right radial arteryusing micropuncture technique. Nasim's test was favorable. A 6-Faroese x11 cm Hydrophilic sheath was advanced. Verapamil was given through thesheath and heparin was administered intravenously. A 6-Faroese JL3.5diagnostic catheter was advanced and used to engage the left main coronaryostium.Heparin was administered intravenously and therapeutic ACT confirmed duringthe procedure. Bilateral selective simultaneous coronary angiography wasperformed in multiple views.We proceeded with attempt at recanalization of the right coronary arteryCTO using the antegrade approach as there was no clear good option forretrograde recanalization. We started with a Cinder Pit Crane Operator 200 wire mounted on aTurnpike catheter. The [...] onepoint in time, we also advanced a 6-Faroese guide liner to provide bettersupport. In addition, [...] right femoral arteriotomy was managed with an 2-CwetthJbjyk-Yake device with good hemostasis. The right radial [...] 08/20/2017/04:06 P/Ilia Hodgson M.D.Date Trans: 08/21/2017 06:14 A/jean-pierreoDN_JN:[id number]: Emre Davis M.D. [address] [place], [place] [address] [place] [facility] Cardiovascular Lab Reporton 07-16-2017 Cardiovascular Lab Report [facility] Patient Name: [place]ber[place] [facility] [place] #: [id number] Physician: Ilia Kern M.D.Medicine Service Date: 07/15/2017Division of Birthdate: 4Cardiology Room #: 4CD [id number] CardiovascularServicesUnivers [facility] HealthNyggnntAwhvmb[address] [place], [place] [address]Jlvgt Fax Cardiovascular Laboratory ReportINDICATION: Gualberto Cruz is [...] signed informed consent. He was brought to medical lab technician in a fasting state.Nasim's test was favorable [...] angiographywas performed followed by upsizing to a 6-Faroese x 30 cm flexor sheath toovercome iliac tortuosities. Note that there was inability to advance thesheath initially over the regular wire, we had to use a 5-Faroese straighttapered catheter over an angled glidewire and then exchanged to a stifferwire (Amplatz superstiff), advanced a 6-Faroese [place] sheath, and thenexchanged to the 6-Faroese x 30 cm flexor sheath. Bilateral selectivecoronary angiography was then performed using 6-Faroese JL4 and SW9rwxnehymsq catheters. Catheters were removed. Procedure was concluded.The flexor sheath was exchanged over the wire to a 6-Faroese x 11 cm sheath.He tolerated the procedure [...] 07/15/2017/04:09 P/Ilia Hodgson M.D.Date Trans: 07/16/2017 10:05 A/All_JN:[id number]: Emre Davis M.D. [address] [place] [address] Normal [facility] BASIC METABOLIC PANELon 06-22 Calcium mass conc 8.8 mg/dL Normal 8.6-10.3 [facility] Comment on above: Order Comment: No: D o not add to previous draw Performed By: #### 0 0071 ####[facility] [facility] [place] [address], [facility] Chloride molar conc 103 mmol/L Normal 98-107 [facility] Comment on above: Order Comment: No: D o not add to previous draw Performed By: #### 0 0071 ####[facility] [facility] [place] [address], [facility] CO2 molar conc 27 mmol/L Normal 21-31 [facility] Comment on above: Order Comment: No: D o not add to previous draw Performed By: #### 0 0071 ####[facility] [place] [address], [facility] Creatinine mass conc 0.98 mg/dL Normal 0.70-1.30 [facility] Comment on above: Order Comment: No: D o not add to previous draw Performed By: #### 0 0071 ####[facility] [place] [address], [facility] GFR/1.73 sq M predicted among blacks MDRD vol rate/area (S/P/Bld) mL/min/{1.73_m2} Normal >60 [facility] Comment on above: Order Comment: No: D o not add to previous draw Result Comment: Calc ulation may not be valid for patients over 70 years Performed By: #### 0 0071 ####[facility] [place] [address], [facility] GFR/1.73 sq M predicted among non-blacks MDRD vol rate/area (S/P/Bld) mL/min/{1.73_m2} Normal >60 [facility] Comment on above: Order Comment: No: D o not add to previous draw Result Comment: Calc ulation may not be valid for patients over 70 years Performed By: #### 0 0071 ####[facility] [place] [address], [facility] Glucose mass conc 103 mg/dL High 70-100 [facility] Comment on above: Order Comment: No: D o not add to previous draw Performed By: #### 0 0071 ####[facility] [place] [address], [facility] Potassium molar conc 3.6 mmol/L Normal 3.5-5.1 [facility] Comment on above: Order Comment: No: D o not add to previous draw Performed By: #### 0 0071 ####[facility] [facility].[address] Sodium molar conc 136 mmol/L Normal 136-145 [facility] Comment on above: Order Comment: No: D o not add to previous draw Performed By: #### 0 0071 ####[facility] [facility].[address] Urea nitrogen mass conc 14 mg/dL Normal 7-25 [facility] Comment on above: Order Comment: No: D o not add to previous draw Performed By: #### 0 0071 ####[address] CBC COMPLETE BLOOD COUNTon 0 07-15-2017 Erythrocyte distribution width Auto Ratio (RBC) 12.7 % Normal 11.5-15.0 [facility] Comment on above: Order Comment: No: D o not add to previous draw Performed By: #### 5 0608 ####[place] [address] [facility].[address] Hematocrit Auto Volume Fraction (Bld) 36.0 % Low 39.0-50.0 [facility] Comment on above: Order Comment: No: D o not add to previous draw Performed By: #### 5 0608 ####[place] [address] [facility].[address] Hemoglobin mass conc (Bld) 12.3 g/dL Low 13.0-17.0 [facility] Comment on above: Order Comment: No: D o not add to previous draw Performed By: #### 5 0608 ####[address] [place] [address], [facility] IMM PLATELET FRAC 7.4 % High 0.8-6.3 [facility] Comment on above: Order Comment: No: D o not add to previous draw Performed By: #### 5 0608 ####[facility] [facility].[address] MCH Auto Entitic mass (RBC) 32.7 pg Normal 27.0-33.0 [facility] Comment on above: Order Comment: No: D o not add to previous draw Performed By: #### 5 0608 ####[facility] MCHC Auto mass conc (RBC) 34.2 g/dL Normal 32.0-35.0 [facility] Comment on above: Order Comment: No: D o not add to previous draw Performed By: #### 5 0608 ####[facility] [facility].[address] MCV Auto Entitic volume (RBC) 95.7 fL Normal 82.0-98.0 [facility] Comment on above: Order Comment: No: D o not add to previous draw Performed By: #### 5 0608 ####[facility] [facility].[address] Nucleated RBC/100 WBC Ratio (Bld) 0 % Normal 0-0 [facility] Comment on above: Order Comment: No: D o not add to previous draw Performed By: #### 5 0608 ####[facility] [facility].[address] PLAT CNT 79 10*3/uL Low 150-400 [facility] Comment on above: Order Comment: No: D o not add to previous draw Result Comment: RESU LTS CHECKED Performed By: #### 5 0608 ####[facility] [facility].[address] RBC Auto #/vol (Bld) 3.76 10*6/uL Low 4.20-5.70 [facility] Comment on above: Order Comment: No: D o not add to previous draw Performed By: #### 5 0608 ####[facility] [place] [address].[place] [address], [place] WBC Auto #/vol (Bld) 5.5 10*3/uL Normal 4.0-10.6 [facility] Comment on above: Order Comment: No: D o not add to previous draw Performed By: #### 5 0608 ####[facility] [place], [place] [address] [place] [address] Vital Signs Date Time Vital Sign Value Performing Clinician Facility 07-24-2023 13:39-0400 Hourly Rounding Jimbo Pike [facility] 07-24-2023 13:39-0400 Promise to Return Jimbo Pike [facility] 07-24-2023 12:00-0400 Hourly Rounding Jimbo Pike [facility] 07-24-2023 12:00-0400 Promise to Return Jimbo Voices [facility] 07-24-2023 11:55-0400 Heart rate 62 /min Jimbo Voices [facility] 07-24-2023 11:55-0400 SaO2% (BldA) [Mass fraction] 97 % Jimbo Pike [facility] 07-24-2023 11:54-0400 Body temperature 97.34 [degF] Jimbo Pike [facility] 07-24-2023 11:54-0400 Diastolic blood pressure 59 mm[Hg] Jimbo Voices [facility] 07-24-2023 11:54-0400 Mean blood pressure 76 mm[Hg] Jimbo Pike [facility] 07-24-2023 11:54-0400 Systolic blood pressure 109 mm[Hg] Jimbo Pike [facility] 07-24-2023 11:00-0400 Hourly Rounding Jimbo Pike [facility] 07-24-2023 11:00-0400 Promise to Return Jimbo Pike [facility] 07-24-2023 09:49-0400 Diastolic blood pressure 61 mm[Hg] Jimbo Pike [facility] 07-24-2023 09:49-0400 Systolic blood pressure 116 mm[Hg] Jimbo Pike [facility] 07-24-2023 08:36-0400 Heart rate 60 /min Jimbo Pike [facility] 07-24-2023 08:36-0400 SaO2% (BldA) [Mass fraction] 96 % Jimbo Pike [facility] 07-24-2023 08:35-0400 Body temperature 97.7 [degF] Jimbo Pike [facility] 07-24-2023 08:34-0400 Diastolic blood pressure 59 mm[Hg] Jimbo Pike [facility] 07-24-2023 08:34-0400 Mean blood pressure 74 mm[Hg] Jimbo Pike [facility] 07-24-2023 08:34-0400 Systolic blood pressure 106 mm[Hg] Jimbo Pike [facility] 07-24-2023 00:19-0400 Blood Pressure Location Jimbo Pike [facility] 07-24-2023 00:19-0400 Body temperature 98.24 [degF] Jimbo Pike [facility] 07-24-2023 00:19-0400 Heart rate 64 /min Jimbo Pike [facility] 07-24-2023 00:19-0400 Mean blood pressure 78 mm[Hg] Jimbo Pike [facility] 07-24-2023 00:19-0400 Respiratory rate 17 /min Jimbo Pike [facility] 07-24-2023 00:19-0400 SaO2% (BldA) [Mass fraction] 97 % Jimbo Pike [facility] 07-23-2023 19:00-0400 Body temperature 98.06 [degF] Jimbo Pike [facility] 07-23-2023 19:00-0400 Respiratory rate 16 /min Jimbo Pike [facility] 07-23-2023 16:00-0400 Body temperature 97.52 [degF] Jimbo Pike [facility] 07-23-2023 11:00-0400 Heart rate 62 /min Jimbo Pike [facility] 07-23-2023 11:00-0400 Mean blood pressure 84 mm[Hg] Jimbo Pike [facility] 07-23-2023 08:00-0400 Body temperature 97.7 [degF] Jimbo Pike [facility] 07-23-2023 00:07-0400 Mean blood pressure 115 mm[Hg] Jimbo Pike [facility] 07-22-2023 11:35-0400 Body temperature 97.7 [degF] Jimbo Pike [facility] 07-22-2023 11:35-0400 Respiratory rate 15 /min Jimbo Pike [facility] 07-22-2023 11:25-0400 Respiratory rate 17 /min Jimbo Pike [facility] 07-22-2023 11:10-0400 Respiratory rate 16 /min Jimbovira Pike [facility] 07-22-2023 10:56-0400 Body temperature 97.88 [degF] Jimbo Brown [facility] 07-22-2023 07:15-0400 Heart rate 64 /min Jimbo Brown [facility] 07-09-2023 12:40-0400 Body temperature 98.6 [degF] SAHARA DANI [facility] 07-09-2023 12:40-0400 Diastolic blood pressure 82 mm[Hg] SAHARA DANI [facility] 07-09-2023 12:40-0400 Heart rate 71 /min SAHARA DANI [facility] 07-09-2023 12:40-0400 Respiratory rate 16 /min SAHARA DANI [facility] 07-09-2023 12:40-0400 Systolic blood pressure 131 mm[Hg] SAHARA DANI [facility] 07-07-2023 10:02-0400 Diastolic blood pressure 77 mm[Hg] Jimbo Brown [facility] 07-07-2023 10:02-0400 Heart rate 58 /min Jimbo Brown [facility] 07-07-2023 10:02-0400 Mean blood pressure 100 mm[Hg] Jimbo Brown [facility] 07-07-2023 10:02-0400 Systolic blood pressure 147 mm[Hg] Jimbo Brown [facility] 07-07-2023 10:01-0400 Heart rate 61 /min Jimbo Brown [facility] 07-07-2023 10:01-0400 SaO2% (BldA) [Mass fraction] 96 % Jimbo Pike [facility] 07-07-2023 10:01-0400 Body temperature 98.06 [degF] Jimbo Pike [facility] 07-07-2023 10:00-0400 Blood Pressure Location Jimbo Pike [facility] 07-07-2023 10:00-0400 Diastolic blood pressure 79 mm[Hg] Jimbo Pike [facility] 07-07-2023 10:00-0400 Mean blood pressure 98 mm[Hg] Jimbo Pike [facility] 07-07-2023 10:00-0400 Respiratory rate 16 /min Jimbo Pike [facility] 07-07-2023 10:00-0400 Systolic blood pressure 135 mm[Hg] Jimbo Pike [facility] 12-31-2022 14:13-0400 Blood Pressure Location Idris DUNCAN [facility] 12-31-2022 14:13-0400 Diastolic blood pressure 73 mm[Hg] Idris DUNCAN [facility] 12-31-2022 14:13-0400 Heart rate 63 /min Idris DUNCAN [facility] 12-31-2022 14:13-0400 Systolic blood pressure 153 mm[Hg] Idris DUNCAN [facility] 09-06-2022 14:20-0400 Body height 172.72 cm Zee Grant Other [facility] Other 09-06-2022 14:20-0400 Body mass index (BMI) [Ratio] 29.34 kg/m2 Zee Grant Other [facility] Other 09-06-2022 14:20-0400 Body temperature 98.2 [degF] Zee Grant Other [facility] Other 09-06-2022 14:20-0400 Body weight 87.54 kg Zee Grant Other [facility] Other 09-06-2022 14:20-0400 Diastolic blood pressure 64 mm[Hg] Zee Grant Other [facility] Other 09-06-2022 14:20-0400 Respiratory rate 18 /min Zee Grant Other [facility] Other 09-06-2022 14:20-0400 SaO2% (BldA) [Mass fraction] 97 % Zee Grant Other [facility] Other 09-06-2022 14:20-0400 Systolic blood pressure 122 mm[Hg] Zee Grant Other [facility] Other 06-25-2022 14:23-0400 Blood Pressure Location Idris DUNCAN [facility] 06-25-2022 14:23-0400 Diastolic blood pressure 83 mm[Hg] Idris DUNCAN [facility] 06-25-2022 14:23-0400 Heart rate 70 /min Idris DUNCAN [facility] 06-25-2022 14:23-0400 Systolic blood pressure 156 mm[Hg] Idris DUNCAN [facility] Encounters Encounter Date Encounter Type Care Provider Facility Start: 01-11-2024 ambulatory SAHARA Oliver ty:JONAH [place] Start: 10-15-2023 End: 10-15-2023 ambulatory JIMBO PIKE Not Available Start: 10-13-2023 End: 10-13-2023 ambulatory JIMBO A SHAHZAD Not Available Start: 10-05-2023 End: 10-05-2023 ambulatory FLORENCIO BRINK Not Available Start: 09-29-2023 End: 09-29-2023 ambulatory VIRGINIA PRINGLE Not Available Start: 09-21-2023 End: 09-21-2023 ambulatory [facility] Start: 09-16-2023 End: 09-16-2023 ambulatory FLORENCIO BRINK [...] to same day surgery center Jimbo Pike [facility] Start: 07-22-2023 End: 07-24-2023 ambulatory DO Jimbo Pike Facility:[facility] Start: 07-15-2023 End: 07-15-2023 ambulatory VIRGINIA PRINGLE Not Available Start: 07-09-2023 End: 07-09-2023 ambulatory SAHARA SUAREZ Facility:[facility] Start: 07-09-2023 End: 07-09-2023 Patient encounter procedure SAHARA SUAREZ [facility] Start: 07-07-2023 End: 07-07-2023 Patient encounter procedure Jimbo Pike [facility] Start: 07-07-2023 End: 07-07-2023 ambulatory JIMBO PIKE Not Available Start: 06-04-2023 End: 06-04-2023 ambulatory JIMBO PIKE Not Available Start: 06-04-2023 End: 06-04-2023 ambulatory JIMBO PIKE Not Available Start: 03-30-2023 End: 03-30-2023 ambulatory FLORY MCCRARY [facility] Start: 03-10-2023 End: 03-10-2023 ambulatory CHERYL Feliz BEJ Not Available Start: 03-02-2023 End: 03-02-2023 ambulatory JERRICA Baker APLING Not Available Start: 02-20-2023 End: 02-20-2023 ambulatory DEBBI ROBLERO Not Available Start: 02-16-2023 End: 02-16-2023 ambulatory JERRICA Baker APLING Not Available Start: 02-04-2023 End: 02-04-2023 ambulatory DEBBI Price HEMCORINNA Not Available Start: 12-31-2022 End: 12-31-2022 ambulatory Idris DUNCAN Facility:[facility] Start: 12-31-2022 End: 12-31-2022 ambulatory Idris DUNCAN Facility:[facility] Start: 12-31-2022 End: 12-31-2022 Patient encounter procedure Idris R DUNCAN [facility] Start: 12-05-2022 End: 12-05-2022 ambulatory SAHARA Nick SUAREZ Facility:[facility] Start: 12-05-2022 End: 12-05-2022 Patient encounter procedure EMRE DAVIS [facility] [place] Start: 10-22-2022 End: 10-22-2022 ambulatory [facility] Start: 09-06-2022 End: 09-06-2022 ambulatory Zee Grant Other [facility] Other Start: 09-06-2022 Office outpatient ne w 30 minutes Zee Grant [facility] Start: 06-25-2022 End: 06-25-2022 Patient encounter procedure Idris R PERLA [facility] Start: 2022 End: 2022 ambulatory Cheryl Arias Facility:[facility] Start: 2022 End: 2022 ambulatory II Emre Davis Work Phone: [facility] Work Phone: Start: 2022 End: 2022 Patient encounter procedure II Emre Davis Work Phone: [facility] [address] Start: 10-28-2021 End: 10-28-2021 Patient encounter procedure Idris DUNCAN [facility] Start: 10-01-2020 End: 10-02-2020 ambulatory FLORY MCCRARY Facility:[facility] Start: 09-19-2020 End: 09-20-2020 ambulatory FLORY MCCRARY Facility:[facility] Start: 05-22-2020 End: 05-23-[address] AMADEO METZ Facility:[facility] Start: 04-24-2020 End: 04-25-2020 ambulatory PAVEL CRUZ Facility:[facility] Start: 11-17-2019 End: 11-18-[address] EMRE DAVIS Facility:[facility] Start: 08-20-2017 End: 08-21-2017 Patient encounter PROVIDER UNKNOWN Facility:[facility] Start: 07-15-2017 End: 07-16-2017 Patient encounter PROVIDER UNKNOWN Facility:[facility] Procedures Date Procedure Procedure Detail Performing Clinician [...] unspecified formulation SAHARA SUAREZ [facility] 02-18-2022 influenza virus vaccine, unspecified formulation SAHARA SUAREZ [facility] 03-27-2021 SARS-CoV-2 (COVID-19 ) mRNA-1273 vaccine SAHARA SUAREZ [facility] 02-05-2021 influenza virus vaccine, unspecified formulation SAHARA SUAREZ [facility] 06-27-2020 SARS-CoV-2 (COVID-19 ) Ad26 vaccine, recombinant Idris DUNCAN [facility] 05-22-2020 SARS-CoV-2 (COVID-19 ) mRNA-1273 vaccine SAHARA DANI [facility] 05-02-2020 SARS-CoV-2 (COVID-19 ) Ad26 vaccine, recombinant Idris DUNCAN [facility] 04-24-2020 SARS-CoV-2 (COVID-19 ) mRNA-1273 vaccine SAHARA SUAREZ [facility] 02-28-2020 influenza virus vaccine, unspecified formulation SAHARA DANI [facility] 12-25-2018 influenza virus vaccine, unspecified formulation SAHARA DANI [facility] 01-20-2018 influenza virus vaccine, unspecified formulation SAHARA DANI [facility] 01-04-2018 influenza virus vaccine, unspecified formulation SAHARA DANI [facility] 01-08-2017 influenza virus vaccine, unspecified formulation SAHARA DANI [facility] 01-07-2016 influenza virus vaccine, unspecified formulation SAHARA DANI [facility] Payers Date Payer Category Payer Medicare [id number] 1960 Self-pay 1960 Unknown [id number] 1934 Unknown [id number] 2.16.840.1.593623.3.579.2.593 1934 Unknown [id number] 2.16.840.1.911183.3.579.2.593 1934 Unknown [id number] 2.16.840.1.338547.3.579.2.593 1934 Unknown [id number] 2.16.840.1.319528.3.579.2.1259 1934 Unknown [id number] 2.16.840.1.467877.3.579.2.1259 1934 Unknown [id number] 2.16.840.1.897268.3.579.2.1259 1934 Unknown [id number] 2.16.840.1.599115.3.579.2.1259 1934 Unknown [id number] 2.16.840.1.786705.3.579.2.1259 1934 Unknown [id number] 2.16.840.1.013738.3.579.2.125 1934 Unknown [id number] 2.16840.1.619591.3.579.2.125 1934 Unknown [id number] 2.16.840.1.230810.3.579.2.125 1934 Unknown [id number] 2.16.840.1.423047.3.579.2.125 1934 Unknown [id number] 2.16.840.1.239818.3.579.2.125 1934 Unknown [id number] 2.16.840.1.548958.3.579.2.125 1934 Unknown [id number] 2.16.840.1.296000.3.579.2.125 1934 Unknown [id number] 2.16.840.1.025477.3.579.2.125 1934 Unknown [id number] 2.16.840.1.452617.3.579.2.1259 1934 Unknown [id number] 2.16.840.1.597919.3.579.2.1259 1934 Unknown [id number] 2.16.840.1.508585.3.579.2.1259 1934 Unknown [id number] 2.16.840.1.071337.3.579.2.125 1934 Unknown [id number] 2.16.840.1.887494.3.579.2.125 1934 Unknown [id number] 2.16.840.1.893529.3.579.2.125 1934 Unknown [id number] 2.16.840.1.145672.3.579.2.125 1934 Unknown [id number] 2.16.840.1.435511.3.579.2.1258 1934 Unknown [id number] 2.16.840.1.065025.3.579.2.1258 1934 Unknown [id number] 2.16.840.1.736416.3.579.2.1258 1934 Unknown [id number] 2.16.840.1.988171.3.579.2.125 1934 Unknown [id number] 2.16.840.1.097760.3.579.2.125 1934 Unknown [id number] 2.16.840.1.464081.3.579.2.125 1934 Unknown [id number] 2.16.840.1.312502.3.579.2.125 1934 Unknown [id number] 2.16.840.1.301312.3.579.2.125 1934 Unknown [id number] 2.16.840.1.366710.3.579.2.125 1934 Unknown [id number] 2.16.840.1.066600.3.579.2.125 1934 Unknown [id number] 2.16.840.1.993518.3.579.2.1259 1934 Unknown [id number] 2.16.840.1.421726.3.579.2.1259 1934 Unknown [id number] 2.16.840.1.165634.3.579.2.1259 1934 Unknown [id number] 2.16.840.1.280091.3.579.2.1259 1934 Unknown [id number] 2.16.840.1.448259.3.579.2.1259 1934 Unknown [id number] 2.16.840.1.398778.3.579.2.1259 1934 Unknown [id number] 2.16.840.1.259061.3.579.2.72 1934 Unknown [id number] 2.16.840.1.416245.3.579.2.72 1934 Unknown [id number] 2.16.840.1.459960.3.579.2.72 1934 Unknown [id number] 2.16.840.1.979058.3.579.2.72 1934 Unknown [id number] 2.16.840.1.030297.3.579.2.72 1934 Unknown [id number] 2.16.840.1.912155.3.579.2.72 1934 Unknown [id number] 2.16.840.1.692683.3.579.2.72 1934 Unknown [id number] 2.16.840.1.135038.3.579.2.727 Medicare [id number] Private Health Insurance [facility] [id number] Unknown [id number] 2.16.840.1.349126.3.579.2.593 Unknown [id number] 2.16.840.1.914369.3.579.2.593 Unknown [id number] 2.16.840.1.609280.3.579.2.531 Social History Date Type Detail Facility Start: 04-29-2021 End: 07-09-2023 Tobacco smoking status Ex-smoker (finding) [facility] Sex Assigned At Male [facility] Start: 1935 Sex Assigned At Male [facility] Tobacco smoking status Never [facility] Medical Equipment Procedure Code Equipment Code [...] Facility 07-09-2023 Functional Status N/A [facility] 07-07-2023 Functional Status No [facility] 12-31-2022 Functional Status N/A [facility] 06-25-2022 Functional Status N/A [facility] Clinical Notes 10-01-2020 to 09-21-2023 Note Date & Type Note Facility 09-21-2023 Note [facility] Subjective Gualberto Cruz is a 88 [...] without heart failure Lumbar radiculopathy Osteoarthritis Other fpc (current) drug therapy Primary osteoarthritis of both [...] LAD, hyperlipidemia and hypertension. 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 He underwent attempt at PCI to the RCA MAST MAKER on 08/20/2017. There was inability to cross [...] Judgment: Judgment n (more content not included)... [facility] 07-24-2023 Evaluation + Plan note Extrac russ [...] Essential (primary) hypertension Atherosclerotic heart disease of [place] coronary artery without angina pectoris procedure: R [...] will handoff to Dr. Satish Walter in [place] tomorrow. Thank for the consultation 1. Chest pain (R07.9: Chest pain, unspecified) 2. CAD (coronary artery disease) (I25.10: Atherosclerotic heart disease of [place] coronary artery without angina pectoris) 3. BPH [...] artery disease) (I25.10: Atherosclerotic heart disease of [place] coronary artery without angina pectoris) See #1 [...] Date:01/14/2024 01:00:00 PM Scheduled Provider:SAHARA SUAREZ PA-C Location:[facility] Appointment Type:URO Office Visit [facility]05-03-2024 NotePatient: GUALBERTO CRUZ Age: 88 years Sex: [...] Essential (primary) hypertension Atherosclerotic heart disease of [place] coronary artery without angina pectoris procedure: R [...] 100 International_Unit, 1 tab(s), Oral, Every other dayMercer County Community HospitalComment on above:Result Comment: Electronically Signed By: Jimbo Pike DO\Date and Time Signed: 07/24/23 13:13 [id number] NoteReason for Consultation Chest pain History of Present Illness 88-year-old with history of CAD and prior PCI. Unknown left ventricular systolic function. Patient is followed by physician in [place]. Patient has been cleared by [facility]ish cooker in [place] for knee surgery and underwent surgery yesterday. [...] will handoff to Dr. Satish Walter in [place] tomorrow. Thank for the consultation 1. Chest pain (R07.9: Chest pain, unspecified) 2. CAD (coronary artery disease) (I25.10: Atherosclerotic heart disease of [place] coronary artery without angina pectoris) 3. 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 It is therefore advised not to drive until after yourfirst office visit following surgery. FOLLOW-UP OFFICE VISIT: Jimbo Pike, DO [facility] [address] [place] [id number] Reviewed: 08-12 Follow Up Care 06/04/2023 14:01:58 With:EMRE DAVIS Address: [address] [place] [id number] Business (1) When: Unknown Comments:Call for followup appointment With:Jimbo Pike Address: [address] [place] [id number] Business (1) When:08/06/2023 10:30:00 [facility]05-01-2024 NotePT Evaluation completed with an [facility] score of . Pt was able to perform bed mobility with Min A and transfers with CGA/Min A. Pt also able to take 4 steps with FWW. Will follow and progress tomorrow. Will provide recommendations on POD # 1Fyaniv [facility]05-01-2024 NoteOT evaluation complete. [facility] 6 clicks =HH services. Pt requires max A for LE ADL tasks and min A for commode transfers at this time. OT to follow daily to progress as Pt tolerates.Rick [facility] 07-21-2023 [id number] [facility]04-18-2024 Hospital Discharge instructions Patient Education 07/09/2023 13:21:20 Urinary Tract Infection, Adult, Trfd-az-Zxai Urinary Tract Infection, Adult A urinary tract [...] Follow these instructions at home: Medicines Take zpvo-ypm-hdraiil and prescription medicines only as told by [...] provider. Document Revised: 10/19/2020 Document Reviewed: 10/19/2020 [employer] Patient Education 2022 Clifford Thames. Follow Up Care 12/31/2022 15:11:38 With:DANI LINO, SAHARA Romero, URL Address: [address] [place] [address] [phone] When: Unknown [facility] [id number] NoteCoronary artery disease is stable- no worsening symptoms Continue GDMT- ASA, lipitor, coreg and ranexa continue risk factor modifications- heart healthy diet, regular exercise as tolerated and continue all medications.[facility] 03-30-2023 NoteHypertension is stable, 136/74 [facility]2024 NoteLipid abnormalities are Stable Continue lipitor 10 mgUnC[facility]-2024 NoteUTP CARDIOLOGY PROGRESS NOTE HPI: Gualberto Cruz [...] LAD, hyperlipidemia and hypertension. 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 He underwent attempt at PCI to the RCA MAST MAKER on 08/20/2017. There was inability to cross [...] blood testing from 08/2015 (more content not included)...[facility]01-08-2024 NotePatient here for 6 mo follow up [...] heartburn. All other systems reviewed and are negative.[facility] 12-31-2022 Hospital Discharge instructions Patient Education 12/31/2022 [...] Treatment for this condition includes: Antibiotic medicine. Zzsu-wnq-tkcmxcq medicines to treat discomfort. Drinking enough water [...] Follow these instructions at home: Medicines Take zjmm-bej-rpykmyh and prescription medicines only as told by [...] provider. Document Revised: 10/19/2020 Document Reviewed: 10/19/2020 [employer] Patient Education 2022 Clifford Thames. Follow Up Care 06/25/2022 15:56:59 With:PERLA PARKERIdris, URL Address: [facility] [address] [place] [address]- When: Unknown [facility] 08-02-2023 NoteUT Cardiology - [facility] Subjective Gualberto Cruz is a [...] LAD, hyperlipidemia and hypertension. 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 He underwent attempt at PCI to the RCA MAST MAKER on 08/20/2017. There was inability to cross [...] Rfl: pantoprazole (ProtoNix) 4 (more content not included)...[facility]06-17-2023 Evaluation note* Encounter Date Diagnosis Assessment Notes [...] ox is stable. May use Mucinex DM vxvo-nss-pkhukqk. Advised to follow-up with PCP in the next 4 to 6 days for recheck, sooner ER if significantly worsening symptoms such as shortness of breath, wheezing, high fevers. Patient and daughter verbalized understanding of treatment plan. [facility] Other 04-05-2023 Hospital Discharge instructions Patient Education [...] urethra. Follow these instructions at home: Take dtuj-fxj-ukxsxcg and prescription medicines only as told by [...] 03/09/2006 Document Revised: 02/01/2019 Document Reviewed: 04/13/2017 [employer] Patient Education [email or web address]. Follow Up Care 06/12/2022 09:41:31 With:Idris DUNCAN MD, URL Address: [facility] [address] [place] [address]- When: Unknown [facility] 02-07-2022 Hospital Discharge instructions Follow Up Care 04/29/2021 12:19:22 With:Idris DUNCAN MD, URL Address: [facility] [address] [place] [address] [phone] When: Unknown [facility] 07-12-2021 NoteCARDIAC STRESS TEST Procedure Date: 10-01-20 [...] interpreted and reported in a separate dictation. [facility] Signed and Approved by: DR JAZZ MATSON 10/31/2020 11:31:00[facility] No data available for this section [facility] evaluation + Plan note Future Appointments Appointment Date:12/31/2022 02:15:00 PM Scheduled Provider:Idris DUNCAN MD Location:[facility] Appointment Type:URO Office Visit [facility] Evaluation + Plan note Future Appointments Appointment Date:07/08/2023 02:30:00 PM Scheduled Provider:Idris DUNCAN MD Location:[facility] Appointment Type:URO Office Visit [facility] Evaluation + Plan note Future Appointments Appointment Date:07/09/2023 12:40:00 PM Scheduled Provider:SAHARA SUAREZ PA-C Location:[facility] Appointment Type:URO Office Visit Appointment Date:07/22/2023 01:10:00 PM Scheduled Provider: Location:[facility] Future Appointments Appointment Date:07/22/2023 01:10:00 PM Scheduled Provider: Location:[facility] Appointment Type:Surgery FT Appointment Date:01/14/2024 01:00:00 PM Scheduled Provider:SAHARA SUAREZ PA-C Location:[facility] Appointment Type:URO Office Visit [facility] Evaluation noteNo assessment information available [facility] Work Phone: Hisiuth general Narrative - Reported* Type Description Date [...] heart cath 07/2017 Hospitalization History see above [facility] Discharge instructions No data available for this section [facility] progress note No data available for this section [facility] Summary Purpose Family History No [...] section and content) DATE CREATED AUTHOR 12/29/[address] [facility] DATE CREATED AUTHOR AUTHOR'S ORGANIZ ATION 11/15/2020 [facility] DATE CREATED AUTHOR AUTHOR'S ORGANIZ ATION 07/25/2021 [facility] DATE CREATED AUTHOR AUTHOR'S ORGANIZ ATION 03/15/2022 [facility] DATE CREATED AUTHOR AUTHOR'S ORGANIZ ATION 09/22/2023 [facility] DATE CREATED AUTHOR AUTHOR'S ORGANIZ ATION 10/15/2023 [facility] EPIC DATE CREATED AUTHOR AUTHOR'S ORGANIZ ATION 10/24/2023 [facility] Care Team (unrecognized sect ion and content) [...] BE BASED ON THE PRIMARY CLINICAL RECORDS. [facility], [facility]. provides no warranty or guarantee of the accuracy or completeness of information in this document.
[2023-11-17] MEDS: ONDANSETRON PF 4 MG/2 ML VIAL IV (01:12)
[2023-11-17 05:52] LABS: Basophils Percent Auto 0.2 % (0.2-2.0); Hematocrit 33.2 % (42.0-54.0); Hemoglobin 10.9 g/dL (14.0-18.0); Immature Granulocytes Abs Auto 0.01 10^3/uL (0.00-0.03); Immature Granulocytes Pct Auto 0.2 % (0.0-0.5); Lymphocytes Absolute Auto 0.5 10^3/uL (1.2-3.8); Lymphocytes Percent Auto 8.2 % (20.5-60.0); Mean Corpuscular HGB Conc 32.8 g/dL (29.9-35.2); Mean Corpuscular Hemoglobin 31.6 pg (25.9-34.0); Mean Corpuscular Volume 96.2 fL (80.0-94.0); Mean Platelet Volume 11.2 fL (9.5-13.5); Monocytes Absolute Auto 0.5 10^3/uL (0.3-0.8); Neutrophils Percent Auto 83.4 % (43.0-75.0); Platelet Count 87 10^3/uL (150-450); Red Blood Count 3.45 10^6/uL (4.70-6.10); Red Cell Distribution Width 13.8 % (11.0-15.0)
[2023-11-17 06:08] LABS: Alanine Aminotransferase 21 U/L (16-63); Albumin Level 2.7 g/dL (3.4-5.0); Alkaline Phosphatase 81 U/L (46-116); Anion Gap 12.2; Aspartate Amino Transferase 31 U/L (15-37); BUN Creatinine Ratio 13.5; Bilirubin Total 0.9 mg/dL (0.2-1.0); Calcium 7.9 mg/dL (8.5-10.1); Carbon Dioxide 26.2 mmol/L (21.0-32.0); Chloride 103 mmol/L (98-107); Estimated GFR (African America >60 (>=60); Estimated GFR (Non-African Ame 54 (>=60); Glucose 125 mg/dL (74-106); Magnesium 1.8 mg/dL (1.8-2.4); Phosphorus 4.3 mg/dL (2.6-4.7); Potassium 4.4 mmol/L (3.5-5.1); Sodium 137 mmol/L (136-145); Total Protein 5.6 g/dL (6.4-8.2)
[2023-11-17 06:09] LABS: Albumin Globulin Ratio 0.9; Globulin 2.9 g/dL
--- NOTE | 2023-11-17 08:49 | PM.HP ---
HPI H&P: HPI History of Present Illness Chief complaint: CP UTI AMS FEVER Narrative: Patient is a 88 year old male with past medical history of neurogenic bladder requiring Self Catheterization, HTN, CAD, GERD. Per ER notes he was brought to the ER for confusion and some chest pain. Patient states that his ranolazine causes severe constipation so he quit taking it for a several days and thought that was his issue. He was found to have UTI. Patient had a fever (103), chills. ER findings: Lactate 2.2, temp 103, Cr 1.[address] that showed bladder stranding concerning for cystitis. Urine culture and blood cultures were obtained, sepsis protocol and treatment with rocephin. This morning Patient feels tremendously better. He is A&O x 3. He is joking, has no complaints and asks when he can go home. he denies any chest pain, shortness of breath or fevers. Opioid HPI Opioid Management Most Recent Pain and Opioid Data: Last Pain Assessment 11/17/23 11:13 Last ED Pain Assessment 11/16/23 22:55 Last ORT Total Score 0 11/17/23 09:04 Last ORT Risk Category Low Risk 11/17/23 09:04 Review of Systems ROS Narrative ROS: a complete review of systems were reviewed with patient and are positive as below or listed in History of Chief Complaint. General:fever, chills, no night sweats Head: no headache, trauma, visual changes, nausea or vomiting Skin: no reported rashes, itching or sores Eyes: no blurriness of vision Ears: no reported hearing loss, vertigo, earache, or tinnitus Throat: no sore throat, hoarseness, swelling of neck, or tongue pain Heart: no chest pain Lungs: no shortness of breath or cough GI: no diarrhea or vomiting/nausea Urinary: no urinary urgency, frequency or pain Neuro: no numbness or tingling HEM: no bleeding issues or bruising ENDO: no thyroid problems Psych: no anxiety or depression [facility] Medical History (Updated 11/17/23 @ 11:26 by Anju Campbell DO) Chest pain ?R07.9 - Chest pain, unspecified (ICD-10) Hyperlipidemia ?E78.5 - Hyperlipidemia, unspecified (ICD-10) Self-catheterizes urinary bladder ?Z78.9 - Other specified health status (ICD-10) Urinary retention ?R33.9 - Retention of urine, unspecified (ICD-10) Enlarged prostate ?N40.0 - Benign prostatic hyperplasia without lower urinary tract symptoms (ICD-10) Hypertension ?I10 - Essential (primary) hypertension (ICD-10) Surgical History Hx of tonsillectomy ?Z90.89 - Acquired absence of other organs (ICD-10) Previous back surgery ?Z98.890 - Other specified postprocedural states (ICD-10) History of left heart catheterization ?Z98.890 - Other specified postprocedural states (ICD-10) H/O right heart catheterization ?Z98.890 - Other specified postprocedural states (ICD-10) Social History Within the past year, how often did you have a drink containing alcohol: never Within the past year, how often did you have six or more drinks on one occasion: never Score interpretation: A score less than 4 is consistent with normal alcohol consumption. Smoking status: Former smoker Non-prescribed substance use: denies use Previous occupational history: retired Highest level of school completed/degree received: 8th grade Are you now , , , , never or living with a partner: In a typical week, how many times do you talk on the telephone with family, friends, or neighbors: 3 or more times per week How often do you get together with friends or relatives: 3 or more times per week Little interest or pleasure in doing things: not at all Feeling down, depressed, or hopeless: not at all Feel stressed/tense/nervous/anxious/difficulty sleeping: not at all Do you think of yourself as: straight/heterosexual Gender Identity: male Meds Home Medications and Allergies Home Medications ?Medication ?Instructions ?Recorded ?Confirmed ?Type aspirin 81 mg tablet,delayed 81 mg PO DAILY 11/16/23 11/16/23 History release atorvastatin 10 mg tablet 10 mg PO DAILY 11/16/23 11/16/23 History carvedilol 6.25 mg tablet 6.25 mg PO BID 11/16/23 11/16/23 History losartan 50 mg tablet 50 mg PO DAILY 11/16/23 11/16/23 History nitroglycerin 0.4 mg sublingual 0.4 mg sublingual Q5M PRN chest 11/16/23 11/16/23 History tablet pain pantoprazole 40 mg tablet,delayed 40 mg PO DAILY 11/16/23 11/16/23 History release ranolazine 500 mg tablet,extended 500 mg PO Q12H 11/16/23 11/16/23 History release,12 hr tamsulosin 0.4 mg capsule 0.8 mg PO Q24H 11/16/23 11/17/23 History amlodipine 2.5 mg tablet 2.5 mg PO .qd 11/17/23 11/17/23 History Allergies Allergy/AdvReac Type Severity Reaction Status Date / Time bee pollen AdvReac Unknown Anaphylaxis Verified 11/16/23 19:46 ciprofloxacin AdvReac Unknown Unknown Verified 11/16/23 19:46 Penicillins AdvReac Unknown Unknown Verified 11/16/23 19:46 Exam Narrative Exam Narrative: General: Patient is alert, and oriented to person, place and time with normal affect, proper hygiene Skin: no visible rashes, or ulcers Head: atraumatic, acephalic Eyes: PERRLA, no nystagmus present, conjunctiva clear, no scleral icterus Ears: diminished gross auditory acuity Neck: no masses palpated Heart: Normal rate and rhythm, no murmurs/rubs/gallops Lungs: no audible wheezes, crackles and normal breath sounds all lung luke Abdomen: Normal audible bowel sounds, no distension, No palpable masses, no organomegaly, no rebound/guarding/ or rigidity Musculoskeletal: no swelling bilateral lower extremities Neuro: CN II-X grossly intact Constitutional Vital Signs, click to edit/add: Last Vital Signs Temp 97.6 F 11/17/23 07:38 Pulse 59 L 11/17/23 08:00 Resp 16 11/17/23 07:38 BP 101/58 11/17/23 07:38 Pulse Ox 91 L 11/17/23 07:38 O2 Del Method Room Air 11/17/23 07:38 Results Labs Labs: Short CBC 11/16/23 11/17/23 Range/Units 19:05 05:05 WBC 6.6 6.0 (4.0-11.0) 10^3/uL Hgb 12.4 L 10.9 L (14.0-18.0) g/dL Hct 36.9 L 33.2 L (42.0-54.0) % Plt Count 81 L 87 L (150-450) 10^3/uL BMP 11/16/23 11/17/23 19:50 05:07 Sodium 138 137 Potassium 4.2 4.4 Chloride 100 103 Carbon Dioxide 25.4 26.2 BUN 19.0 H 17.0 Creatinine 1.36 H 1.26 Glucose 123 H 125 H Calcium 8.6 7.9 L Liver Function 11/16/23 11/17/23 Range/Units 19:50 05:07 Total Bilirubin 1.4 H 0.9 (0.2-1.0) mg/dL AST 20 31 (15-37) U/L ALT 23 21 (16-63) U/L Alkaline Phosphatase 108 81 (46-116) U/L Albumin 3.3 L 2.7 L (3.4-5.0) g/dL Urine 11/16/23 Range/Units 20:40 Urine Color Lt. yellow (YELLOW) Urine Clarity Clear (CLEAR) Urine pH 6.0 (5.0-9.0) Ur Specific [place] 1.020 (1.005-1.025) Urine Protein Trace (NEG/TRACE) mg/dL Urine Glucose (UA) Negative (NEGATIVE) mg/dL ABG ABG results: 11/16/23 19:05 VBG pH 7.433 H VBG pCO2 35.9 L Assessment and Plan Assessment and Plan (1) Sepsis: Assessment and Plan: tachycardia, fever 103, elevated lactate 2.2, elevated Cr 1.36; Patient was given IVF, blood and urine cultures pending, also started on Rocephin as presumed cause was UTI. He feels much better this morning. He has been afebrile, tachycardia resolved and lactate normal, Cr 1.26. Qualifiers: Sepsis type: sepsis due to unspecified organism Sepsis acute organ dysfunction status: with acute organ dysfunction Severe sepsis acute organ dysfunction type: acute renal failure Acute renal failure type: unspecified Severe sepsis shock status: without septic shock Qualified Code(s): A41.9 - Sepsis, unspecified organism; R65.20 - Severe sepsis without septic shock; N17.9 - Acute kidney failure, unspecified (2) Acute cystitis without hematuria: Assessment and Plan: CT evidence of cystitis, continue Rocephin. Will be discharged home on Keflex. he follows with Dr. Rangel, Urology as outpatient (3) Hyperlipidemia: Assessment and Plan: continue statin Qualifiers: Hyperlipidemia type: unspecified Qualified Code(s): E78.5 - Hyperlipidemia, unspecified (4) Hypertension: Assessment and Plan: continue amlodipine, coreg, ranolazine Qualifiers: Hypertension type: primary hypertension Qualified Code(s): I10 - Essential (primary) hypertension (5) Enlarged prostate: Assessment and Plan: continue flomax (6) Self-catheterizes urinary bladder: Assessment and Plan: has been doing this for 20 years Plan Patient is a full code Heparin for DVT prophylaxis Patient is inpatient status but recovered faster than anticipated with IVF and antibiotics and this morning sepsis has improved/resolved. Most likely discharge home today with outpatient follow up and oral antibiotics. Will need to follow up on Urine culture results.
[2023-11-17] MEDS: HEPARIN SODIUM (PORCINE) 5,000 UNIT/ML VIAL 5000 UNIT SUBQ (08:58)
[2023-11-17] MEDS: RANOLAZINE 500 MG TAB.ER.12H PO (08:58)
[2023-11-17] MEDS: OMEPRAZOLE 40 MG CAPSULE.DR PO (08:58)
[2023-11-17] MEDS: TAMSULOSIN HCL 0.4 MG CAPSULE 0.8 MG PO (08:58)
[2023-11-17] MEDS: ASPIRIN 81 MG TABLET.DR PO (08:58)
[2023-11-17] MEDS: ATORVASTATIN CALCIUM 10 MG TABLET PO (08:58)
[2023-11-17] MEDS: LACTATED RINGER'S SOLUTION 1,000 ML 50 ML IV (08:59)
--- NOTE | 2023-11-17 09:30 | CM.NOTE ---
Rounds made with Dr. Campbell, discussed with pt diagnosis and morning lab results. Dr. Campbell talked with pt about possible discharge to home tomorrow. Pt verbalizes he would like to discharge today if possible, has dementia and he is concerned with her being home. Dr. Campbell will check pt this afternoon and possibly discharge to home.
--- NOTE | 2023-11-17 11:08 | SWNOTE1 ---
SW spoke to case management and pt lives at home with his who has Dementia. Pt is independent and still drives. Possible discharge later today and pt has no needs at discharge.
--- NOTE | 2023-11-17 11:20 | CM.NOTE ---
Important Message From Medicare discussed with pt, pt verbalizes understanding and signs paper. Original given to pt and copy placed on pt's chart.
--- NOTE | 2023-11-17 11:34 | P.DS_ITS ---
DS: Providers Provider Date of admission: 11/17/23 00:54 Primary care physician: TAQUERIA GRAYSON Admitting clinician: Mary Kate Holm Discharging clinician: Anju Campbell DS: Diagnosis Discharge Diagnosis (1) Sepsis: Qualifiers: Sepsis type: sepsis due to unspecified organism Sepsis acute organ dysfunction status: with acute organ dysfunction Severe sepsis acute organ dysfunction type: acute renal failure Acute renal failure type: unspecified Severe sepsis shock status: without septic shock Qualified Code(s): A41.9 - Sepsis, unspecified organism; R65.20 - Severe sepsis without septic shock; N17.9 - Acute kidney failure, unspecified (2) Acute cystitis without hematuria: (3) Hyperlipidemia: Qualifiers: Hyperlipidemia type: unspecified Qualified Code(s): E78.5 - Hyperlipidemia, unspecified (4) Hypertension: Qualifiers: Hypertension type: primary hypertension Qualified Code(s): I10 - Essential (primary) hypertension (5) Enlarged prostate: (6) Self-catheterizes urinary bladder: DS: Summary Hospital Course Hospital Course: please see H&P dated 11/17/23; Will be treated with keflex 500mg BID x 7 days. Can follow up urine culture with PCP. Given 2nd dosage of Rocephin prior to discharge. Patient recovered faster than anticipated. Status at Discharge Functional status at discharge: independent ambulation Time Spent with Patient Time attestation: Total time spent providing and/or coordinating discharge services: Time spent: greater than 30 minutes Exam Narrative Exam Narrative: unchanged from H&P exam dated 11/17/23 Constitutional Vital Signs, click to edit/add: Last Vital Signs Temp 97.6 F 11/17/23 07:38 Pulse 60 11/17/23 10:00 Resp 16 11/17/23 07:38 BP 101/58 11/17/23 07:38 Pulse Ox 93 L 11/17/23 10:24 O2 Del Method Room Air 11/17/23 10:24 DS: Data Data Completed and Pending Labs on day of discharge: Labs from last 24 hours 11/17/23 11/17/23 11/16/23 05:07 05:05 21:40 WBC 6.0 RBC 3.45 L Hgb 10.9 L Hct 33.2 L MCV 96.2 H MCH 31.6 MCHC 32.8 RDW 13.8 Plt Count 87 L MPV 11.2 Neut % (Auto) 83.4 H Lymph % (Auto) 8.[address] [place] % (Auto) 8.0 Eos % (Auto) 0.0 L Baso % (Auto) 0.2 Neut # (Auto) 5.0 Lymph # (Auto) 0.[address] [place] # (Auto) 0.5 Eos # (Auto) 0.0 Baso # (Auto) 0.0 Abs Immat Gran (auto) 0.01 Imm/Tot Granulo (auto) 0.2 PT INR APTT VBG pH VBG pCO2 Sodium 137 Potassium 4.4 Chloride 103 Carbon Dioxide 26.2 Anion Gap 12.2 BUN 17.0 Creatinine 1.26 Est GFR ( Amer) >60 Est GFR (Non-Af Amer) 54 L BUN/Creatinine Ratio 13.5 Glucose 125 H Lactate 1.6 Calcium 7.9 L Phosphorus 4.3 Magnesium 1.8 Total Bilirubin 0.9 AST 31 ALT 21 Alkaline Phosphatase 81 Troponin I High Sens NT-Pro-B Natriuret Pep Total Protein 5.6 L Albumin 2.7 L Globulin 2.9 Albumin/Globulin Ratio 0.9 Urine Color Urine Clarity Urine pH Ur Specific [place] Urine Protein Urine Glucose (UA) Urine Ketones Urine Occult Blood Urine Nitrite Urine Bilirubin Urine Urobilinogen Ur Leukocyte Esterase Urine RBC Urine WBC Ur Squamous Epith Cells Urine Crystals Urine Bacteria Urine Casts Urine Mucus Ur Culture Indicated? Influenza Type A Ag Influenza Type B Ag SARS-CoV-2 Ag (CV2AG) 11/16/23 11/16/23 11/16/23 20:40 19:51 19:50 WBC RBC Hgb Hct MCV MCH MCHC RDW Plt Count MPV Neut % (Auto) Lymph % (Auto) [place] % (Auto) Eos % (Auto) Baso % (Auto) Neut # (Auto) Lymph # (Auto) [place] # (Auto) Eos # (Auto) Baso # (Auto) Abs Immat Gran (auto) Imm/Tot Granulo (auto) PT 11.8 H INR 1.13 APTT 26.2 VBG pH VBG pCO2 Sodium 138 Potassium 4.2 Chloride 100 Carbon Dioxide 25.4 Anion Gap 16.8 BUN 19.0 H Creatinine 1.36 H Est GFR ( Amer) 60 Est GFR (Non-Af Amer) 49 L BUN/Creatinine Ratio 14.0 Glucose 123 H Lactate Calcium 8.6 Phosphorus Magnesium Total Bilirubin 1.4 H AST 20 ALT 23 Alkaline Phosphatase 108 Troponin I High Sens 8.5 NT-Pro-B Natriuret Pep 590.0 Total Protein 6.8 Albumin 3.3 L Globulin 3.5 Albumin/Globulin Ratio 0.9 Urine Color Lt. yellow Urine Clarity Clear Urine pH 6.0 Ur Specific [place] 1.020 Urine Protein Trace Urine Glucose (UA) Negative Urine Ketones Negative Urine Occult Blood Moderate A Urine Nitrite Negative Urine Bilirubin Negative Urine Urobilinogen 0.2 Ur Leukocyte Esterase Small A Urine RBC None seen Urine WBC 20-50 A Ur Squamous Epith Cells None seen Urine Crystals None seen Urine Bacteria Large A Urine Casts None seen Urine Mucus Small A Ur Culture Indicated? Yes Influenza Type A Ag Negative Influenza Type B Ag Negative SARS-CoV-2 Ag (CV2AG) Negative 11/16/23 19:05 WBC 6.6 RBC 3.91 L Hgb 12.4 L Hct 36.9 L MCV 94.4 H MCH 31.7 MCHC 33.6 RDW 13.4 Plt Count 81 L MPV 11.4 Neut % (Auto) 89.5 H Lymph % (Auto) 6.[address] [place] % (Auto) 3.2 Eos % (Auto) 0.6 L Baso % (Auto) 0.3 Neut # (Auto) 5.9 Lymph # (Auto) 0.[address] [place] # (Auto) 0.2 L Eos # (Auto) 0.0 Baso # (Auto) 0.0 Abs Immat Gran (auto) 0.01 Imm/Tot Granulo (auto) 0.2 PT INR APTT VBG pH 7.433 H VBG pCO2 35.9 L Sodium Potassium Chloride Carbon Dioxide Anion Gap BUN Creatinine Est GFR ( Amer) Est GFR (Non-Af Amer) BUN/Creatinine Ratio Glucose Lactate 2.2 H* Calcium Phosphorus Magnesium Total Bilirubin AST ALT Alkaline Phosphatase Troponin I High Sens NT-Pro-B Natriuret Pep Total Protein Albumin Globulin Albumin/Globulin Ratio Urine Color Urine Clarity Urine pH Ur Specific [place] Urine Protein Urine Glucose (UA) Urine Ketones Urine Occult Blood Urine Nitrite Urine Bilirubin Urine Urobilinogen Ur Leukocyte Esterase Urine RBC Urine WBC Ur Squamous Epith Cells Urine Crystals Urine Bacteria Urine Casts Urine Mucus Ur Culture Indicated? Influenza Type A Ag Influenza Type B Ag SARS-CoV-2 Ag (CV2AG) Discharge Plan Discharge Disposition: Home, Self-Care Condition: Fair Discharge Medications: New cephalexin 500 mg capsule 500 mg PO BID 7 Days Qty: 14 0RF Continued aspirin 81 mg tablet,delayed release (DR/EC) 81 mg PO DAILY atorvastatin 10 mg tablet 10 mg PO DAILY carvedilol 6.25 mg tablet 6.25 mg PO BID losartan 50 mg tablet 50 mg PO DAILY nitroglycerin 0.4 mg tablet, sublingual 0.4 mg sublingual Q5M PRN (Reason: chest pain) pantoprazole 40 mg tablet,delayed release (DR/EC) 40 mg PO DAILY ranolazine 500 mg tablet extended release 12 hr 500 mg PO Q12H tamsulosin 0.4 mg capsule 0.8 mg PO Q24H amlodipine 2.5 mg tablet 2.5 mg PO .qd Activity: increase activity as tolerated Diet: advance to your usual diet Print Language: Chinese Forms: Portal Instructions Follow Up Appointments: Please follow up with PCP 5-7 days
[2023-11-17] MEDS: CEFTRIAXONE 1,000 MG in 0.9 % SODIUM CHLORIDE 50 ML 100 MG IV (14:59)
--- NOTE | 2023-11-18 14:20 | CM.DCFOLLOWU ---
1st attempt 11/18/23, no answer
--- NOTE | 2023-11-19 13:17 | CM.DCFOLLOWU ---
2nd attempt 11/19/23, no answer
--- NOTE | 2023-11-20 13:18 | CM.DCFOLLOWU ---
3rd attempt 11/20/23, no answer
== END 2023-11-17 16:08 | disposition home or self-care (01) | DRG 872 ==
LOC: ER 11-17 00:26 → MS 11-17 00:58
PROVIDERS: Nurse Practitioner Family; Registered Nurse; Admitting Provider Family Medicine; Emergency Provider Emergency Medicine; PCP Internal Medicine; Visit Provider Family Medicine
DX: A41.59 Other Gram-negative sepsis (principal); N17.9 Acute kidney failure, unspecified; N30.00 Acute cystitis without hematuria; R65.20 Severe sepsis without septic shock; E78.5 Hyperlipidemia, unspecified; I10 Essential (primary) hypertension; N40.0 Benign prostatic hyperplasia without lower urinary tract symptoms; N31.9 Neuromuscular dysfunction of bladder, unspecified; K21.9 Gastro-esophageal reflux disease without esophagitis; I25.10 Atherosclerotic heart disease of native coronary artery without angina pectoris; Z20.822 Contact with and (suspected) exposure to COVID-19; Z87.891 Personal history of nicotine dependence; Z79.82 Long term (current) use of aspirin; Z79.899 Other long term (current) drug therapy; Z78.9 Other specified health status
CPT/HCPCS: 36415; 70450; 71045; 71260; 74177; 80053; 81001; 82800; 83605; 83735; 83880; 84100; 84484; 85025; 85610; 85730; 87040; 87086; 87150; 87186; 87804; 87811; 93005; 94761; 96365; 96366; 96372; 96375; 96376; 99285; J0696; J1644; J2270; J2405; Q9967